=== PATIENT | female | born 2000 | race Caucasian/White ===

== ENCOUNTER 2024-03-18 16:23 | Outpatient (OUT) | payer OTHER, SELFPAY ==
[2024-03-18 17:38] LABS: BOX Test Reference Lab UNITY; BOX Test Sent Out UNITY
[2024-03-18 17:44] LABS: Basophils Percent Auto 0.6 % (0.2-2.0); Eosinophils Absolute Auto 0.1 10^3/uL (0.0-0.7); Eosinophils Percent Auto 1.3 % (0.9-7.0); Hematocrit 36.7 % (36.0-48.0); Hemoglobin 12.6 g/dL (12.0-16.0); Immature Granulocytes Abs Auto 0.01 10^3/uL (0.00-0.03); Immature Granulocytes Pct Auto 0.1 % (0.0-0.5); Lymphocytes Percent Auto 30.4 % (20.5-60.0); Mean Corpuscular HGB Conc 34.3 g/dL (29.9-35.2); Mean Corpuscular Hemoglobin 29.4 pg (26.7-34.0); Mean Corpuscular Volume 85.5 fL (81.0-99.0); Mean Platelet Volume 10.5 fL (9.5-13.5); Monocytes Absolute Auto 0.5 10^3/uL (0.3-0.8); Monocytes Percent Auto 7.6 % (1.7-12.0); Platelet Count 280 10^3/uL (150-450); Red Blood Count 4.29 10^6/uL (4.20-5.40); Red Cell Distribution Width 12.5 % (11.0-15.0); White Blood Count 6.7 10^3/uL (4.0-11.0)
[2024-03-18 17:58] LABS: Estimated Average Glucose 97 mg/dL
[2024-03-18 18:08] LABS: Amphetamine Screen Urine NEGATIVE (NEGATIVE); Barbiturates Screen Urine NEGATIVE (NEGATIVE); Benzodiazepines Screen Urine NEGATIVE (NEGATIVE); Buprenorphine Screen Urine NEGATIVE (NEGATIVE); Cannabinoid Screen Urine NEGATIVE (NEGATIVE); Cocaine Screen Urine NEGATIVE (NEGATIVE); Methadone Screen Urine NEGATIVE (NEGATIVE); Methamphetamines Screen Urine NEGATIVE (NEGATIVE); Opiate Screen Urine NEGATIVE (NEGATIVE); Oxycodone Screen Urine NEGATIVE (NEGATIVE); Phencyclidine Screen Urine NEGATIVE (NEGATIVE); Tricyclic Antidepressant Urine NEGATIVE (NEGATIVE)
[2024-03-20 06:12] LABS: HBsAg Screen Negative (Negative); HCV Ab Non Reactive (Non Reactive); HIV Ab/p24 Ag Screen Non Reactive (Non Reactive); Rubella Antibodies, IgG 2.36 index (Immune >0.99)
[2024-03-20 08:10] LABS: Progesterone 18.7 ng/mL (.)
[2024-03-20 13:07] LABS: Rapid Plasma Reagin, Quant Non Reactive titer (NonRea<1:1)
== END 2024-03-18 16:24 | disposition home or self-care (01) ==
LOC: LAB 16:30
PROVIDERS: PCP Obstetrics & Gynecology; Visit Provider Obstetrics & Gynecology
DX: Z34.01 Encounter for supervision of normal first pregnancy, first trimester (principal); Z36.0 Encounter for antenatal screening for chromosomal anomalies; N92.6 Irregular menstruation, unspecified; R11.2 Nausea with vomiting, unspecified; Z3A.08 8 weeks gestation of pregnancy
CPT/HCPCS: 36415; 80307; 83036; 84144; 85025; 86592; 86762; 86803; 86850; 86900; 86901; 87086; 87340; 87389

== ENCOUNTER 2024-05-06 20:35 | Outpatient (REF) | payer OTHER, SELFPAY ==
--- OUTSIDE RECORDS SUMMARY | 2024-05-06 20:39 | XMS_ITS | CCD ---
Author Organization [facility] Inform ion Partnership MEDICATION AID [facility] Care Team Providers Care Art Editor Name Role Phone Unavailable Primary Care Provider Unavailabl e Medications Current Medications Medication Drug Class(es) Dates Sig (Normalized) Sig (Original) ferrous gluconate (5 sources) Ferrous Gluconat e (IRON 27 PO) Take by mouth Active magnesium oxide 400 mg oral tablet (2 sources) Start: 03-07-2024 End: 04-06-2024 take 1 tablet by mouth once daily magnesium oxide (Mag-Ox) 400 MG tablet Indications: headache in first trimester Take 1 tablet (400 mg) by mouth Daily 30 tablet 6 03/07/2024 04/06/2024 Active ondansetron 4 mg disintegrating oral tablet (2 sources) Serotonin-3 Receptor Antagonist Start: 03-07-2024 End: 04-06-2024 take 1 tablet by mouth every six hours for nausea ondansetron ODT (Zofran-ODT) 4 MG disintegrating tablet Indications: Nausea and vomiting in Take 1 tablet (4 mg) by mouth every 6 (six) hours if needed for nausea or vomiting 30 tablet 2 03/07/2024 04/06/2024 Active MV-Min-Fe Fum-FA-DHA ( 1 PO) (5 sources) MV-Min- Fe Fum-FA-DHA ( 1 PO) Take by mouth Active promethazine hydrochloride 25 mg oral tablet (2 sources) Phenothiazine Start: 04-08-2024 End: 07-07-2024 take 1 tablet by mouth every six hours for nausea promethazine (Phenergan) 25 MG tablet Indications: Nausea and vomiting, unspecified vomiting type Take 1 tablet (25 mg) by mouth every 6 (six) hours if needed for nausea or vomiting 180 tablet 1 04/08/2024 07/07/2024 Active Problems Problem Classification Problem Date Documented Da te Episodic/Chronic Menstrual disorders (1 source) Missed period; Translations: [Irregular menstruation, unspecified] 03-07-2024 Chronic Nausea and vomiting (2 sources) Nausea and vomiting; Translations: [Nausea with vomiting, unspecified] 04-08-2024 Episodic Other complications of (1 source) Vomiting of , unspecified; Translations: [Unspecified vomiting of , unspecified as to episode of care or not applicable] 03-07-2024 Episodic Other complications of (1 source) Headache; Translations: [Other specified related conditions, first trimester] 03-07-2024 Episodic Other and delivery including normal (2 sources) ; Translations: [Encounter for supervision of normal , unspecified, unspecified trimester] 03-07-2024 Episodic Residual codes; unclassified (2 sources) Gestation period, 13 weeks; Translations: [13 weeks gestation of ] 04-08-2024 Episodic Results Test Name Value Interpretation Reference Range Facil ity ALL CBC WITH AUTO DIFFon BASOPHILS ABSOLUTE AUTO 0 N [facility] Basophils/100 WBC (Bld) 0.6 % 0.2 - 2.0 % [facility] Eosinophils/100 WBC (Bld) 1.3 % 0.9 - 7.0 % [facility] Erythrocyte distribution width (RBC) [Ratio] 12.5 % 11.0 - 15.0 % [facility] Hematocrit (Bld) [Volume fraction] 36.7 % 36.0 - 48.0 % [facility] Hemoglobin (Bld) [Mass/Vol] 12.6 g/dL 12.0 - 16.0 g/dL [facility] IMMATURE GRANULOCYTES ABS AUTO 0.01 [facility] Immature granulocytes/100 WBC (Bld) 0.1 % 0.0 - 0.5 % [facility] LYMPHOCYTES ABSOLUTE AUTO 2 [facility] Lymphocytes/100 WBC (Bld) 30.4 % 20.5 - 60.0 % [facility] MCH (RBC) [Entitic mass] 29.4 pg 26.7 - 34.0 pg [facility] MCHC (RBC) [Mass/Vol] 34.3 g/dL 29.9 - 35.2 g/ dL [facility] MCV (RBC) [Entitic vol] 85.5 fL 81.0 - 99.0 fL [facility]OCYTES [facility]OL[facility] Monocytes/100 WBC (Bld) 7.6 % 1.7 - 12.0 % [facility] NEUTROPHILS ABSOLUTE AUTO 4 [facility] Neutrophils/100 WBC (Bld) 60 % 43.0 - 75.0 % [facility] Platelet mean volume (Bld) [Entitic vol] 10.5 fL 9.5 - 13.5 fL [facility] EO # 0.1 [facility] PLT 280 [facility] TB RBC 4.29 [facility] WBC 6.7 [facility] BOX TESTon 03-18-2024 BOX TEST SENT OUT [facility] BOX1 [facility] BOX2 03/18/2023 [facility] B[facility] HCG ( test) Ql (U)o n 03-07-2024 Interpretation and review of laboratory results Abnormal [facility] Preg Test, Ur Positive Negative [facility] Urinalysis macro (dipstick) panel (U)on 03-07-2024 Bilirubin, UA Negative Negative - 4(7 0) +++ mg/dL [facility] Blood, UA Negative Negative - 50 Adams/mcL [facility] Clarity, UA Clear [facility] re Color, UA Yellow [facility] Glucose, UA Negative Negative - 1999(110) ++++ mg/dL [facility] Interpretation and review of laboratory results Normal [facility] Ketones, UA Negative Negative - 160( 16) ++++ mg/dL [facility] Leukocytes, UA Negative Negative - 50 0+++ Pranav/mcL [facility] Nitrite, UA Negative Negative - Positive [facility] pH, UA 5.5 5 - 9 [facility] Protein, UA Negative Negative - 1999 (20) ++++ mg/dL [facility] Spec Grav, UA 1.025 1 - 1.03 [facility] Urobilinogen, UA 1.0 0.2 - 12 mg/dL [facility] Vital Signs Date Time Vital Sign Value Performing Clinician Maria De Jesus elizabeth 04-08-2024 16:04-0500 Body weight 82.92 kg Curt Fede DO Work Phone: [facility] 04-08-2024 16:04-0500 Diastolic blood pressure 74 mm[Hg] Curt Fede DO Work Phone: [facility] 04-08-2024 16:04-0500 Systolic blood pressure 116 mm[Hg] Curt Fede DO Work Phone: [facility] 03-07-2024 15:24-0500 Body weight 85.64 kg Noms Nurse [facility] Encounters Encounter Date Encounter Type Care Provider Facility Start: 04-08-2024 End: 04-08-2024 flow sheet Curt Fede DO Work Phone: [facility] Comment on above: 13 weeks gestation o f ; Nausea and vomiting, unspecified vomiting type Start: 04-08-2024 End: 04-08-2024 Bamboo flowsheet Curt Fede DO Work Phone: [facility] Start: 04-08-2024 End: 04-08-2024 Bamboo flowsheet Curt Fede DO Work Phone: [facility] Start: 03-18-2024 End: 03-19-2024 [facility] Result Encounter Curt Fede DO Work Phone: [facility] Unsolicited Start: 03-18-2024 End: 03-19-2024 [facility] Result Encounter Curt Fede DO Work Phone: [facility] Unsolicited Start: 03-07-2024 End: 03-07-2024 Office outpatient visit 5 minutes [facility] Fede Nurse [facility] Comment on above: GA: 8w3d Procedures Date Procedure Procedure Detail Performing Clinician Start: 03-18-2024 ALL CBC WITH AUTO DIFF Curt Fede DO Work Phone: Start: 03-18-2024 BOX TEST Curt Fazi o DO Work Phone: Start: 03-07-2024 End: 03-07-2024 Urnls dip stick/tablet rgnt non-auto w/o micrscp Curt Fede DO Work Phone: Plan of Treatment Date Care Activity Detail Author Start: 05-06-2024 End: 05-06-2024 Patient encounter procedure 05/06/2024 3:30 PM EST Routine [facility] [address] [place] [id number] Hedy Ortega PA [address] [place] [address] [facility] Start: 04-08-2024 End: 04-08-2024 Patient encounter procedure [facility] Comment on above: Arrived Start: 03-07-2024 End: 03-07-2025 ABO/Rh ABO/Rh Lab Routine Missed menses , unspecified gestational age Expected: 03/07/2024 (Approximate), Expires: 03/07/2025 [facility] Comment on above: Expected: 03/07/2024 (Approximate), Expires: 03/07/2025 Start: 03-07-2024 End: 03-07-2025 Blood type and Indirect antibody screen panel - Blood Type and screen Lab Routine Missed menses , unspecified gestational age Expected: 03/07/2024 (Approximate), Expires: 03/07/2025 [facility] Comment on above: Expected: 03/07/2024 (Approximate), Expires: 03/07/2025 Start: 03-07-2024 End: 03-07-2025 Drugs of abuse panel - Urine by Screen method Rapid drug screen, urine Lab Routine , unspecified gestational age Encounter for supervision of normal first in first trimester Expected: 03/07/2024 (Approximate), Expires: 03/07/2025 [facility] Comment on above: Expected: 03/07/2024 (Approximate), Expires: 03/07/2025 Start: 03-07-2024 End: 03-07-2025 US Pelvis transvaginal [facility] Work Phone: Comment on above: Expected: 03/07/2024 , Expires: 03/07/2025 Bacteria identified in Urine by Culture Urine culture Microbiology Routine Missed menses Ordered: 03/07/2024 [facility] Comment on above: Ordered: 03/07/2024 CBC W Auto Different ial panel - Blood CBC and differential Lab Routine Missed menses , unspecified gestational age Ordered: 03/07/2024 [facility] Comment on above: Ordered: 03/07/2024 Hemoglobin A1c/Hemoglobin.total in Blood Hemoglobin A1c Lab Routine Missed menses , unspecified gestational age Ordered: 03/07/2024 [facility] Comment on above: Ordered: 03/07/2024 Hepatitis B virus surface Ag [Presence] in Serum or Plasma by Immunoassay Hepatitis B surface antigen Lab Routine Missed menses , unspecified gestational age Ordered: 03/07/2024 [facility] Comment on above: Ordered: 03/07/2024 Hepatitis C virus Ab [Presence] in Serum or Plasma by Immunoassay Hepatitis C antibody Lab Routine Missed menses , unspecified gestational age Ordered: 03/07/2024 [facility] Comment on above: Ordered: 03/07/2024 HIV-1/HIV-2 antigen/antibody combination immunoassay HIV-1 and HIV-2 antibodies Lab Routine Missed menses , unspecified gestational age Ordered: 03/07/2024 [facility] Comment on above: Ordered: 03/07/2024 Progesterone Progesterone Lab Routine Missed menses , unspecified gestational age Ordered: 03/07/2024 [facility] Comment on above: Ordered: 03/07/2024 Reagin Ab [Presence] in Serum by RPR RPR Lab Routine Missed menses , unspecified gestational age Ordered: 03/07/2024 [facility] Comment on above: Ordered: 03/07/2024 Rubella antibody, IgG Rubella an tibody, IgG Lab Routine Missed menses , unspecified gestational age Ordered: 03/07/2024 [facility] Comment on above: Ordered: 03/07/2024 Payers Date Payer Category Payer Private Health Insurance [facility] [employer] [id number] Social History Date Type Detail Facility Tobacco smoking stat [facility] Tobacco smoking consumption unknown [facility] Start: 01-22-2024 [facility] Start: 2000 Sex assigned at Female [facility] Start: 02-13-2024 Gender identity Identifies as female gender (finding) [facility] Start: 02-13-2024 Sexual orientation Heterosexual (fin ding) [facility] History of Present illness Narrative 04-08-2024 Curt Mistry DO - 04/08/2024 3:50 PM EST Note Date & Type Note Facility 04-08-2024 History of Presen t illness Narrative Reason for Appointment: Patient ID: Surendra Quigley is a 23 y.o. female who presents for Routine Visit Patient presents today for Return OB appointment. Current Medications: has a current medication list which includes the following prescription(s): ferrous gluconate, mv-min-fe fum-fa-dha, and promethazine. Medical History: Active Ambulatory Problems Diagnosis Date Noted No Active Ambulatory Problems Resolved Ambulatory Problems Diagnosis Date Noted No Resolved Ambulatory Problems No Additional Past Medical History No family history on file. Social History Tobacco Use Smoking status: Not on file Smokeless tobacco: Not on file Substance Use Topics Alcohol use: Not on file Drug use: Not on file History reviewed. No pertinent surgical history. No Known Allergies Review of Systems: Review of Systems All other systems reviewed and are negative. Objective Physical Exam Constitutional: Appearance: Normal appearance. She is well-developed. Cardiovascular: Rate and Rhythm: Normal rate and regular rhythm. Pulmonary: Effort: Pulmonary effort is normal. Breath sounds: Normal breath sounds. Abdominal: General: Bowel sounds are normal. There is no distension. Palpations: Abdomen is soft. Tenderness: There is no abdominal tenderness. There is no guarding or rebound. Musculoskeletal: General: No swelling. Normal range of motion. Right lower leg: No edema. Left lower leg: No edema. Neurological: Mental Status: She is alert and oriented to person, place, and time. Skin: General: Skin is warm and dry. Psychiatric: Mood and Affect: Mood normal. Behavior: Behavior normal. Vitals and nursing note reviewed. Exam conducted with a dope house operator helper present. Vitals: There is no height or weight on file to calculate BMI. BP: 116/74 Patient's last menstrual period was 01/08/2024. Assessment/Plan Encounter Diagnosis: ICD-10-CM 1. 13 weeks gestation of Z3A.13 2. Nausea and vomiting, unspecified vomiting type R11.2 promethazine (Phenergan) 25 MG tablet Return OB: Patient presents today for a routine obstetrics appointment. Patient is currently 14w1d . Patient states she is doing well but has complaints of being tired due to current . Patient has verbalizes frequent movement. labor precautions was discussed/given and patient was instructed to perform kick counts three times a day. No orders of the defined types were placed in this encounter. Follow Up: Patient is to return to office in4 week for routine OB appointment. Documented by Curt Mistry DO on behalf of: Curt Mistry DO documented in this encounter [facility] History of Present illness Narrative 03-07-2024 Fina Sarmiento LPN - 03/07/2024 2:30 PM EST Note Date & Type Note Facility 03-07-2024 History of Presen t illness Narrative Reason for Appointment: Patient ID: Surendra Quilgey is a 23 y.o. female who presents for Amenorrhea Patient presents today for a Nurse OB Intake appointment. Patient is 8w3d with a Estimated Date of Delivery: 10/14/24 OB History Para Term AB Living 1 SAB IAB Ectopic Multiple Live Births # Outcome Date GA Lbr Sourav/2nd Weight Sex Type Anes PTL Lv 1 Current Current Medications: has a current medication list which includes the following prescription(s): ferrous gluconate, magnesium oxide, ondansetron odt, and mv-min-fe fum-fa-dha. Medical History: Active Ambulatory Problems Diagnosis Date Noted No Active Ambulatory Problems Resolved Ambulatory Problems Diagnosis Date Noted No Resolved Ambulatory Problems No Additional Past Medical History No family history on file. Social History Tobacco Use Smoking status: Not on file Smokeless tobacco: Not on file Substance Use Topics Alcohol use: Not on file Drug use: Not on file No past surgical history on file. No Known Allergies Vitals: There is no height or weight on file to calculate BMI. BP: Patient's last menstrual period was 01/08/2024. Assessment/Plan Diagnoses and all orders for this visit: Missed menses - US OB transvaginal; Future - Type and screen; Future - ABO/Rh; Future - CBC and differential - Hemoglobin A1c - RPR - Rubella antibody, IgG - Hepatitis B surface antigen - Hepatitis C antibody - HIV-1 and HIV-2 antibodies - Urine culture - POCT , urine manually resulted - POCT urinalysis dipstick manually resulted - Progesterone , unspecified gestational age - Type and screen; Future - ABO/Rh; Future - CBC and differential - Hemoglobin A1c - RPR - Rubella antibody, IgG - Hepatitis B surface antigen - Hepatitis C antibody - HIV-1 and HIV-2 antibodies - Rapid drug screen, urine; Future - Progesterone Encounter for supervision of normal first in first trimester - Rapid drug screen, urine; Future Nausea and vomiting in - ondansetron ODT (Zofran-ODT) 4 MG disintegrating tablet; Take 1 tablet (4 mg) by mouth every 6 (six) hours if needed for nausea or vomiting headache in first trimester - magnesium oxide (Mag-Ox) 400 MG tablet; Take 1 tablet (400 mg) by mouth Daily Nurse Note: OB Intake: Patient presents today for first OB visit. Patients history has been reviewed in great detail including any potential risks. Patient signed consent forms and patient desires testing in both trimesters. Patient currently has no complaints and has been advised to drink 6-8 glasses of water a day, eat no raw or undercooked meat, and stay away from [facility]. Patient has also been advised to not change litter boxes and eat 6 small meals a day. Patient has been consulted regarding the do's and don'ts of . Patient was given labs and all questions and concerns were answered. Follow Up: Patient is to return in 4 weeks for routine OB appointment. Follow Up: Patient is to have labs drawn at directed and return to office for initial OB appointment with provider. Patient may call office as needed with any concerns or questions. Nurse Visit Completed by: iFna Sarmiento LPN documented in this encounter [facility] Evaluation note Note Date & Type Note Facility Evaluation note Diagnosis Missed menses , unspecified gestational age Encounter for supervision of normal first in first trimester Nausea and vomiting in Unspecified vomiting of , unspecified as to episode of care headache in first trimester documented in this encounter [facility] Evaluation note Note Date & Type Note Facility Evaluation note Diagnosis 13 weeks gestation of Nausea and vomiting, unspecified vomiting type documented in this encounter [facility] Additional Source Comments Reason for Visit (unrecogniz ed section and content) Reason Comments Amenorrhea Reason Comments Routine Visit FOR RECORDS PERTAINING TO PATIENTS WHO ARE OR HAVE BEEN ENROLLED IN A CHEMICAL DEPENDENCY/SUBSTANCEABUSE PROGRAM, SOME INFORMATION MAY BE OMITTED. This clinical summary was aggregated from multiple sources. Caution should be exercised in using it in the provision of clinical care. This summary normalizes information from multiple sources, and as a consequence, information in this document may materially change the coding, format and clinical context of patient data. In addition, data may be omitted in some cases. CLINICAL DECISIONS SHOULD BE BASED ON THE PRIMARY CLINICAL RECORDS. [facility]. provides no warranty or guarantee of the accuracy or completeness of information in this document.
[2024-05-10 06:11] LABS: Age Gdln ACOG Testing Note (.); IGP, rfx Aptima HPV ASCU Note (.)
== END 2024-05-06 20:36 | disposition home or self-care (01) ==
LOC: LAB 20:35
PROVIDERS: PCP Obstetrics & Gynecology; Visit Provider Physician Assistant
DX: Z01.419 Encounter for gynecological examination (general) (routine) without abnormal findings (principal)
CPT/HCPCS: 88175

== ENCOUNTER 2024-06-05 14:55 | Outpatient (OUT) | payer OTHER, SELFPAY ==
--- NOTE | 2024-06-05 14:57 | US_ITS ---
The [address] [address] Patient Name: FRANCISCA CÁRDENAS MRN: [id number] date: 2000 Sex: F Assigned Patient Location: US Current Patient Location: US Accession/Order Number: [id number] Exam Date: 06/05/2024 19:29 Report Date: 06/05/2024 19:36 At the request of: TONY PINTO Procedure: US OB anatomy Ultrasound assessment of cervical length The cervical length 4.5 cm. US/US OB anatomy IMPRESSION: Cervical length 4.5 cm. Obstetrical ultrasound for anatomy assessment HISTORY: anatomy assessment Fetus in cephalic presentation. Longitudinal lie. Amniotic fluid subjectively normal. Anterior position of the placenta. The distance from the placental edge 7.6 cm. The length of the cervix 4.5 cm. The cervical os is closed. The heart rate is 163 bpm. Following anatomy visualized: Lateral ventricles, cerebellum, posterior fossa, nose and lips, orbits, 4 chambered heart, left ventricular outflow tract and right ventricular outflow tracts, diaphragm, stomach, kidneys, cord insertion, urinary bladder, umbilical arteries, three-vessel cord, spine and extremities. The biparietal diameter of 5.4 cm consistent with 22 weeks 3 days. History conference and 19.8 cm consistent with 22 weeks 0 days. Abdominal circumference 15.6 cm consistent with 20 weeks 6 days. Femur length 3.7 cm consistent with 21 weeks 6 days. Lateral ventricle measures 5.3 mm. Cisterna magna measures 4.4 mm. Estimated weight 422 g. Estimated weight percentile 51.4%. Estimated gestational age by ultrasound is 21 weeks 6 days. IMPRESSION: Single live intrauterine gestation 21 weeks 6 days. Visualized anatomy as above. Impression dictated by: Willam Fernández M.D.06/05/2024 7:36 PM Dictation Location: [employer] Electronically authenticated by: [id number] Y Date: 06/05/2024 19:36
--- NOTE | 2024-06-05 14:57 | US_ITS ---
The [address] [address] Patient Name: FRANCISCA CÁRDENAS MRN: [id number] date: 2000 Sex: F Assigned Patient Location: Current Patient Location: US Accession/Order Number: [id number] Exam Date: 06/05/2024 19:29 Report Date: 06/05/2024 19:36 At the request of: TONY PINTO Procedure: US OB anatomy Ultrasound assessment of cervical length The cervical length 4.5 cm. US/US OB cervical length IMPRESSION: Cervical length 4.5 cm. Obstetrical ultrasound for anatomy assessment HISTORY: anatomy assessment Fetus in cephalic presentation. Longitudinal lie. Amniotic fluid subjectively normal. Anterior position of the placenta. The distance from the placental edge 7.6 cm. The length of the cervix 4.5 cm. The cervical os is closed. The heart rate is 163 bpm. Following anatomy visualized: Lateral ventricles, cerebellum, posterior fossa, nose and lips, orbits, 4 chambered heart, left ventricular outflow tract and right ventricular outflow tracts, diaphragm, stomach, kidneys, cord insertion, urinary bladder, umbilical arteries, three-vessel cord, spine and extremities. The biparietal diameter of 5.4 cm consistent with 22 weeks 3 days. History conference and 19.8 cm consistent with 22 weeks 0 days. Abdominal circumference 15.6 cm consistent with 20 weeks 6 days. Femur length 3.7 cm consistent with 21 weeks 6 days. Lateral ventricle measures 5.3 mm. Cisterna magna measures 4.4 mm. Estimated weight 422 g. Estimated weight percentile 51.4%. Estimated gestational age by ultrasound is 21 weeks 6 days. IMPRESSION: Single live intrauterine gestation 21 weeks 6 days. Visualized anatomy as above. Impression dictated by: Willam Fernández M.D.06/05/2024 7:36 PM Dictation Location[facility] Electron[facility] authenticated by: [id number] Y Date: 06/05/2024 19:36
== END 2024-06-05 14:56 | disposition home or self-care (01) ==
LOC: US 14:55
PROVIDERS: PCP Obstetrics & Gynecology; Visit Provider Physician Assistant
DX: Z36.89 Encounter for other specified antenatal screening (principal); Z3A.21 21 weeks gestation of pregnancy
CPT/HCPCS: 76805; 76817

== ENCOUNTER 2024-07-04 10:19 | Outpatient (OUT) | payer OTHER, SELFPAY ==
[2024-07-04 12:12] LABS: Basophils Percent Auto 0.3 % (0.2-2.0); Eosinophils Absolute Auto 0.1 10^3/uL (0.0-0.7); Eosinophils Percent Auto 0.5 % (0.9-7.0); Hematocrit 32.9 % (36.0-48.0); Immature Granulocytes Abs Auto 0.17 10^3/uL (0.00-0.03); Immature Granulocytes Pct Auto 1.6 % (0.0-0.5); Lymphocytes Percent Auto 18.7 % (20.5-60.0); Mean Corpuscular HGB Conc 33.4 g/dL (29.9-35.2); Mean Corpuscular Hemoglobin 29.9 pg (26.7-34.0); Mean Corpuscular Volume 89.4 fL (81.0-99.0); Mean Platelet Volume 10.7 fL (9.5-13.5); Monocytes Absolute Auto 0.6 10^3/uL (0.3-0.8); Monocytes Percent Auto 5.7 % (1.7-12.0); Neutrophils Absolute Auto 7.7 10^3/uL (1.4-6.5); Neutrophils Percent Auto 73.2 % (43.0-75.0); Platelet Count 237 10^3/uL (150-450); Red Blood Count 3.68 10^6/uL (4.20-5.40); Red Cell Distribution Width 13.2 % (11.0-15.0); White Blood Count 10.5 10^3/uL (4.0-11.0)
[2024-07-04 12:14] LABS: Partial Thromboplastin Time 26.8 sec (22.3-36.2); Prothrombin Time 10.6 sec (9.0-11.6)
[2024-07-04 12:21] LABS: Aspartate Amino Transferase 8 U/L (15-37); Estimated GFR (African America >60 (>=60 mL/min/1.73m^2); Estimated GFR (Non-African Ame >60 (>=60 mL/min/1.73m^2); Glucose 1 Hour 110 mg/dL (<130); Lactate Dehydrogenase 97 U/L (81-234); Uric Acid 3.4 mg/dL (2.6-6.0)
== END 2024-07-04 10:20 | disposition home or self-care (01) ==
LOC: LAB 10:29
PROVIDERS: Visit Provider Nurse Practitioner Family
DX: O13.3 Gestational [pregnancy-induced] hypertension without significant proteinuria, third trimester (principal); Z3A.25 25 weeks gestation of pregnancy
CPT/HCPCS: 36415; 82565; 82950; 83615; 84450; 84520; 84550; 85025; 85610; 85730

== ENCOUNTER 2024-07-06 11:22 | Outpatient (REF) | payer OTHER, SELFPAY ==
[2024-07-06 11:42] LABS: Total Protein Urine Random 14.2 mg/dL (<=11.9)
[2024-07-06 11:59] LABS: Total Protein 24 Hour Urine 184.6 mg/24hr (<=149.1); Total Volume 24 Hour Urine 1300 mL/24hr
== END 2024-07-06 11:23 | disposition home or self-care (01) ==
LOC: LAB 11:22
PROVIDERS: Visit Provider Nurse Practitioner Family
DX: O13.9 Gestational [pregnancy-induced] hypertension without significant proteinuria, unspecified trimester (principal)
CPT/HCPCS: 84156

== ENCOUNTER 2024-07-18 18:27 | Observation (INO) | payer OTHER, SELFPAY ==
[2024-07-18 18:41] VITALS: BP 136/85; PULSE 93
[2024-07-18 22:53] VITALS: BP 132/79; PULSE 75
== END 2024-07-18 22:59 | disposition home or self-care (01) ==
PROVIDERS: Admitting Provider Family Medicine Addiction Medicine; Visit Provider Family Medicine Addiction Medicine
DX: O99.891 Other specified diseases and conditions complicating pregnancy (principal); Z3A.21 21 weeks gestation of pregnancy
CPT/HCPCS: 59025; 76815; G0378; G0379

== ENCOUNTER 2024-07-23 18:49 | Outpatient (OUT) | payer OTHER, SELFPAY ==
--- NOTE | 2024-07-23 18:52 | US_ITS ---
[place] [id number] Patient Name: FRANCISCA MÉNDEZ MRN: [id number] date: 2000 Sex: F Assigned Patient Location: [facility] Current Patient Location: Accession/Order Number: [id number] Exam Date: 07/23/2024 21:57 Report Date: 07/23/2024 21:58 At the request of: KEON FONSECA Procedure: US OB BPP w non-stress Ultrasound biophysical profile HISTORY: -induced hypertension There is adequate breathing movement, gross body movement, tone and amniotic fluid volume for total score of 8 out of 8. Amniotic fluid index is 16.5 cm within normal limits. The heart rate is 150 bpm. Concern for nuchal cord. US/US OB BPP w non-stress Impression: Adequate biophysical profile. Concern for possible nuchal cord. Impression dictated by: Willam Fernández M.D. 07/23/2024 9:58 PM Dictation Location[facility] Electronically authenticated by: [id number] Y Date: 07/23/2024 21:58
--- OUTSIDE RECORDS SUMMARY | 2024-07-23 18:54 | XMS_ITS | CCD ---
Author Organization [facility] Care Team Providers Care Airplane Flight Attendant Name Role Phone Unavailable Primary Care Provider ALFREDA Mak Attending Unavailable HEDY PINTO Attending Unavailable ALFREDA MISTRY Attending Unavailable FINA WILSON Attending Unavailable Medications Current Medications Medication Drug Class(es) Dates Sig (Normalized) Sig (Original) ferrous gluconate (19 sources) Ferrous Gluconat e (IRON 27 PO) Take by mouth Active labetalol hydrochloride 100 mg oral tablet (4 sources) beta-Adrenergic Cayla Start: 07-03-2024 End: 08-02-2024 take 1 tablet by mouth in the morning labetalol (Normodyne) 100 MG tablet Indications: induced hypertension, antepartum Take 1 tablet (100 mg) by mouth in the morning and 1 tablet (100 mg) before bedtime. 60 tablet 2 07/03/2024 08/02/2024 Active magnesium oxide 400 mg oral tablet [...] 04/06/2024 Active MV-Min-Fe Fum-FA-DHA ( 1 PO) (19 sources) MV-Min- Fe Fum-FA-DHA ( 1 PO) Take by mouth Active Completed/Discontinued Medications Medication Drug Class(es) Dates Sig (Normalized) Sig (Original) promethazine hydrochloride 25 mg oral tablet (16 sources) Phenothiazine Start: 04-08-2024 End: 07-07-2024 take 1 tablet by mouth every six hours for nausea promethazine (Phenergan) 25 MG tablet Indications: Nausea and vomiting, unspecified vomiting type Take 1 tablet (25 mg) by mouth every 6 (six) hours if needed for nausea or vomiting 180 tablet 1 04/08/2024 07/07/2024 Problems Problem Classification Problem Date Documented Da te Episodic/Chronic Hypertension complicating ; childbirth and the puerperium (2 sources) -induced hypertension; Translations: [Gestational [-induced] hypertension without significant proteinuria, unspecified trimester] 07-03-2024 Episodic Immunizations and screening for infectious disease (2 sources) Exposure to sexually transmissible disorder; Translations: [Contact with and (suspected) exposure to infections with a predominantly sexual mode of transmission] 05-06-2024 Episodic Menstrual disorders (1 source) Missed period; Translations: [...] 03-07-2024 Episodic Other and delivery including normal (8 sources) ; Translations: [Encounter for supervision of normal , unspecified, unspecified trimester] 03-07-2024 Episodic Other screening for suspected conditions (not mental disorders or infectious disease) (6 sources) Alpha-fetoprotein blood test status; Translations: [Encounter for screening for raised alphafetoprotein level] 05-06-2024 Episodic Residual codes; unclassified (2 sources) Gestation period, 13 weeks; Translations: [13 weeks gestation of ] 04-08-2024 Episodic Residual codes; unclassified (2 sources) Gestation period, 17 weeks; Translations: [17 weeks gestation of ] 05-06-2024 Episodic Residual codes; unclassified (2 sources) Gestation period, 21 weeks; Translations: [21 weeks gestation of ] 06-05-2024 Episodic Residual codes; unclassified (2 sources) Gestation period, 25 weeks; Translations: [25 weeks gestation of ] 07-03-2024 Episodic Results Test Name Value Interpretation Reference Range Facility [facility] TOTAL PROTEIN 24 HOUR UR INEon 07-06-2024 Interpretation and review of laboratory results Abnormal [facility] Protein (U) [Mass/Vol] 14.2 mg/dL High NINF - 11.9 mg/dL [facility] TOTAL PROTEIN 24 HOUR URINE 184.6 High [facility] TOTAL VOLUME 24 HOUR URINE 1300 mL/24hr [facility] ALL CBC WITH AUTO DIFFon BASOPHILS ABSOLUTE AUTO 0 N [facility] Basophils/100 WBC (Bld) 0.3 % 0.2 - 2.0 % [facility] Eosinophils/100 WBC (Bld) 0.5 % Low 0.9 - 7.0 % [facility] Erythrocyte distribution width (RBC) [Ratio] 13.2 % 11.0 - 15.0 % [facility] Hematocrit (Bld) [Volume fraction] 32.9 % Low 36.0 - 48.0 % [facility] Hemoglobin (Bld) [Mass/Vol] 11 g/dL Low 12.0 - 16.0 g/dL [facility] IMMATURE GRANULOCYTES ABS AUTO 0.17 High [facility] Immature granulocytes/100 WBC (Bld) 1.6 % High 0.0 - 0.5 % [facility] Interpretation and review of laboratory results Abnormal [facility] LYMPHOCYTES ABSOLUTE AUTO 2 [facility] Lymphocytes/100 WBC (Bld) 18.7 % Low 20.5 - 60.0 % [facility] MCH (RBC) [Entitic mass] 29.9 pg 26.7 - 34.0 pg [facility] MCHC (RBC) [Mass/Vol] 33.4 g/dL 29.9 - 35.2 g/dL [facility] MCV (RBC) [Entitic vol] 89.4 fL 81.0 - 99.0 fL [facility] MONOCYTES ABSOLUTE AUTO 0.6 N [facility] Monocytes/100 WBC (Bld) 5.7 % 1.7 - 12.0 % [facility] NEUTROPHILS ABSOLUTE AUTO 7.7 High [facility] Neutrophils/100 WBC (Bld) 73.2 % 43.0 - 75.0 % [facility] Platelet mean volume (Bld) [Entitic vol] 10.7 fL 9.5 - 13.5 fL [facility] EO # 0.1 [facility] 3[facility]68 [facility] WBC 10.5 [facility] Urinalysis macro (dipstick) panel (U)on 07-03-2024 Bilirubin, UA Negative Negative - 4(70) +++ mg/dL [facility] Blood, UA Positive Negative - 50 Adams/mcL [facility] Clarity, UA Clear [facility] Color, UA Yellow [facility] Glucose, UA Negative Negative - 2000(110) ++++ mg/dL [facility] Interpretation and review of laboratory results Abnormal [facility] Ketones, UA Negative Negative - 160(16) ++++ mg/dL [facility] Leukocytes, UA Trace Negative - 500+++ Pranav/mcL [facility] Nitrite, UA Negative Negative - Positive [facility] pH, UA 6.5 5 - 9 [facility] Protein, UA Negative Negative - 2000(20) ++++ mg/dL [facility] Spec Grav, UA 1.02 1 - 1.03 [facility] Urobilinogen, UA 1.0 0.2 - 12 mg/dL [facility] No Panel InformationOrdered By: Radiologist Radiology on 06-05-2024 [facility] Work Phone: No Panel Informationon 06-05 Radiology Study observation (narrative) [facility] US OB ANATOMYon 06-05-2024 [place] [address] Ultrasound Report Signed Patient: FRANCISCA QUIGLEY MR#: [id number] : 2000 Acct:[id number] Age/Sex: 23 / F ADM Date: 06/05/24 Loc: US Attending Dr: Hedy Pinto Ordering Physician: Hedy Pinto Date of Service: 06/05/24 Procedure(s): US OB anatomy Accession Number(s): [id number] cc: Hedy Pinto; Alfreda Mistry D.O. [address] [address] Patient Name: FRANCISCA QUIGLEY MRN: [facility]:[id number] date: 2000 Sex: F Assigned Patient Location: US Current Patient Location: US Accession/Order Number: [id number] Exam Date: 06/05/2024 19:29 Report Date: 06/05/2024 19:36 At the request of: HEDY PINTO Procedure: US OB anatomy Ultrasound assessment of cervical length The cervical length 4.5 cm. US/US OB anatomy IMPRESSION: Cervical length 4.5 cm. Obstetrical ultrasound for anatomy assessment HISTORY: anatomy assessment Fetus in cephalic presentation. Longitudinal lie. Amniotic fluid subjectively normal. Anterior position of the placenta. The distance from the placental edge 7.6 cm. The length of the cervix 4.5 cm. The cervical os is closed. The heart rate is 163 bpm. Following anatomy visualized: Lateral ventricles, cerebellum, posterior fossa, nose and lips, orbits, 4 chambered heart, left ventricular outflow tract and right ventricular outflow tracts, diaphragm, stomach, kidneys, cord insertion, urinary bladder, umbilical arteries, three-vessel cord, spine and extremities. The biparietal diameter of 5.4 cm consistent with 22 weeks 3 days. History conference and 19.8 cm consistent with 22 weeks 0 days. Abdominal circumference 15.6 cm consistent with 20 weeks 6 days. Femur length 3.7 cm consistent with 21 weeks 6 days. Lateral ventricle measures 5.3 mm. Cisterna magna measures 4.4 mm. Estimated weight 422 g. Estimated weight percentile 51.4%. Estimated gestational age by ultrasound is 21 weeks 6 days. IMPRESSION: Single live intrauterine gestation 21 weeks 6 days. Visualized anatomy as above. Impression dictated by: Willam Fernández M.D.06/05/2024 7:36 PM Dictation Location: [facility] Electronically authenticated by: [id number] Y Date: 06/05/2024 19:36 Dictated By: Willam Fernández D.O. Signed By: 06/05/241938 DD/ 35 TD/TT: Pit Crane Operator: [facility] Radiology, Radiologist, - 06/06/[address] [address] Ultrasound Report Signed Patient: FRANCISCA QUIGLEY MR#: [id number] : 2000 Acct:[id number] Age/Sex: 23 / F ADM Date: 06/05/24 Loc: US Attending Dr: Hedy Pinto Ordering Physician: Hedy Pinto Date of Service: 06/05/24 Procedure(s): US OB anatomy Accession Number(s): [id number] cc: Hedy Pinto; Alfreda Mistry D.O. The [address] [address] Patient Name: FRANCISCA QUIGLEY MRN: [id number] date: 2000 Sex: F Assigned Patient Location: US Current Patient Location: US Accession/Order Number: [id number] Exam Date: 06/05/2024 19:29 Report Date: 06/05/2024 19:36 At the request of: HEDY PINTO Procedure: US OB anatomy Ultrasound assessment of cervical length The cervical length 4.5 cm. US/US OB anatomy IMPRESSION: Cervical length 4.5 cm. Obstetrical ultrasound for anatomy assessment HISTORY: anatomy assessment Fetus in cephalic presentation. Longitudinal lie. Amniotic fluid subjectively normal. Anterior position of the placenta. The distance from the placental edge 7.6 cm. The length of the cervix 4.5 cm. The cervical os is closed. The heart rate is 163 bpm. Following anatomy visualized: Lateral ventricles, cerebellum, posterior fossa, nose and lips, orbits, 4 chambered heart, left ventricular outflow tract and right ventricular outflow tracts, diaphragm, stomach, kidneys, cord insertion, urinary bladder, umbilical arteries, three-vessel cord, spine and extremities. The biparietal diameter of 5.4 cm consistent with 22 weeks 3 days. History conference and 19.8 cm consistent with 22 weeks 0 days. Abdominal circumference 15.6 cm consistent with 20 weeks 6 days. Femur length 3.7 cm consistent with 21 weeks 6 days. Lateral ventricle measures 5.3 mm. Cisterna magna measures 4.4 mm. Estimated weight 422 g. Estimated weight percentile 51.4%. Estimated gestational age by ultrasound is 21 weeks 6 days. IMPRESSION: Single live intrauterine gestation 21 weeks 6 days. Visualized anatomy as above. Impression dictated by: Willam Fernández M.D.06/05/2024 7:36 PM Dictation Location: [facility] [employer] Electronically authenticated by: [id number] Y Date: 06/05/2024 19:36 Dictated By: Willam Fernández D.O. Signed By: 06/05/241938 DD/ 35 TD/TT: Pit Crane Operator: [facility] [place] [address] Ultrasound Report Signed Patient: FRANCISCA QUIGLEY MR#: [id number] : 2000 Acct:[id number] Age/Sex: 23 / F ADM Date: 06/05/24 Loc: US Attending Dr: Hedy Pinto Ordering Physician: Hedy Pinto Date of Service: 06/05/24 Procedure(s): US OB cervical length Accession Number(s): [id number] cc: Hedy Pinto; Alfreda Mistry D.O. [address] [address] Patient Name: FRANCISCA QUIGLEY MRN: [id number] date: 2000 Sex: F Assigned Patient Location: US Current Patient Location: US Accession/Order Number: [id number] Exam Date: 06/05/2024 19:29 Report Date: 06/05/2024 19:36 At the request of: HEDY PINTO Procedure: US OB anatomy Ultrasound assessment of cervical length The cervical length 4.5 cm. US/US OB cervical length IMPRESSION: Cervical length 4.5 cm. Obstetrical ultrasound for anatomy assessment HISTORY: anatomy assessment Fetus in cephalic presentation. Longitudinal lie. Amniotic fluid subjectively normal. Anterior position of the placenta. The distance from the placental edge 7.6 cm. The length of the cervix 4.5 cm. The cervical os is closed. The heart rate is 163 bpm. Following anatomy visualized: Lateral ventricles, cerebellum, posterior fossa, nose and lips, orbits, 4 chambered heart, left ventricular outflow tract and right ventricular outflow tracts, diaphragm, stomach, kidneys, cord insertion, urinary bladder, umbilical arteries, three-vessel cord, spine and extremities. The biparietal diameter of 5.4 cm consistent with 22 weeks 3 days. History conference and 19.8 cm consistent with 22 weeks 0 days. Abdominal circumference 15.6 cm consistent with 20 weeks 6 days. Femur length 3.7 cm consistent with 21 weeks 6 days. Lateral ventricle measures 5.3 mm. Cisterna magna measures 4.4 mm. Estimated weight 422 g. Estimated weight percentile 51.4%. Estimated gestational age by ultrasound is 21 weeks 6 days. IMPRESSION: Single live intrauterine gestation 21 weeks 6 days. Visualized anatomy as above. Impression dictated by: Willam Fernández M.D.06/05/2024 7:36 PM Dictation Location: [facility] Electronically authenticated by: [id number] Y Date: 06/05/2024 19:36 Dictated By: Willam Fernández D.O. Signed By: 06/05/241938 DD/ 35 TD/TT: Pit Crane Operator: [facility] Radiology, Radiologist, - 06/06/[address] [address] Ultrasound Report Signed Patient: FRANCISCA QUIGLEY MR#: [id number] : 2000 Acct:[id number] Age/Sex: 23 / F ADM Date: 06/05/24 Loc: US Attending Dr: Hedy Pinto Ordering Physician: Hedy Pinto Date of Service: 06/05/24 Procedure(s): US OB cervical length Accession Number(s): [id number] cc: Hedy Pinto; Alfreda Mistry D.O. The [address] [address] Patient Name: FRANCISCA QUIGLEY MRN: [facility]:[id number] date: 2000 Sex: F Assigned Patient Location: US Current Patient Location: US Accession/Order Number: [id number] Exam Date: 06/05/2024 19:29 Report Date: 06/05/2024 19:36 At the request of: HEDY PINTO Procedure: US OB anatomy Ultrasound assessment of cervical length The cervical length 4.5 cm. US/US OB cervical length IMPRESSION: Cervical length 4.5 cm. Obstetrical ultrasound for anatomy assessment HISTORY: anatomy assessment Fetus in cephalic presentation. Longitudinal lie. Amniotic fluid subjectively normal. Anterior position of the placenta. The distance from the placental edge 7.6 cm. The length of the cervix 4.5 cm. The cervical os is closed. The heart rate is 163 bpm. Following anatomy visualized: Lateral ventricles, cerebellum, posterior fossa, nose and lips, orbits, 4 chambered heart, left ventricular outflow tract and right ventricular outflow tracts, diaphragm, stomach, kidneys, cord insertion, urinary bladder, umbilical arteries, three-vessel cord, spine and extremities. The biparietal diameter of 5.4 cm consistent with 22 weeks 3 days. History conference and 19.8 cm consistent with 22 weeks 0 days. Abdominal circumference 15.6 cm consistent with 20 weeks 6 days. Femur length 3.7 cm consistent with 21 weeks 6 days. Lateral ventricle measures 5.3 mm. Cisterna magna measures 4.4 mm. Estimated weight 422 g. Estimated weight percentile 51.4%. Estimated gestational age by ultrasound is 21 weeks 6 days. IMPRESSION: Single live intrauterine gestation 21 weeks 6 days. Visualized anatomy as above. Impression dictated by: Willam Fernández M.D.06/05/2024 7:36 PM Dictation Location: [place] [address] Electronically authenticated by: [id number] Y Date: 06/05/2024 19:36 Dictated By: Willam Fernández D.O. Signed By: 06/05/241938 DD/ 35 TD/TT: Pit Crane Operator: [facility] Urinalysis macro (dipstick) panel (U)on 06-05-2024 Bilirubin, UA Negative Negative - 4(70) +++ mg/dL [facility] Blood, UA Negative Negative - 50 Adams/mcL [facility] Clarity, UA Clear [facility] Color, UA Yellow [facility] Glucose, UA Negative Negative - 2000(110) ++++ mg/dL [facility] Interpretation and review of laboratory results Normal [facility] Ketones, UA Negative Negative - 160(16) ++++ mg/dL [facility] Leukocytes, UA Trace Negative - 500+++ Pranav/mcL [facility] Nitrite, UA Negative Negative - Positive [facility] pH, UA 6.5 5 - 9 [facility] Protein, UA Negative Negative - 2000(20) ++++ mg/dL [facility] Spec Grav, UA 1.015 1 - 1.03 [facility] Urobilinogen, UA 0.2 0.2 - 12 mg/dL [facility] RECURRENT VAGINITIS (HTRX)on 05-09-2024 ATOPOBIUM VAGINAE 0 [facility] ATOPOBIUM VAGINAE Not detected [facility] BVAB 2,3 (BACTERIAL VAGINOSIS ASSOCIATED BACTERIA 2, 3); MOBILUNCUS SPP 0 [facility] BVAB 2,3 (BACTERIAL VAGINOSIS ASSOCIATED BACTERIA 2, 3); MOBILUNCUS SPP Not detected [facility] DAMIEN ALBICANS, PARAPSILOSIS, TROPICALIS 0 [facility] DAMIEN ALBICANS, PARAPSILOSIS, TROPICALIS Not detected [facility] DAMIEN GLABRATA 0 [facility] DAMIEN GLABRATA Not detected [facility] DAMIEN KRUSEI 0 [facility] DAMIEN KRUSEI Not detected [facility] CHLAMYDIA TRACHOMATIS 0 [facility] CHLAMYDIA TRACHOMATIS Not detected [facility] ERMB, C; MEFA 18.636 Abnormal [facility] ERMB, C; MEFA Detected Abnormal [facility] GARDNERELLA VAGINALIS 31.766 Abnormal [facility] GARDNERELLA VAGINALIS Detected Abnormal [facility] Interpretation and review of laboratory results Abnormal [facility] MEGASPHAERA (TYPES 1, 2) 0 [facility] MEGASPHAERA (TYPES 1, 2) Not detected [facility] MYCOPLASMA GENITALIUM 0 [facility] MYCOPLASMA GENITALIUM Not detected [facility] NEISSERIA GONORRHOEAE 0 [facility] NEISSERIA GONORRHOEAE Not detected N [facility] TET B, TET M 19.805 Abnormal [facility] TET B, TET M Detected Abnormal [facility] TRICHOMONAS VAGINALIS 0 [facility] TRICHOMONAS VAGINALIS Not detected N [facility] Urinalysis macro (dipstick) panel (U)on 05-06-2024 Bilirubin, UA Negative Negative - 4(70) +++ mg/dL [facility] Blood, UA Negative Negative - 50 Adams/mcL [facility] Clarity, UA Clear [facility] Color, UA Yellow [facility] Glucose, UA Negative Negative - 1999(110) ++++ mg/dL [facility] Interpretation and review of laboratory results Normal [facility] Ketones, UA Negative Negative - 160(16) ++++ mg/dL [facility] Leukocytes, UA Negative Negative - 500+++ Pranav/mcL [facility] Nitrite, UA Negative Negative - Positive [facility] pH, UA 7.5 5 - 9 [facility] Protein, UA Negative Negative - 1999(20) ++++ mg/dL [facility] Spec Grav, UA 1.02 1 - 1.03 [facility] Urobilinogen, UA 1.0 0.2 - 12 mg/dL [facility] ALL CBC WITH AUTO DIFFon BASOPHILS ABSOLUTE AUTO 0 N [facility] Basophils/100 WBC (Bld) 0.6 % 0.2 - 2.0 % [facility] Eosinophils/100 WBC (Bld) 1.3 % 0.9 - 7.0 % [facility] Erythrocyte distribution width (RBC) [Ratio] 12.5 % 11.0 - 15.0 % [facility] Hematocrit (Bld) [Volume fraction] 36.7 % 36.0 - 48.0 % [facility] Hemoglobin (Bld) [Mass/Vol] 12.6 g/dL 12.0 - 16.0 g/dL [facility] IMMATURE GRANULOCYTES ABS AUTO 0.01 [facility] Immature granulocytes/100 WBC (Bld) 0.1 % 0.0 - 0.5 % [facility] LYMPHOCYTES ABSOLUTE AUTO 2 [facility] Lymphocytes/100 WBC (Bld) 30.4 % 20.5 - 60.0 % [facility] MCH (RBC) [Entitic mass] 29.4 pg 26.7 - 34.0 pg [facility] MCHC (RBC) [Mass/Vol] 34.3 g/dL 29.9 - 35.2 g/dL [facility] MCV (RBC) [Entitic vol] 85.5 fL 81.0 - 99.0 fL [facility] MONOCYTES ABSOLUTE AUTO 0.5 N [facility] Monocytes/100 WBC (Bld) 7.6 % 1.7 - 12.0 % [facility] NEUTROPHILS ABSOLUTE AUTO 4 [facility] Neutrophils/100 WBC (Bld) 60 % 43.0 - 75.0 % [facility] Platelet mean volume (Bld) [Entitic vol] 10.5 fL 9.5 - 13.5 fL [facility] EO # 0.1 [facility] PLT 280 [facility] RBC 4.29 [facility] WBC 6.7 [facility] BOX TESTon 03-18-2024 BOX TEST SENT OUT [facility] BOX1 MARY [facility] BOX2 03/18/2023 [facility] HCG ( test) Ql (U)o n 03-07-2024 Interpretation and review of laboratory results Abnormal [facility] Preg Test, Ur Positive Negative [facility] US OB TRANSVAGINALon 025 US OB TRANSVAGINAL TITLE OF EXAM: US OB TRANSVAGINAL REASON FOR EXAM: Dating TECHNIQUE: Grayscale, color, and M-mode Doppler evaluation of the pelvis. COMPARISON: None. PATIENT : 2000 PREGNANCIES: : 1, Para: 0, Aborta: 0 LMP: 01/08/2024 PRESTON by LMP: 10/14/2024 GA by LMP: 8 weeks, 3 days FINDINGS: AUA: 8 weeks, 1 day (+/-5 days) PRESTON by US: 10/16/2024 Uterus: There is a gestational sac and 0.3 cm yolk sac within the uterine body/fundus. Live embryo within the gestational sac without evident abnormality. Gestational sac 3.6 x 1.5 x 2.8 cm (7 weeks, 3 days). Disney rump length is 1.7 cm (8 weeks, 1 day). heart rate is 176 bpm. No appreciable subchorionic hemorrhage or other abnormality. Cervical length 3.5 cm. Right ovary: 3.8 x 2.4 x 3.0 cm (14.5 mL). Present color flow. Thin-walled, anechoic, simple appearing cyst or corpus luteum. Left ovary: 1.5 x 1.9 x 3.1 cm (4.5 mL). Present color flow. IMPRESSION: Single live intrauterine gestation sonographically measuring 8 weeks, 1 day. No appreciable abnormality. DICTATED ON: 03/07/2024 2:47 PM This report has been electronically signed and approved by the interpreting radiologist. Normal Not Available Urinalysis macro (dipstick) panel (U)on 03-07-2024 Bilirubin, UA Negative Negative - 4(70) +++ mg/dL [facility] Blood, UA Negative Negative - 50 Adams/mcL [facility] Clarity, UA Clear [facility] Color, UA Yellow [facility] Glucose, UA Negative Negative - 1999(110) ++++ mg/dL [facility] Interpretation and review of laboratory results Normal [facility] Ketones, UA Negative Negative - 160(16) ++++ mg/dL [facility] Leukocytes, UA Negative Negative - 500+++ Pranav/mcL [facility] Nitrite, UA Negative Negative - Positive [facility] pH, UA 5.5 5 - 9 [facility] Protein, UA Negative Negative - 1999(20) ++++ mg/dL [facility] Spec Grav, UA 1.025 1 - 1.03 [facility] Urobilinogen, UA 1.0 0.2 - 12 mg/dL [facility] Vital Signs Date Time Vital Sign Value Performing Clinician Maria De Jesus elizabeth 07-03-2024 16:03-0400 Body weight 86.64 kg Fina Wilson NP Work Phone: [facility] 07-03-2024 16:03-0400 Diastolic blood pressure 100 mm[Hg] Fina Wilson NP Work Phone: [facility] 07-03-2024 16:03-0400 Systolic blood pressure 142 mm[Hg] Fina Wilson NP Work Phone: [facility] 06-05-2024 14:18-0400 Body weight 84.37 kg Alfreda Fede DO Work Phone: [facility] 06-05-2024 14:18-0400 Diastolic blood pressure 76 mm[Hg] Alfreda Fede DO Work Phone: [facility] 06-05-2024 14:18-0400 Systolic blood pressure 118 mm[Hg] Alfreda Fede DO Work Phone: [facility] 05-06-2024 15:44-0500 Body weight 83.01 kg Hedy WERNER Work Phone: [facility] 05-06-2024 15:44-0500 Diastolic blood pressure 76 mm[Hg] Hedy WERNER Work Phone: [facility] 05-06-2024 15:44-0500 Systolic blood pressure 112 mm[Hg] Hedy Jordan WERNER Work Phone: [facility] 04-08-2024 16:04-0500 Body weight 82.92 kg Alfreda Fede DO Work Phone: [facility] 04-08-2024 16:04-0500 Diastolic blood pressure 74 mm[Hg] Alfreda Fede DO Work Phone: [facility] 04-08-2024 16:04-0500 Systolic blood pressure 116 mm[Hg] Alfreda Fede DO Work Phone: [facility] 03-07-2024 15:24-0500 Body weight 85.64 kg [facility] Encounters Encounter Date Encounter Type Care Provider Facility Start: 07-10-2024 End: 07-10-2024 ambulatory ALFREDA FEDE Not Available Start: 07-06-2024 End: 07-06-2024 Clinisync Result Encounter Fina Katie ADDICTION SPECIALIST Work Phone: [facility] Unsolicited Start: 07-06-2024 End: 07-06-2024 Clinisync Result Encounter Fina Katie ADDICTION SPECIALIST Work Phone: [facility] Unsolicited Start: 07-04-2024 End: 07-04-2024 Clinisync Result Encounter Fina Katie ADDICTION SPECIALIST Work Phone: [facility] Unsolicited Start: 07-04-2024 End: 07-04-2024 Clinisync Result Encounter Fina Katie ADDICTION SPECIALIST Work Phone: [facility] Unsolicited Start: 07-03-2024 End: 07-03-2024 ambulatory FINA KATIE Not Available Start: 07-03-2024 End: 07-03-2024 flow sheet Fina Katie ADDICTION SPECIALIST Work Phone: [facility] Comment on above: Second trimester pre gnancy; 25 weeks gestation of ; Diabetes mellitus screening; induced hypertension, antepartum Start: 07-03-2024 End: 07-03-2024 Bamboo flowsheet Fina Wilson NP Work Phone: [facility] Start: 07-03-2024 End: 07-03-2024 Bamboo flowsheet Fina Wilson NP Work Phone: [facility] Start: 06-05-2024 End: 06-05-2024 ambulatory ALFREDA FEDE Not Available Start: 06-05-2024 End: 06-05-2024 flow sheet Alfreda Fede DO Work Phone: [facility] Comment on above: Second trimester pre gnancy; 21 weeks gestation of Start: 06-05-2024 End: 06-05-2024 Bamboo flowsheet Alfreda Fede DO Work Phone: [facility] Start: 06-05-2024 End: 06-06-2024 Bamboo flowsheet Alfreda Fede DO Work Phone: [facility] Start: 06-05-2024 End: 06-06-2024 Clinisync Result Encounter Hedy WERNER Work Phone: [facility] External Department Unsolicited Start: 05-06-2024 End: 05-06-2024 Patient encounter procedure Hedy WERNER Work Phone: [facility] Healthcare Start: 05-06-2024 End: 05-06-2024 flow sheet Hedy WERNER Work Phone: [facility] Comment on above: Well woman exam with routine gynecological exam; Exposure to STD; Need for maternal serum alpha-protein (MSAFP) screening; Second trimester ; 17 weeks gestation of ; Screening, , for anatomic survey Start: 05-06-2024 End: 05-06-2024 ambulatory HEDY PINTO Not Available Start: 05-06-2024 End: 05-06-2024 Bamboo flowsheet Hedy WERENR Work Phone: [facility] Start: 05-06-2024 End: 05-09-2024 Bamboo flowsheet Hedy WERNER Work Phone: [facility] Start: 05-06-2024 End: 05-09-2024 External Result Encounter Hedy WERNER Work Phone: [facility] Unsolicited Start: 04-08-2024 End: 04-08-2024 flow sheet Alfreda Fede DO Work Phone: [facility] Comment on above: 13 weeks gestation o f ; Nausea and vomiting, unspecified vomiting type Start: 04-08-2024 End: 04-08-2024 ambulatory ALFREDA FEDE Not Available Start: 04-08-2024 End: 04-08-2024 Bamboo flowsheet Alfreda Fede DO Work Phone: [facility] Start: 04-08-2024 End: 04-08-2024 Bamboo flowsheet Alfreda Fede DO Work Phone: [facility] Start: 03-18-2024 End: 03-19-2024 Clinisync Result Encounter Alfreda Fede DO Work Phone: [facility] Unsolicited Start: 03-18-2024 End: 03-19-2024 Clinisync Result Encounter Alfreda Fede DO Work Phone: [facility] Unsolicited Start: 03-07-2024 End: 03-07-2024 Office outpatient visit 5 minutes [facility] Fede Nurse [facility] Comment on above: GA: 8w3d Start: 03-07-2024 End: 03-07-2024 ambulatory ALFREDA FEDE Not Available Procedures Date Procedure Procedure Detail Performing Clinician Start: 07-06-2024 TBH TOTAL PROTEIN 24 HOUR URINE Fina Wilson ADDICTION SPECIALIST Work Phone: Start: 07-04-2024 ALL CBC WITH AUTO DIFF Fina Wilson ADDICTION SPECIALIST Work Phone: Start: 07-03-2024 Urnls dip stick/tabl et rgnt non-auto w/o micrscp Fina Wilson NP Work Phone: Start: 06-05-2024 US OB ANATOMY Hedy WERNER Work Phone: Start: 06-05-2024 US OB CERVICAL LENGTH A long Jordan WERNER Work Phone: Start: 06-05-2024 Urnls dip stick/tabl et rgnt non-auto w/o micrscp Alfreda Fede DO Work Phone: Start: 05-06-2024 RECURRENT VAGINITIS (HTRX) Hedy WERNER Work Phone: Start: 05-06-2024 Urnls dip stick/tabl et rgnt non-auto w/o micrscp Hedy WERNER Work Phone: Start: 03-18-2024 ALL CBC WITH AUTO DIFF Alfreda Fede DO Work Phone: Start: 03-18-2024 BOX TEST Alfreda Fazi o DO Work Phone: Start: 03-07-2024 End: 03-07-2024 Urnls dip stick/tablet rgnt non-auto w/o micrscp Alfreda Fede DO Work Phone: Plan of Treatment Date Care Activity Detail Author Start: 07-24-2024 End: 07-24-2024 Patient encounter procedure 07/24/2024 3:30 PM EDT Routine [facility] [address] [place] [address] Alfreda Mistry, DO [address] [place] [address] [facility] Start: 07-24-2024 End: 07-24-2024 Professional / ancillary services management 07/24/2024 3:00 PM EDT Ancillary Procedure [facility] [address] [place] [address] [facility] Start: 07-10-2024 End: 07-10-2024 Clinical Support 07/10/2024 11:30 AM EDT Clinical Support [facility] [address] [place] [id number] [facility] Start: 07-03-2024 End: 07-03-2024 Patient encounter procedure 07/03/2024 3:30 PM EDT Routine [facility] [address] [place] [phone] Hedy Pinto PA [address] [place] [address] [facility] Start: 07-03-2024 End: 07-03-2025 Alanine aminotransferase [Enzymatic activity/volume] in Serum or Plasma ALT Lab Routine induced hypertension, antepartum Expected: 07/03/2024 (Approximate), Expires: 07/03/2025 [facility] Comment on above: Expected: 07/03/2024 (Approximate), Expires: 07/03/2025 Start: 07-03-2024 End: 07-03-2025 Aspartate aminotransferase [Enzymatic activity/volume] in Serum or Plasma AST Lab Routine induced hypertension, antepartum Expected: 07/03/2024 (Approximate), Expires: 07/03/2025 [facility] Comment on above: Expected: 07/03/2024 (Approximate), Expires: 07/03/2025 Start: 07-03-2024 End: 07-03-2025 CBC panel - Blood by Automated count CBC Lab Routine Diabetes mellitus screening Expected: 07/03/2024 (Approximate), Expires: 07/03/2025 [facility] Work Phone: Comment on above: Expected: 07/03/2024 (Approximate), Expires: 07/03/2025 Start: 07-03-2024 End: 07-03-2025 CBC W Auto Differential panel - Blood CBC and differential Lab Routine induced hypertension, antepartum Expected: 07/03/2024 (Approximate), Expires: 07/03/2025 [facility] Comment on above: Expected: 07/03/2024 (Approximate), Expires: 07/03/2025 Start: 07-03-2024 End: 07-03-2025 Creatinine [Mass/volume] in Serum or Plasma Creatinine Lab Routine induced hypertension, antepartum Expected: 07/03/2024 (Approximate), Expires: 07/03/2025 [facility] Comment on above: Expected: 07/03/2024 (Approximate), Expires: 07/03/2025 Start: 07-03-2024 End: 07-03-2025 Lactate dehydrogenase [Enzymatic activity/volume] in Serum or Plasma by Lactate to pyruvate reaction Lactate dehydrogenase Lab Routine induced hypertension, antepartum Expected: 07/03/2024, Expires: 07/03/2025 [facility] Comment on above: Expected: 07/03/2024 , Expires: 07/03/2025 Start: 07-03-2024 End: 07-03-2025 Measurement of glucose 1 hour after glucose challenge for glucose tolerance test Glucose tolerance, 1 hour Lab Routine Diabetes mellitus screening Expected: 07/03/2024 (Approximate), Expires: 07/03/2025 [facility] Comment on above: Expected: 07/03/2024 (Approximate), Expires: 07/03/2025 Start: 07-03-2024 End: 07-03-2025 Protein, urine, 24 hour Protein, urine, 24 hour Lab Routine induced hypertension, antepartum Expected: 07/03/2024 (Approximate), Expires: 07/03/2025 [facility] Comment on above: Expected: 07/03/2024 (Approximate), Expires: 07/03/2025 Start: 07-03-2024 End: 07-03-2025 Pt and ptt Pt and ptt Lab Routine induced hypertension, antepartum Expected: 07/03/2024, Expires: 07/03/2025 [facility] Comment on above: Expected: 07/03/2024 , Expires: 07/03/2025 Start: 07-03-2024 End: 07-03-2025 Urate [Mass/volume] in Serum or Plasma Uric acid Lab Routine induced hypertension, antepartum Expected: 07/03/2024 (Approximate), Expires: 07/03/2025 [facility] Comment on above: Expected: 07/03/2024 (Approximate), Expires: 07/03/2025 Start: 07-03-2024 End: 07-03-2025 Urea nitrogen [Mass/volume] in Serum or Plasma BUN Lab Routine induced hypertension, antepartum Expected: 07/03/2024, Expires: 07/03/2025 [facility] Comment on above: Expected: 07/03/2024 , Expires: 07/03/2025 Start: 07-03-2024 End: 01-02-2025 US biophysical profile w non stress test US biophysical profile w non stress test Imaging Routine induced hypertension, antepartum Expected: 07/03/2024 (Approximate), Expires: 01/02/2025 [facility] Comment on above: Expected: 07/03/2024 (Approximate), Expires: 01/02/2025 Start: 07-03-2024 End: 11-02-2024 US for US OB follow up transabdominal approach Imaging Routine induced hypertension, antepartum Expected: 07/03/2024, Expires: 11/02/2024 [facility] Comment on above: Expected: 07/03/2024 , Expires: 11/02/2024 Start: 06-05-2024 End: 06-05-2024 Patient encounter procedure 06/05/2024 3:30 PM EDT Routine [facility] [address] [place] [id number] Alfreda Mistry DO [address] [place] [address] [facility] Start: 06-05-2024 End: 06-05-2024 Professional / ancillary services management 06/05/2024 2:30 PM EDT Ancillary Procedure [facility] [address] [facility] [place] [address] [facility] Start: 05-06-2024 End: 05-06-2024 Patient encounter procedure 05/06/2024 3:30 PM EST Routine [facility] [address] [place] [phone] Hedy Pinto, DEBBI [address] [place], [place] [id number] [facility] Start: 05-06-2024 End: 06-06-2024 Alpha fetoprotein, maternal Alpha fetoprotein, maternal Lab Routine Need for maternal serum alpha-protein (MSAFP) screening Expected: 05/06/2024 (Approximate), Expires: 06/06/2024 [facility] Comment on above: Expected: 05/06/2024 (Approximate), Expires: 06/06/2024 Start: 05-06-2024 End: 05-06-2025 US for US OB 14+ weeks anatomy scan Imaging Routine Screening, , for anatomic survey Expected: 05/06/2024, Expires: 05/06/2025 [facility] Comment on above: Expected: 05/06/2024 , Expires: 05/06/2025 Start: 04-08-2024 End: 04-08-2024 Patient encounter procedure [facility] Comment on above: Arrived Start: 03-07-2024 End: 03-07-2025 ABO/Rh ABO/Rh Lab Routine Missed menses , unspecified gestational age Expected: 03/07/2024 (Approximate), Expires: 03/07/2025 [facility] Comment on above: Expected: 03/07/2024 (Approximate), Expires: 03/07/2025 Start: 03-07-2024 End: 03-07-2025 Blood type and Indirect antibody screen panel - Blood Type and screen Lab Routine Missed menses , unspecified gestational age Expected: 03/07/2024 (Approximate), Expires: 03/07/2025 [facility] Comment on above: Expected: 03/07/2024 (Approximate), Expires: 03/07/2025 Start: 03-07-2024 End: 03-07-2025 Drugs of abuse panel - Urine by Screen method Rapid drug screen, urine Lab Routine , unspecified gestational age Encounter for supervision of normal first in first trimester Expected: 03/07/2024 (Approximate), Expires: 03/07/2025 [facility] Comment on above: Expected: 03/07/2024 (Approximate), Expires: 03/07/2025 Start: 03-07-2024 End: 01-02-2026 US Pelvis transvaginal [facility] Work Phone: Comment on above: Expected: 03/07/2024 , Expires: 03/07/2025 Bacteria identified in Urine by Culture Urine culture Microbiology Routine Missed menses Ordered: 03/07/2024 [facility] Comment on above: Ordered: 03/07/2024 CBC W Auto Different ial panel - Blood CBC and differential Lab Routine Missed menses , unspecified gestational age Ordered: 03/07/2024 [facility] Comment on above: Ordered: 03/07/2024 CHLAMYDIA TRACHOMATI S (GENITO/STI) CHLAMYDIA TRACHOMATIS (GENITO/STI) Lab Routine Exposure to STD Ordered: 05/06/2024 [facility] Comment on above: Ordered: 05/06/2024 Cytology Cervical or vaginal smear or scraping study Pap Smear Pathology and Cytology Routine Well woman exam with routine gynecological exam Ordered: 05/06/2024 [facility] Comment on above: Ordered: 05/06/2024 Hemoglobin A1c/Hemoglobin.total in Blood Hemoglobin A1c Lab Routine Missed menses , unspecified gestational age Ordered: 03/07/2024 [facility] Comment on above: Ordered: 03/07/2024 Hepatitis B virus thurman rface Ag [Presence] in Serum or Plasma by Immunoassay Hepatitis B surface antigen Lab Routine Missed menses , unspecified gestational age Ordered: 03/07/2024 [facility] Comment on above: Ordered: 03/07/2024 Hepatitis C virus Ab [Presence] in Serum or Plasma by Immunoassay Hepatitis C antibody Lab Routine Missed menses , unspecified gestational age Ordered: 03/07/2024 [facility] Comment on above: Ordered: 03/07/2024 HIV-1/HIV-2 antigen/antibody combination immunoassay HIV-1 and HIV-2 antibodies Lab Routine Missed menses , unspecified gestational age Ordered: 03/07/2024 [facility] Comment on above: Ordered: 03/07/2024 Neisseria gonorrhoea e DNA [Presence] in Unspecified specimen by ROXY with probe detection Neisseria gonorrhea DNA probe, direct Lab Routine Exposure to STD Ordered: 05/06/2024 [facility] Comment on above: Ordered: 05/06/2024 Progesterone Progesterone Lab Routine Missed menses , unspecified gestational age Ordered: 03/07/2024 [facility] Comment on above: Ordered: 03/07/2024 Reagin Ab [Presence] in Serum by RPR RPR Lab Routine Missed menses , unspecified gestational age Ordered: 03/07/2024 [facility] Comment on above: Ordered: 03/07/2024 Rubella antibody, IgG Rubella an tibody, IgG Lab Routine Missed menses , unspecified gestational age Ordered: 03/07/2024 [facility] Comment on above: Ordered: 03/07/2024 SURESWAB(R) ADVANCED VAGINITIS PLUS, TMA SURESWAB(R) ADVANCED VAGINITIS PLUS, TMA Pathology and Cytology Routine Exposure to STD Ordered: 05/06/2024 [facility] Work Phone: Comment on above: Ordered: 05/06/2024 Payers Date Payer Category Payer ([employer]NOR) [id number] 2024 Department [facility] (KAYLEE and others) [id number] 2023 Private Health Insurance [facility] [id number] 2023 Private Health Insurance [id number] 2000 Unknown [id number] [id number] 2000 Unknown [id number] [id number] 2000 Unknown [id number] [id number] 2000 Unknown [id number] [id number] 2000 Unknown [id number] [id number] 2000 Unknown [id number] [id number] 2000 Unknown [id number] Social History Date Type Detail Facility Tobacco smoking stat [facility] Tobacco smoking consumption unknown [facility] Start: 01-22-2024 [facility] Start: 2000 Sex assigned at Female [facility] Start: 02-13-2024 Gender identity Identifies as female gender (finding) [facility] Start: 02-13-2024 Sexual orientation Heterosexual (fin ding) [facility] History of Present illness Narrative 07-03-2024 Fina Wilson NP - 07/03/2024 3:30 PM EDT Note Date & Type Note Facility 07-03-2024 History of Presen t illness Narrative Reason for Appointment: Patient ID: Francisca Butler is a 23 y.o. female who presents for Routine Visit Patient presents today for Return OB appointment. MEDICATIONS Current Outpatient Medications Medication Instructions Ferrous Gluconate (IRON 27 PO) Oral labetalol (NORMODYNE) 100 mg, Oral, 2 times daily MV-Min-Fe Fum-FA-DHA ( 1 PO) Oral promethazine [...] Drug use: Not on file FAMILY HISTORY Family History Problem Relation Name Age of Onset Eclampsia Mother Other (Preeclampsia) Mother's Sister SURGICAL HISTORY No past surgical history on file. REVIEW OF SYSTEMS Review of Systems: Review of Systems Constitutional: Negative. HENT: Negative. Eyes: Negative. Respiratory: Negative. Cardiovascular: Negative. Gastrointestinal: Negative. Genitourinary: Negative. Musculoskeletal: Negative. Skin: Negative. Neurological: Negative. All other systems reviewed and are negative. Hematological: Negative. Endocrine: Negative. Allergic/Immunologic: Negative. OBJECTIVE Objective: Physical Exam Constitutional: Appearance: Normal appearance. She [...] nursing note reviewed. Exam conducted with a lamination machine operator present. Vitals: There is no height or weight on file to calculate BMI. BP: (!) 142/100 Patient's last menstrual period was 01/08/2024. ASSESSMENT & PLAN ICD-10-CM 1. Second trimester Z34.92 POCT urinalysis dipstick manually resulted 2. 25 weeks gestation of Z3A.25 3. Diabetes mellitus screening Z13.1 CBC Glucose tolerance, 1 hour CBC Glucose tolerance, 1 hour 4. induced hypertension, antepartum O13.9 Creatinine Protein, urine, 24 hour Pt and ptt CBC and differential Uric acid Lactate dehydrogenase ALT AST BUN labetalol (Normodyne) 100 MG tablet US OB follow up transabdominal approach US biophysical profile w non stress test Creatinine Protein, urine, 24 hour Pt and ptt CBC and differential Uric acid Lactate dehydrogenase ALT AST BUN Patient presents today for a routine obstetrics appointment. Patient is currently 25w2d with a Estimated Date of Delivery: 10/14/24. Patients blood pressure was elevated in office today and manual recheck was also still elevated. Discussed plan of care with Dr. Mistry and patient will be placed on Labetalol 100mg BID, start NST/BPP once weekly until 32 weeks gestation and then NST Bi-Weekly and BPP weekly. Patient give Growth scan to have obtained every 4 weeks until delivery (last scan was done on 06/05/24). Patient give PIH workup labs to have drawn, which included a 24 hour urine protein. Patient will return to clinic more frequently to monitor Blood Pressure and monitor medication. Documented by Tiffanie Loza LPN on behalf of: Fina Wilson NP documented in this encounter [facility] History of Present illness Narrative 06-05-2024 Marielos Rapp LPN - 06/05/2024 2:10 PM EDT Note Date & Type Note Facility 06-05-2024 History of Presen t illness Narrative Reason for Appointment: Patient ID: Francisca Quigley is a 23 y.o. female who presents for Routine Visit Patient presents today for Return OB appointment. MEDICATIONS Current Outpatient Medications [...] No family history on file. SURGICAL HISTORY History reviewed. No pertinent surgical history. REVIEW OF SYSTEMS Review of Systems: Review of Systems Constitutional: Negative. HENT: Negative. Eyes: Negative. Respiratory: Negative. Cardiovascular: Negative. Gastrointestinal: Negative. Genitourinary: Negative. Musculoskeletal: Negative. Skin: Negative. Neurological: Negative. All other systems reviewed and are negative. Hematological: Negative. Endocrine: Negative. Allergic/Immunologic: Negative. OBJECTIVE Objective: Physical Exam Constitutional: Appearance: Normal appearance. She [...] nursing note reviewed. Exam conducted with a lamination machine operator present. Vitals: There is no height or weight on file to calculate BMI. BP: 118/76 Patient's last menstrual period was 01/08/2024. ASSESSMENT & PLAN ICD-10-CM 1. Second trimester Z34.92 POCT urinalysis dipstick manually resulted 2. 21 weeks gestation of Z3A.21 Patient presents today for a routine obstetrics appointment. Patient is currently 21w2d with a Estimated Date of Delivery: 10/14/24. Pt has anatomy scan after appt. Pt feeling better with the nausea. Pt to return in 4 weeks for scheduled OB appt. Documented by Marielos Rapp LPN on behalf of: Alfreda Mistry DO documented in this encounter [facility] History of Present illness Narrative 05-06-2024 DEBBI Tolbert - 05/06/2024 3:30 PM EST Note Date & Type Note Facility 05-06-2024 History of Presen t illness Narrative Reason for Appointment: Patient ID: Francisca Quigley is a 23 y.o. female who [...] nursing note reviewed. Exam conducted with a lamination machine operator present. Vitals: There is no height or [...] obtained without difficulty and patient was given [facility] order to have obtained. Patient currently taking keflex for uti, started yesterday Orders Placed This Encounter Procedures US OB 14+ weeks anatomy scan CHLAMYDIA TRACHOMATIS (GENITO/STI) Neisseria gonorrhea DNA probe, direct Alpha fetoprotein, maternal POCT urinalysis dipstick manually resulted Follow Up: Patient is to return to our office in 4 weeks for routine OB appointment Documented by Tiffanie Loza LPN on behalf of: DEBBI Tolbert documented in this encounter [facility] History of Present illness Narrative 04-08-2024 Alfreda Mistry, - 04/08/2024 3:50 PM EST Note Date & Type Note Facility 04-08-2024 History of Presen t illness Narrative Reason for Appointment: Patient ID: Francisca Quigley is a 23 y.o. female who [...] nursing note reviewed. Exam conducted with a lamination machine operator present. Vitals: There is no height or [...] week for routine OB appointment. Documented by Alfreda Mistry DO on behalf of: Alfreda Mistry DO documented in this encounter [facility] History of Present illness Narrative 03-07-2024 Fina GuillerminaSMITA - 03/07/2024 2:30 PM EST Note Date & Type Note Facility 03-07-2024 History of Presen t illness Narrative Reason for Appointment: Patient ID: Francisca Quigley is a 23 y.o. female who [...] or undercooked meat, and stay away from [facility]. Patient has also been advised to [...] concerns or questions. Nurse Visit Completed by: Fina Sarmiento LPN documented in this encounter [facility] Evaluation note Note Date & Type Note Facility Evaluation note Diagnosis Missed menses , unspecified gestational age Encounter for supervision of normal first in first trimester Nausea and vomiting in Unspecified vomiting of , unspecified as to episode of care headache in first trimester documented in this encounter [facility] Evaluation note Note Date & Type Note Facility Evaluation note Diagnosis 13 weeks gestation of Nausea and vomiting, unspecified vomiting type documented in this encounter [facility] Evaluation note Note Date & Type Note Facility Evaluation note Diagnosis Well woman exam with routine gynecological exam Routine gynecological examination Exposure to STD Need for maternal serum alpha-protein (MSAFP) screening Second trimester state, incidental 17 weeks gestation of Screening, , for anatomic survey Encounter for anatomic survey documented in this encounter [facility] Evaluation note Note Date & Type Note Facility Evaluation note Diagnosis Second trimester state, incidental 21 weeks gestation of documented in this encounter [facility] Evaluation note Note Date & Type Note Facility Evaluation note Diagnosis Second trimester state, incidental 25 weeks gestation of Diabetes mellitus screening Screening for diabetes mellitus induced hypertension, antepartum Transient hypertension of , antepartum documented in this encounter [facility] Summary Purpose Family History No Family History Records Found Advance Directives No Advanced Directives Records Found Additional Source Comments Reason for Visit (unrecogniz ed section and content) Reason Comments Amenorrhea Reason Comments Routine Visit INFORMATION SOURCE (unrecogn ized section and content) DATE CREATED AUTHOR 07/13/2024 [facility] FOR RECORDS PERTAINING TO PATIENTS WHO ARE [...] BE BASED ON THE PRIMARY CLINICAL RECORDS. [facility] [employer] [facility]. provides no warranty or guarantee of the accuracy or completeness of information in this document.
[2024-07-23 19:28] VITALS: BP 135/79; PULSE 82
[2024-07-23 19:59] VITALS: BP 129/75; PULSE 82
== END 2024-07-23 20:00 | disposition home or self-care (01) ==
LOC: US 18:50 → FBC 18:52
PROVIDERS: Visit Provider Nurse Practitioner Family
DX: O13.3 Gestational [pregnancy-induced] hypertension without significant proteinuria, third trimester (principal)
CPT/HCPCS: 76818

== ENCOUNTER 2024-07-30 18:57 | Outpatient (OUT) | payer OTHER, SELFPAY ==
--- NOTE | 2024-07-30 19:00 | US_ITS ---
[facility] [place] [id number] Patient Name: FRANCISCA MÉNDEZ MRN: [id number] date: 2000 Sex: F Assigned Patient Location: [facility] Current Patient Location: Accession/Order Number: [id number] Exam Date: 07/31/2024 09:06 Report Date: 07/31/2024 09:08 At the request of: KEON FONSECA Procedure: US OB BPP w non-stress BIOPHYSICAL PROFILE: CLINICAL INFORMATION: INDUCED HYPERTENSION O13.9 COMPARISON: 07/23/2024 There is a single live intrauterine gestation in cephalic presentation. The reported gestational age is 29 weeks 1 day The heart rate [id number] beats per minute. FINDINGS: TONE: 1 or more episodes of activity extension and flexion of extremity or opening and closing of the hand [Y] 2/2 GROSS BODY MOVEMENTS: 3 or more discrete body or limb movements [Y] 2/2 BREATHING MOVEMENTS: 1 or more episodes of breathing lasting at least 30 seconds [Y] 2/2 ROSE: A single deepest vertical pocket of amniotic fluid greater than 2 cm [Y] 2/2 ROSE: 16.2 cm . This is in upper normal range. Total score: 8/8 US/US OB BPP w non-stress IMPRESSION: NORMAL BIOPHYSICAL PROFILE. Impression dictated by: Marielos Rubio M.D. 07/31/2024 9:08 AM Dictation Location: [place] [address] Electronically authenticated by: [id number] Y Date: 07/31/2024 09:08
[2024-07-30 19:32] VITALS: BP 137/62; PULSE 86
== END 2024-07-30 20:00 | disposition home or self-care (01) ==
LOC: US 18:57 → FBC 18:59
PROVIDERS: Visit Provider Nurse Practitioner Family
DX: O13.3 Gestational [pregnancy-induced] hypertension without significant proteinuria, third trimester (principal); Z3A.29 29 weeks gestation of pregnancy
CPT/HCPCS: 76818

== ENCOUNTER 2024-08-06 18:57 | Outpatient (OUT) | payer OTHER, SELFPAY ==
--- OUTSIDE RECORDS SUMMARY | 2024-05-06 16:30 | XMS_ITS | Encounter Summary ---
Author Organization [facility] Address [address] [place] [address] Care Team Providers Care Dispatch Officer Name Role Phone Unavailable Primary Care Provider Unavailabl e Reason for Visit * Reason Comments Routine Visit Encounter Details Date Type Department Care Team (Latest Contact Info) Description 05/06/2024 3:30 PM EST Routine [facility] [address] [place] [id number] Hedy Ortega PA [address] [place] [address] Well woman exam with routine gynecological exam; Exposure to STD; Need for maternal serum alpha-protein (MSAFP) screening; Second trimester ; 17 weeks gestation of ; Screening, , for anatomic survey Social History Tobacco Use Types Packs/Day Years Used Date Smoking Tobacco: Never Assessed Estimated Date of Delivery Comme nts Yes 10/14/2024 Based on last me nstrual period of 01/08/2024 Sex and Gender Information Value Date Recorded Sex Assigned at Female 02/13/2024 11:26 AM EST Legal Sex Female 10:16 AM EST Gender Identity Female 02/13/2024 11:26 AM EST Sexual Orientation Straight 02/13/2024 11 :26 AM EST documented as of this encounter Last Filed Vital Signs Vital Sign Reading Time Taken Comments Blood Pressure 112/76 05/06/2024 3:44 PM EST Pulse - - Temperature - - Respiratory Rate - - Oxygen Saturation - - Inhaled Oxygen Concentration - - Weight 83 kg (183 lb) 05/06/2024 3:44 PM EST Height - - Body Mass Index - - documented in this encounter Progress Notes * DEBBI Tolbert - 05/06/2024 3:30 PM EST Reason for Appointment: Patient ID: Surendra Quigley is a 23 y.o. female who presents for Routine Visit Patient presents today for Annual Exam., STD Check., and Return OB appointment. MEDICATIONS Current Outpatient Medications Medication Instructions Ferrous Gluconate (IRON 27 PO) Oral MV-Min-Fe Fum-FA-DHA ( 1 PO) Oral promethazine (PHENERGAN) 25 mg, Oral, Every 6 hours PRN ALLERGIES No Known Allergies PROBLEMS Active Ambulatory Problems Diagnosis Date Noted No Active Ambulatory Problems Resolved Ambulatory Problems Diagnosis Date Noted No Resolved Ambulatory Problems No Additional Past Medical History HISTORY PAST MEDICAL HISTORY SOCIAL HISTORY No past medical history on file. Social History Tobacco Use Smoking status: Not on file Smokeless tobacco: Not on file Substance Use Topics Alcohol use: Not on file Drug use: Not on file FAMILY HISTORY No family history on file. SURGICAL HISTORY No past surgical history on file. REVIEW OF SYSTEMS Review of Systems: Review of Systems All other systems reviewed and are negative. OBJECTIVE Objective: Physical Exam Constitutional: Appearance: Normal appearance. Genitourinary: Right Adnexa: not tender and no mass present. Left Adnexa: not tender and no mass present. No cervical discharge. Breasts: Breasts are soft. Right: Normal. Left: Normal. HENT: Head: Normocephalic. Nose: Nose normal. Mouth/Throat: Mouth: Mucous membranes are moist. Cardiovascular: Rate and Rhythm: Normal rate. Pulmonary: Effort: Pulmonary effort is normal. Abdominal: General: Bowel sounds are normal. Palpations: Abdomen is soft. Musculoskeletal: General: Normal range of motion. Cervical back: Normal range of motion. Neurological: General: No focal deficit present. Mental Status: She is alert. Skin: General: Skin is warm and dry. Psychiatric: Mood and Affect: Mood normal. Vitals and nursing note reviewed. Exam conducted with a iap displays analyst present. Vitals: There is no height or weight on file to calculate BMI. BP: 112/76 Patient's last menstrual period was 01/08/2024. ASSESSMENT & PLAN ICD-10-CM 1. Well woman exam with routine gynecological exam Z01.419 Pap Smear 2. Exposure to STD Z20.2 SURESWAB(R) ADVANCED VAGINITIS PLUS, TMA CHLAMYDIA TRACHOMATIS (GENITO/STI) Neisseria gonorrhea DNA probe, direct 3. Need for maternal serum alpha-protein (MSAFP) screening Z36.1 Alpha fetoprotein, maternal Alpha fetoprotein, maternal 4. Second trimester Z34.92 5. 17 weeks gestation of Z3A.17 POCT urinalysis dipstick manually resulted 6. Screening, , for anatomic survey Z36.89 US OB 14+ weeks anatomy scan Return OB/Annual Exam: Patient presents today for an annual exam/routine obstetrics appointment. Patient is currently 17w0d . Patient is doing well and states she has no complaints. Pap/cultures was obtained without difficulty and patient was given msAFP order to have obtained. Patient currently taking keflex for uti, started yesterday Orders Placed This Encounter Procedures US OB 14+ weeks anatomy scan CHLAMYDIA TRACHOMATIS (GENITO/STI) Neisseria gonorrhea DNA probe, direct Alpha fetoprotein, maternal POCT urinalysis dipstick manually resulted Follow Up: Patient is to return to our office in 4 weeks for routine OB appointment Documented by Tiffanie Barakat LPN on behalf of: DEBBI Tolbert documented in this encounter Miscellaneous Notes * Addendum Note - Tiffanie Barakat LPN - 05/06/2024 3:30 PM ESTAddended by: TIFFANIE BARAKAT on: 07/24/2024 08:02 AM Modules accepted: Orders documented in this encounter Plan of Treatment Upcoming Encounters Date Type Department Care Team (Late st Contact Info) Description 08/07/2024 3:50 PM EDT Routine [facility] [address] [place] [id number] Hedy Ortega PA [address] [place] [address] Scheduled Orders Name Type Priority Associated Diagnoses Orde r Schedule SURESWAB(R) ADVANCED VAGINITIS PLUS, TMA Pathology and Cytology Routine Exposure to STD Ordered: 05/06/2024 CHLAMYDIA TRACHOMATIS (GENITO/STI) Lab Routine Exposure to STD Ordered: 05/06/2024 Neisseria gonorrhea DNA probe, direct Lab Routine Exposure to STD Ordered: 05/06/2024 Alpha fetoprotein, maternal Lab Routine Need for maternal serum alpha-protein (MSAFP) screening Expected: 05/06/2024 (Approximate), Expires: 06/06/2024 Pap Smear Pathology and Cytology Routine Well woman exam with routine gynecological exam Ordered: 05/06/2024 documented as of this encounter Procedures Procedure Name Priority Date/Time Associated Diagnosis Comments POCT URINALYSIS DIPSTICK Routine 05/06/2024 3:56 PM EST 17 weeks gestation of documented in this encounter Results * POCT urinalysis dipstick manually resulted (05/06/2024 3:56 PM EST) Color, UA Yellow Clarity, UA Clear Glucose, UA Negative Negative - 2000(110) ++++ mg/dL Bilirubin, UA Negative Negative - 4(70) +++ mg/dL Ketones, UA Negative Negative - 160(16) ++++ mg/dL Spec Grav, UA 1.020 1 - 1.03 Blood, UA Negative Negative - 50 Adams/mcL pH, UA 7.5 5 - 9 Protein, UA Negative Negative - 2000(20) ++++ mg/dL Urobilinogen, UA 1.0 0.2 - 12 mg/dL Leukocytes, UA Negative Negative - 500+++ Pranav/mcL Nitrite, UA Negative Negative - Positive Urine 05/06/2024 3:56 PM EST Hedy WERNER POINT OF CARE TEST ENTER/EDIT OR DERABLES Final Result documented in this encounter Visit Diagnoses Diagnosis Well woman exam with routine gynecological exam Routine gynecological examination Exposure to STD Need for maternal serum alpha-protein (MSAFP) screening Second trimester state, incidental 17 weeks gestation of Screening, , for anatomic survey Encounter for anatomic survey documented in this encounter
--- OUTSIDE RECORDS SUMMARY | 2024-07-24 15:00 | XMS_ITS | Encounter Summary ---
Author Organization [facility] Address [address] [place] [address] Care Team Providers Care Fish Dressing Machine Feeder Name Role Phone Unavailable Primary Care Provider Unavailabl e Encounter Details Date Type Department Care Team (Latest Contact Info) Description 07/24/2024 3:00 PM EDT Ancillary Procedure [facility] [address] [place] [address] induced hypertension, antepartum Social History Tobacco Use Types Packs/Day Years [...] AM EST documented as of this encounter Plan of Treatment Upcoming Encounters Date Type Department Care Team (Late st Contact Info) Description 08/07/2024 3:50 PM EDT Routine [facility] [address] [place] [address] Hedy Ortega PA [address] [place], [place] [id number] documented as of this encounter Procedures Procedure Name Priority Date/Time Associated Diagnosis Comments US OB FOLLOW UP TRANSABDOMINAL APPROACH Routine 07/24/2024 3:21 PM EDT induced hypertension, antepartum documented in this encounter Results * US OB follow up transabdominal approach (07/24/2024 3:21 PM EDT) Anatomical Region Laterality Modality Body Ultrasound 07/26/2024 12:1 8 PM EDT Narrative 07/26/2024 12:28 PM EDT EXAM: US OB FOLLOW UP TRANSABDOMINAL APPROACH HISTORY: PIH. COMPARISON: Ob ultrasound 06/05/2024. TECHNIQUE: Two-dimensional transabdominal grayscale ultrasound imaging of the pelvis was performed. FINDINGS: Gestation: Single Presentation: Breech Cardiac Activity: 156 beats per minute Placental Location: Anterior with no sonographic abnormalities identified. Amniotic Fluid Index: 14.1 cm MEASUREMENTS: BPD: 7.4 cm EGA: 29 weeks 3 days HC: 27.4 cm EGA: 30 weeks 0 days AC: 23.9 cm EGA: 28 weeks 1 days FL: 5.2 cm EGA: 27 weeks 5 days HC/AC Ratio: 1.15 The gestational age by today's ultrasound is 28 weeks 6 days (+/- 14 days gestation). Estimated Weight: 1204 grams, +/- 181 grams ( 2 lb 10 oz). Weight Percentile for gestational age: 37 % IMPRESSION: 1. Single, live intrauterine gestation 28 weeks, 2 days by LMP. Today's ultrasound measurements correlate with a gestational age of 28 weeks 6 days. Estimated weight is 1204 grams, +/- 181 grams ( 2 lb 10 oz) which correlates to 37 %. PRESTON is 10/10/2024. Interpreted by: Electronically signed by FRITZ TEMPLETON II, MD, PHD at 26-Jul-2024 12:17:20 PM [facility] Procedure Note Fritz Templeton MD - 07/26/2024 EXAM: US OB FOLLOW UP TRANSABDOMINAL APPROACH HISTORY: PIH. COMPARISON: Ob ultrasound 06/05/2024. TECHNIQUE: Two-dimensional transabdominal grayscale ultrasound imaging ofthe pelvis was performed. FINDINGS: Gestation: Single Presentation: Breech Cardiac Activity: 156 beats per minute Placental Location: Anterior with no sonographic abnormalitiesidentified. Amniotic Fluid Index: 14.1 cm MEASUREMENTS: BPD: 7.4 cm EGA: 29 weeks 3 days HC: 27.4 cm EGA: 30 weeks 0 days AC: 23.9 cm EGA: 28 weeks 1 days FL: 5.2 cm EGA: 27 weeks 5 days HC/AC Ratio: 1.15 The gestational age by today's ultrasound is 28 weeks 6 days (+/- 14 daysgestation). Estimated Weight: 1204 grams, +/- 181 grams ( 2 lb 10 oz). Weight Percentile for gestational age: 37 % IMPRESSION: 1. Single, live intrauterine gestation 28 weeks, 2 days by LMP. Today'sultrasound measurements correlate with a gestational age of 28 weeks 6days. Estimated weight is 1204 grams, +/- 181 grams ( 2 lb 10 oz)which correlates to 37 %. PRESTON is 10/10/2024. Interpreted by: Electronically signed by FRITZ TEMPLETON II, MD, PHD [id number] 12:17:20 PM [facility] us Fina Wilson FIELD EVIDENCE TECHNICIAN IMG OB US PROCEDURES Final Re sult documented in this encounter Visit Diagnoses Diagnosis induced hypertension, antepartum Transient hypertension of , antepartum documented in this encounter
--- OUTSIDE RECORDS SUMMARY | 2024-07-24 15:30 | XMS_ITS | Encounter Summary ---
Author Organization [facility] Address [address] [place] [address] Care Team Providers Care Concrete Pipe Maker Name Role Phone Unavailable Primary Care Provider Unavailabl e Reason for Visit * Reason Comments Routine Visit Encounter Details Date Type Department Care Team (Late st Contact Info) Description 07/24/2024 3:30 PM EDT Routine [facility] [address] [place] [phone] Curt Mistry, DO [address] [facility] [place] [address] 28 weeks gestation of ; Third trimester Social History Tobacco Use Types Packs/Day Years [...] Sign Reading Time Taken Comments Blood Pressure 130/86 07/24/2024 3:57 PM EDT Pulse - - Temperature - - Respiratory Rate - - Oxygen Saturation - - Inhaled Oxygen Concentration - - Weight 87.9 kg (193 lb 12.8 oz) 07/24/2024 3:57 PM EDT Height - - Body Mass Index - - documented in this encounter Progress Notes * Marielos Rapp, MECHANICAL MAINTENANCE - 07/24/2024 3:30 PM EDT Reason for Appointment: Patient ID: Surendra Butler is a 23 y.o. female who presents for Routine Visit Patient presents today for Return OB appointment. MEDICATIONS Current Outpatient Medications Medication Instructions Ferrous Gluconate (IRON 27 PO) Take by mouth labetalol (NORMODYNE) 100 mg, Oral, 2 times daily MV-Min-Fe Fum-FA-DHA ( 1 PO) Take by mouth ALLERGIES No Known Allergies PROBLEMS Active Ambulatory Problems Diagnosis Date Noted No Active Ambulatory Problems Resolved Ambulatory Problems Diagnosis Date Noted No Resolved Ambulatory Problems No Additional Past Medical History HISTORY PAST MEDICAL HISTORY SOCIAL HISTORY History reviewed. No pertinent past medical history. Social History Tobacco Use Smoking status: Not on file Smokeless tobacco: Not on file Substance Use Topics Alcohol use: Not on file Drug use: Not on file FAMILY HISTORY Family History Problem Relation Name Age of Onset Eclampsia Mother Other (Preeclampsia) Mother's Sister SURGICAL HISTORY History reviewed. No pertinent surgical [...] nursing note reviewed. Exam conducted with a clinical laboratory technologist present. Vitals: There is no height or weight on file to calculate BMI. BP: 130/86 Patient's last menstrual period was 01/08/2024. ASSESSMENT & PLAN ICD-10-CM 1. 28 weeks gestation of Z3A.28 POCT urinalysis dipstick manually resulted 2. Third trimester Z34.93 POCT urinalysis dipstick manually resulted Return OB: Patient presents today for a routine obstetrics appointment. Patient is currently 28w2d . Patient states she is doing well but has complaints of being tired due to current . Patient has verbalizes frequent movement. labor precautions was discussed/given and patient was instructed to perform kick counts three times a day. Pt to be delivered early d/t chronic hypertension. 09/27/24 Orders Placed This Encounter Procedures POCT urinalysis dipstick manually resulted Follow Up: Patient is to return to office in 2 week for routine OB appointment. Documented by Marielos Rapp LPN on behalf of: Curt Mistry DO documented in this encounter Plan of Treatment Upcoming Encounters Date Type Department Care Team (Late st Contact Info) Description 08/07/2024 3:50 PM EDT Routine [facility] [address] [facility] [place] [phone] Hedy Ortega PA [address] [facility] [address] [place], [place] [id number] documented as of this encounter Procedures Procedure Name Priority Date/Time Associated Diagnosis Comments POCT URINALYSIS DIPSTICK Routine 07/24/2024 4:03 PM EDT 28 weeks gestation of Third trimester documented in this encounter Results * (ABNORMAL) POCT urinalysis dipstick manually resulted (07/24/2024 4:03 PM EDT) Color, UA Yellow Clarity, UA Clear Glucose, UA Negative Negative - 2000(110) ++++ mg/dL Bilirubin, UA Negative Negative - 4(70) +++ mg/dL Ketones, UA Negative Negative - 160(16) ++++ mg/dL Spec Grav, UA 1.025 1 - 1.03 Blood, UA Negative Negative - 50 Adams/mcL pH, UA 6.5 5 - 9 Protein, UA Negative Negative - 1999(20) ++++ mg/dL Urobilinogen, UA 0.2 0.2 - 12 mg/dL Leukocytes, UA Trace Negative - 500+++ Pranav/mcL Nitrite, UA Negative Negative - Positive Urine 07/24/2024 4:03 PM EDT Curt Mistry DO POINT OF CARE TEST ENTER/EDIT OR DERABLES Final Result documented in this encounter Visit Diagnoses Diagnosis 28 weeks gestation of Third trimester state, incidental documented in this encounter
--- OUTSIDE RECORDS SUMMARY | 2024-08-06 18:59 | XMS_ITS | Encounter Summary ---
Author Organization [facility] Address [address] [place] [address] Care Team Providers Care Ocean Lifeguard Name Role Phone Unavailable Primary Care Provider Unavailabl e Encounter Details Date Type Department Care Team (Late st Contact Info) Description 05/20/2024 Orders Only [facility] [address] [place] [address] [place] [phone] Rosa Cueva MA [address] [place] [address] Social History Tobacco Use Types Packs/Day Years [...] 3:50 PM EDT Routine [facility] [address] [place] [address] [place] [phone] Hedy Ortega PA [address] [facility] [address] [place], [place] [phone] documented as of this encounter Procedures Procedure Name Priority Date/Time Associated Diagnosis Comments PAP SMEAR Routine 05/06/2024 12:00 AM EST documented in this encounter Results * Pap Smear (05/06/2024 12:00 AM EST) Swab Cervical swab / Unknown us [facility] ORDERABLES Final Re sult EXTERNAL LAB documented in this encounter Visit Diagnoses Not on filedocumented in this encounter
--- OUTSIDE RECORDS SUMMARY | 2024-08-06 18:59 | XMS_ITS | Encounter Summary ---
Author Organization [facility] Address [address] [place] [address] Care Team Providers Care Professor Of Early Childhood Education Name Role Phone Unavailable Primary Care Provider Unavailabl e Encounter Details Date Type Department Care Team (Late st Contact Info) Description 03/26/2024 Abstract [facility] [address] [place] [address] Curt Mistry, DO [address] [facility] [address] [place], [facility] Social History Tobacco Use Types Packs/Day Years [...] PM EDT Routine [facility] [address] [facility] [place] [address] Hedy Ortega PA [address] [facility] [address] [place], [place] [id number] documented as of this encounter Visit Diagnoses Not on filedocumented in this encounter
--- OUTSIDE RECORDS SUMMARY | 2024-08-06 18:59 | XMS_ITS | Clinical Summary ---
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 60 tablet 2 5 Active promethazine (Phenergan) 25 MG tabletIndication s:Nausea and vomiting, unspecified vomiting type Take 1 tablet (25 mg) by mouth every 6 (six) hours if needed for nausea or vomiting 180 tablet 1 5 07/08/19 25 cephalexin (Keflex) 500 MG capsuleIndicatio ns:Urinary tract infection without hematuria, site unspecified Take 1 capsule (500 mg) by mouth in the morning and 1 capsule (500 mg) in the evening and 1 capsule (500 mg) before bedtime. Do all this for 7 days. 21 capsule 5 07/18/19 25 Encounters Date Type Department Care Team Description 07/31/2024 Clinisync Result Encounter [facility] External Department Unsolicited Fina Wilson NP 07/24/2024 3:30 PM EDT Routine [facility] OB [address] [place] [address] [place] [address] Curt Mistry DO 28 weeks gestation of ; Third trimester 07/24/2024 3:00 PM EDT Ancillary Procedure [facility] [address] [place] [address] induced hypertension, antepartum 07/24/2024 Travel 07/23/2024 Clinisync Result Encounter [facility]OMS External Department Unsolicited Fina Wilson NP 07/10/2024 11:30 AM EDT Clinical Support [facility] [address] [place] [address] Blood pressure check; Second trimester ; 26 weeks gestation of ; Urinary tract infection without hematuria, site unspecified 07/06/2024 Clinisync Result Encounter [facility]S External Department Unsolicited Fina Wilson, YADY 07/04/2024 Clinisync Result Encounter [facility]OMS External Department Unsolicited Fina Wilson NP 07/03/2024 3:30 PM EDT Routine [facility] [address] [place] [address] Fina Wilson, YADY Second trimester ; 25 weeks gestation of ; Diabetes mellitus screening; induced hypertension, antepartum 07/03/2024 Bamboo flowsheet [facility] [address] [place] [address] Fina Wilson NP 06/05/2024 2:10 PM EDT Routine [facility] [address] [place] [address] Curt Mistry, Second trimester ; 21 weeks gestation of 06/05/2024 Clinisync Result Encounter [facility]OMS External Department Unsolicited Hedy Pinto PA 06/05/2024 Clinisync Result Encounter [facility]OMS External Department Unsolicited Hedy Pinto PA 06/05/2024 Bamboo flowsheet [facility] [address] [place] [address] Curt Mistry DO 05/20/2024 Orders Only [facility] [address] [place] [address] Rosa Cueva MA 05/09/20[address] [facility] [address] [place] [address] Hedy Pinto PA 05/06/2024 3:30 PM EST Routine [facility] [address] [place] [address] Hedy Pinto PA Well woman exam with routine gynecological exam; Exposure to STD; Need for maternal serum alpha-protein (MSAFP) screening; Second trimester ; 17 weeks gestation of ; Screening, , for anatomic survey 05/06/2024 Clinisync Result Encounter [facility]OMS External Department Unsolicited Hedy Pinto PA 05/06/2024 External Result Encounter [facility]OMS External Department Unsolicited Hedy Pinto PA 05/06/2024 Bamboo flowsheet [facility] [address] [place] [address] Hedy Pinto PA from Last 3 Months Family History Medical History Relation Name Comments Eclampsia Mother Preeclampsia Mother's Sister Relation Name Status Comments Mother Mother's Sister Social History Tobacco Use Types Packs/Day Years [...] Orientation Straight 02/13/2024 11 :26 AM EST Last Filed Vital Signs Vital Sign Reading Time Taken Comments Blood Pressure 130/86 07/24/2024 3:57 PM EDT Pulse - - Temperature - - Respiratory Rate - - Oxygen Saturation - - Inhaled Oxygen Concentration - - Weight 87.9 kg (193 lb 12.8 oz) 07/24/2024 3:57 PM EDT Height - - Body Mass Index - - Plan of Treatment Upcoming Encounters Date Type Department Care Team (Late st Contact Info) Description 08/07/2024 3:50 PM EDT Routine [facility] B[facility] OB [address] [facility] [place] [phone] Hedy Pinto PA [address] [facility] [place] [address] Procedures Procedure Name Priority Date/Time Associated Diagnosis Comments US OB BPP W NON-STRESS 07/31/2024 9:08 AM EDT POCT URINALYSIS DIPSTICK Routine 07/24/2024 4:03 PM EDT 28 weeks gestation of Third trimester US OB FOLLOW UP TRANSABDOMINAL APPROACH Routine 07/24/2024 3:21 PM EDT induced hypertension, antepartum US OB BPP W NON-STRESS 07/23/2024 9:58 PM EDT POCT URINALYSIS DIPSTICK Routine 07/10/2024 12:06 PM EDT Second trimester TBH TOTAL PROTEIN 24 HOUR URINE Routine 07/06/2024 8:42 AM EDT [facility] APTT Routine 07/04/2024 11:37 AM EDT [facility] PROTHROMBIN TIME INR W/O COUM Routine 07/04/2024 11:37 AM EDT ALL LDH Routine 07/04/2024 11:37 AM EDT [facility] AST Routine 07/04/2024 11:37 AM EDT ALL URIC ACID Routine 07/04/2024 11:37 AM EDT GLUCOSE 1 HOUR Routine 07/04/2024 11:37 AM EDT TBH CREATININE Routine 07/04/2024 11:37 AM EDT ALL BUN Routine 07/04/2024 11:37 AM EDT ALL CBC WITH AUTO DIFF Routine 11:37 AM EDT POCT URINALYSIS DIPSTICK Routine 07/03/2024 4:38 PM EDT Second trimester US OB CERVICAL LENGTH 06/05/2024 7:36 PM EDT US OB ANATOMY 06/05/2024 7:36 PM EDT POCT URINALYSIS DIPSTICK Routine 06/05/2024 3:26 PM EDT Second trimester RECURRENT VAGINITIS (HTRX) Routine 05/06/2024 4:34 PM EST POCT URINALYSIS DIPSTICK Routine 05/06/2024 3:56 PM EST 17 weeks gestation of IGP,APTIMA HPV,AGE GDLN Routine 05/07/19 3:43 PM EST PAP SMEAR Routine 05/06/2024 12:00 AM EST from Last 3 Months Results * US OB BPP W NON-STRESS (07/31/2024 9:08 AM EDT) Only the most recent of2 resultswithin the time period is included. Anatomical Region Laterality Modality Other 07/31/2024 9:08 AM EDT Narrative 07/31/2024 9:10 [place] [address] Ultrasound Report Signed Patient: FRANCISCA BUTLER MR#: [id number] : 2000 Acct:[id number] Age/Sex: 23 / F ADM Date: 07/30/24 Loc: US Attending Dr: Fina Wilson Ordering Physician: Fina Wilson Date of Service: 07/30/24 Procedure(s): US OB BPP w non-stress Accession Number(s): [id number] cc: Fina Wilson; Physician,Non-Staff [place]ond[place] [address] Patient Name: FRANCISCA BUTLER MRN: [facility]:[id number] date: 2000 Sex: F Assigned Patient Location: [facility] Current Patient Location: Accession/Order Number: [id number] Exam Date: 07/31/2024 09:06 Report Date: 07/31/2024 09:08 At the request of: FINA WILSON Procedure: US OB BPP w non-stress BIOPHYSICAL PROFILE: CLINICAL INFORMATION: INDUCED HYPERTENSION O13.9 COMPARISON: 07/23/2024 There is a single live intrauterine gestation in cephalic presentation. The reported gestational age is 29 weeks 1 day The heart rate [id number] beats per minute. FINDINGS: TONE: 1 or more episodes of activity extension and flexion of extremity or opening and closing of the hand [Y] 2/2 GROSS BODY MOVEMENTS: 3 or more discrete body or limb movements [Y] 2/2 BREATHING MOVEMENTS: 1 or more episodes of breathing lasting at least 30 seconds [Y] 2/2 ROSE: A single deepest vertical pocket of amniotic fluid greater than 2 cm [Y] 2/2 ROSE: 16.2 cm . This is in upper normal range. Total score: 8/8 US/US OB BPP w non-stress IMPRESSION: NORMAL BIOPHYSICAL PROFILE. Impression dictated by: Marielos Rubio M.D. 07/31/2024 9:08 AM Dictation Location: [place] [address] Electronically authenticated by: [id number] Y Date: 07/31/2024 09:08 Dictated By: Marielos Rubio M.D. Signed By: 07/31/24909 DD/ 7 TD/TT: Barber Shop Operator: Procedure Note Radiology, Radiologist, - 07/31/2024 [place] [address] Ultrasound Report Signed Patient: FRANCISCA UBTLER CMR#: [id number] : 2000Acct:[id number] Age/Sex: 23 / FADM Date: 07/30/24 Loc: US Attending Dr: Fina Wilson Ordering Physician: Fina Wilson Date of Service: 07/30/24 Procedure(s): US OB BPP w non-stress Accession Number(s): [id number] cc: Fina Wilson; Physician,Non-Staff M.DOwen [place] [id number] Patient Name: FRANCISCA BUTLER MRN: [facility]:[id number] date: 2000 Sex: F Assigned Patient Location: [facility] Current Patient Location: Accession/Order Number: [id number] Exam Date: 07/31/2024 09:06 Report Date: 07/31/2024 09:08 At the request of: FINA WILSON Procedure: US OB BPP w non-stress BIOPHYSICAL PROFILE: CLINICAL INFORMATION: INDUCED HYPERTENSION O13.9 COMPARISON: 07/23/2024 There is a single live intrauterine gestation in cephalic presentation.The reported gestational age is 29 weeks 1 day The heart [id number] beats per minute. FINDINGS: TONE: 1 or more episodes of activity extension and flexion of extremity or opening and closing of the hand [Y] 2/2 GROSS BODY MOVEMENTS: 3 or more discrete body or limb movements [Y] 2/2 BREATHING MOVEMENTS: 1 or more episodes of breathing lastingat least 30 seconds [Y] 2/2 ROSE: A single deepest vertical pocket of amniotic fluid greater than 2 cm [Y] 2/2 ROSE: 16.2 cm . This is in upper normal range. Total score: 8/8 US/US OB BPP w non-stress IMPRESSION: NORMAL BIOPHYSICAL PROFILE. Impression dictated by: Marielos Rubio M.D. 07/31/2024 9:08 AM Dictation Location: [place] [address] Electronically authenticated by: [id number] Y Date: 509:08 Dictated By: Marielos Rubio M.D. Signed By:07/31/24 0910 DD/ 0908 TD/TT: Barber Shop Operator: us Fina Wilson NP [facility] Final Resul t * (ABNORMAL) POCT urinalysis dipstick manually resulted (07/24/2024 4:03 PM EDT) Only the most recent of5 resultswithin the time period is included. Color, UA Yellow Clarity, UA Clear Glucose, UA Negative Negative - 2000(110) ++++ mg/dL Bilirubin, UA Negative Negative - 4(70) +++ mg/dL Ketones, UA Negative Negative - 160(16) ++++ mg/dL Spec Grav, UA 1.025 1 - 1.03 Blood, UA Negative Negative - 50 Adams/mcL pH, UA 6.5 5 - 9 Protein, UA Negative Negative - 2000(20) ++++ mg/dL Urobilinogen, UA 0.2 0.2 - 12 mg/dL Leukocytes, UA Trace Negative - 500+++ Pranav/mcL Nitrite, UA Negative Negative - Positive Urine 07/24/2024 4:03 PM EDT us Curt Mistry DO POINT OF CARE TEST ENTER/EDIT OR DERABLES Final Result * US OB follow up transabdominal approach [...] 10/10/2024. Interpreted by: Electronically signed by FRITZ MAXWELL II, MD, PHD at 26-Jul-2024 12:17:20 PM [facility] Procedure Note Fritz Maxwell MD - 07/26/2024 EXAM: US OB FOLLOW [...] 10/10/2024. Interpreted by: Electronically signed by FRITZ MAXWELL II, MD, PHD [id number] 12:17:20 PM [facility] us Fina Wilson NP IMG OB US PROCEDURES Final Re sult * (ABNORMAL) TBH TOTAL PROTEIN 24 HOUR URINE (07/06/2024 8:42 AM EDT) TOTAL PROTEIN URINE RANDOM 14.2(H) <=11.9 mg/dL TBH TOTAL VOLUME 24 HOUR URINE 1,300 mL/24hr TBH TBH TOTAL PROTEIN 24 HOUR URINE 184.6(H) <=149.1 mg/24hr TBH 07/06/2024 8:42 AM EDT 07/06/2024 11:24 AM EDT Narrative [facility] - 07/06/2024 11:59 AM EDT us Fina Wilson NP [facility] Final Result [facility] TB * GLUCOSE 1 HOUR (07/04/2024 11:37 AM EDT) GLUCOSE 1 HOUR 110 <130 mg/dL TBH 07/04/2024 11:3 7 AM EDT 07/04/2024 11:39 AM EDT Narrative [facility] - 07/04/2024 12:21 PM EDT us Fina Wilson NP LAB BLOOD ORDERABLES Final Re sult [facility] TB * TBH CREATININE (07/04/2024 11:37 AM EDT) CREATININE 0.59 0.55 - 1.02 mg/dL TBH TBH EGFR-AF SENEGALESE >60 >=60 mL/min/1.7 3m 2 TBH TBH EGFR-NON AF SENEGALESE >60 >=60 mL/min/1.7 3m 2 TBH 07/04/2024 11:3 7 AM EDT 07/04/2024 11:39 AM EDT Narrative [facility] - 07/04/2024 12:21 PM EDT us Fina Wilson NP [facility] Final Result Performing Organization Address [facility] de Phone Number [facility] * [facility] PROTHROMBIN TIME INR W/O COUM (07/04/2024 11:37 AM EDT) PROTHROMBIN TIME 10.6 9.0 - 11.6 sec TBH TBH INR 1.00 TBH Comment: DESIRED INR: 2.0-3.0 CONDITIONS NOT LISTED BELOW 2.5-3.5 FOR PROSTHETIC HEART VALVE REPLACEMENT 2.5-3.5 RECURRENT THROMBOSIS 07/04/2024 11:3 7 AM EDT 07/04/2024 11:39 AM EDT Narrative [facility] - 07/04/2024 12:39 PM EDT us Fina Wilson NP [facility] Final Result Performing Organization Address [facility] de Phone Number [facility] * (ABNORMAL) [facility] AST (07/04/2024 11:37 AM EDT) ASPARTATE AMINO TRANSFERASE 8(L) 15 - 37 U/L TB 07/04/2024 11:3 7 AM EDT 07/04/2024 11:39 AM EDT Narrative [facility] - 07/04/2024 12:21 PM EDT us Fina Wilson NP [facility] Final Result Performing Organization Address [facility] de Phone Number [facility] * [facility] APTT (07/04/2024 11:37 AM EDT) PARTIAL THROMBOPLASTIN TIME 26.8 22.3 - 36.2 sec TB 07/04/2024 11:3 7 AM EDT 07/04/2024 11:39 AM EDT Narrative [facility] - 07/04/2024 12:39 PM EDT us Fina Wilson NP [facility] Final Result Performing Organization Address [facility] de Phone Number [facility] * ALL URIC ACID (07/04/2024 11:37 AM EDT) Pathologist [facility] URIC ACID 3.4 2.6 - 6.0 mg/dL TB 07/04/2024 11:3 7 AM EDT 07/04/2024 11:39 AM EDT Narrative [facility]IN[facility] - 07/04/2024 12:21 PM EDT Fina Wilson NP [facility] Final Result Performing Organization Address [facility] de Phone Number [facility] * ALL LDH (07/04/2024 11:37 AM EDT) Pathologist [facility] LACTATE DEHYDROGENASE 97 81 - 234 U/L TB 07/04/2024 11:3 7 AM EDT 07/04/2024 11:39 AM EDT Narrative [facility] - 07/04/2024 12:21 PM EDT Fina Wilson CUTTER DOWN [facility] Final Result Performing Organization Address [facility] de Phone Number [facility] * (ABNORMAL) ALL CBC WITH AUTO DIFF (07/04/2024 11:37 AM EDT) Pathologist [facility] TB WBC 10.5 4.0 - 11.0 10 3/uL TBH TB RBC 3.68(L) 4.20 - 5.40 10 6/uL TBH TB HGB 11.0(L) 12.0 - 16.0 g/dL TB TB HCT 32.9(L) 36.0 - 48.0 % TBH TB MCV 89.4 81.0 - 99.0 fL TBH TBH MCH 29.9 26.7 - 34.0 pg TBH TBH MCHC 33.4 29.9 - 35.2 g/dL TB TB RDW 13.2 11.0 - 15.0 % TBH TBH PLT 237 150 - 450 10 3/uL TBH TB MPV 10.7 9.5 - 13.5 fL TBH NEUTROPHILS PERCENT AUTO 73.2 43.0 - 75.0 % TBH LYMPHOCYTES PERCENT AUTO 18.7(L) 20.5 - 60.0 % TBH MONOCYTES PERCENT AUTO 5.7 1.7 - 12.0 % TBH TBH EO % 0.5(L) 0.9 - 7.0 % TBH BASOPHILS PERCENT AUTO 0.3 0.2 - 2.0 % TBH IMMATURE GRANULOCYTES PCT AUTO 1.6(H) 0.0 - 0.5 % TBH NEUTROPHILS ABSOLUTE AUTO 7.7(H) 1.4 - 6.5 10 3/uL TBH LYMPHOCYTES ABSOLUTE AUTO 2.0 1.2 - 3.8 10 3/uL TBH MONOCYTES ABSOLUTE AUTO 0.6 0.3 - 0.8 10 3/uL TBH TBH EO # 0.1 0.0 - 0.7 10 3/uL TBH BASOPHILS ABSOLUTE AUTO 0.0 0.0 - 0.1 10 3/uL TBH IMMATURE GRANULOCYTES ABS AUTO 0.17(H) 0.00 - 0.03 10 3/uL TBH 07/04/2024 11:3 7 AM EDT 07/04/2024 11:39 AM EDT Narrative [facility] - 07/04/2024 12:19 PM EDT Fina Wilson NP [facility] Final Result Performing Organization Address [facility]/ZIP Co de Phone Number [facility] TB * (ABNORMAL) ALL BUN (07/04/2024 11:37 AM EDT) Pathologist [facility] BLOOD UREA NITROGEN 4.0(L) 7.0 - 18.0 mg/dL TBH 07/04/2024 11:3 7 AM EDT 07/04/2024 11:39 AM EDT Narrative [facility] - 07/04/2024 12:21 PM EDT us Fina Wilson NP [facility] Final Result [facility]H * US OB CERVICAL LENGTH (06/05/2024 7:36 PM EDT) Anatomical Region Laterality Modality Other 06/05/2024 7:36 PM EDT Narrative 06/05/2024 7:39 [place] [address] Ultrasound Report Signed Patient: FRANCISCA CÁRDENAS MR#: [id number] : 2000 Acct:[id number] Age/Sex: 23 / F ADM Date: 06/05/24 Loc: US Attending Dr: Hedy Pinto Ordering Physician: Hedy Pinto Date of Service: 06/05/24 Procedure(s): US OB cervical length Accession Number(s): [id number] cc: Hedy Pinto; Curt Mistry D.O. [place] [id number] Patient Name: FRANCISCA CÁRDENAS MRN: [id number] date: 2000 Sex: F Assigned Patient Location: US Current Patient Location: US Accession/Order Number: [id number] Exam Date: 06/05/2024 19:29 Report Date: 06/05/2024 [...] Willam Fernández M.D.06/05/2024 7:36 PM Dictation Location: [place] [address] Electronically authenticated by: [id number] Y Date: 06/05/2024 19:36 Dictated By: Willam Fernández D.O. Signed By: 06/05/241938 DD/ 35 TD/TT: Barber Shop Operator: Procedure Note Radiology, Radiologist, - 06/06/2024 [place] [address] Ultrasound Report Signed Patient: FRANCISCA CÁRDENAS CMR#: [id number] : 2000Acct:[id number] Age/Sex: 23 / FADM Date: 06/05/24 Loc: US Attending Dr: Hedy Pinto Ordering Physician: Hedy Pinto Date of Service: 06/05/24 Procedure(s): US OB cervical length Accession Number(s): [id number] cc: Hedy Pinto; Curt Mistry D.O. [place] [id number] Patient Name: FRANCISCA CÁRDENAS MRN: [id number] date: 2000 Sex: F Assigned Patient Location: US Current Patient Location: US Accession/Order Number: [id number] Exam Date: 06/05/2024 19:29 Report Date: 06/05/2024 19:36 At the request of: HEDY PINTO Procedure: US OB anatomy Ultrasound assessment of cervical length The cervical length 4.5 cm. US/US OB cervical length IMPRESSION: Cervical length 4.5 cm. Obstetrical ultrasound for anatomy assessment HISTORY: anatomy assessment Fetus in cephalic presentation. Longitudinal lie. Amniotic fluid subjectively normal. Anterior position of the placenta. The distancefrom the placental edge 7.6 cm. The length of the cervix 4.5 cm. The cervicalos is closed. The heart rate is 163 bpm. Following anatomy visualized: Lateral ventricles, cerebellum, posterior fossa, nose andlips, orbits, 4 chambered heart, left ventricular outflow tract and right ventricular outflow tracts, diaphragm, stomach, kidneys, cord insertion, urinary bladder, umbilical arteries, three-vessel cord, spine andextremities. The biparietal diameter of 5.4 cm consistent with 22 weeks 3 days. History conference and 19.8 cm consistent with 22 weeks 0 days. Abdominal circumference 15.6 cm consistent with 20 weeks 6 days. Femur length 3.7 cm consistent with 21 weeks 6 days. Lateral ventricle measures 5.3 mm. Cisterna magna measures 4.4 mm. Estimated [id number] g. Estimated weight percentile 51.4%. Estimated gestational age by ultrasound is 21 weeks 6 days. IMPRESSION: Single live intrauterine gestation 21 weeks 6 days.Visualized anatomy as above. Impression dictated by: Willam Fernández M.D.06/05/2024 7:36 PM Dictation Location: [facility] Electronically authenticated by: [id number] Y Date: 9:36 Dictated By: Willam Fernández D.O. Signed By:06/05/241938 DD/ 35 TD/TT: Barber Shop Operator: us Hedy WERNER [facility] Final Result * US OB ANATOMY (06/05/2024 7:36 PM EDT) Anatomical Region Laterality Modality Other 06/05/2024 7:36 PM EDT Narrative 06/05/2024 7:39 [place] [address] Ultrasound Report Signed Patient: FRANCISCA CÁRDENAS MR#: [id number] : 2000 Acct:[id number] Age/Sex: 23 / F ADM Date: 06/05/24 Loc: US Attending Dr: Hedy Pinto Ordering Physician: Hedy Pinto Date of Service: 06/05/24 Procedure(s): US OB anatomy Accession Number(s): [id number] cc: Hedy Pinto; Curt Mistry D.O. [address] [address] Patient Name: FRANCISCA CÁRDENAS MRN: [facility]:[id number] date: 2000 Sex: F Assigned Patient Location: US Current Patient Location: US Accession/Order Number: [id number] Exam Date: 06/05/2024 19:29 Report Date: 06/05/2024 [...] Willam Fernández M.D.06/05/2024 7:36 PM Dictation Location: [facility] Electronically authenticated by: [id number] Y Date: 06/05/2024 19:36 Dictated By: Willam Fernández D.O. Signed By: 06/05/241938 DD/ 35 TD/TT: Barber Shop Operator: Procedure Note Radiology, Radiologist, - 06/06/[address] [address] Ultrasound Report Signed Patient: FRANCISCA CÁRDENAS CMR#: [id number] : 2000Acct:[id number] Age/Sex: 23 / FADM Date: 06/05/24 Loc: US Attending Dr: Hedy Pinto Ordering Physician: Hedy Pinto Date of Service: 06/05/24 Procedure(s): US OB anatomy Accession Number(s): [id number] cc: Hedy Pinto; Curt Mistry D.O. The [address] [address] Patient Name: FRANCISCA CÁRDENAS MRN: [id number] date: 2000 Sex: F Assigned Patient Location: US Current Patient Location: US Accession/Order Number: [id number] Exam Date: 06/05/2024 19:29 Report Date: 06/05/2024 19:36 At the request of: HEDY PINTO Procedure: US OB anatomy Ultrasound assessment of cervical length The cervical length 4.5 cm. US/US OB anatomy IMPRESSION: Cervical length 4.5 cm. Obstetrical ultrasound for anatomy assessment HISTORY: anatomy assessment Fetus in cephalic presentation. Longitudinal lie. Amniotic fluid subjectively normal. Anterior position of the placenta. The distancefrom the placental edge 7.6 cm. The length of the cervix 4.5 cm. The cervicalos is closed. The heart rate is 163 bpm. Following anatomy visualized: Lateral ventricles, cerebellum, posterior fossa, nose andlips, orbits, 4 chambered heart, left ventricular outflow tract and right ventricular outflow tracts, diaphragm, stomach, kidneys, cord insertion, urinary bladder, umbilical arteries, three-vessel cord, spine andextremities. The biparietal diameter of 5.4 cm consistent with 22 weeks 3 days. History conference and 19.8 cm consistent with 22 weeks 0 days. Abdominal circumference 15.6 cm consistent with 20 weeks 6 days. Femur length 3.7 cm consistent with 21 weeks 6 days. Lateral ventricle measures 5.3 mm. Cisterna magna measures 4.4 mm. Estimated [id number] g. Estimated weight percentile 51.4%. Estimated gestational age by ultrasound is 21 weeks 6 days. IMPRESSION: Single live intrauterine gestation 21 weeks 6 days.Visualized anatomy as above. Impression dictated by: Willam Fernández M.D.06/05/2024 7:36 PM Dictation Location: [facility] Electronically authenticated by: [id number] Y Date: 9:36 Dictated By: Willam Fernández D.O. Signed By:06/05/241938 DD/ 35 TD/TT: Barber Shop Operator: Hedy WERNER [facility] Final Result * (ABNORMAL) RECURRENT VAGINITIS (HTRX) (05/06/2024 4:34 PM EST) Pathologist [facility] ATOPOBIUM VAGINAE 0.000 19.961 - 24.689 ppm 05/08/2024 6:51 AM EST [facility] ATOPOBIUM VAGINAE Not Detected 19.961 - 24.689 ppm 05/08/2024 6:51 AM EST [facility] BVAB 2,3 (BACTERIAL VAGINOSIS ASSOCIATED BACTERIA 2, 3); MOBILUNCUS SPP 0.000 19.961 - 24.689 ppm 05/08/2024 6:51 AM EST [facility] BVAB 2,3 (BACTERIAL VAGINOSIS ASSOCIATED BACTERIA 2, 3); MOBILUNCUS SPP Not Detected 19.961 - 24.689 ppm 05/08/2024 6:51 AM EST [facility] DAMIEN ALBICANS, PARAPSILOSIS, TROPICALIS 0.000 19.961 - 30.770 ppm 05/08/2024 6:51 AM EST [facility] DAMIEN ALBICANS, PARAPSILOSIS, TROPICALIS Not Detected 19.961 - 30.770 ppm 05/08/2024 6:51 AM EST [facility] DAMIEN GLABRATA 0.000 23.000 - 32.138 ppm 05/08/2024 6:51 AM EST [facility] DAMIEN GLABRATA Not Detected 23.000 - 32.138 ppm 05/08/2024 6:51 AM EST [facility] DAMIEN KRUSEI 0.000 23.000 - 32.271 ppm 05/08/2024 6:51 AM EST [facility] DAMIEN KRUSEI Not Detected 23.000 - 32.271 ppm 05/08/2024 6:51 AM EST [facility] CHLAMYDIA TRACHOMATIS 0.000 23.000 - 31.467 ppm 05/08/2024 6:51 AM EST [facility] CHLAMYDIA TRACHOMATIS Not Detected 23.000 - 31.467 ppm 05/08/2024 6:51 AM EST [facility] GARDNERELLA VAGINALIS 31.766(A) 19.961 - 24.689 ppm 05/08/2024 6:51 AM EST [facility] GARDNERELLA VAGINALIS Detected(A) 19.961 - 24.689 ppm 05/08/2024 6:51 AM EST [facility] MEGASPHAERA (TYPES 1, 2) 0.000 19.961 - 24.689 ppm 05/08/2024 6:51 AM EST [facility] MEGASPHAERA (TYPES 1, 2) Not Detected 19.961 - 24.689 ppm 05/08/2024 6:51 AM EST [facility] NEISSERIA GONORRHOEAE 0.000 23.000 - 32.117 ppm 05/08/2024 6:51 AM EST [facility] NEISSERIA GONORRHOEAE Not Detected 23.000 - 32.117 ppm 05/08/2024 6:51 AM EST [facility] TRICHOMONAS VAGINALIS 0.000 23.000 - 32.119 ppm 05/08/2024 6:51 AM EST [facility] TRICHOMONAS VAGINALIS Not Detected 23.000 - 32.119 ppm 05/08/2024 6:51 AM EST [facility] MYCOPLASMA GENITALIUM 0.000 19.961 - 24.689 ppm 05/08/2024 6:51 AM EST [facility] MYCOPLASMA GENITALIUM Not Detected 19.961 - 24.689 ppm 05/08/2024 6:51 AM EST [facility] ERMB, C; MEFA 18.636(A) 23.000 - 27.611 ppm 05/08/2024 6:51 AM EST [facility] ERMB, C; MEFA Detected(A) 23.000 - 27.611 ppm 05/08/2024 6:51 AM EST [facility] TET B, TET M 19.805(A) 23.000 - 27.778 ppm 05/08/2024 6:51 AM EST [facility] TET B, TET M Detected(A) 23.000 - 27.778 ppm 05/08/2024 6:51 AM EST [facility] Tissue 05/06/2024 4:34 PM EST 05/08/2024 1:37 AM EST Hedy WERNER LAB BLOOD ORDERABLES Final Resul t [facility] HospitalckR[facility] [address] [place] [address] * IGP,APTIMA HPV,AGE GDLN (05/06/2024 3:43 PM EST) AGE GDLN ACOG TESTING Note . [facility] Comment: TESTS RESULT FLAG UNITS REF RANGE LAB Clinician Provided Cytology Information Source.............Cervix No. of containers..01 ThinPrep Vial Age Algo ACOG Anupama... FLAG LEGEND: L-Low Normal,H-High Normal,LL-Alert Low,HH-Alert High <-Panic Low,>-Panic High,A-Abnormal,AA-Critical Abnormal Performed at: 01 =[facility] [place] [address] Arleen Ruiz MD, IGP, RFX APTIMA HPV ASCU Note . [facility] Comment: TESTS RESULT FLAG UNITS REF RANGE LAB DIAGNOSIS: 02 NEGATIVE FOR INTRAEPITHELIAL LESION OR MALIGNANCY. Specimen adequacy: 02 Satisfactory for evaluation. No endocervical component is identified. Performed by: Aaliyah Schilling, District Sales Manager ([facility]) . 02 Note: Note 03 The Pap smear is a screening test designed to aid in the detection of premalignant and malignant conditions of the uterine cervix. It is not a diagnostic procedure and should not be used as the sole means of detecting cervical cancer. Both false-positive and false-negative reports do occur. Test Methodology: Note 03 This liquid based ThinPrep(R) pap test was screened with the use of an image guided system. . 02 The HPV DNA reflex criteria were not met with this specimen result therefore, no HPV testing was performed. FLAG LEGEND: L-Low Normal,H-High Normal,LL-Alert Low,HH-Alert High <-Panic Low,>-Panic High,A-Abnormal,AA-Critical Abnormal Performed at: 02 [facility] [address] [facility] [address] [place] [address] Dwayne Horowitz MD, [address] [facility] [address] [address] Arleen Ruiz MD, Performed at: =G - [facility] [address] [id number] Lead Producer: Arleen Ruiz MD, Phone: [phone] Performed at: [facility] [address] [id number] Lead Producer: Dwayne Horowitz MD, Phone: [phone] 05/06/2024 3:43 PM EST 05/06/2024 9:04 PM EST Narrative [facility] - 05/10/2024 6:11 AM EST SPATULA-ALONE CERVIX Hedy WERNER LAB BLOOD ORDERABLES Final Resul t Performing Organization Address [facility]/ZIP Co de Phone Number [facility] * Pap Smear (05/06/2024 12:00 AM EST) Swab Cervical swab / Unknown Hedy WERNER [facility] CYTOLOGY ORDERABLES Final Re sult Performing Organization Address [facility]/ZIP Co de Phone Number EXTERNAL LAB from Last 3 Months Insurance
--- OUTSIDE RECORDS SUMMARY | 2024-08-06 18:59 | XMS_ITS | Encounter Summary ---
Author Organization [facility] Address [address] [place] [address] Care Team Providers Care Vehicle Modification Technician Name Role Phone Unavailable Primary Care Provider Unavailabl e Encounter Details Date Type Department Care Team (Late st Contact Info) Description 07/23/2024 Clinisync Result Encounter N[facility]S External Department Unsolicited Keon Wilson, YADY [address] [facility] [place] [address] Social History Tobacco Use Types Packs/Day Years [...] Encounters Date Type Department Care Team (Late Contact Info) Description 08/07/2024 3:50 PM EDT Routine [facility] BCP OB [address] [facility] [place] [address] Hedy Ortega PA [address] [place] [address] [place], [place] [id number] documented as of this encounter Procedures Procedure Name Priority Date/Time Associated Diagnosis Comments US OB BPP W NON-STRESS 07/23/2024 9:58 PM EDT documented in this encounter Results * US OB BPP W NON-STRESS (07/23/2024 9:58 PM EDT) Anatomical Region Laterality Modality Other 07/23/2024 9:58 PM EDT Narrative 07/23/2024 10:01 [place] [address] Ultrasound Report Signed Patient: FRANCISCA BUTLER MR#: [id number] : 2000 Acct:[id number] Age/Sex: 23 / F ADM Date: 07/23/24 Loc: US Attending Dr: Keon Wilson Ordering Physician: Keon Wilson Date of Service: 07/23/24 Procedure(s): US OB BPP w non-stress Accession Number(s): [id number] cc: Keon Wilson; Physician,Non-Staff M.DOwen The [place] [id number] Patient Name: FRANCISCA BUTLER MRN: [id number] date: 2000 Sex: F Assigned Patient Location: [facility] Current Patient Location: Accession/Order Number: [id number] Exam Date: 07/23/2024 21:57 Report Date: 07/23/2024 21:58 At the request of: KEON WILSON Procedure: US OB BPP w non-stress Ultrasound biophysical profile HISTORY: -induced hypertension There is adequate breathing movement, gross body movement, tone and amniotic fluid volume for total score of 8 out of 8. Amniotic fluid index is 16.5 cm within normal limits. The heart rate is 150 bpm. Concern for nuchal cord. US/US OB BPP w non-stress Impression: Adequate biophysical profile. Concern for possible nuchal cord. Impression dictated by: Willam Fernández M.D. 07/23/2024 9:58 PM Dictation Location: [place] [address] Electronically authenticated by: [id number] Y Date: 07/23/2024 21:58 Dictated By: Willam Fernández D.O. Signed By: 07/23/242200 DD/ 57 TD/TT: Punch Machine Operator: Procedure Note Radiology, Radiologist, - 07/23/2024 [place] [address] Ultrasound Report Signed Patient: FRANCISCA BUTLER CMR#: [id number] : 2000Acct:[id number] Age/Sex: 23 / FADM Date: 07/23/24 Loc: US Attending Dr: Keon Wilson Ordering Physician: Keon Wilson Date of Service: 07/23/24 Procedure(s): US OB BPP w non-stress Accession Number(s): [id number] cc: Keon Wilson; Physician,Non-Staff M.Venecia The [place] [id number] Patient Name: FRANCISCA BUTLER MRN: [id number] date: 2000 Sex: F Assigned Patient Location: [facility] Current Patient Location: Accession/Order Number: [id number] Exam Date: 07/23/2024 21:57 Report Date: 07/23/2024 21:58 At the request of: KEON WILSON Procedure: US OB BPP w non-stress Ultrasound biophysical profile HISTORY: -induced hypertension There is adequate breathing movement, gross body movement, fetaltone and amniotic fluid volume for total score of 8 out of 8. Amniotic fluidindex is 16.5 cm within normal limits. The heart rate is 150 bpm.Concern for nuchal cord. US/US OB BPP w non-stress Impression: Adequate biophysical profile. Concern for possible nuchalcord. Impression dictated by: Willam Fernández M.D. 07/23/2024 9:58 PM Dictation Location: [place] [address] Electronically authenticated by: [id number] Y Date: 1:58 Dictated By: Willam Fernández D.O. Signed By:07/23/242200 DD/ 57 TD/TT: Punch Machine Operator: Keon Wilson NP [facility] Final Resul t documented in this encounter Visit Diagnoses Not on filedocumented in this encounter
--- OUTSIDE RECORDS SUMMARY | 2024-08-06 18:59 | XMS_ITS | Encounter Summary ---
Author Organization [facility] Address [address] [place] [address] Care Team Providers Care Perianesthesia Rn Name Role Phone Unavailable Primary Care Provider Unavailabl e Encounter Details Date Type Department Care Team (Late st Contact Info) Description 04/03/2024 Abstract [facility] BCP OB [address] [facility] [address] [place] [address] Curt Mistry, DO [address] [facility] [address] [address] [place], [facility] Social History Tobacco Use Types Packs/Day Years [...] PM EDT Routine [facility] BCP OB [address] [facility] [place] [address] Hedy Ortega PA [address] [facility] [address] [place], [place] [phone] documented as of this encounter Visit Diagnoses Not on filedocumented in this encounter
--- OUTSIDE RECORDS SUMMARY | 2024-08-06 18:59 | XMS_ITS | Encounter Summary ---
Author Organization [facility] Address [address] [place] [address] Care Team Providers Care Associate Entertainment Editor Name Role Phone Unavailable Primary Care Provider Unavailabl e Encounter Details Date Type Department Care Team (Late st Contact Info) Description 07/31/2024 Clinisync Result Encounter NOMS External Department Unsolicited Keon Wilson, YADY [address] [facility] [place] [address] Social History Tobacco Use Types Packs/Day [...] PM EDT Routine [facility] BCP OB [address] [facility] [place] [address] Hedy Ortega PA [address] [place] [address] [place], [place] [phone] documented as of this encounter Procedures Procedure Name Priority Date/Time Associated Diagnosis Comments US OB BPP W NON-STRESS 07/31/2024 9:08 AM EDT documented in this encounter Results * US OB BPP W NON-STRESS (07/31/2024 9:08 AM EDT) Anatomical Region Laterality Modality Other 07/31/2024 9:08 AM EDT Narrative 07/31/2024 9:10 [place] [address] Ultrasound Report Signed Patient: FRANCISCA BUTLER MR#: [id number] : 2000 Acct:[id number] Age/Sex: 23 / F ADM Date: 07/30/24 Loc: US Attending Dr: Keon Wilson Ordering Physician: Keon Wilson Date of Service: 07/30/24 Procedure(s): US OB BPP w non-stress Accession Number(s): [id number] cc: Keon Wilson; Physician,Non-Staff M.D. The [address] [address] Patient Name: FRANCISCA BUTLER MRN: [id number] date: 2000 Sex: F Assigned Patient Location: [facility] Current Patient Location: Accession/Order Number: [id number] Exam Date: 07/31/2024 09:06 Report Date: 07/31/2024 09:08 At the request of: KEON WILSON Procedure: US OB BPP w non-stress BIOPHYSICAL PROFILE: CLINICAL INFORMATION: INDUCED HYPERTENSION O13.9 COMPARISON: 07/23/2024 There is a single live intrauterine gestation in cephalic presentation. The reported gestational age is 29 weeks 1 day The heart rate [id number] beats per minute. FINDINGS: TONE: 1 or [...] Rubio M.D. 07/31/2024 9:08 AM Dictation Location: [place] [address] Electronically authenticated by: [id number] Y Date: 07/31/2024 09:08 Dictated By: Marielos Rubio M.D. Signed By: 07/31/2410 DD/ 7 TD/TT: Mechanic Sound Technician: Procedure Note Radiology, Radiologist, - 07/31/2024 [place] [address] Ultrasound Report Signed Patient: FRANCISCA BUTLER CMR#: [id number] : 2000Acct:[id number] Age/Sex: 23 FADM Date: 07/30/24 Loc: US Attending Dr: Keon Wilson Ordering Physician: Keon Wilson Date of Service: 07/30/24 Procedure(s): US OB BPP w non-stress Accession Number(s): [id number] cc: Keon Wilson; Physician,Non-Staff Alondra The [place] [id number] Patient Name: FRANCISCA BUTLER MRN: [facility]:[id number] date: 2000 Sex: F Assigned Patient Location: [facility] Current Patient Location: Accession/Order Number: [id number] Exam Date: 07/31/2024 09:06 Report Date: 07/31/2024 09:08 At the request of: KEON WILSON Procedure: US OB BPP w non-stress BIOPHYSICAL PROFILE: CLINICAL INFORMATION: INDUCED HYPERTENSION O13.9 COMPARISON: 07/23/2024 There is a single live intrauterine gestation in cephalic presentation.The reported gestational age is 29 weeks 1 day The heart [id number] beats per minute. FINDINGS: TONE: 1 or [...] is in upper normal range. Total score: 8/ US/US OB BPP w non-stress IMPRESSION: NORMAL BIOPHYSICAL PROFILE. Impression dictated by: Marielos Rubio M.D. 07/31/2024 9:08 AM Dictation Location: [place] [address] Electronically authenticated by: [id number] Y Date: 9:08 Dictated By: Marielos Rubio M.D. Signed By:07/31/24 0910 DD/ TD/TT: Mechanic Sound Technician: us Keon Wilson PLASTIC WELDING MACHINE OPERATOR [facility] Final Resul t documented in this encounter Visit Diagnoses Not on filedocumented in this encounter
--- OUTSIDE RECORDS SUMMARY | 2024-08-06 18:59 | XMS_ITS | Encounter Summary ---
Author Organization [facility] Address [address] [place] [address] Care Team Providers Care Bead Trimmer Name Role Phone Unavailable Primary Care Provider Unavailabl e Encounter Details Date Type Department Care Team (Latest Contact Info) Description 07/24/2024 Travel Social History Tobacco Use Types Packs/Day Years [...] OB [address] [facility] [place] [address] Hedy Ortega PA [address] [facility] [place] [address] documented as of this encounter Visit Diagnoses Not on filedocumented in this encounter
--- OUTSIDE RECORDS SUMMARY | 2024-08-06 18:59 | XMS_ITS | Encounter Summary ---
Author Organization [facility] Address [address] [place] [address] Care Team Providers Care Guest Services Ambassador Name Role Phone Unavailable Primary Care Provider Unavailabl e Encounter Details Date Type Department Care Team (Late st Contact Info) Description 04/17/2024 Abstract [facility] BCP OB [address] [facility] [place] [address] Tiffanie Loza LPN Social History Tobacco Use Types Packs/Day Years [...] PM EDT Routine [facility]CP [facility] [address] [facility] [place] [address] Hedy Ortega PA [address] [place], [place] [id number] documented as of this encounter Visit Diagnoses Not on filedocumented in this encounter
--- NOTE | 2024-08-06 19:06 | US_ITS ---
[place] [id number] Patient Name: FRANCISCA MÉNDEZ MRN: [id number] date: 2000 Sex: F Assigned Patient Location: [facility] Current Patient Location: [facility] Accession/Order Number: [id number] Exam Date: 08/06/2024 19:39 Report Date: 08/06/2024 19:39 At the request of: KEON FONSECA Procedure: US OB BPP w non-stress Ultrasound biophysical profile HISTORY: -induced hypertension Adequate breathing movement, gross body movement, tone and amniotic fluid volume for total score of 8 out of 8. The amniotic fluid index is 17.1cm within normal limits. The heart rate 159 bpm. US/US OB BPP w non-stress IMPRESSION: Adequate ultrasound biophysical profile Impression dictated by: Willam Fernández M.D. 08/06/2024 7:39 PM Dictation [facility] Electronically authenticated by: [id number] Y Date: 08/06/2024 19:39
[2024-08-06 19:24] VITALS: BP 128/68; PULSE 98
== END 2024-08-06 19:51 | disposition home or self-care (01) ==
LOC: US 19:03 → FBC 19:03
PROVIDERS: Visit Provider Nurse Practitioner Family
DX: O13.3 Gestational [pregnancy-induced] hypertension without significant proteinuria, third trimester (principal); Z3A.30 30 weeks gestation of pregnancy
CPT/HCPCS: 76818

== ENCOUNTER 2024-08-13 18:55 | Outpatient (OUT) | payer OTHER, SELFPAY ==
--- OUTSIDE RECORDS SUMMARY | 2024-08-07 15:50 | XMS_ITS | Encounter Summary ---
Author Organization [facility] Address [address] [place] [address] Care Team Providers Care Joint Cutter Name Role Phone Unavailable Primary Care Provider Unavailabl e Reason for Visit * Reason Comments Routine Visit Encounter Details Date Type Department Care Team (Latest Contact Info) Description 08/07/2024 3:50 PM EDT Routine [facility] BCP OB [address] [facility] [place] [address] Hedy Ortega PA [address] [facility] [address] [place], [facility] Hypertension during in third trimester, unspecified hypertension in type (Primary Dx); Third trimester ; 30 weeks gestation of Social History Tobacco Use Types Packs/Day Years [...] Sign Reading Time Taken Comments Blood Pressure 122/80 08/07/2024 4:19 PM EDT Pulse - - Temperature - - Respiratory Rate - - Oxygen Saturation - - Inhaled Oxygen Concentration - - Weight 88.5 kg (195 lb 3.2 oz) 08/07/2024 4:19 P M EDT Height - - Body Mass Index - - documented in this encounter Progress Notes * DEBBI Tolbert - 08/07/2024 3:50 PM EDT Reason for Appointment: Patient ID: [...] Exam Constitutional: Appearance: Normal appearance. She is normal weight. HENT: Head: Normocephalic. Cardiovascular: Rate and Rhythm: Normal rate. Pulses: Normal pulses. Pulmonary: Effort: Pulmonary effort is normal. Breath sounds: Normal breath sounds. Abdominal: Palpations: Abdomen is soft. Musculoskeletal: General: Normal range of motion. Neurological: General: No focal deficit present. Mental Status: She is alert and oriented to person, place, and time. Psychiatric: Mood and Affect: Mood normal. Behavior: Behavior normal. Thought Content: Thought content normal. Judgment: Judgment normal. Vitals and nursing note reviewed. Vitals: There is no height or weight on file to calculate BMI. BP: 122/80 Patient's last menstrual period was 01/08/2024. ASSESSMENT & PLAN ICD-10-CM 1. Hypertension during in third trimester, unspecified hypertension in type O16.3 US biophysical profile w non stress test US OB follow up transabdominal approach 2. Third trimester Z34.93 3. 30 weeks gestation of Z3A.30 Return OB: Patient presents today for a routine obstetrics appointment. Patient is currently 30w2d . Patient states she is doing well but has complaints of being tired due to current . Patient has verbalizes frequent movement. labor precautions was discussed/given and patient was instructed to perform kick counts three times a day. Orders Placed This Encounter Procedures US biophysical profile w non stress test US OB follow up transabdominal approach Follow Up: Patient is to return to office in 2 week for routine OB appointment. Documented by DEBBI Tolbert on behalf of: DEBBI Tolbert documented in this encounter Plan of Treatment Upcoming Encounters Date Type Department Care Team (Late st Contact Info) Description 08/21/2024 10:30 AM EDT Ancillary Procedure [facility] BCP OB [address] [facility] [place] [address] 08/21/2024 11:00 AM EDT Routine [facility] BCP OB [address] [facility] [place] [address] Curt Mistry, DO [address] [facility] [place] [address] Scheduled Orders Name Type Priority Associated Diagnoses Orde r Schedule US biophysical profile w non stress test Imaging Routine Hypertension during in third trimester, unspecified hypertension in type Expected: 08/07/2024 (Approximate), Expires: 02/06/2025 US OB follow up transabdominal approach Imaging Routine Hypertension during in third trimester, unspecified hypertension in type Expected: 08/07/2024, Expires: 12/07/2024 documented as of this encounter Visit Diagnoses Diagnosis Hypertension during in third trimester, unspecified hypertension in type- Primary Third trimester state, incidental 30 weeks gestation of documented in this encounter
--- NOTE | 2024-08-13 18:58 | US_ITS ---
[place] [id number] Patient Name: FRANCISCA MÉNDEZ MRN: [id number] date: 2000 Sex: F Assigned Patient Location: [facility] Current Patient Location: Accession/Order Number: [id number] Exam Date: 08/13/2024 21:43 Report Date: 08/13/2024 21:44 At the request of: KEON FONSECA Procedure: US OB BPP w non-stress Ultrasound biophysical profile HISTORY: -induced hypertension Adequate breathing movement, gross body movement, tone and amniotic fluid volume for total score of 8 out of 8. The amniotic fluid index is 20.6cm within normal limits. The heart rate 155 bpm. US/US OB BPP w non-stress IMPRESSION: Adequate ultrasound biophysical profile Impression dictated by: Willam Fernández M.D. 08/13/2024 9:44 PM Dictation Location: [place] [address] Electronically authenticated by: [id number] Y Date: 08/13/2024 21:44
--- OUTSIDE RECORDS SUMMARY | 2024-08-13 18:59 | XMS_ITS | Encounter Summary ---
Author Organization [facility] Address [address] [place] [address] Care Team Providers Care Steel Heater Name Role Phone Unavailable Primary Care Provider Unavailabl e Encounter Details Date Type Department Care Team (Late st Contact Info) Description 08/06/2024 Clinisync Result Encounter NOMS External Department Unsolicited Keon Wilson, BELL HOLE DIGGER [address] [place] [address] Social History Tobacco Use Types Packs/Day [...] AM EDT Ancillary Procedure NOMS BCP OB [facility] [place] [address] 08/21/2024 11:00 AM EDT Routine [facility] BCP OB [address] [place] [address] Curt Mistry, DO [address] [place] [address] [phone] (work) documented as of this encounter Procedures Procedure Name Priority Date/Time Associated Diagnosis Comments US OB BPP W NON-STRESS 08/06/2024 7:39 PM EDT documented in this encounter Results * US OB BPP W NON-STRESS (08/06/2024 7:39 PM EDT) Anatomical Region Laterality Modality Other 08/06/2024 7:39 PM EDT Narrative 08/06/2024 7:42 [place] [address] Ultrasound Report Signed Patient: FRANCISCA BUTLER MR#: [id number] : 2000 Acct:[id number] Age/Sex: 23 / F ADM Date: 08/06/24 Loc: [facility] 250-[address]: Keon Wilson Ordering Physician: Keon Wilson Date of Service: 08/06/24 Procedure(s): US OB BPP w non-stress Accession Number(s): [id number] cc: Keon Wilson; Physician,Non-Staff M.Venecia [address] [address] Patient Name: FRANCISCA BUTLER MRN: [id number] date: 2000 Sex: F Assigned Patient Location: [facility] Current Patient Location: [facility] Accession/Order Number: [id number] Exam Date: 08/06/2024 19:39 Report Date: 08/06/2024 19:39 At the request of: KEON WILSON Procedure: US OB BPP w non-stress Ultrasound biophysical profile HISTORY: -induced hypertension Adequate breathing movement, gross body movement, tone and amniotic fluid volume for total score of 8 out of 8. The amniotic fluid index is 17.1cm within normal limits. The heart rate 159 bpm. US/US OB BPP w non-stress IMPRESSION: Adequate ultrasound biophysical profile Impression dictated by: Willam Fernández M.D. 08/06/2024 7:39 PM Dictation Location: [facility] Electronically authenticated by: [id number] Y Date: 08/06/2024 19:39 Dictated By: Willam Fernández D.O. Signed By: 08/06/241941 DD/ 38 TD/TT: Business Development Coordinator: Procedure Note Radiology, Radiologist, MD - 08/06/2024 [place] [address] Ultrasound Report Signed Patient: FRANCISCA BUTLER CMR#: [id number] : 2000Acct:[id number] Age/Sex: 23 / FADM Date: 08/06/24 Loc: [facility] 250-[address]: Keon Wilson Ordering Physician: Keon Wilson Date of Service: 08/06/24 Procedure(s): US OB BPP w non-stress Accession Number(s): [id number] cc: Keon Wilson; Physician,Non-Staff Alondra The [place] [address] Patient Name: FRANCISCA BUTLER MRN: [id number] date: 2000 Sex: F Assigned Patient Location: [facility] Current Patient Location: [facility] Accession/Order Number: [id number] Exam Date: 08/06/2024 19:39 Report Date: 08/06/2024 19:39 At the request of: KEON WILSON Procedure: US OB BPP w non-stress Ultrasound biophysical profile HISTORY: -induced hypertension Adequate breathing movement, gross body movement, tone and amniotic fluid volume for total score of 8 out of 8. The amniotic fluidindex is 17.1cm within normal limits. The heart rate 159 bpm. US/US OB BPP w non-stress IMPRESSION: Adequate ultrasound biophysical profile Impression dictated by: Willam Fernández M.D. 08/06/2024 7:39 PM Dictation Location: [facility] Electronically authenticated by: [id number] Y Date: 9:39 Dictated By: Willam Fernández D.O. Signed By:08/06/241941 DD/ 38 TD/TT: Business Development Coordinator: Keon Wilson NP [facility] Final Resul t documented in this encounter Visit Diagnoses Not on filedocumented in this encounter
--- OUTSIDE RECORDS SUMMARY | 2024-08-13 18:59 | XMS_ITS | Encounter Summary ---
Author Organization [facility] Address [address] [place] [address] Care Team Providers Care 4Th Grade Teacher Name Role Phone Unavailable Primary Care Provider Unavailabl e Encounter Details Date Type Department Care Team (Late st Contact Info) Description 03/26/2024 Abstract [facility] OB [address] [place] [address] Curt Mistry DO [facility] [place], [place] [id number] Social History Tobacco Use Types Packs/Day Years [...] 08/21/2024 10:30 AM EDT Ancillary Procedure [facility] OB [address] [place] [address] 08/21/2024 11:00 AM EDT Routine [facility] B[facility] OB [address] [place] [address] Fede, Curt, [address] [place] [address] documented as of this encounter Visit Diagnoses Not on filedocumented in this encounter
--- OUTSIDE RECORDS SUMMARY | 2024-08-13 18:59 | XMS_ITS | Encounter Summary ---
Author Organization [facility] Address [address] [place] [address] Care Team Providers Care Treatment Supervisor Name Role Phone Unavailable Primary Care Provider Unavailabl e Encounter Details Date Type Department Care Team (Late st Contact Info) Description 07/31/2024 Clinisync Result Encounter NOMS External Department Unsolicited Keon Wilson, STORE STOCK HELP [address] [place] [address] Social History Tobacco Use Types Packs/Day [...] AM EDT Ancillary Procedure [facility] BCP OB [facility] [place] [address] 08/21/2024 11:00 AM EDT Routine [facility] BCP OB [address] [place] [address] Curt Mistry, DO [address] [place] [address] [phone] (work) documented as of this encounter Procedures Procedure Name Priority Date/Time Associated Diagnosis Comments US OB BPP W NON-STRESS 07/31/2024 9:08 AM EDT documented in this encounter Results * US OB BPP W NON-STRESS (07/31/2024 9:08 AM EDT) Anatomical Region Laterality Modality Other 07/31/2024 9:08 AM EDT Narrative 07/31/2024 9:10 [place] [address] Ultrasound Report Signed Patient: FRANCISCA BUTLER MR#: [id number] : 2000 Acct:[id number] Age/Sex: 23 / F ADM Date: 07/30/24 Loc: US Attending Dr: Keon Wilson Ordering Physician: Keon Wilson Date of Service: 07/30/24 Procedure(s): US OB BPP w non-stress Accession Number(s): [id number] cc: Keon Wilson; Physician,Non-Staff M.DOwen [address] [address] Patient Name: FRANCISCA BUTLER MRN: [id number] date: 2000 Sex: F Assigned Patient Location: [facility] Current Patient Location: Accession/Order Number: [id number] Exam Date: 07/31/2024 09:06 Report Date: 07/31/2024 09:08 At the request of: KEON WILSON Procedure: US OB BPP w non-stress BIOPHYSICAL PROFILE: CLINICAL INFORMATION: INDUCED HYPERTENSION O13.9 COMPARISON: 07/23/2024 There is a single live intrauterine gestation in cephalic presentation. The reported gestational age is 29 weeks 1 day The heart rate pvdjcybz172 beats per minute. FINDINGS: TONE: 1 or [...] Rubio M.D. 07/31/2024 9:08 AM Dictation Location: [place] [address] Electronically authenticated by: [id number] Y Date: 07/31/2024 09:08 Dictated By: Marielos Rubio M.D. Signed By: 07/31/24909 DD/ 7 TD/TT: Metal Sander And Finisher: Procedure Note Radiology, Radiologist, MD - 07/31/2024 [place] [address] Ultrasound Report Signed Patient: FRANCISCA BUTLER CMR#: [id number] : 2000Acct:[id number] Age/Sex: Date: 07/30/24 Loc: US Attending Dr: Keon Wilson Ordering Physician: Keon Wilson Date of Service: 07/30/24 Procedure(s): US OB BPP w non-stress Accession Number(s): [id number] cc: Keon Wilson; Physician,Non-Staff MAnayeli The [place] [address] Patient Name: FRANCISCA BUTLER MRN: [id number] date: 2000 Sex: F Assigned Patient Location: [facility] Current Patient Location: Accession/Order Number: [id number] Exam Date: 07/31/2024 09:06 Report Date: 07/31/2024 09:08 At the request of: KEON WILSON Procedure: US OB BPP w non-stress BIOPHYSICAL PROFILE: CLINICAL INFORMATION: INDUCED HYPERTENSION O13.9 COMPARISON: 07/23/2024 There is a single live intrauterine gestation in cephalic presentation.The reported gestational age is 29 weeks 1 day The heart bfvlogqexwtd393 beats per minute. FINDINGS: TONE: 1 or [...] is in upper normal range. Total score: 10/11 US/US OB BPP w non-stress IMPRESSION: NORMAL BIOPHYSICAL PROFILE. Impression dictated by: Marielos Rubio M.D. 07/31/2024 9:08 AM Dictation Location: [place] [address] Electronically authenticated by: [id number] Y Date: 9:08 Dictated By: Marielos Rubio M.D. Signed By:07/31/24 0910 DD/ 0908 TD/TT: Metal Sander And Finisher: Keon Wilson NP [facility] Final Resul t documented in this encounter Visit Diagnoses Not on filedocumented in this encounter
--- OUTSIDE RECORDS SUMMARY | 2024-08-13 18:59 | XMS_ITS | Encounter Summary ---
Author Organization [facility] Address [address] [place] [address] Care Team Providers Care Manager Student Services Name Role Phone Unavailable Primary Care Provider Unavailabl e Encounter Details Date Type Department Care Team (Late st Contact Info) Description 08/07/2024 Bamboo flowsheet [facility] OB [address] [place] [address] Hedy Ortega PA [address] [place] [address] [place], [place] [id number] Social History Tobacco Use Types Packs/Day Years [...] 08/21/2024 10:30 AM EDT Ancillary Procedure [facility] OB [facility] [place] [address] 08/21/2024 11:00 AM EDT Routine [facility] OB [address] [place], [place] [address] [address] Curt Mistry, [address] [place] [address] documented as of this encounter Visit Diagnoses Not on filedocumented in this encounter
--- OUTSIDE RECORDS SUMMARY | 2024-08-13 18:59 | XMS_ITS | Encounter Summary ---
Author Organization [facility] Address [address] [place] [address] Care Team Providers Care Tester Operator Helper Name Role Phone Unavailable Primary Care Provider Unavailabl e Encounter Details Date Type Department Care Team (Late st Contact Info) Description 08/13/2024 Telephone [facility] OB [address] [place] [address] [place] [phone] Francisca Mcqueen MA Social History Tobacco Use Types Packs/Day Years [...] AM EST documented as of this encounter Miscellaneous Notes * Telephone Encounter - Francisca Mcqueen MA - 08/13/2024 9:25 AM EDT Hi, my name is Surendra Butler, I am the patient of Dr. Nelson. I am sick and I believe I am running fever, sore throat, all the things. I was just wondering if there is anything besides tylenol thatI can do for it or if I needed to come in. So you could just give me a call back my phone numbers [phone]. Thank you. Discussed recommendation. zpak sent to pharmacy if patient wants it documented in this encounter Plan of Treatment Upcoming Encounters Date Type Department Care Team (Late st Contact Info) Description 08/21/2024 10:30 AM EDT Ancillary Procedure [facility] BCP OB [address] [place] [address] 08/21/2024 11:00 AM EDT Routine [facility] BCP OB [address] [place] [address] Curt Mistry, DO [facility] [place] [address] documented as of this encounter Visit Diagnoses Diagnosis Fever in other diseases documented in this encounter
--- OUTSIDE RECORDS SUMMARY | 2024-08-13 18:59 | XMS_ITS | Clinical Summary ---
Author Organization [facility] Address [address] [place] [address] Care Team Providers Care Skiver Uppers Or Linings Name Role Phone Unavailable Primary Care Provider [...] before bedtime. 60 tablet 2 5 Active azithromycin (Zithromax Z-Bk) 250 MG tabletIndication s:Fever in other diseases As directed 6 tablet 5 Active cephalexin (Keflex) 500 MG capsuleIndicatio ns:Urinary tract infection without hematuria, site unspecified Take 1 capsule (500 mg) by mouth in the morning and 1 capsule (500 mg) in the evening and 1 capsule (500 mg) before bedtime. Do all this for 7 days. 21 capsule 5 07/18/19 25 Encounters Date Type Department Care Team Description 08/13/2024 Telephone [facility] OB [address] [place] [address] Francisca Mcqueen MA 08/07/2024 3:50 PM EDT Routine [facility] OB [address] [place] [address] Jordan, Hedy, PA Hypertension during in third trimester, unspecified hypertension in type (Primary Dx); Third trimester ; 30 weeks gestation of 08/07/2024 Bamboo flowsheet [facility] BCP OB [address] [facility] [address] Hedy Pinto PA 08/06/2024 Clinisync Result Encounter NOMS External Department Unsolicited Fina Wilson, BOBTAILER 07/31/2024 Clinisync Result Encounter NOMS External Department Unsolicited KatieAnali castellona, BOBTAILER 07/24/2024 3:30 PM EDT Routine [facility] OB [address] [facility] [place] [address] Curt Mistry DO 28 weeks gestation of ; Third trimester 07/24/2024 3:00 PM EDT Ancillary Procedure [facility] BCP OB [address] [facility] [place] [address] induced hypertension, antepartum 07/24/2024 Travel 07/23/2024 Clinisync Result Encounter NOMS External Department Unsolicited Fina Wilson, BOBTAILER 07/10/2024 11:30 AM EDT Clinical Support [facility] OB [address] [facility] [address] Blood pressure check; Second trimester ; 26 weeks gestation of ; Urinary tract infection without hematuria, site unspecified 07/06/2024 Clinisync Result Encounter NOMS External Department Unsolicited Fina Wilson, BOBTAILER 07/04/2024 Clinisync Result Encounter NOMS External Department Unsolicited Fina Wilson, BOBTAILER 07/03/2024 3:30 PM EDT Routine [facility]CP OB [address] [facility] [place] [address] Fina Wilson, YADY Second trimester ; 25 weeks gestation of ; Diabetes mellitus screening; induced hypertension, antepartum 07/03/2024 Bamboo flowsheet [facility] OB [address] [facility] [place] [address] Fina Wilson, YADY 06/05/2024 2:10 PM EDT Routine NOM[facility] [address] [place] [address] Curt Mistry DO Second trimester ; 21 weeks gestation of 06/05/2024 Clinisync Result Encounter NOMS External Department Unsolicited Hedy Pinto PA 06/05/2024 Clinisync Result Encounter NOMS External Department Unsolicited Hedy Pinto PA 06/05/2024 Bamboo flowsheet NOM[facility] [address] [place] [address] Curt Mistry DO 05/20/2024 Orders Only [facility] [address] [place] [address] Rosa Cueva MA from Last 3 Months Family History Medical [...] 08/21/2024 10:30 AM EDT Ancillary Procedure [facility] [place] [address] [place] [address] 08/21/2024 11:00 AM EDT Routine [facility] [place] [address] [place] [address] Curt Mistry, [address] [place] [address] Procedures Procedure Name Priority Date/Time Associated Diagnosis Comments US OB BPP W NON-STRESS 08/06/2024 7:39 PM EDT US OB BPP W NON-STRESS 07/31/2024 9:08 [...] Routine 06/05/2024 3:26 PM EDT Second trimester from Last 3 Months Results * US OB BPP W NON-STRESS (08/06/2024 7:39 PM EDT) Only the most recent of3 resultswithin the time period is included. Anatomical Region Laterality Modality Other 08/06/2024 7:39 PM EDT Narrative 08/06/2024 7:42 PM EDT [place] [id number] Ultrasound Report Signed Patient: FRANCISCA BUTLER MR#: [id number] : 2000 Acct:[id number] Age/Sex: 23 / F ADM Date: 08/06/24 Loc: [facility] 250-[address]: Fina Wilson Ordering Physician: Fina Wilson Date of Service: 08/06/24 Procedure(s): US OB BPP w non-stress Accession Number(s): [id number] cc: Fina Wilson; Physician,Non-Staff M.D. [address] [address] Patient Name: FRANCISCA BUTLER MRN: [id number] date: 2000 Sex: F Assigned Patient Location: [facility] Current Patient Location: [facility] Accession/Order Number: [id number] Exam Date: 08/06/2024 19:39 Report Date: 08/06/2024 19:39 At the request of: FINA WILSON Procedure: [...] Fernández M.D. 08/06/2024 7:39 PM Dictation Location: [place] [address] Electronically authenticated by: [id number] Y Date: 08/06/2024 19:39 Dictated By: Willam Fernández D.O. Signed By: 08/06/241941 DD/ 38 TD/TT: Dog Handler Or Trainer: Procedure Note Radiology, Radiologist, MD - 08/06/2024 [place] [address] Ultrasound Report Signed Patient: FRANCISCA BUTLER CMR#: [id number] : 2000Acct:[id number] Age/Sex: 23 / FADM Date: 08/06/24 Loc: [facility] 250-[address]: Fina Wilson Ordering Physician: Fina Wilson Date of Service: 08/06/24 Procedure(s): US OB BPP w non-stress Accession Number(s): [id number] cc: Fina Wilson; Physician,Non-Staff M.Venecia The [address] [address] Patient Name: FRANCISCA BUTLER MRN: [id number] date: 2000 Sex: F Assigned Patient Location: [facility] Current Patient Location: [facility] Accession/Order Number: [id number] Exam Date: 08/06/2024 19:39 Report Date: 08/06/2024 19:39 At the request of: FINA WILSON Procedure: [...] Fernández M.D. 08/06/2024 7:39 PM Dictation Location: [employer] Electronically authenticated by: [id number] Y Date: 9:39 Dictated By: Willam Fernández D.O. Signed By:08/06/241941 DD/ 38 TD/TT: Dog Handler Or Trainer: us Fina Wilson BOBTAILER [facility] Final Resul t * (ABNORMAL) POCT urinalysis dipstick manually resulted (07/24/2024 4:03 PM EDT) Only the most recent of4 resultswithin the time period is included. Color, [...] II, MD, PHD at 26-Jul-2024 12:17:20 PM [facility] Procedure Note Fritz Maxwell MD - [...] signed by FRITZ MAXWELL II, MD, PHD 12:17:20 PM [facility] us Fina Wilson NP IMG OB [...] Narrative [facility] - 07/06/2024 11:59 AM EDT Fina Wilson NP [facility] Final Result [facility] * GLUCOSE 1 HOUR (07/04/2024 11:37 AM EDT) GLUCOSE 1 HOUR 110 <130 mg/dL [facility] 07/04/2024 11:3 7 AM EDT 07/04/2024 11:39 AM EDT Narrative [facility] - 07/04/2024 12:21 PM EDT Fina Wilson NP LAB BLOOD ORDERABLES Final Re [facility] * [facility] CREATININE (07/04/2024 11:37 AM EDT) CREATININE 0.59 0.55 - 1.02 mg/dL TBH TBH EGFR-AF J[place]ICAN >60 >=60 mL/min/1.7 3m 2 TBH TBH EGFR-NON AF [place]ICAN >60 >=60 mL/min/1.7 3m 2 [facility] 07/04/2024 11:3 7 AM EDT 07/04/2024 11:39 AM EDT Narrative CLINIS[facility] - 07/04/2024 12:21 PM EDT Fina Wilson NP [facility] Final Result Performing Organization Address [facility] Co de Phone Number [facility] * SRMCOH PROTHROMBIN TIME INR W/O COUM (07/04/2024 11:37 AM EDT) PROTHROMBIN TIME 10.6 9.0 - 11.6 sec TBH TBH INR 1.00 TBH Comment: DESIRED INR: 2.0-3.0 CONDITIONS NOT LISTED BELOW 2.5-3.5 FOR PROSTHETIC HEART VALVE REPLACEMENT 2.5-3.5 RECURRENT THROMBOSIS 07/04/2024 11:3 7 AM EDT 07/04/2024 11:39 AM EDT Narrative CLINIS[facility]NC - 07/04/2024 12:39 PM EDT Fina Wilson NP [facility] Final Result Performing Organization Address City/[facility]/ZIP Co de Phone Number [facility] * (ABNORMAL) CCF AST (07/04/2024 11:37 AM EDT) ASPARTATE AMINO TRANSFERASE 8(L) 15 - 37 U/L [facility] 07/04/2024 11:3 7 AM EDT 07/04/2024 11:39 AM EDT Narrative CLIN[facility] - 07/04/2024 12:21 PM EDT us Fina Wilson NP [facility] Final Result Performing Organization Address [facility]/ZIP Co de Phone Number [facility] * CCF APTT (07/04/2024 11:37 AM EDT) PARTIAL THROMBOPLASTIN TIME 26.8 22.3 - 36.2 sec [facility] 07/04/2024 11:3 7 AM EDT 07/04/2024 11:39 AM EDT Narrative CLINISYNC - 07/04/2024 12:39 PM EDT us Fina Wilson NP [facility] Final Result Performing Organization Address [facility] Phone Number [facility] * ALL URIC ACID (07/04/2024 11:37 AM EDT) Pathologist [facility] URIC ACID 3.4 2.6 - 6.0 mg/dL [facility] 07/04/2024 11:3 7 AM EDT 07/04/2024 11:39 AM EDT Narrative CLINISYNC - 07/04/2024 12:21 PM EDT us Fina Wilson NP [facility] Final Result Performing Organization Address [facility] de Phone Number [facility] * ALL LDH (07/04/2024 11:37 AM EDT) LACTATE DEHYDROGENASE 97 81 - 234 U/L [facility] 07/04/2024 11:3 7 AM EDT 07/04/2024 11:39 AM EDT Narrative CLINISYNC - 07/04/2024 12:21 PM EDT us Fina Wilson NP [facility] Final Result Performing Organization Address [facility] Co de Phone Number [facility] * (ABNORMAL) ALL CBC WITH AUTO DIFF (07/04/2024 11:37 AM EDT) Pathologist [facility] WBC 10.5 4.0 - 11.0 10 3/uL TBH TBH RBC 3.68(L) 4.20 - 5.40 10 6/uL TBH TBH HGB 11.0(L) 12.0 - 16.0 g/dL TBH TBH HCT 32.9(L) 36.0 - 48.0 % TBH TBH MCV 89.4 81.0 - 99.0 fL TBH TBH MCH 29.9 26.7 - 34.0 pg TBH TBH MCHC 33.4 29.9 - 35.2 g/dL TBH TBH RDW 13.2 11.0 - 15.0 % TBH TBH PLT 237 150 - 450 10 3/uL TBH TBH MPV 10.7 9.5 - 13.5 fL TBH [...] Narrative CLIN[facility]NC - 07/04/2024 12:19 PM EDT us Fina Wilson NP [facility] Final Result [facility] * (ABNORMAL) ALL BUN (07/04/2024 11:37 AM EDT) BLOOD UREA NITROGEN 4.0(L) 7.0 - 18.0 mg/dL TB 07/04/2024 11:3 7 AM EDT 07/04/2024 11:39 AM EDT Narrative CLINISYNC - 07/04/2024 12:21 PM EDT us Fina Wilson BOBTAILER [facility] Final Result [facility] * US OB CERVICAL LENGTH (06/05/2024 7:36 PM EDT) Anatomical Region Laterality Modality Other 06/05/2024 7:36 PM EDT Narrative 06/05/2024 7:39 [place] [address] Ultrasound Report Signed Patient: FRANCISCA CÁRDENAS MR#: [id number] : 2000 Acct:[id number] Age/Sex: 23 / F ADM Date: 06/05/24 Loc: US Attending Dr: Hedy Pinto Ordering Physician: Hedy Pinto Date of Service: 06/05/24 Procedure(s): US OB cervical length Accession Number(s): [id number] cc: Hedy Pinto; Curt Mistry D.O. [place] [id number] Patient Name: FRANCISCA CÁRDENAS MRN: [id number] date: 2000 Sex: F Assigned Patient Location: US Current Patient Location: US Accession/Order Number: [id number] Exam Date: 06/05/2024 19:29 Report Date: 06/05/2024 [...] Willam Fernández M.D.06/05/2024 7:36 PM Dictation Location: [employer] [facility] Electronically authenticated by: [id number] Y Date: 06/05/2024 19:36 Dictated By: Willam Fernández D.O. Signed By: 06/05/241938 DD/ 35 TD/TT: Dog Handler Or Trainer: Procedure Note Radiology, Radiologist, - 06/06/2024 [place] [address] Ultrasound Report Signed Patient: FRANCISCA CÁRDENAS CMR#: [id number] : 2000Acct:[id number] Age/Sex: 23 FADM Date: 06/05/24 Loc: US Attending Dr: Hedy Pinto Ordering Physician: Hedy Pinto Date of Service: 06/05/24 Procedure(s): US OB cervical length Accession Number(s): [id number] cc: Hedy Pinto; Curt Mistry D.O. The [place] [address] Patient Name: FRANCISCA CÁRDENAS MRN: [id number] date: 2000 Sex: F Assigned Patient Location: US Current Patient Location: US Accession/Order Number: [id number] Exam Date: 06/05/2024 19:29 Report Date: 06/05/2024 [...] mm. Cisterna magna measures 4.4 mm. Estimated glcsuc934 g. Estimated weight percentile 51.4%. Estimated gestational age by ultrasound is 21 weeks 6 days. IMPRESSION: Single live intrauterine gestation 21 weeks 6 days.Visualized anatomy as above. Impression dictated by: Willam Fernández M.D.06/05/2024 7:36 PM Dictation Location: [place] [address] Electronically authenticated by: [id number] Y Date: 9:36 Dictated By: Willam Fernández D.O. Signed By:06/05/241938 DD/ 35 TD/TT: Dog Handler Or Trainer: us Hedy WERNER [facility] Final Result * US OB ANATOMY (06/05/2024 7:36 PM EDT) Anatomical Region Laterality Modality Other 06/05/2024 7:36 PM EDT Narrative 06/05/2024 7:39 PM EDT [address] [address] Ultrasound Report Signed Patient: FRANCISCA CÁRDENAS MR#: [id number] : 2000 Acct:[id number] Age/Sex: 23 / F ADM Date: 06/05/24 Loc: US Attending Dr: Hedy Pinto Ordering Physician: Hedy Pinto Date of Service: 06/05/24 Procedure(s): US OB anatomy Accession Number(s): [id number] cc: Hedy Pinto; Curt Mistry D.O. [place] [address] Patient Name: FRANCISCA CÁRDENAS MRN: [id number] date: 2000 Sex: F Assigned Patient Location: US Current Patient Location: US Accession/Order Number: [id number] Exam Date: 06/05/2024 19:29 Report Date: 06/05/2024 [...] Willam Fernández M.D.06/05/2024 7:36 PM Dictation Location: [employer] Electronically authenticated by: [id number] Y Date: 06/05/2024 19:36 Dictated By: Willam Fernández D.O. Signed By: 06/05/241938 DD/ 35 TD/TT: Dog Handler Or Trainer: Procedure Note Radiology, Radiologist, MD - 06/06/2024 [place] [address] Ultrasound Report Signed Patient: FRANCISCA CÁRDENAS CMR#: [id number] : 2000Acct:[id number] Age/Sex: 23 FADM Date: 06/05/24 Loc: US Attending Dr: Hedy Pinto Ordering Physician: Hedy Pinto Date of Service: 06/05/24 Procedure(s): US OB anatomy Accession Number(s): [id number] cc: Hedy Pinto; Curt Mistry D.O. The [place] [id number] Patient Name: FRANCISCA CÁRDENAS MRN: [id number] date: 2000 Sex: F Assigned Patient Location: US Current Patient Location: US Accession/Order Number: [id number] Exam Date: 06/05/2024 19:29 Report Date: 06/05/2024 [...] mm. Cisterna magna measures 4.4 mm. Estimated vqtgxu165 g. Estimated weight percentile 51.4%. Estimated gestational age by ultrasound is 21 weeks 6 days. IMPRESSION: Single live intrauterine gestation 21 weeks 6 days.Visualized anatomy as above. Impression dictated by: Willam Fernández M.D.06/05/2024 7:36 PM Dictation Location: [employer] Electronically authenticated by: [id number] Y Date: 9:36 Dictated By: Willam Fernández D.O. Signed By:06/05/241938 DD/ 35 TD/TT: Dog Handler Or Trainer: Hedy WERNER [facility] Final Result from [phone]
--- OUTSIDE RECORDS SUMMARY | 2024-08-13 18:59 | XMS_ITS | Encounter Summary ---
Author Organization [facility] Address [address] [place] [address] Care Team Providers Care Human Performance Consultant Name Role Phone Unavailable Primary Care Provider Unavailabl e Encounter Details Date Type Department Care Team (Late st Contact Info) Description 04/03/2024 Abstract [facility] OB [address] [place] [address] Curt Mistry DO [facility] [place], [place] [id number] Social History Tobacco Use Types Packs/Day Years [...] 08/21/2024 10:30 AM EDT Ancillary Procedure [facility] OB [address] [place] [address] 08/21/2024 11:00 AM EDT Routine [facility] BCP OB [address] [place] [address] Fede, Curt, [address] [place] [address] documented as of this encounter Visit Diagnoses Not on filedocumented in this encounter
--- OUTSIDE RECORDS SUMMARY | 2024-08-13 18:59 | XMS_ITS | Encounter Summary ---
Author Organization [facility] Address [address] [place] [address] Care Team Providers Care Realtime Court Reporter Name Role Phone Unavailable Primary Care Provider Unavailabl e Encounter Details Date Type Department Care Team (Late st Contact Info) Description 04/17/2024 Abstract [facility] [address] [facility] [address] iTffanie Loza LPN Social History Tobacco Use Types [...] 08/21/2024 10:30 AM EDT Ancillary Procedure [facility] OB [facility] [place] [address] 08/21/2024 11:00 AM EDT Routine [facility] OB [facility] [place] [address] Curt Mistry DO [facility] [place], [place] [id number] documented as of this encounter Visit Diagnoses Not on filedocumented in this encounter
[2024-08-13 19:21] VITALS: BP 132/66; PULSE 98
== END 2024-08-13 19:48 | disposition home or self-care (01) ==
LOC: US 18:55 → FBC 18:56
PROVIDERS: Visit Provider Nurse Practitioner Family
DX: O16.3 Unspecified maternal hypertension, third trimester (principal); Z3A.31 31 weeks gestation of pregnancy
CPT/HCPCS: 76818

== ENCOUNTER 2024-08-20 19:01 | Outpatient (OUT) | payer OTHER, SELFPAY ==
--- OUTSIDE RECORDS SUMMARY | 2024-08-20 19:06 | XMS_ITS | CCD ---
Author Organization [facility] Care Team Providers Care Advance Agent Name Role Phone ALFREDA GALEAS Attending Unavailable TONY PINTO Attending Unavailable ALFREDA GALEAS Attending Unavailable KEON FONSECA Attending Unavailable ALFREDA GALEAS Attending Unavailable TONY PINTO Attending Unavailable Results Test Name Value Interpretation Reference Range Facil ity US OB FOLLOW UP TRANSABDOMIN AL APPROACHon 07-24-2024 US OB FOLLOW UP TRANSABDOMINAL APPROACH EXAM: US OB FOLLOW UP TRANSABDOMINAL APPROACH [...] II, MD, PHD at 26-Jul-2024 12:17:20 PM [facility] Normal Not Available Comment on above: Order Comment: US OB SCAN FOR GROWTH Estimated Date of Delivery: 10/14/24 Gestational Age as of 07/03/2024: 28w2d US OB TRANSVAGINALon 025 US OB TRANSVAGINAL [...] x 2.8 cm (7 weeks, 3 days). [place] rump length is 1.7 cm (8 weeks, [...] by the interpreting radiologist. Normal Not Available Encounters Encounter Date Encounter Type Care Provider Facility Start: 08-07-2024 End: 08-07-2024 ambulatory TONY PINTO Not Available Start: 07-24-2024 End: 07-24-2024 ambulatory ALFREDA GALEAS Not Available Start: 07-10-2024 End: 07-10-2024 ambulatory ALFREDA ADAL Not Available Start: 07-03-2024 End: 07-03-2024 ambulatory KEON FONSECA Not Available Start: 06-05-2024 End: 06-05-2024 ambulatory ALFREDA ADAL Not Available Start: 05-06-2024 End: 05-06-2024 ambulatory TONY PINTO Not Available Start: 04-08-2024 End: 04-08-2024 ambulatory ALFREDA GALEAS Not Available Start: 03-07-2024 End: 03-07-2024 ambulatory ALFREDA PIPERO Not Available Payers Date Payer Category Payer Department of [facility] ( and others) [id number] 2023 Private Health Insurance [id number] 2000 Unknown [id number] 2000 Unknown [id number] 2000 Unknown [id number] 2000 Unknown [id number] 2000 Unknown [id number] 2000 Unknown [id number] 2000 Unknown [id number] 2000 Unknown [id number] 2000 Unknown [id number] 2000 Unknown [id number] Summary Purpose Family History No Family History Records Found Advance Directives No Advanced Directives Records Found Additional Source Comments INFORMATION SOURCE (unrecogn ized section and content) DATE CREATED AUTHOR 08/08/2024 [facility] EPIC FOR RECORDS PERTAINING TO PATIENTS WHO ARE [...] BE BASED ON THE PRIMARY CLINICAL RECORDS. [facility]. provides no warranty or guarantee of the accuracy or completeness of information in this document.
--- NOTE | 2024-08-20 19:08 | US_ITS ---
[place] [id number] Patient Name: FRANCISCA MÉNDEZ MRN: [id number] date: 2000 Sex: F Assigned Patient Location: [facility] Current Patient Location: Accession/Order Number: [id number] Exam Date: 08/21/2024 07:58 Report Date: 08/21/2024 07:59 At the request of: KEON FONSECA Procedure: US OB BPP w non-stress Ultrasound biophysical profile HISTORY: -induced hypertension Adequate breathing movement, gross body movement, tone and amniotic fluid volume for total score of 8 out of 8. The amniotic fluid index is 16.4cm within normal limits. The heart rate 145 bpm. US/US OB BPP w non-stress IMPRESSION: Adequate ultrasound biophysical profile Impression dictated by: Willam Fernández M.D. 08/21/2024 7:59 AM Dictation Location: [place] [address] Electronically authenticated by: [id number] Y Date: 08/21/2024 07:59
[2024-08-20 19:36] VITALS: BP 134/76; PULSE 89
== END 2024-08-20 20:14 | disposition home or self-care (01) ==
LOC: US 19:01 → FBC 19:03
PROVIDERS: Visit Provider Nurse Practitioner Family
DX: O13.3 Gestational [pregnancy-induced] hypertension without significant proteinuria, third trimester (principal); O26.893 Other specified pregnancy related conditions, third trimester; Z3A.32 32 weeks gestation of pregnancy
CPT/HCPCS: 76818

== ENCOUNTER 2024-08-23 19:04 | Outpatient (OUT) | payer OTHER, SELFPAY ==
[2024-08-23 19:15] VITALS: BP 128/73; PULSE 83; TEMP 37.3
[2024-08-23 19:16] VITALS: BP 128/73; PULSE 83
== END 2024-08-23 19:43 | disposition home or self-care (01) ==
LOC: FBCO 19:05 → FBC 19:08
PROVIDERS: Visit Provider Obstetrics & Gynecology
DX: O16.3 Unspecified maternal hypertension, third trimester (principal); Z3A.32 32 weeks gestation of pregnancy
CPT/HCPCS: 59025

== ENCOUNTER 2024-08-27 19:01 | Outpatient (OUT) | payer OTHER, SELFPAY ==
--- OUTSIDE RECORDS SUMMARY | 2024-08-20 11:00 | XMS_ITS | Encounter Summary ---
Author Organization [facility] Address [address] [place] [address] Care Team Providers Care Air Carrier Inspector Name Role Phone Unavailable Primary Care Provider Unavailabl e Encounter Details Date Type Department Care Team (Latest Contact Info) Description 08/20/2024 11:00 AM EDT Ancillary Procedure [facility] [address] [facility] [place] [address] Hypertension during in third trimester, unspecified hypertension in type ([facility]) Social History Tobacco Use Types Packs/Day Years [...] Care Team (Late st Contact Info) Description 09/04/2024 2:30 PM EDT Routine [facility] [address] [facility] [place] [address] Hedy Ortega PA [address] [place], [place] [id number] documented as of this encounter Procedures Procedure Name Priority Date/Time Associated Diagnosis Comments US OB FOLLOW UP TRANSABDOMINAL APPROACH Routine 08/20/2024 11:19 AM EDT Hypertension during in third trimester, unspecified hypertension in type ([facility]) documented in this encounter Results * US OB follow up transabdominal approach (08/20/2024 11:19 AM EDT) Anatomical Region Laterality Modality Body Ultrasound 08/21/2024 8:02 AM EDT Narrative 08/21/2024 8:33 AM EDT EXAM: US OB FOLLOW UP TRANSABDOMINAL APPROACH HISTORY: PIH. COMPARISON: Ob ultrasound 07/24/2024. TECHNIQUE: Two-dimensional transabdominal grayscale ultrasound imaging of the pelvis was performed. FINDINGS: Gestation: Single Presentation: Cephalic Cardiac Activity: 153 beats per minute Amniotic Fluid Index: 14.1 cm MEASUREMENTS: BPD: 8.4 cm EGA: 34 weeks 0 days HC: 31.1 cm EGA: 34 weeks 6 days AC: 28.9 cm EGA: 33 weeks 0 days FL: 6.2 cm EGA: 32 weeks 0 days HC/AC Ratio: 1.08 The gestational age by today's ultrasound is 33 weeks 3 days (+/- 16 days gestation). Estimated Weight: 2085 grams, +/- 313 grams ( 4 lb 10 oz). Weight Percentile for gestational age: 66 % IMPRESSION: 1. Single, live intrauterine gestation 32 weeks, 1 days by LMP. Today's ultrasound measurements correlate with a gestational age of 33 weeks 3 days. Estimated weight is 2085 grams, +/- 313 grams ( 4 lb 10 oz) which correlates to 66 %. PRESTON is 10/05/2024. Interpreted by: Electronically signed by FRITZ TEMPLETON II, MD, PHD at 21-Aug-2024 08:00:33 AM [facility] Procedure Note Fritz Templeton MD - 08/21/2024 EXAM: US OB FOLLOW UP TRANSABDOMINAL APPROACH HISTORY: PIH. COMPARISON: Ob ultrasound 07/24/2024. TECHNIQUE: Two-dimensional transabdominal grayscale ultrasound imaging ofthe pelvis was performed. FINDINGS: Gestation: Single Presentation: Cephalic Cardiac Activity: 153 beats per minute Amniotic Fluid Index: 14.1 cm MEASUREMENTS: BPD: 8.4 cm EGA: 34 weeks 0 days HC: 31.1 cm EGA: 34 weeks 6 days AC: 28.9 cm EGA: 33 weeks 0 days FL: 6.2 cm EGA: 32 weeks 0 days HC/AC Ratio: 1.08 The gestational age by today's ultrasound is 33 weeks 3 days (+/- 16 daysgestation). Estimated Weight: 2085 grams, +/- 313 grams ( 4 lb 10 oz). Weight Percentile for gestational age: 66 % IMPRESSION: 1. Single, live intrauterine gestation 32 weeks, 1 days by LMP. Today'sultrasound measurements correlate with a gestational age of 33 weeks 3days. Estimated weight is 2085 grams, +/- 313 grams ( 4 lb 10 oz)which correlates to 66 %. PRESTON is 10/05/2024. Interpreted by: Electronically signed by FRITZ TEMPLETON II, MD, PHD 08:00:33 AM [facility] us Hedy WERNER IMG OB US PROCEDURES Final Resul t documented in this encounter Visit Diagnoses Diagnosis Hypertension during in third trimester, unspecified hypertension in type ([facility]) documented in this encounter
--- OUTSIDE RECORDS SUMMARY | 2024-08-20 11:20 | XMS_ITS | Encounter Summary ---
Author Organization [facility] Address [address] [place] [address] Care Team Providers Care Blocking Machine Tender Name Role Phone Unavailable Primary Care Provider Unavailabl e Reason for Visit * Reason Comments Routine Visit Encounter Details Date Type Department Care Team (Late st Contact Info) Description 08/20/2024 11:20 AM EDT Routine [facility] OB [address] [place] [phone] Curt Mistry, DO [address] [facility] [place] [address] Third trimester ([facility]HS-HCC); 32 weeks gestation of ([facility]HS-HCC); Pre-eclampsia in third trimester ([facility]HS-HCC); induced hypertension, antepartum ([facility]-HCC) Social History Tobacco Use Types Packs/Day Years [...] Sign Reading Time Taken Comments Blood Pressure 126/90 08/20/2024 11:47 AM EDT Pulse - - Temperature - - Respiratory Rate - - Oxygen Saturation - - Inhaled Oxygen Concentration - - Weight 87.7 kg (193 lb 4 oz) 08/20/2024 11:47 AM EDT Height 162.6 cm (5' 4 ) 08/20/2024 11:48 AM EDT Body Mass Index 33.17 08/20/2024 11:47 AM EDT documented in this encounter Progress Notes * Marielos Rapp, BEAR KEEPER - 08/20/2024 11:20 AM EDT Reason for Appointment: Patient ID: Surendra Butler is a 23 y.o. female who presents for Routine Visit Patient presents today for Return OB appointment. MEDICATIONS Current Outpatient Medications Medication Instructions azithromycin (Zithromax Z-Bk) 250 MG tablet As directed Ferrous Gluconate (IRON 27 PO) Take by [...] nursing note reviewed. Exam conducted with a marketing communications leader present. Vitals: Estimated body mass index is 33.17 kg/m?? as calculated from the following: Height as of this encounter: 5' 4 . Weight as of this encounter: 193 lb 4 oz. BP: 126/90 Patient's last menstrual period was 01/08/2024. ASSESSMENT & PLAN ICD-10-CM 1. Third trimester ([facility]) Z34.93 2. 32 weeks gestation of ([facility]) Z3A.32 3. Pre-eclampsia in third trimester ([facility]) O14.93 4. induced hypertension, antepartum ([facility]) O13.9 Return OB: Patient presents today for a routine obstetrics appointment. Patient is currently 32w1d . Patient states she is doing well [...] PM EDT Routine [facility] OB [address] [facility] [place] [phone] Hedy Ortega PA [address] [place] [address] documented as of this encounter Procedures Procedure Name Priority Date/Time Associated Diagnosis Comments POCT URINALYSIS DIPSTICK Routine 08/20/2024 12:08 PM EDT Third trimester ([facility]) documented in this encounter Results * (ABNORMAL) POCT urinalysis dipstick manually resulted (08/20/2024 12:08 PM EDT) Color, UA Yellow Clarity, UA Clear Glucose, UA Negative Negative - 2000(110) ++++ mg/dL Bilirubin, UA Negative Negative - 4(70) +++ mg/dL Ketones, UA Negative Negative - 160(16) ++++ mg/dL Spec Grav, UA 1.015 1 - 1.03 Blood, UA Positive Negative - 50 Adams/mcL Comment:Trace-intact pH, UA 7.0 5 - 9 Protein, UA Positive Negative - 2000(20) ++++ mg/dL Comment:30mg/dL Urobilinogen, UA 1.0 0.2 - 12 mg/dL Leukocytes, UA Positive Negative - 500+++ Pranav/mcL Comment:Large Nitrite, UA Negative Negative - Positive Urine 08/20/2024 12:0 8 PM EDT Result [facility] Curt Mistry DO POINT OF CARE TEST ENTER/EDIT OR DERABLES Final Result documented in this encounter Visit Diagnoses Diagnosis Third trimester ([facility]HS-HCC) state, incidental 32 weeks gestation of ([facility]-HCC) Pre-eclampsia in third trimester ([facility]-HCC) induced hypertension, antepartum ([facility]-HCC) Transient hypertension of , antepartum documented in this encounter
--- OUTSIDE RECORDS SUMMARY | 2024-08-27 19:03 | XMS_ITS | Encounter Summary ---
Author Organization [facility] Address [address] [place] [address] Care Team Providers Care Magnetic Doctor Name Role Phone Unavailable Primary Care Provider Unavailabl e Encounter Details Date Type Department Care Team (Late st Contact Info) Description 05/20/2024 Orders Only [facility] OB [address] [place] [address] [place] [phone] Rosa Cueva MA [address] [place] [address] [place] [address] Social History Tobacco Use Types Packs/Day Years [...] 2:30 PM EDT Routine [facility] OB [address] [place] [address] [place] [phone] Hedy Ortega PA [address] [place], [place] [phone] documented as of this encounter Procedures Procedure [...]
--- OUTSIDE RECORDS SUMMARY | 2024-08-27 19:03 | XMS_ITS | Encounter Summary ---
Author Organization [facility] Address [address] [place] [address] Care Team Providers Care Animal Control Licensing Worker Name Role Phone Unavailable Primary Care Provider Unavailabl e Encounter Details Date Type Department Care Team (Late st Contact Info) Description 08/13/2024 Telephone [facility] OB [address] [place] [address] [place] [phone] Francisca Mcqueen MA Social History Tobacco Use [...] me a call back my phone numbers [phone]. Thank you. Discussed recommendation. zpak sent to pharmacy if patient wants it documented in this encounter Plan of Treatment Upcoming Encounters Date Type Department Care Team (Late st Contact Info) Description 09/04/2024 2:30 PM EDT Routine [facility] OB [address] [facility] [place] [phone] Hedy Ortega PA [address] [facility] [place] [address] documented as of this encounter Visit Diagnoses Diagnosis Fever in other diseases documented in this encounter
--- OUTSIDE RECORDS SUMMARY | 2024-08-27 19:03 | XMS_ITS | Clinical Summary ---
Author Organization [facility] Address [address] [place] [address] Care Team Providers Care Retail Loss Prevention Investigator Name Role Phone Unavailable Primary Care Provider Unavailabl e Allergies No known active allergies Medications MV-Min-Fe Fum-FA-DHA ( 1 PO) Take by mouth Active Ferrous Gluconate (IRON 27 PO) Take by mouth Active labetalol (Normodyne) 100 MG tabletIndicatio ns: induced hypertension, antepartum (HHS-HCC) Take 1 tablet (100 mg) by mouth in the morning and 1 tablet (100 mg) before bedtime. 60 tablet 2 07/03/2024 Active azithromycin (Zithromax Z-Bk) 250 MG tabletIndicatio ns:Fever in other diseases As directed 6 tablet 08/13/2024 Active Encounters Date Type Department Care Team Description 08/21/2024 Clinisync Result Encounter NOMS External Department Unsolicited Fina Wilson NP 08/20/2024 11:20 AM EDT Routine [facility] B[facility] OB [address] [place] [address] Curt Mistry DO Third trimester ([facility]); 32 weeks gestation of ([facility]-H[facility]); Pre-eclampsia in third trimester ([facility]HS-HCC); induced hypertension, antepartum ([facility]HS-HCC) 08/20/2024 11:00 AM EDT Ancillary Procedure [facility] B[facility] OB [address] [place] [address] Hypertension during in third trimester, unspecified hypertension in type ([facility]) 08/13/2024 Clinisync Result Encounter NOMS External Department Unsolicited Fina Wilson NP 08/13/20[address] Tele[address] [facility] [address] [place] [address] Francisca Mcqueen MA 08/07/2024 3:50 PM EDT Routine [facility] [address] [place] [address] Hedy Pinto PA Hypertension during in third trimester, unspecified hypertension in type ([facility]) (Primary Dx); Third trimester ([facility]); 30 weeks gestation of ([facility]) 08/07/2024 Bamboo flowsheet [facility]OM[facility] [address] [place] [address] Hedy Pinto PA 08/06/2024 Clinisync Result Encounter NOMS External Department Unsolicited Fina Wilson, YADY 07/31/2024 Clinisync Result Encounter NOMS External Department Unsolicited Fina Wilson, YADY 07/24/2024 3:30 PM EDT Routine [facility] [address] [place] [address] Curt Mistry DO 28 weeks gestation of ([facility]); Third trimester ([facility]) 07/24/2024 3:00 PM EDT Ancillary Procedure [facility] [address] [place] [id number] induced hypertension, antepartum ([facility]) 07/24/2024 Travel 07/23/2024 Clinisync Result Encounter NOMS External Department Unsolicited Fina Wilson, DISTRIBUTION SYSTEMS SERVICEPERSON 07/10/2024 11:30 AM EDT Clinical Support [facility] [place] [address] [place] [address] Blood pressure check; Second trimester ([facility]); 26 weeks gestation of ([facility]); Urinary tract infection without hematuria, site unspecified 07/06/2024 Clinisync Result Encounter NOMS External Department Unsolicited Fina Wilson NP 07/04/2024 Clinisync Result Encounter NOMS External Department Unsolicited Fina Wilson NP 07/03/2024 3:30 PM EDT Routine [facility] OB [address] [facility] [place] [address] Fina Wilson NP Second trimester ([facility]); 25 weeks gestation of ([facility]); Diabetes mellitus screening; induced hypertension, antepartum ([facility]) 07/03/2024 Bamboo flowsheet [facility] OB [address] [place] [address] [place] [address] Fina Wilson NP 06/05/2024 2:10 PM EDT Routine [facility] [address] [place] [address] Curt Mistry DO Second trimester ([facility]); 21 weeks gestation of ([facility]) 06/05/2024 Clinisync Result Encounter NOMS External Department Unsolicited Hedy Pinto PA 06/05/2024 Clinisync Result Encounter NOMS External Department Unsolicited Hedy Pinto PA 06/05/2024 Bamboo flowsheet [facility] OB [address] [place] [address] [place] [address] Curt Mistry DO from Last 3 Months Family History Medical [...] Mass Index 33.17 08/20/2024 11:47 AM EDT Plan of Treatment Upcoming Encounters Date Type Department Care Team (Late st Contact Info) Description 09/04/2024 2:30 PM EDT Routine [facility] BCP OB [address] [facility] [place] [address] Hedy Pinto PA [address] [facility] [place] [address] Procedures Procedure Name Priority Date/Time Associated Diagnosis Comments US OB BPP W NON-STRESS 08/21/2024 7:59 AM EDT POCT URINALYSIS DIPSTICK Routine 08/20/2024 12:08 PM EDT Third trimester ([facility]) US OB FOLLOW UP TRANSABDOMINAL APPROACH Routine 08/20/2024 11:19 AM EDT Hypertension during in third trimester, unspecified hypertension in type ([facility]) US OB BPP W NON-STRESS 08/13/2024 9:44 PM EDT US OB BPP W NON-STRESS 08/06/2024 7:39 PM EDT US OB BPP W NON-STRESS 07/31/2024 9:08 AM EDT POCT URINALYSIS DIPSTICK Routine 07/24/2024 4:03 PM EDT 28 weeks gestation of ([facility]) Third trimester ([facility]) US OB FOLLOW UP TRANSABDOMINAL APPROACH Routine 07/24/2024 3:21 PM EDT induced hypertension, antepartum ([facility]-H[facility]) US OB BPP W NON-STRESS 07/23/2024 9:58 PM EDT POCT URINALYSIS DIPSTICK Routine 07/10/2024 12:06 PM EDT Second trimester ([facility]) TBH TOTAL PROTEIN 24 HOUR URINE Routine [...] Routine 07/03/2024 4:38 PM EDT Second trimester ([facility]) US OB CERVICAL LENGTH 06/05/2024 7:36 PM EDT US OB ANATOMY 06/05/2024 7:36 PM EDT POCT URINALYSIS DIPSTICK Routine 06/05/2024 3:26 PM EDT Second trimester ([facility]) from Last 3 Months Results * US OB BPP W NON-STRESS (08/21/2024 7:59 AM EDT) Only the most recent of5 resultswithin the time period is included. Anatomical Region Laterality Modality Other 08/21/2024 7:59 AM EDT Narrative 08/21/2024 8:01 [place] [address] Ultrasound Report Signed Patient: FRANCISCA BUTLER MR#: [id number] : 2000 Acct:[id number] Age/Sex: 23 / F ADM Date: 08/20/24 Loc: US Attending Dr: Fina Wilson Ordering Physician: Fina Wilson Date of Service: 08/20/24 Procedure(s): US OB BPP w non-stress Accession Number(s): [id number] cc: Fina Wilson; Physician,Non-Staff M.DOwen [address] [address] Patient Name: FRANCISCA BUTLER MRN: [id number] date: 2000 Sex: F Assigned Patient Location: [facility] Current Patient Location: Accession/Order Number: [id number] Exam Date: 08/21/2024 07:58 Report Date: 08/21/2024 07:59 At the request of: FINA WILSON Procedure: US OB BPP w non-stress Ultrasound biophysical profile HISTORY: -induced hypertension Adequate breathing movement, gross body movement, tone and amniotic fluid volume for total score of 8 out of 8. The amniotic fluid index is 16.4cm within normal limits. The heart rate 145 bpm. US/US OB BPP w non-stress IMPRESSION: Adequate ultrasound biophysical profile Impression dictated by: Willam Fernández M.D. 08/21/2024 7:59 AM Dictation Location[facility] Electronically authenticated by: [id number] Y Date: 08/21/2024 07:59 Dictated By: Willam Fernández D.O. Signed By: 08/21/24800 DD/ 0759 TD/TT: Atomic Physics Professor: Procedure Note Radiology, Radiologist, - 08/21/2024 [place] [address] Ultrasound Report Signed Patient: FRANCISCA BUTLER CMR#: [id number] : 2000Acct:[id number] Age/Sex: 23 / FADM Date: 08/20/24 Loc: US Attending Dr: Fina Wilson Ordering Physician: Fina Wilson Date of Service: 08/20/24 Procedure(s): US OB BPP w non-stress Accession Number(s): [id number] cc: Fina Wilson; Physician,Non-Staff M.Venecia The [place] [id number] Patient Name: FRANCISCA BUTLER MRN: [id number] date: 2000 Sex: F Assigned Patient Location: [facility] Current Patient Location: Accession/Order Number: [id number] Exam Date: 08/21/2024 07:58 Report Date: 08/21/2024 07:59 At the request of: FINA WILSON Procedure: US OB BPP w non-stress Ultrasound biophysical profile HISTORY: -induced hypertension Adequate breathing movement, gross body movement, tone and amniotic fluid volume for total score of 8 out of 8. The amniotic fluidindex is 16.4cm within normal limits. The heart rate 145 bpm. US/US OB BPP w non-stress IMPRESSION: Adequate ultrasound biophysical profile Impression dictated by: Willam Fernández M.D. 08/21/2024 7:59 AM Dictation Location: [place] [address] Electronically authenticated by: [id number] Y Date: 7:59 Dictated By: Willam Fernández D.O. Signed By:08/21/24800 DD/ 0759 TD/TT: Atomic Physics Professor: Fina iWlson NP [facility] Final Resul t * (ABNORMAL) POCT urinalysis dipstick manually resulted (08/20/2024 12:08 PM EDT) Only the most recent of5 [...] Positive Urine 08/20/2024 12:0 8 PM EDT Curt Mistry DO POINT OF CARE TEST ENTER/EDIT OR DERABLES Final Result * US OB follow up transabdominal approach (08/20/2024 11:19 AM EDT) Only the most recent of2 resultswithin the time period is included. Anatomical Region Laterality Modality Body Ultrasound 08/21/2024 [...] II, MD, PHD at 21-Aug-2024 08:00:33 AM [facility] Procedure Note Fritz Templeton MD - [...] signed by FRITZ TEMPLETON II, MD, PHD [id number] 08:00:33 AM [facility] Hedy WERNER IMG OB US PROCEDURES Final Resul t * (ABNORMAL) TBH TOTAL PROTEIN 24 HOUR URINE (07/06/2024 8:42 AM EDT) TOTAL PROTEIN URINE RANDOM 14.2(H) <=11.9 mg/dL TBH TOTAL VOLUME 24 HOUR URINE 1,300 mL/24hr TBH TBH TOTAL PROTEIN 24 HOUR URINE 184.6(H) <=149.1 mg/24hr TBH 07/06/2024 8:42 AM EDT 07/06/2024 11:24 AM EDT Narrative [facility] - 07/06/2024 11:59 AM EDT Fina Wilson NP [facility] Final Result Performing Organization Address City/[facility]/ZIP Co de Phone Number [facility] TB * GLUCOSE 1 HOUR (07/04/2024 11:37 AM EDT) GLUCOSE 1 HOUR 110 <130 mg/dL TBH 07/04/2024 11:3 7 AM EDT 07/04/2024 11:39 AM EDT Narrative [facility] - 07/04/2024 12:21 PM EDT Fina Wilson NP LAB BLOOD ORDERABLES Final Re sult [facility] TB * TBH CREATININE (07/04/2024 11:37 AM EDT) CREATININE 0.59 0.55 - 1.02 mg/dL TBH TBH EGFR-AF SPANISH >60 >=60 mL/min/1.7 3m 2 TBH TBH EGFR-NON AF SPANISH >60 >=60 mL/min/1.7 3m 2 TBH 07/04/2024 11:3 7 AM EDT 07/04/2024 11:39 AM EDT Narrative CLINISYNC - 07/04/2024 12:21 PM EDT us Fina Wilson NP [facility] Final Result Performing Organization Address [facility] Co de Phone Number [facility] * SRMCOH PROTHROMBIN TIME INR W/O COUM [...] NP CLINISYNC Final Result Performing Organization Address [facility] Co de Phone Number [facility] * (ABNORMAL) [facility] AST (07/04/2024 11:37 AM EDT) ASPARTATE AMINO TRANSFERASE 8(L) 15 - 37 U/L TB 07/04/2024 11:3 7 AM EDT 07/04/2024 11:39 AM EDT Narrative CLINISYNC - 07/04/2024 12:21 PM EDT us Fina Wilosn NP CL[facility] Final Result Performing Organization Address [facility] Co de Phone Number [facility] * [facility] APTT (07/04/2024 11:37 AM EDT) PARTIAL THROMBOPLASTIN TIME 26.8 22.3 - 36.2 sec TB 07/04/2024 11:3 7 AM EDT 07/04/2024 11:39 AM EDT Narrative CLINISYNC - 07/04/2024 12:39 PM EDT us Fina Wilson NP [facility] Final Result Performing Organization Address City/[facility] Co de Phone Number [facility] * ALL URIC ACID (07/04/2024 11:37 AM EDT) URIC ACID 3.4 2.6 - 6.0 mg/dL TB 07/04/2024 11:3 7 AM EDT 07/04/2024 11:39 AM EDT Narrative CLINISYNC - 07/04/2024 12:21 PM EDT Fina Wilson NP CLIN[facility] Final Result Performing Organization Address [facility] de Phone Number [facility] * ALL LDH (07/04/2024 11:37 AM EDT) Pathologist [facility] LACTATE DEHYDROGENASE 97 81 - 234 U/L TB 07/04/2024 11:3 7 AM EDT 07/04/2024 11:39 AM EDT Narrative CLINISYNC - 07/04/2024 12:21 PM EDT Fina Wilson DISTRIBUTION SYSTEMS SERVICEPERSON CLIN[facility]NC Final Result Performing Organization Address [facility] de Phone Number [facility] * (ABNORMAL) ALL CBC WITH AUTO DIFF (07/04/2024 11:37 AM EDT) Pathologist [facility] TB WBC 10.5 4.0 - 11.0 10 3/uL TBH TB RBC 3.68(L) 4.20 - 5.40 10 6/uL TBH TBH HGB 11.0(L) 12.0 - 16.0 g/dL TB TB HCT 32.9(L) 36.0 - 48.0 % TBH TBH MCV 89.4 81.0 - 99.0 fL TBH TBH MCH 29.9 26.7 - 34.0 pg TBH TBH MCHC 33.4 29.9 - 35.2 g/dL TBH TB RDW 13.2 11.0 - 15.0 % [...] CLINISYNC Final Result Performing Organization Address City/[facility]/ZIP Co de Phone Number [facility] TB * (ABNORMAL) ALL BUN (07/04/2024 11:37 AM EDT) Pathologist [facility] BLOOD UREA NITROGEN 4.0(L) 7.0 - 18.0 mg/dL TBH 07/04/2024 11:3 7 AM EDT 07/04/2024 11:39 AM EDT Narrative CLINISYNC - 07/04/2024 12:21 PM EDT us Fina Wilson NP CLIN[facility] Final Result [facility] TBH * US OB CERVICAL LENGTH (06/05/2024 7:36 PM EDT) Anatomical Region Laterality Modality Other 06/05/2024 7:36 PM EDT Narrative 06/05/2024 7:39 PM EDT [address] [address] Ultrasound Report Signed Patient: FRANCISCA CÁRDENAS MR#: [id number] : 2000 Acct:[id number] Age/Sex: 23 / F ADM Date: 06/05/24 Loc: US Attending Dr: Hedy Pinto Ordering Physician: Hedy Pinto Date of Service: 06/05/24 Procedure(s): US OB cervical length Accession Number(s): [id number] cc: Hedy Pinto; Curt Mistry D.O. [place] [id number] Patient Name: FRANCISCA CÁRDENAS MRN: [id number] date: 2000 Sex: F Assigned Patient Location: US Current Patient Location: US Accession/Order Number: [id number] Exam Date: 06/05/2024 19:29 Report Date: 06/05/2024 [...] Willam Fernández M.D.06/05/2024 7:36 PM Dictation Location: [facility] Electronically authenticated by: [id number] Y Date: 06/05/2024 19:36 Dictated By: Willam Fernández D.O. Signed By: 06/05/241938 DD/ 35 TD/TT: Atomic Physics Professor: Procedure Note Radiology, Radiologist, - 06/06/2024 [place] [address] Ultrasound Report Signed Patient: FRANCISCA CÁRDENAS CMR#: [id number] : 2000Acct:[id number] Age/Sex: 23 / FADM Date: 06/05/24 Loc: US Attending Dr: Hedy Pinto Ordering Physician: Hedy Pinto Date of Service: 06/05/24 Procedure(s): US OB cervical length Accession Number(s): [id number] cc: Hedy Pinto; Curt Mistry D.O. The [address] [address] Patient Name: FRANCISCA CÁRDENAS MRN: [id number] date: 2000 Sex: F Assigned Patient Location: US Current Patient Location: US Accession/Order Number: [id number] Exam Date: 06/05/2024 19:29 Report Date: 06/05/2024 [...] mm. Cisterna magna measures 4.4 mm. Estimated [id number] g. Estimated weight percentile 51.4%. Estimated gestational age by ultrasound is 21 weeks 6 days. IMPRESSION: Single live intrauterine gestation 21 weeks 6 days.Visualized anatomy as above. Impression dictated by: Willam Fernández M.D.06/05/2024 7:36 PM Dictation Location: [place] [address] Electronically authenticated by: [id number] Y Date: 9:36 Dictated By: Willam Fernández D.O. Signed By:06/05/241938 DD/ 35 TD/TT: Atomic Physics Professor: us Hedy WERNER [facility] Final Result * US OB ANATOMY (06/05/2024 7:36 PM EDT) Anatomical Region Laterality Modality Other 06/05/2024 7:36 PM EDT Narrative 06/05/2024 7:39 [place] [address] Ultrasound Report Signed Patient: FRANCISCA CÁRDENAS MR#: [id number] : 2000 Acct:[id number] Age/Sex: 23 / F ADM Date: 06/05/24 Loc: US Attending Dr: Hedy Pinto Ordering Physician: Hedy Pinto Date of Service: 06/05/24 Procedure(s): US OB anatomy Accession Number(s): [id number] cc: Hedy Pinto; Curt Mistry D.O. The [place] [address] Patient Name: FRANCISCA CÁRDENAS MRN: [id number] date: 2000 Sex: F Assigned Patient Location: US Current Patient Location: US Accession/Order Number: [id number] Exam Date: 06/05/2024 19:29 Report Date: 06/05/2024 [...] Willam Fernández M.D.06/05/2024 7:36 PM Dictation Location: [employer] Electronically authenticated by: [id number] Y Date: 06/05/2024 19:36 Dictated By: Willam Fernández D.O. Signed By: 06/05/241938 DD/ 35 TD/TT: Atomic Physics Professor: Procedure Note Radiology, Radiologist, MD Huerta 06/06/[address] [address] Ultrasound Report Signed Patient: FRANCISCA CÁRDENAS CMR#: [id number] : 2000Acct:[id number] Age/Sex: 23 / FADM Date: 06/05/24 Loc: US Attending Dr: Hedy Pinto Ordering Physician: Hedy Pinto Date of Service: 06/05/24 Procedure(s): US OB anatomy Accession Number(s): [id number] cc: Hedy Pinto; Curt Mistry D.O. The [address] [address] Patient Name: FRANCISCA CÁRDENAS MRN: [id number] date: 2000 Sex: F Assigned Patient Location: US Current Patient Location: US Accession/Order Number: [id number] Exam Date: 06/05/2024 19:29 Report Date: 06/05/2024 [...] mm. Cisterna magna measures 4.4 mm. Estimated [id number] g. Estimated weight percentile 51.4%. Estimated gestational age by ultrasound is 21 weeks 6 days. IMPRESSION: Single live intrauterine gestation 21 weeks 6 days.Visualized anatomy as above. Impression dictated by: Willam Fernández M.D.06/05/2024 7:36 PM Dictation Location: [place] [address] Electronically authenticated by: [id number] Y Date: 9:36 Dictated By: iWllam Fernández D.O. Signed By:06/05/241938 DD/ 35 TD/TT: Atomic Physics Professor: Hedy WERNER [facility] Final Result from Last 3 Months Insurance
--- OUTSIDE RECORDS SUMMARY | 2024-08-27 19:03 | XMS_ITS | Encounter Summary ---
Author Organization [facility] Address [address] [place] [address] Care Team Providers Care Terminal Supervisor Name Role Phone Unavailable Primary Care Provider Unavailabl e Encounter Details Date Type Department Care Team (Late st Contact Info) Description 04/03/2024 Abstract [facility] BCP OB [address] [facility] [place] [address] Curt Mistry, DO [address] [facility] [address] [place], [facility] Social History Tobacco Use Types Packs/Day Years [...] [facility] [address] Hedy Ortega PA [address] [facility] [place], [place] [id number] documented as of this encounter Visit Diagnoses Not on filedocumented in this encounter
--- OUTSIDE RECORDS SUMMARY | 2024-08-27 19:03 | XMS_ITS | Encounter Summary ---
Author Organization [facility] Address [address] [place] [address] Care Team Providers Care Fireboat Operator Name Role Phone Unavailable Primary Care Provider Unavailabl e Encounter Details Date Type Department Care Team (Late st Contact Info) Description 08/13/2024 Clinisync Result Encounter NOMS External Department Unsolicited Keon Wilson, YADY [address] [facility] [place] [address] Social History Tobacco Use Types Packs/Day [...] Department Care Team (Late Contact Info) Description 09/04/2024 2:30 PM EDT Routine [facility] BCP OB [address] [facility] [place] [address] Hedy Ortega PA [address] [place] [address] [place], [place] [id number] documented as of this encounter Procedures Procedure Name Priority Date/Time Associated Diagnosis Comments US OB BPP W NON-STRESS 08/13/2024 9:44 PM EDT documented in this encounter Results * US OB BPP W NON-STRESS (08/13/2024 9:44 PM EDT) Anatomical Region Laterality Modality Other 08/13/2024 9:44 PM EDT Narrative 08/13/2024 9:46 [place] [address] Ultrasound Report Signed Patient: FRANCISCA BUTLER MR#: [id number] : 2000 Acct:[id number] Age/Sex: 23 / F ADM Date: 08/13/24 Loc: US Attending Dr: Keon Wilson Ordering Physician: Keon Wilson Date of Service: 08/13/24 Procedure(s): US OB BPP w non-stress Accession Number(s): [id number] cc: Keon Wilson; Physician,Non-Staff M.DOwen The [place] [id number] Patient Name: FRANCISCA BUTLER MRN: [id number] date: 2000 Sex: F Assigned Patient Location: [facility] Current Patient Location: Accession/Order Number: [id number] Exam Date: 08/13/2024 21:43 Report Date: 08/13/2024 21:44 At the request of: KEON WILSON Procedure: US OB BPP w non-stress Ultrasound biophysical profile HISTORY: -induced hypertension Adequate breathing movement, gross body movement, tone and amniotic fluid volume for total score of 8 out of 8. The amniotic fluid index is 20.6cm within normal limits. The heart rate 155 bpm. US/US OB BPP w non-stress IMPRESSION: Adequate ultrasound biophysical profile Impression dictated by: Willam Fenrández M.D. 08/13/2024 9:44 PM Dictation Location: [employer] Electronically authenticated by: [id number] Y Date: 08/13/2024 21:44 Dictated By: Willam Fernández D.O. Signed By: 08/13/242145 DD/ 43 TD/TT: Pediatric Care Coordinator: Procedure Note Radiology, Radiologist, - 08/13/2024 [place] [address] Ultrasound Report Signed Patient: FRANCISCA BUTLER CMR#: [id number] : 2000Acct:[id number] Age/Sex: 23 / FADM Date: 08/13/24 Loc: US Attending Dr: Keon Wilson Ordering Physician: Keon Wilson Date of Service: 08/13/24 Procedure(s): US OB BPP w non-stress Accession Number(s): [id number] cc: Keon Wilson; Physician,Non-Staff Alondra The [place] [id number] Patient Name: FRANCISCA BUTLER MRN: [id number] date: 2000 Sex: F Assigned Patient Location: [facility] Current Patient Location: Accession/Order Number: [id number] Exam Date: 08/13/2024 21:43 Report Date: 08/13/2024 21:44 At the request of: KEON WILSON Procedure: US OB BPP w non-stress Ultrasound biophysical profile HISTORY: -induced hypertension Adequate breathing movement, gross body movement, tone and amniotic fluid volume for total score of 8 out of 8. The amniotic fluidindex is 20.6cm within normal limits. The heart rate 155 bpm. US/US OB BPP w non-stress IMPRESSION: Adequate ultrasound biophysical profile Impression dictated by: Willam Fernández M.D. 08/13/2024 9:44 PM Dictation Location: [facility] Electronically authenticated by: [id number] Y Date: 1:44 Dictated By: Willam Fernández D.O. Signed By:08/13/242145 DD/ 43 TD/TT: Pediatric Care Coordinator: us Keon Wilson NP [facility] Final Resul t documented in this encounter Visit Diagnoses Not on filedocumented in this encounter
--- OUTSIDE RECORDS SUMMARY | 2024-08-27 19:03 | XMS_ITS | Encounter Summary ---
Author Organization [facility] Address [address] [place] [address] Care Team Providers Care Production Finisher Name Role Phone Unavailable Primary Care Provider Unavailabl e Encounter Details Date Type Department Care Team (Late st Contact Info) Description 04/17/2024 Abstract [facility] BCP OB [address] [facility] [place] [address] Tiffanie Loza LPN Social History Tobacco [...] Routine [facility] BCP OB [address] [facility] [place] [address] Hedy Ortega PA [address] [place], [place] [phone] documented as of this encounter Visit Diagnoses Not on filedocumented in this encounter
--- OUTSIDE RECORDS SUMMARY | 2024-08-27 19:03 | XMS_ITS | Encounter Summary ---
Author Organization [facility] Address [address] [place] [address] Care Team Providers Care Customs Director Name Role Phone Unavailable Primary Care Provider Unavailabl e Encounter Details Date Type Department Care Team (Late st Contact Info) Description 03/26/2024 Abstract [facility] OB [address] [facility] [place] [address] Curt Mistry, DO [address] [place], [facility] Social History Tobacco Use Types Packs/Day Years [...] PM EDT Routine [facility] [address] [place] [address] Hedy Ortega PA [address] [place], [place] [id number] documented as of this encounter Visit Diagnoses Not on filedocumented in this encounter
--- NOTE | 2024-08-27 19:05 | US_ITS ---
[facility] [place] [id number] Patient Name: FRANCISCA MÉNDEZ MRN: [id number] date: 2000 Sex: F Assigned Patient Location: [facility] Current Patient Location: Accession/Order Number: [id number] Exam Date: 08/28/2024 08:07 Report Date: 08/28/2024 08:09 At the request of: KEON FONSECA Procedure: US OB BPP w non-stress BIOPHYSICAL PROFILE: CLINICAL INFORMATION: INDUCED HYPERTENSION O13.9 COMPARISON: 08/20/2024 There is a single live intrauterine gestation in cephalic presentation. The reported gestational age is 33 weeks 1 day. The heart rate measures 157 beats per minute. FINDINGS: TONE: 1 or more episodes of activity extension and flexion of extremity or opening and closing of the hand [Y] 2/2 GROSS BODY MOVEMENTS: 3 or more discrete body or limb movements [Y] 2/2 BREATHING MOVEMENTS: 1 or more episodes of breathing lasting at least 30 seconds [Y] 2/2 ROSE: A single deepest vertical pocket of amniotic fluid greater than 2 cm [Y] 2/2 ROSE: 17.3 cm. This is in upper normal range. Total score: 8/8 US/US OB BPP w non-stress IMPRESSION: NORMAL BIOPHYSICAL PROFILE. Impression dictated by: Marielos Rubio M.D. 08/28/2024 8:09 AM Dictation Location: [place] [address] Electronically authenticated by: [id number] Y Date: 08/28/2024 08:09
[2024-08-27 19:30] VITALS: BP 118/74; PULSE 102
== END 2024-08-27 20:01 | disposition home or self-care (01) ==
LOC: US 19:02 → FBC 19:04
PROVIDERS: Visit Provider Nurse Practitioner Family
DX: O13.3 Gestational [pregnancy-induced] hypertension without significant proteinuria, third trimester (principal); Z3A.33 33 weeks gestation of pregnancy
CPT/HCPCS: 76818

== ENCOUNTER 2024-08-30 18:59 | Outpatient (OUT) | payer OTHER, SELFPAY ==
--- OUTSIDE RECORDS SUMMARY | 2024-08-20 11:00 | XMS_ITS | Encounter Summary ---
Author Organization [facility] Address [address] [place] [address] Care Team Providers Care Entry Level Electrician Name Role Phone Unavailable Primary Care Provider Unavailabl e Encounter Details Date Type Department Care Team (Latest Contact Info) Description 08/20/2024 11:00 AM EDT Ancillary Procedure [facility] [address] [facility] [place] [address] Hypertension during in third trimester, unspecified hypertension in type ([facility]) Social History Tobacco Use Types Packs/Day Years [...] PM EDT Routine [facility] OB [address] [facility] [place] [address] Hedy Ortega PA [address] [place], [place] [phone] documented as of this encounter Procedures Procedure Name Priority Date/Time Associated Diagnosis Comments US OB FOLLOW UP TRANSABDOMINAL APPROACH Routine 08/20/2024 11:19 AM EDT Hypertension during in third trimester, unspecified hypertension in type ([facility]) documented in this encounter Results * [...] II, MD, PHD at 21-Aug-2024 08:00:33 AM [facility] Procedure Note Fritz Templeton MD - [...] FRITZ TEMPLETON II, MD, PHD 08:00:33 AM [facility] us Hedy WERNER IMG OB US PROCEDURES Final Resul t documented in this encounter Visit Diagnoses Diagnosis Hypertension during in third trimester, unspecified hypertension in type ([facility]) documented in this encounter
--- OUTSIDE RECORDS SUMMARY | 2024-08-20 11:20 | XMS_ITS | Encounter Summary ---
Author Organization [facility] Address [address] [place] [address] Care Team Providers Care Corporate Traffic Manager Name Role Phone Unavailable Primary Care Provider Unavailabl e Reason for Visit * Reason Comments Routine Visit Encounter Details Date Type Department Care Team (Late st Contact Info) Description 08/20/2024 11:20 AM EDT Routine [facility] OB [address] [place] [phone] Curt Mistry, DO [address] [facility] [place] [address] Third trimester ([facility]HS-HCC); 32 weeks gestation of [...] this encounter Progress Notes * Marielos Rapp, PROFESSOR OF MARKETING - 08/20/2024 11:20 AM EDT Reason for [...] nursing note reviewed. Exam conducted with a protein chemist present. Vitals: Estimated body mass index is 33.17 kg/m?? as calculated from the following: Height as of this encounter: 5' 4 . Weight as of this encounter: 193 lb 4 oz. BP: 126/90 Patient's last menstrual period was 01/08/2024. ASSESSMENT & PLAN ICD-10-CM 1. Third trimester ([facility]) Z34.93 2. 32 weeks gestation of ([facility]) Z3A.32 3. Pre-eclampsia in third trimester ([facility]) O14.93 4. induced hypertension, antepartum ([facility]) O13.9 Return OB: Patient presents today for [...] PM EDT Routine [facility] OB [address] [facility] [address] Hedy Ortega PA [address] [facility] [place] [address] documented as of this encounter Procedures Procedure Name Priority Date/Time Associated Diagnosis Comments POCT URINALYSIS DIPSTICK Routine 08/20/2024 12:08 PM EDT Third trimester ([facility]) documented in this encounter Results * (ABNORMAL) [...] Urine 08/20/2024 12:0 8 PM EDT Result [facility] Curt Mistry DO POINT OF CARE TEST ENTER/EDIT OR DERABLES Final Result documented in this encounter Visit Diagnoses Diagnosis Third trimester ([facility]-HCC) state, incidental 32 weeks gestation of ([facility]-HCC) Pre-eclampsia in third trimester ([facility]-HCC) induced hypertension, antepartum ([facility]-HCC) Transient hypertension of , antepartum documented in this encounter
--- OUTSIDE RECORDS SUMMARY | 2024-08-30 19:02 | XMS_ITS | Clinical Summary ---
Author Organization [facility] Address [address] [place] [address] Care Team Providers Care Manager Of Quality Name Role Phone Unavailable Primary Care Provider [...] Encounters Date Type Department Care Team Description 08/28/2024 Clinisync Result Encounter NOMS External Department Unsolicited Fina Wilson NP 08/21/2024 Clinisync Result Encounter NOMS External Department Unsolicited Fina Wilson NP 08/20/2024 11:20 AM EDT Routine [facility] BCP OB [address] [place] [address] Curt Mistry DO Third trimester ([facility]-HCC); 32 weeks gestation of (HHS-HCC); Pre-eclampsia in third trimester ([facility]HS-HCC); induced hypertension, antepartum ([facility]HS-HCC) 08/20/2024 11:00 AM EDT Ancillary Procedure [facility] B[facility] OB [address] [facility] [place] [address] Hypertension during in third trimester, unspecified hypertension in type ([facility]) 08/13/2024 Clinisync Result Encounter NOMS External Department Unsolicited Fina Wilson, YADY 08/13/2024 Telephone [facility] OB [address] [place] [address] Francisca Mcqueen MA 08/07/2024 3:50 PM EDT Routine [facility] OB [address] [facility] [place] [address] Hedy Pinto PA Hypertension during in third trimester, unspecified hypertension in type ([facility]) (Primary Dx); Third trimester ([facility]); 30 weeks gestation of ([facility]) 08/07/2024 Bamboo flowsheet [facility] OB [address] [place] [address] [place] [address] Hedy Pinto PA 08/06/2024 Clinisync Result Encounter NOMS External Department Unsolicited Fina Wilson, YADY 07/31/2024 Clinisync Result Encounter NOMS External Department Unsolicited Fina Wilson, YADY 07/24/2024 3:30 PM EDT Routine [facility] OB [address] [place] [address] [place] [address] Curt Mistry DO 28 weeks gestation of ([facility]); Third trimester ([facility]) 07/24/2024 3:00 PM EDT Ancillary Procedure [facility] OB [address] [facility] [place] [address] induced hypertension, antepartum ([facility]) 07/24/2024 Travel 07/23/2024 Clinisync Result Encounter NOMS External Department Unsolicited Fina Wilson, YADY 07/10/2024 11:30 AM EDT Clinical Support [facility] OB [address] [place] [address] [place] [address] Blood pressure check; Second trimester ([facility]); 26 weeks gestation of ([facility]); Urinary tract infection without hematuria, site unspecified 07/06/2024 Clinisync Result Encounter NOMS External Department Unsolicited Fina Wilson NP 07/04/2024 Clinisync Result Encounter NOMS External Department Unsolicited Fina Wilson NP 07/03/2024 3:30 PM EDT Routine NOMS [address] [place] [address] Fina Wilson NP Second trimester ([facility]); 25 weeks gestation of ([facility]); Diabetes mellitus screening; induced hypertension, antepartum ([facility]) 07/03/2024 Bamboo flowsheet NOMS [address] [place] [address] Fina Wilson NP 06/05/2024 2:10 PM EDT Routine NOMS [address] [place] [address] Curt Mistry DO Second trimester ([facility]); 21 weeks gestation of ([facility]) 06/05/2024 Clinisync Result Encounter NOMS External Department Unsolicited Hedy Pinto PA 06/05/2024 Clinisync Result Encounter NOMS External Department Unsolicited Hedy Pinto PA 06/05/2024 Bamboo flowsheet NOM[facility] [address] [place] [address] Curt Mistry DO from Last 3 Months [...] PM EDT Routine [facility] BCP OB [address] [facility] [place] [address] Hedy Pinto PA [address] [facility] [place] [address] Procedures Procedure Name Priority Date/Time Associated Diagnosis Comments US OB BPP W NON-STRESS 08/28/2024 8:09 AM EDT US OB BPP W NON-STRESS 08/21/2024 7:59 AM EDT POCT URINALYSIS DIPSTICK Routine 08/20/2024 12:08 PM EDT Third trimester ([facility]) US OB FOLLOW UP TRANSABDOMINAL APPROACH Routine 08/20/2024 11:19 AM EDT Hypertension during in third trimester, unspecified hypertension in type ([facility]) US OB BPP W NON-STRESS 08/13/2024 9:44 PM EDT US OB BPP W NON-STRESS 08/06/2024 7:39 PM EDT US OB BPP W NON-STRESS 07/31/2024 9:08 AM EDT POCT URINALYSIS DIPSTICK Routine 07/24/2024 4:03 PM EDT 28 weeks gestation of ([facility]-HCC) Third trimester ([facility]-HCC) US OB FOLLOW UP TRANSABDOMINAL APPROACH Routine [...] Routine 06/05/2024 3:26 PM EDT Second trimester ([facility]) from Last 3 Months Results * US OB BPP W NON-STRESS (08/28/2024 8:09 AM EDT) Only the most recent of6 resultswithin the time period is included. Anatomical Region Laterality Modality Other 08/28/2024 8:09 AM EDT Narrative 08/28/2024 8:12 [place] [address] Ultrasound Report Signed Patient: FRANCISCA BUTLER MR#: [id number] : 2000 Acct:[id number] Age/Sex: 23 / F ADM Date: 08/27/24 Loc: US Attending Dr: Fina Wilson Ordering Physician: Fina Wilson Date of Service: 08/27/24 Procedure(s): US OB BPP w non-stress Accession Number(s): [id number] cc: Fina Wilson; Physician,Non-Staff M.D. [facility] [place] [id number] Patient Name: FRANCISCA BUTLER MRN: [facility]:[id number] date: 2000 Sex: F Assigned Patient Location: [facility] Current Patient Location: Accession/Order Number: [id number] Exam Date: 08/28/2024 08:07 Report Date: 08/28/2024 08:09 At the request of: FINA WILSON Procedure: US OB BPP w non-stress BIOPHYSICAL PROFILE: CLINICAL INFORMATION: INDUCED HYPERTENSION O13.9 COMPARISON: 08/20/2024 There is a single live intrauterine gestation in cephalic presentation. The reported gestational age is 33 weeks 1 day. The heart rate measures 157 beats per minute. FINDINGS: TONE: 1 or [...] greater than 2 cm [Y] 2/2 ROSE: 17.3 cm. This is in upper normal range. Total score: 8/ US/US OB BPP w non-stress IMPRESSION: NORMAL BIOPHYSICAL PROFILE. Impression dictated by: Marielos Rubio M.D. 08/28/2024 8:09 AM Dictation Location: [place] [address] Electronically authenticated by: [id number] Y Date: 08/28/2024 08:09 Dictated By: Marielos Rubio M.D. Signed By: 08/28/24811 DD/ 8 TD/TT: Acquisition Professional: Procedure Note Radiology, Radiologist, MD - 08/28/2024 [place] [address] Ultrasound Report Signed Patient: FRANCISCA BUTLER CMR#: [id number] : 2000Acct:[id number] Age/Sex: 23 / FADM Date: 08/27/24 Loc: US Attending Dr: Fina Wilson Ordering Physician: Fina Wilson Date of Service: 08/27/24 Procedure(s): US OB BPP w non-stress Accession Number(s): [id number] cc: Fina Wilson; Physician,Non-Staff MAnayeli [facility] [place] [id number] Patient Name: FRANCISCA BUTLER MRN: [id number] date: 2000 Sex: F Assigned Patient Location: [facility] Current Patient Location: Accession/Order Number: [id number] Exam Date: 08/28/2024 08:07 Report Date: 08/28/2024 08:09 At the request of: FINA WILSON Procedure: US OB BPP w non-stress BIOPHYSICAL PROFILE: CLINICAL INFORMATION: INDUCED HYPERTENSION O13.9 COMPARISON: 08/20/2024 There is a single live intrauterine gestation in cephalic presentation.The reported gestational age is 33 weeks 1 day. The heart rate [id number] beats per minute. FINDINGS: TONE: 1 or [...] greater than 2 cm [Y] 2/2 ROSE: 17.3 cm. This is in upper normal range. Total score: 8/8 US/US OB BPP w non-stress IMPRESSION: NORMAL BIOPHYSICAL PROFILE. Impression dictated by: Marielos Rubio M.D. 08/28/2024 8:09 AM Dictation Location: [place] [address] Electronically authenticated by: [id number] Y Date: 508:09 Dictated By: Marielos Rubio M.D. Signed By:08/28/24811 DD/ 8 TD/TT: Acquisition Professional: Fina Wilson PRODUCT ADVISOR [facility] Final Resul t * (ABNORMAL) [...] - 9 Protein, UA Positive Negative - 1999(20) ++++ mg/dL Comment:30mg/dL Urobilinogen, UA 1.0 0.2 - 12 mg/dL Leukocytes, UA Positive Negative - 500+++ Pranav/mcL Comment:Large Nitrite, UA Negative Negative - Positive Urine 08/20/2024 12:0 8 PM EDT us Curt Fede DO POINT OF CARE TEST ENTER/EDIT OR [...] 10/05/2024. Interpreted by: Electronically signed by FRITZ MAXWELL II, MD, PHD at 21-Aug-2024 08:00:33 AM [facility] Procedure Note Fritz Maxwell MD - 08/21/2024 EXAM: US OB FOLLOW [...] 10/05/2024. Interpreted by: Electronically signed by FRITZ MAXWELL II, MD, PHD 08:00:33 AM [facility] us Hedy WERNER IMG OB US [...] - 07/06/2024 11:59 AM EDT us Fina DALY Final Result CLINISYTORSTEN [facility] * GLUCOSE 1 HOUR (07/04/2024 11:37 AM EDT) GLUCOSE 1 HOUR 110 <130 mg/dL TBH 07/04/2024 11:3 7 AM EDT 07/04/2024 11:39 AM EDT Narrative CLINISYNC - 07/04/2024 12:21 PM EDT us Fina Wilson NP LAB BLOOD ORDERABLES Final Re sult Performing Organization Address [facility] Co de Phone Number [facility] * [facility]H CREATININE (07/04/2024 11:37 AM EDT) CREATININE 0.59 0.55 - 1.02 mg/dL TBH TBH EGFR-AF ALGERIAN >60 >=60 mL/min/1.7 3m 2 TBH TBH EGFR-NON AF ALGERIAN >60 >=60 mL/min/1.7 3m 2 TBH 07/04/2024 11:3 7 AM EDT 07/04/2024 11:39 AM EDT Narrative CLINISYNC - 07/04/2024 12:21 PM EDT us Fina Wilson NP CLINISYNC Final Result Performing Organization Address [facility] de Phone Number JACKIN TB * SRMCOH PROTHROMBIN TIME INR W/O COUM (07/04/2024 11:37 AM EDT) PROTHROMBIN TIME 10.6 9.0 - 11.6 sec TBH TBH INR 1.00 TBH Comment: DESIRED INR: 2.0-3.0 CONDITIONS NOT LISTED BELOW 2.5-3.5 FOR PROSTHETIC HEART VALVE REPLACEMENT 2.5-3.5 RECURRENT THROMBOSIS 07/04/2024 11:3 7 AM EDT 07/04/2024 11:39 AM EDT Narrative CLINISYNC - 07/04/2024 12:39 PM EDT us Fina Katie PRODUCT ADVISOR [facility]IN[facility] Final Result Performing Organization Address [facility] Co de Phone Number [facility] * (ABNORMAL) [facility] AST (07/04/2024 11:37 AM EDT) ASPARTATE AMINO TRANSFERASE 8(L) 15 - 37 U/L TB 07/04/2024 11:3 7 AM EDT 07/04/2024 11:39 AM EDT Narrative CLINISYNC - 07/04/2024 12:21 PM EDT us Fina Wilson NP CLINISYNC Final Result Performing Organization Address [facility] de Phone Number [facility] * [facility] APTT (07/04/2024 11:37 AM EDT) PARTIAL THROMBOPLASTIN TIME 26.8 22.3 - 36.2 sec TB 07/04/2024 11:3 7 AM EDT 07/04/2024 11:39 AM EDT Narrative CLINISYNC - 07/04/2024 12:39 PM EDT us Fina Wilson NP CLINISYNC Final Result Performing Organization Address [facility] de Phone Number CL[facility]NC [facility] * ALL URIC ACID (07/04/2024 11:37 AM EDT) URIC ACID 3.4 2.6 - 6.0 mg/dL TB 07/04/2024 11:3 7 AM EDT 07/04/2024 11:39 AM EDT Narrative CLINISYNC - 07/04/2024 12:21 PM EDT us Fina Wilson NP CLINISYNC Final Result Performing Organization Address [facility] de Phone Number [facility] * ALL LDH (07/04/2024 11:37 AM EDT) LACTATE DEHYDROGENASE 97 81 - 234 U/L TB 07/04/2024 11:3 7 AM EDT 07/04/2024 11:39 AM EDT Narrative CLINISYNC - 07/04/2024 12:21 PM EDT Fina Wilson NP CLINISYNC Final Result [facility] * (ABNORMAL) ALL CBC WITH AUTO DIFF (07/04/2024 11:37 AM EDT) Pathologist [facility] TB WBC 10.5 4.0 - 11.0 10 [...] 07/04/2024 12:19 PM EDT us Fina Wilson PRODUCT ADVISOR CLINISYNC Final Result CLINISYIN TB * (ABNORMAL) ALL BUN (07/04/2024 11:37 AM EDT) BLOOD UREA NITROGEN 4.0(L) 7.0 - 18.0 mg/dL TBH 07/04/2024 11:3 7 AM EDT 07/04/2024 11:39 AM EDT Narrative CLINISYNC - 07/04/2024 12:21 PM EDT Fina Wilson PRODUCT ADVISOR CLINISYNC Final Result Performing Organization Address [facility] de Phone Number [facility] * US OB CERVICAL LENGTH (06/05/2024 7:36 PM EDT) Anatomical Region Laterality Modality Other 06/05/2024 7:36 PM EDT Narrative 06/05/2024 7:39 [place] [address] Ultrasound Report Signed Patient: FRANCISCA CÁRDENAS MR#: [id number] : 2000 Acct:[id number] Age/Sex: 23 / F ADM Date: 06/05/24 Loc: US Attending Dr: Hedy Pinto Ordering Physician: Hedy Pinto Date of Service: 06/05/24 Procedure(s): US OB cervical length Accession Number(s): [id number] cc: Hedy Pinto; Curt Mistry D.O. [address] [address] Patient Name: FRANCISCA CÁRDENAS MRN: [facility]:[id number] date: 2000 Sex: F Assigned Patient Location: US Current Patient Location: US Accession/Order Number: [id number] Exam Date: 06/05/2024 19:29 Report Date: 06/05/2024 [...] Willam Fernández M.D.06/05/2024 7:36 PM Dictation Location: [employer] Electronically authenticated by: [id number] Y Date: 06/05/2024 19:36 Dictated By: Willam Fernández D.O. Signed By: 06/05/241938 DD/ 35 TD/TT: Acquisition Professional: Procedure Note Radiology, Radiologist, - 06/06/2024 [place] [address] Ultrasound Report Signed Patient: FRANCISCA CÁRDENAS CMR#: [id number] : 2000Acct:[id number] Age/Sex: 23 / FADM Date: 06/05/24 Loc: US Attending Dr: Hedy Pinto Ordering Physician: Hedy Pinto Date of Service: 06/05/24 Procedure(s): US OB cervical length Accession Number(s): [id number] cc: Hedy Pinto; Curt Mistry D.O. [address] [address] Patient Name: FRANCISCA CÁRDENAS MRN: [id number] date: 2000 Sex: F Assigned Patient Location: US Current Patient Location: US Accession/Order Number: [id number] Exam Date: 06/05/2024 19:29 Report Date: 06/05/2024 [...] mm. Cisterna magna measures 4.4 mm. Estimated [id number] g. Estimated weight percentile 51.4%. Estimated gestational age by ultrasound is 21 weeks 6 days. IMPRESSION: Single live intrauterine gestation 21 weeks 6 days.Visualized anatomy as above. Impression dictated by: Willam Fernández M.D.06/05/2024 7:36 PM Dictation Location: [place] [address] Electronically authenticated by: [id number] Y Date: 9:36 Dictated By: Willam Fernández D.O. Signed By:06/05/241938 DD/ 35 TD/TT: Acquisition Professional: us Hedy WERNER [facility] Final Result * US OB ANATOMY (06/05/2024 7:36 PM EDT) Anatomical Region Laterality Modality Other 06/05/2024 7:36 PM EDT Narrative 06/05/2024 7:39 [place] [address] Ultrasound Report Signed Patient: FRANCISCA CÁRDENAS MR#: [id number] : 2000 Acct:[id number] Age/Sex: 23 / F ADM Date: 06/05/24 Loc: US Attending Dr: Hedy Pinto Ordering Physician: Hedy Pinto Date of Service: 06/05/24 Procedure(s): US OB anatomy Accession Number(s): [id number] cc: Hedy Pinto; Curt Mistry D.O. [place] [id number] Patient Name: FRANCISCA CÁRDENAS MRN: [id number] date: 2000 Sex: F Assigned Patient Location: US Current Patient Location: US Accession/Order Number: [id number] Exam Date: 06/05/2024 19:29 Report Date: 06/05/2024 [...] Willam Fernández M.D.06/05/2024 7:36 PM Dictation Location: [place] [address] Electronically authenticated by: [id number] Y Date: 06/05/2024 19:36 Dictated By: Willam Fernández D.O. Signed By: 06/05/241938 DD/ 35 TD/TT: Acquisition Professional: Procedure Note Radiology, Radiologist, - 06/06/2024 [place] [address] Ultrasound Report Signed Patient: FRANCISCA CÁRDENAS [facility]#: [id number] : 2000Acct:[id number] Age/Sex: 23 / FADM Date: 06/05/24 Loc: US Attending Dr: Hedy Pinto Ordering Physician: Hedy Pinto Date of Service: 06/05/24 Procedure(s): US OB anatomy Accession Number(s): [id number] cc: Hedy Pinto; Curt Mistry D.O. The [address] [address] Patient Name: FRANCISCA CÁRDENAS MRN: [facility]:[id number] date: 2000 Sex: F Assigned Patient Location: US Current Patient Location: US Accession/Order Number: [id number] Exam Date: 06/05/2024 19:29 Report Date: 06/05/2024 [...] mm. Cisterna magna measures 4.4 mm. Estimated g. Estimated weight percentile 51.4%. Estimated gestational age by ultrasound is 21 weeks 6 days. IMPRESSION: Single live intrauterine gestation 21 weeks 6 days.Visualized anatomy as above. Impression dictated by: Willam Fernández M.D.06/05/2024 7:36 PM Dictation Location: [place] [address] Electronically authenticated by: [id number] Y Date: 9:36 Dictated By: Willam Fernández D.O. Signed By:06/05/241938 DD/ 35 TD/TT: Acquisition Professional: Hedy WERNER [facility] Final Result from Last 3 Months Insurance
--- OUTSIDE RECORDS SUMMARY | 2024-08-30 19:02 | XMS_ITS | Encounter Summary ---
Author Organization [facility] Address [address] [place] [address] Care Team Providers Care Integrated Circuit Layout Designer Name Role Phone Unavailable Primary Care Provider Unavailabl e Encounter Details Date Type Department Care Team (Late st Contact Info) Description 05/20/2024 Orders Only [facility] B[facility] OB [address] [place] [address] [place] [phone] Rosa Cueva MA [address] [place] [address] [place] [address] Social History Tobacco Use Types Packs/Day Years [...] 2:30 PM EDT Routine [facility] BCP OB [address] [place] [address] [place] [phone] Hdey Ortega PA [address] [facility] [address] [place], [place] [phone] documented as of this encounter Procedures Procedure [...]
--- OUTSIDE RECORDS SUMMARY | 2024-08-30 19:02 | XMS_ITS | Encounter Summary ---
Author Organization [facility] Address [address] [place] [address] Care Team Providers Care Medical Laboratory Manager Name Role Phone Unavailable Primary Care Provider Unavailabl e Encounter Details Date Type Department Care Team (Late st Contact Info) Description 08/28/2024 Clinisync Result Encounter NOMS External Department Unsolicited Keon Wilson, YADY [address] [facility] [place] [address] Social History Tobacco Use Types Packs/Day [...] PM EDT Routine [facility] BCP OB [address] [facility] [place] [address] Hedy Ortega PA [address] [place] [address] [place], [place] [id number] documented as of this encounter Procedures Procedure Name Priority Date/Time Associated Diagnosis Comments US OB BPP W NON-STRESS 08/28/2024 8:09 AM EDT documented in this encounter Results * US OB BPP W NON-STRESS (08/28/2024 8:09 AM EDT) Anatomical Region Laterality Modality Other 08/28/2024 8:09 AM EDT Narrative 08/28/2024 8:12 [place] [address] Ultrasound Report Signed Patient: FRANCISCA BUTLER MR#: [id number] : 2000 Acct:[id number] Age/Sex: 23 / F ADM Date: 08/27/24 Loc: US Attending Dr: Keon Wilson Ordering Physician: Keon Wilson Date of Service: 08/27/24 Procedure(s): US OB BPP w non-stress Accession Number(s): [id number] cc: Keon Wilson; Physician,Non-Staff M.D. The [place] [id number] Patient Name: FRANCISCA BUTLER MRN: [id number] date: 2000 Sex: F Assigned Patient Location: [facility] Current Patient Location: Accession/Order Number: [id number] Exam Date: 08/28/2024 08:07 Report Date: 08/28/2024 08:09 At the request of: KEON WILSON Procedure: [...] Rubio M.D. 08/28/2024 8:09 AM Dictation Location: [place] [address] Electronically authenticated by: [id number] Y Date: 08/28/2024 08:09 Dictated By: Marielos Rubio M.D. Signed By: 08/28/2412 DD/ 8 TD/TT: [employer] Strip Gauger: Procedure Note Radiology, Radiologist, MD - 08/28/2024 [place] [address] Ultrasound Report Signed Patient: FRANCISCA BUTLER CMR#: [id number] : 2000Acct:[id number] Age/Sex: 23 / FADM Date: 08/27/24 Loc: US Attending Dr: Keon Wilson Ordering Physician: Keon Wilson Date of Service: 08/27/24 Procedure(s): US OB BPP w non-stress Accession Number(s): [id number] cc: Keon Wilson; Physician,Non-Staff [place]ondra The [place] [address] Patient Name: FRANCISCA BUTLER MRN: [id number] date: 2000 Sex: F Assigned Patient Location: [facility] Current Patient Location: Accession/Order Number: [id number] Exam Date: 08/28/2024 08:07 Report Date: 08/28/2024 08:09 At the request of: KEON WILSON Procedure: US OB BPP w non-stress BIOPHYSICAL PROFILE: CLINICAL INFORMATION: INDUCED HYPERTENSION O13.9 COMPARISON: 08/20/2024 There is a single live intrauterine gestation in cephalic presentation.The reported gestational age is 33 weeks 1 day. The heart rate [id number] beats per minute. FINDINGS: TONE: 1 or [...] Rubio M.D. 08/28/2024 8:09 AM Dictation Location: [place] [address] Electronically authenticated by: [id number] Y Date: 508:09 Dictated By: Marielos Rubio M.D. Signed By:08/28/24 0812 DD/ 8 TD/TT: [employer] Strip Gauger: Keon Wilson NP [facility] Final Resul t documented in this encounter Visit Diagnoses Not on filedocumented in this encounter
--- OUTSIDE RECORDS SUMMARY | 2024-08-30 19:02 | XMS_ITS | Encounter Summary ---
Author Organization [facility] Address [address] [place] [address] Care Team Providers Care Block Mechanic Name Role Phone Unavailable Primary Care Provider Unavailabl e Encounter Details Date Type Department Care Team (Late st Contact Info) Description 04/03/2024 Abstract [facility] [address] [facility] [place] [address] Curt Mistry, DO [address] [facility] [address] [place], [facility]11 Social History Tobacco Use Types Packs/Day [...] PM EDT Routine [facility] [address] [facility] [place] [address] Hedy Ortega PA [address] [facility] [address] [place], [place] [id number] documented as of this encounter Visit Diagnoses Not on filedocumented in this encounter
--- OUTSIDE RECORDS SUMMARY | 2024-08-30 19:02 | XMS_ITS | Encounter Summary ---
Author Organization [facility] Address [address] [place] [address] Care Team Providers Care Rock Crusher Name Role Phone Unavailable Primary Care Provider Unavailabl e Encounter Details Date Type Department Care Team (Late st Contact Info) Description 03/26/2024 Abstract [facility] [address] [facility] [place] [address] Curt Mistry, DO [address] [facility] [address] [place], [facility]11 Social History Tobacco Use Types Packs/Day [...] PM EDT Routine [facility] [address] [facility] [place] [address] Hedy Ortega PA [address] [facility] [address] [place], [place] [id number] documented as of this encounter Visit Diagnoses Not on filedocumented in this encounter
--- OUTSIDE RECORDS SUMMARY | 2024-08-30 19:02 | XMS_ITS | Encounter Summary ---
Author Organization [facility] Address [address] [place] [address] Care Team Providers Care Workday Director Name Role Phone Unavailable Primary Care Provider Unavailabl e Encounter Details Date Type Department Care Team (Late st Contact Info) Description 04/17/2024 Abstract [facility] OB [address] [facility] [place] [address] Tiffanie Loza LPN Social History Tobacco [...] PM EDT Routine [facility] [address] [facility] [place] [address] Hedy Ortega PA [address] [place], [place] [id number] documented as of this encounter Visit Diagnoses Not on filedocumented in this encounter
[2024-08-30 19:06] VITALS: BP 131/61; PULSE 102
== END 2024-08-30 19:30 | disposition home or self-care (01) ==
LOC: FBCO 18:59 → FBC 19:02
PROVIDERS: Visit Provider Obstetrics & Gynecology
DX: O26.893 Other specified pregnancy related conditions, third trimester (principal); Z3A.33 33 weeks gestation of pregnancy
CPT/HCPCS: 59025

== ENCOUNTER 2024-09-03 18:51 | Outpatient (OUT) | payer OTHER, SELFPAY ==
[2024-09-03 18:57] VITALS: BP 152/70; PULSE 103
[2024-09-03 19:24] VITALS: BP 128/69; PULSE 100
--- NOTE | 2024-09-03 19:32 | US_ITS ---
The [address] [address] Patient Name: FRANCISCA MÉNDEZ MRN: [id number] date: 2000 Sex: F Assigned Patient Location: [facility] Current Patient Location[place] [facility] [place] Accession/Order Number: [id number] Exam Date: 09/04/2024 07:59 Report Date: 09/04/2024 08:01 At the request of: KEON FONSECA Procedure: US OB BPP w non-stress BIOPHYSICAL PROFILE: CLINICAL INFORMATION: INDUCED HYPERTENSION O13.9 COMPARISON: 08/27/2024 There is a single live intrauterine gestation in cephalic presentation. The reported gestational age is 34 weeks 1 day. The heart rate measures 148 beats per minute. FINDINGS: TONE: 1 or more episodes of activity extension and flexion of extremity or opening and closing of the hand [Y] 2/2 GROSS BODY MOVEMENTS: 3 or more discrete body or limb movements [Y] 2/2 BREATHING MOVEMENTS: 1 or more episodes of breathing lasting at least 30 seconds [Y] 2/2 ROSE: A single deepest vertical pocket of amniotic fluid greater than 2 cm [Y] 2/2 ROSE: 14.0 cm. This is normal. Total score: 8/8 US/US OB BPP w non-stress IMPRESSION: NORMAL BIOPHYSICAL PROFILE Impression dictated by: Marielos Rubio M.D. 09/04/2024 8:01 AM Dictation Location: [place] [address] Electronically authenticated by: [id number] Y Date: 09/04/2024 08:01
== END 2024-09-03 19:45 | disposition home or self-care (01) ==
LOC: US 18:51 → FBC 18:52
PROVIDERS: Visit Provider Nurse Practitioner Family
DX: O16.3 Unspecified maternal hypertension, third trimester (principal); O13.9 Gestational [pregnancy-induced] hypertension without significant proteinuria, unspecified trimester; Z3A.34 34 weeks gestation of pregnancy
CPT/HCPCS: 76818

== ENCOUNTER 2024-09-06 15:03 | Outpatient (OUT) | payer OTHER, SELFPAY ==
[2024-09-06 15:30] VITALS: BP 119/62; PULSE 93
== END 2024-09-06 15:33 | disposition home or self-care (01) ==
LOC: FBCO 15:03 → FBC 15:06
PROVIDERS: Visit Provider Obstetrics & Gynecology
DX: O16.3 Unspecified maternal hypertension, third trimester (principal); Z3A.34 34 weeks gestation of pregnancy
CPT/HCPCS: 59025

== ENCOUNTER 2024-09-10 18:50 | Outpatient (OUT) | payer OTHER, SELFPAY ==
--- NOTE | 2024-09-10 19:03 | US_ITS ---
The [address] [address] Patient Name: FRANCISCA MÉNDEZ MRN: [id number] date: 2000 Sex: F Assigned Patient Location: Current Patient Location: Accession/Order Number: [id number] Exam Date: 09/11/2024 07:15 Report Date: 09/11/2024 07:16 At the request of: KEON FONSECA Procedure: US OB BPP w non-stress BIOPHYSICAL PROFILE: CLINICAL INFORMATION: INDUCED HYPERTENSION O13.9 COMPARISON: 09/03/2024 There is a single live intrauterine gestation in cephalic presentation. The reported gestational age is 35 weeks 1 day. The heart rate [id number] beats per minute. FINDINGS: TONE: 1 or more episodes of activity extension and flexion of extremity or opening and closing of the hand [Y] 2/2 GROSS BODY MOVEMENTS: 3 or more discrete body or limb movements [Y] 2/2 BREATHING MOVEMENTS: 1 or more episodes of breathing lasting at least 30 seconds [Y] 2/2 ROSE: A single deepest vertical pocket of amniotic fluid greater than 2 cm [Y] 2/2 ROSE: 11.1 cm. This is in low-normal range. Total score: 8/8 US/ OB BPP w non-stress IMPRESSION: NORMAL BIOPHYSICAL PROFILE . Impression dictated by: Marielos Rubio M.D. 09/11/2024 7:16 AM Dictation Location: [place] [address] Electronically authenticated by: [id number] Y Date: 09/11/2024 07:16
[2024-09-10 19:06] VITALS: BP 127/74; PULSE 86
== END 2024-09-10 19:54 | disposition home or self-care (01) ==
LOC: US 18:50 → FBC 19:01
PROVIDERS: Visit Provider Nurse Practitioner Family
DX: O16.3 Unspecified maternal hypertension, third trimester (principal); Z3A.35 35 weeks gestation of pregnancy
CPT/HCPCS: 76818

== ENCOUNTER 2024-09-11 20:16 | Outpatient (REF) | payer OTHER, SELFPAY ==
--- OUTSIDE RECORDS SUMMARY | 2024-09-04 14:30 | XMS_ITS | Encounter Summary ---
Author Organization [facility] Address [address] [place] [address] Care Team Providers Care Delivery Professional Name Role Phone Unavailable Primary Care Provider Unavailabl e Reason for Visit * Reason Comments Routine Visit Encounter Details Date Type Department Care Team (Latest Contact Info) Description 09/04/2024 2:30 PM EDT Routine [facility] OB [address] [place] [phone] Hedy Ortega PA [address] [facility] [address] [place], [id number] Pharyngitis, unspecified etiology (Primary Dx); Third trimester [...] ASSESSMENT & PLAN ICD-10-CM 1. Third trimester ([facility]) Z34.93 POCT urinalysis dipstick manually resulted 2. 34 weeks gestation of ([facility]) Z3A.34 3. Hypertension during in third trimester, unspecified hypertension in type ([facility]) O16.3 4. induced hypertension, antepartum ([facility]) O13.9 5. Pre-eclampsia in third trimester ([facility]) O14.93 Return OB: Patient presents today [...] 09/17/2024 1:30 PM EDT Ancillary Procedure [facility] [place] [address] [place] [address] [place] [address] 09/18/2024 2:00 PM EDT Routine [facility] OB [address] [place] [address] Curt Mistry, DO [address] [facility] [place] [address] documented as of this encounter Procedures Procedure [...]
--- OUTSIDE RECORDS SUMMARY | 2024-09-11 15:20 | XMS_ITS | Encounter Summary ---
Author Organization [facility] Address [address] [place] [address] Care Team Providers Care Moss Gatherer Name Role Phone Unavailable Primary Care Provider Unavailabl e Reason for Visit * Reason Comments Routine Visit Encounter Details Date Type Department Care Team (Latest Contact Info) Description 09/11/2024 3:20 PM EDT Routine [facility] OB [address] [facility] [place] [address] Hedy Ortega PA [address] [facility] [address] [place], [facility]11 35 weeks gestation of (HHS-HCC); Third trimester ([facility]-HCC); Hypertension during in third trimester, unspecified [...] Sign Reading Time Taken Comments Blood Pressure 120/80 09/11/2024 3:49 PM EDT Pulse - - Temperature - - Respiratory Rate - - Oxygen Saturation - - Inhaled Oxygen Concentration - - Weight 92.1 kg (203 lb) 09/11/2024 3:49 PM EDT Height - - Body Mass Index 34.84 08/20/2024 11:48 AM EDT documented in this encounter Plan of Treatment Upcoming Encounters Date Type Department Care Team (Late st Contact Info) Description 09/17/2024 1:30 PM EDT Ancillary Procedure [facility] OB [address] [facility] [place] [address] 09/18/2024 2:00 PM EDT Routine [facility] OB [address] [facility] [place] [address] Curt Mistry, DO [address] [facility] [address] [place], [place] [id number] Scheduled Orders Name Type Priority Associated Diagnoses Orde r Schedule CULTURE, GROUP B STREP WITH SUSCEPTIBLITY Lab Routine Third trimester ([facility]) Expected: 09/11/2024, Expires: 09/11/2025 documented as of this encounter Procedures Procedure Name Priority Date/Time Associated Diagnosis Comments POCT URINALYSIS DIPSTICK Routine 09/11/2024 4:04 PM EDT 35 weeks gestation of ([facility]) Third trimester ([facility]) Hypertension during in third trimester, unspecified hypertension in type ([facility]) induced hypertension, antepartum ([facility]) Pre-eclampsia in third trimester ([facility]) documented in this encounter Results * (ABNORMAL) POCT urinalysis dipstick manually resulted (09/11/2024 4:04 PM EDT) Color, UA Yellow Clarity, UA [...] 0.2 0.2 - 12 mg/dL Leukocytes, UA Moderate Negative - 500+++ Pranav/mcL Nitrite, UA Negative Negative - Positive Urine 09/11/2024 4:04 PM EDT Hedy WERNER POINT OF CARE TEST ENTER/EDIT OR DERABLES Final Result documented in this encounter Visit Diagnoses Diagnosis 35 weeks gestation of ([facility]) Third trimester ([facility]) state, incidental Hypertension during in third trimester, unspecified hypertension in type ([facility]HS-HCC) induced hypertension, antepartum ([facility]HS-HCC) Transient hypertension of , antepartum Pre-eclampsia in third trimester ([facility]-HCC) documented in this encounter
--- OUTSIDE RECORDS SUMMARY | 2024-09-11 20:21 | XMS_ITS | Encounter Summary ---
Author Organization [facility] Address [address] [place] [address] Care Team Providers Care Cell Assembly Pinner Name Role Phone Unavailable Primary Care Provider Unavailabl e Encounter Details Date Type Department Care Team (Late st Contact Info) Description 09/11/2024 Clinisync Result Encounter [facility] External Department Unsolicited Keon Wilson, PLAN EXAMINER [address] [place] [address] Social History Tobacco Use Types Packs/Day [...] PM EDT Ancillary Procedure [facility] B[facility] OB [facility] [place] [address] 09/18/2024 2:00 PM EDT Routine [facility] B[facility] OB [address] [place] [address] Curt Mistry, [address] [place] [address] [phone] (work) documented as of this encounter Procedures Procedure Name Priority Date/Time Associated Diagnosis Comments US OB BPP W NON-STRESS 09/11/2024 7:16 AM EDT documented in this encounter Results * US OB BPP W NON-STRESS (09/11/2024 7:16 AM EDT) Anatomical Region Laterality Modality Other 09/11/2024 7:16 AM EDT Narrative 09/11/2024 7:19 [place] [address] Ultrasound Report Signed Patient: FRANCISCA BUTLER MR#: [id number] : 2000 Acct:[id number] Age/Sex: 24 / F ADM Date: 09/10/24 Loc: US Attending Dr: Keon Wilson Ordering Physician: Keon Wilson Date of Service: 09/10/24 Procedure(s): US OB BPP w non-stress Accession Number(s): [id number] cc: Keon Wilson; Physician,Non-Staff M.DOwen [address] [address] Patient Name: FRANCISCA BUTLER MRN: [id number] date: 2000 Sex: F Assigned Patient Location: US Current Patient Location: Accession/Order Number: [id number] Exam Date: 09/11/2024 07:15 Report Date: 09/11/2024 07:16 At the request of: KEON WILSON Procedure: US OB BPP w non-stress BIOPHYSICAL PROFILE: CLINICAL INFORMATION: INDUCED HYPERTENSION O13.9 COMPARISON: 09/03/2024 There is a single live intrauterine gestation in cephalic presentation. The reported gestational age is 35 weeks 1 day. The heart rate [id number] beats per minute. FINDINGS: TONE: 1 or [...] greater than 2 cm [Y] 2/2 ROSE: 11.1 cm. This is in low-normal range. Total score: 8/8 US/US OB BPP w non-stress IMPRESSION: NORMAL BIOPHYSICAL PROFILE . Impression dictated by: Marielos Rubio M.D. 09/11/2024 7:16 AM Dictation Location: [place] [address] Electronically authenticated by: [id number] Y Date: 09/11/2024 07:16 Dictated By: Marielos Rubio M.D. Signed By: 09/11/24718 DD/ 5 TD/TT: Sterile Products Processor: Procedure Note Radiology, Radiologist, MD - 09/11/2024 [place] [address] Ultrasound Report Signed Patient: FRANCISCA BUTLER CMR#: [id number] : 2000Acct:[id number] Age/Sex: Date: 09/10/24 Loc: US Attending Dr: Keon Wilson Ordering Physician: Keon Wilson Date of Service: 09/10/24 Procedure(s): US OB BPP w non-stress Accession Number(s): [id number] cc: Keon Wilson; Physician,Non-Staff MAnayeli [address] [place] [address] Patient Name: FRANCISCA BUTLER MRN: [id number] date: 2000 Sex: F Assigned Patient Location: US Current Patient Location: Accession/Order Number: [id number] Exam Date: 09/11/2024 07:15 Report Date: 09/11/2024 07:16 At the request of: KEON WILSON Procedure: US OB BPP w non-stress BIOPHYSICAL PROFILE: CLINICAL INFORMATION: INDUCED HYPERTENSION O13.9 COMPARISON: 09/03/2024 There is a single live intrauterine gestation in cephalic presentation.The reported gestational age is 35 weeks 1 day. The heart [id number] beats per minute. FINDINGS: TONE: 1 or [...] greater than 2 cm [Y] 2/2 ROSE: 11.1 cm. This is in low-normal range. Total score: 8/8 US/US OB BPP w non-stress IMPRESSION: NORMAL BIOPHYSICAL PROFILE . Impression dictated by: Marielos Rubio M.D. 09/11/2024 7:16 AM Dictation Location: [place] [address] Electronically authenticated by: [id number] Y Date: 7:16 Dictated By: Marielos Rubio M.D. Signed By:09/11/24 0719 DD/ 0716 TD/TT: [employer] Processor: Keon Wilson NP [facility] Final Resul t documented in this encounter Visit Diagnoses Not on filedocumented in this encounter
--- OUTSIDE RECORDS SUMMARY | 2024-09-11 20:21 | XMS_ITS | Encounter Summary ---
Author Organization [facility] Address [address] [place] [address] Care Team Providers Care Microbiology Manager Name Role Phone Unavailable Primary Care Provider Unavailabl e Encounter Details Date Type Department Care Team (Late st Contact Info) Description 04/17/2024 Abstract [facility] OB [address] [place] [address] Tiffanie Loza LPN Social History Tobacco [...] 09/17/2024 1:30 PM EDT Ancillary Procedure [facility] OB [facility] [place] [address] 09/18/2024 2:00 PM EDT Routine [facility] OB [facility] [place] [address] Curt Mistry DO [facility] [address] [place], [place] [id number] documented as of this encounter Visit Diagnoses Not on filedocumented in this encounter
--- OUTSIDE RECORDS SUMMARY | 2024-09-11 20:21 | XMS_ITS | Encounter Summary ---
Author Organization [facility] Address [address] [place] [address] Care Team Providers Care Greens Laborer Name Role Phone Unavailable Primary Care Provider Unavailabl e Encounter Details Date Type Department Care Team (Late st Contact Info) Description 09/04/2024 Clinisync Result Encounter [facility] External Department Unsolicited Keon Wilson, POSTAL SORTING OFFICER [address] [place] [address] Social History Tobacco Use Types Packs/Day [...] PM EDT Ancillary Procedure [facility] BCP OB [facility] [address] 09/18/2024 2:00 PM EDT Routine [facility] B[facility] OB [address] [place] [address] Curt Mistry, [address] [place] [address] [phone] (work) documented as of this encounter Procedures Procedure Name Priority Date/Time Associated Diagnosis Comments US OB BPP W NON-STRESS 09/04/2024 8:01 AM EDT documented in this encounter Results * US OB BPP W NON-STRESS (09/04/2024 8:01 AM EDT) Anatomical Region Laterality Modality Other 09/04/2024 8:01 AM EDT Narrative 09/04/2024 9:46 [place] [address] Ultrasound Report Signed Patient: FRANCISCA BUTLER MR#: [id number] : 2000 Acct:[id number] Age/Sex: 23 / F ADM Date: 09/03/24 Loc: US Attending Dr: Keon Wilson Ordering Physician: Keon Wilson Date of Service: 09/03/24 Procedure(s): US OB BPP w non-stress Accession Number(s): [id number] cc: Keon Wilson; Physician,Non-Staff M.DOwen [address] [address] Patient Name: FRANCISCA BUTLER MRN: [id number] date: 2000 Sex: F Assigned Patient Location: [facility] [place] [facility] [place]/Order Number: [id number] Exam Date: 09/04/2024 07:59 Report Date: 09/04/2024 08:01 At the request of: KEON WILSON Procedure: US OB BPP w non-stress BIOPHYSICAL PROFILE: CLINICAL INFORMATION: INDUCED HYPERTENSION O13.9 COMPARISON: 08/27/2024 There is a single live intrauterine gestation in cephalic presentation. The reported gestational age is 34 weeks 1 day. The heart rate measures 148 beats per minute. FINDINGS: TONE: 1 or [...] greater than 2 cm [Y] 2/2 ROSE: 14.0 cm. This is normal. Total score: 8/ US/US OB BPP w non-stress IMPRESSION: NORMAL BIOPHYSICAL PROFILE Impression dictated by: Marielos Rubio M.D. 09/04/2024 8:01 AM Dictation Location: [place] [address] Electronically authenticated by: [id number] Y Date: 09/04/2024 08:01 Dictated By: Marielos Rubio M.D. Signed By: 09/04/24 0946 DD/ 0 TD/TT: Linoleum Layer: Procedure Note Radiology, Radiologist, MD - 09/04/2024 [place] [address] Ultrasound Report Signed Patient: FRANCISCA BUTLER CMR#: [id number] : 2000Acct:[id number] Age/Sex: Date: [birth year] Loc: US Attending Dr: Keon Wilson Ordering Physician: Keon Wilson Date of Service: 09/03/24 Procedure(s): US OB BPP w non-stress Accession Number(s): [id number] cc: Keon Wilson; Physician,Non-Staff MAnayeli [address] [place] [address] Patient Name: FRANCISCA BUTLER MRN: [id number] date: 2000 Sex: F Assigned Patient Location: [facility] [place] [facility] [place]ion/Order Number: [id number] Exam Date: 09/04/2024 07:59 Report Date: 09/04/2024 08:01 At the request of: KEON WILSON Procedure: US OB BPP w non-stress BIOPHYSICAL PROFILE: CLINICAL INFORMATION: INDUCED HYPERTENSION O13.9 COMPARISON: 08/27/2024 There is a single live intrauterine gestation in cephalic presentation.The reported gestational age is 34 weeks 1 day. The heart rate [id number] beats per minute. FINDINGS: TONE: 1 or [...] greater than 2 cm [Y] 2/2 ROSE: 14.0 cm. This is normal. Total score: 10/11 US/US OB BPP w non-stress IMPRESSION: NORMAL BIOPHYSICAL PROFILE Impression dictated by: Marielos Rubio M.D. 09/04/2024 8:01 AM Dictation Location: [place] [address] Electronically authenticated by: [id number] Y Date: 508:01 Dictated By: Marielos Rubio M.D. Signed By:09/04/24 0946 DD/ 0801 TD/TT: Linoleum Layer: us Keon Wilson NP [facility] Final Resul t documented in this encounter Visit Diagnoses Not on filedocumented in this encounter
--- OUTSIDE RECORDS SUMMARY | 2024-09-11 20:21 | XMS_ITS | Encounter Summary ---
Author Organization [facility] Address [address] [place] [address] Care Team Providers Care Solar Applications Development Engineer Name Role Phone Unavailable Primary Care Provider Unavailabl e Encounter Details Date Type Department Care Team (Late st Contact Info) Description 04/03/2024 Abstract [facility] OB [address] [place] [address] Curt Mistry DO [facility] [address] [place], [place] [address] Social History Tobacco Use Types Packs/Day Years [...] 09/17/2024 1:30 PM EDT Ancillary Procedure [facility] OB [address] [place] [address] 09/18/2024 2:00 PM EDT Routine [facility] B[facility] OB [address] [place] [address] Fede, Curt, [address] [place] [address] documented as of this encounter Visit Diagnoses Not on filedocumented in this encounter
--- OUTSIDE RECORDS SUMMARY | 2024-09-11 20:21 | XMS_ITS | Encounter Summary ---
Author Organization [facility] Address [address] [place] [address] Care Team Providers Care Central Office Equipment Engineer Name Role Phone Unavailable Primary Care Provider Unavailabl e Encounter Details Date Type Department Care Team (Late st Contact Info) Description 08/28/2024 Clinisync Result Encounter [facility] External Department Unsolicited Keon Wilson, PHOTOENGRAVING SKETCH MAKER [address] [place] [address] Social History Tobacco Use Types Packs/Day [...] PM EDT Ancillary Procedure [facility] BCP OB [facility] [place] [address] 09/18/2024 2:00 PM EDT Routine [facility] B[facility] OB [address] [place] [address] Curt Mistry, [address] [place] [address] [phone] (work) documented as of this encounter Procedures Procedure Name Priority Date/Time Associated Diagnosis Comments US OB BPP W NON-STRESS 08/28/2024 8:09 AM EDT documented in this encounter Results * US OB BPP W NON-STRESS (08/28/2024 8:09 AM EDT) Anatomical Region Laterality Modality Other 08/28/2024 8:09 AM EDT Narrative 08/28/2024 8:12 [place] [address] Ultrasound Report Signed Patient: FRANCISCA BUTLER MR#: [id number] : 2000 Acct:[id number] Age/Sex: 23 / F ADM Date: 08/27/24 Loc: US Attending Dr: Keon Wilson Ordering Physician: Keon Wilson Date of Service: 08/27/24 Procedure(s): US OB BPP w non-stress Accession Number(s): [id number] cc: Keon Wilson; Physician,Non-Staff M.DOwen [address] [address] Patient Name: FRANCISCA BUTLER MRN: [id number] date: 2000 Sex: F Assigned Patient Location: [facility] Current Patient Location: Accession/Order Number: [id number] Exam Date: 08/28/2024 08:07 Report Date: 08/28/2024 [...] Rubio M.D. 08/28/2024 8:09 AM Dictation Location: [place] [address] Electronically authenticated by: [id number] Y Date: 08/28/2024 08:09 Dictated By: Marielos Rubio M.D. Signed By: 08/28/248[address] DD/ 8 TD/TT: Forensic Document Examiner: Procedure Note Radiology, Radiologist, MD - 08/28/2024 [place] [address] Ultrasound Report Signed Patient: FRANCISCA BUTLER CMR#: [id number] : 2000Acct:[id number] Age/Sex: Date: [birth year]27[birth year]24 Loc: US Attending Dr: Keon Wilson Ordering Physician: Keon Wilson Date of Service: 08/27/24 Procedure(s): US OB BPP w non-stress Accession Number(s): [id number] cc: Keon Wilson; Physician,Non-Staff MAnayeli [address] [place] [address] Patient Name: FRANCISCA BUTLER MRN: [id number] date: 2000 Sex: F Assigned Patient Location: [facility] Current Patient Location: Accession/Order Number: [id number] Exam Date: 08/28/2024 08:07 Report Date: 08/28/2024 08:09 At the request of: KEON WILSON Procedure: US OB BPP w non-stress BIOPHYSICAL PROFILE: CLINICAL INFORMATION: INDUCED HYPERTENSION O13.9 COMPARISON: 08/20/2024 There is a single live intrauterine gestation in cephalic presentation.The reported gestational age is 33 weeks 1 day. The heart rate [id number] beats per minute. FINDINGS: TONE: 1 or [...] Rubio M.D. 08/28/2024 8:09 AM Dictation Location: [place] [address] Electronically authenticated by: [id number] Y Date: 508:09 Dictated By: Marielos Rubio M.D. Signed By:08/28/24 0812 DD/ 0809 TD/TT: Forensic Document Examiner: Keon Wilson NP [facility] Final Resul t documented in this encounter Visit Diagnoses Not on filedocumented in this encounter
--- OUTSIDE RECORDS SUMMARY | 2024-09-11 20:21 | XMS_ITS | Clinical Summary ---
Author Organization [facility] Address [address] [place] [address] Care Team Providers Care Welder/Fabricator Name Role Phone Unavailable Primary Care Provider Unavailabl e Allergies No known active allergies Medications MV-Min-Fe Fum-FA-DHA ( 1 PO) Take by mouth Active Ferrous Gluconate (IRON 27 PO) Take by mouth Active labetalol (Normodyne) 200 MG tabletIndication s:Third trimester (HHS-HCC),Hypert ension during in third trimester, unspecified hypertension in type (HHS-HCC),Pregna ncy induced hypertension, antepartum (HHS-HCC),Pre-ec lampsia in third trimester (HHS-HCC) Take 1 tablet (200 mg) by mouth in the morning and 1 tablet (200 mg) before bedtime. 180 tablet 09/05/19 25 025 Active labetalol (Normodyne) 100 MG tabletIndication s: induced hypertension, antepartum (HHS-HCC) Take 1 tablet (100 mg) by mouth in the morning and 1 tablet (100 mg) before bedtime. 60 tablet 2 07/04/19 25 025 Discontinued(In effective) azithromycin (Zithromax Z-Bk) 250 MG tabletIndication s:Fever in other diseases As directed 6 tablet 08/14/19 25 025 Discontinued cephalexin (Keflex) 500 MG capsuleIndicatio ns:Pharyngitis, unspecified etiology Take 1 capsule (500 mg) by mouth in the morning and 1 capsule (500 mg) before bedtime. Do all this for 7 days. 14 capsule 09/05/19 025 Discontinued Encounters Date Type Department Care Team Description 09/11/2024 3:20 PM EDT Routine [facility] [address] [facility] [place] [address] Hedy Ortega PA 35 weeks gestation of (HHS-HCC); Third trimester (HHS-HCC); Hypertension during in third trimester, unspecified hypertension in type (HHS-HCC); induced hypertension, antepartum (HHS-HCC); Pre-eclampsia in third trimester (HHS-HCC) 09/11/2024 Clinisync Result Encounter NOMS External Department Unsolicited Fina Wilson, YADY 09/04/2024 2:30 PM EDT Routine [facility] OB [address] [facility] [place] [address] Hedy Ortega PA Pharyngitis, unspecified etiology (Primary Dx); Third trimester (HHS-HCC); 34 weeks gestation of (HHS-HCC); Hypertension during in third trimester, unspecified hypertension in type (HHS-HCC); induced hypertension, antepartum (HHS-HCC); Pre-eclampsia in third trimester (HHS-HCC) 09/04/2024 Clinisync Result Encounter NOMS External Department Unsolicited Fina Wilson NP 08/28/2024 Clinisync Result Encounter NOMS External Department Unsolicited Fina Wilson, INSURANCE COUNSELOR 08/21/2024 Clinisync Result Encounter NOMS External Department Unsolicited Fina Wilson, INSURANCE COUNSELOR 08/20/2024 11:20 AM EDT Routine [facility] [address] [facility] [place] [address] Curt Mistry, Third trimester (HHS-HCC); 32 weeks gestation of (HHS-HCC); Pre-eclampsia in third trimester (HHS-HCC); induced hypertension, antepartum (HHS-HCC) 08/20/2024 11:00 AM EDT Ancillary Procedure [facility] BCP OB [address] [place] [address] Hypertension during in third trimester, unspecified hypertension in type ([facility]) 08/13/2024 Clinisync Result Encounter NOMS External Department Unsolicited Fina Wilson NP 08/13/20[address] Tele[address] [address] [place] [phone] Francisca Mcqueen MA 08/07/2024 3:50 PM EDT Routine NOM[facility] [address] [place] [address] Hedy Ortega PA Hypertension during in third trimester, unspecified hypertension in type ([facility]) (Primary Dx); Third trimester ([facility]); 30 weeks gestation of ([facility]) 08/07/2024 Bamboo flowsheet NOM[facility] [address] [place] [address] Hedy Ortega PA 08/06/2024 Clinisync Result Encounter NOMS External Department Unsolicited Fina Wilson, YADY 07/31/2024 Clinisync Result Encounter NOMS External Department Unsolicited Fina Wilson, YADY 07/24/2024 3:30 PM EDT Routine [facility] [address] [place] [phone] Curt Mistry DO 28 weeks gestation of ([facility]); Third trimester ([facility]) 07/24/2024 3:00 PM EDT Ancillary Procedure [facility]OM[facility] [address] [place] [address] induced hypertension, antepartum ([facility]) 07/24/2024 Travel 07/23/2024 Clinisync Result Encounter NOMS External Department Unsolicited Fina Wilson, YADY 07/10/2024 11:30 AM EDT Clinical Support [facility] [place] [address] [place] [address] Blood pressure check; Second trimester ([facility]); 26 weeks gestation of ([facility]); Urinary tract infection without hematuria, site unspecified 07/06/2024 Clinisync Result Encounter NOMS External Department Unsolicited Fina Wilson NP 07/04/2024 Clinisync Result Encounter NOMS External Department Unsolicited Fina Wilson NP 07/03/2024 3:30 PM EDT Routine [facility]OM[facility] [address] [place] [phone] Fina Wilson NP Second trimester ([facility]); 25 weeks gestation of ([facility]); Diabetes mellitus screening; induced hypertension, antepartum ([facility]) 07/03/2024 Bamboo flowsheet [facility]OM[facility] [address] [place] [address] Fina Wilson NP from Last 3 Months Family History Medical [...] (203 lb) 09/11/2024 3:49 PM EDT Height 162.6 cm (5' 4 ) 08/20/2024 11:48 AM EDT Body Mass Index 34.84 08/20/2024 11:48 AM EDT Plan of Treatment Upcoming Encounters Date Type Department Care Team (Late st Contact Info) Description 09/17/2024 1:30 PM EDT Ancillary Procedure [facility] [address] [place] [phone] 09/18/2024 2:00 PM EDT Routine [facility] BCP OB [address] [facility] [place] [address] Curt Mistry, DO [address] [facility] [place] [address] Procedures Procedure Name Priority Date/Time Associated Diagnosis Comments POCT URINALYSIS DIPSTICK Routine 09/11/2024 4:04 PM EDT 35 weeks gestation of (HHS-HCC) Third trimester (HHS-HCC) Hypertension during in third trimester, unspecified hypertension in type (HHS-HCC) induced hypertension, antepartum (HHS-HCC) Pre-eclampsia in third trimester (HHS-HCC) US OB BPP W NON-STRESS 09/11/2024 7:16 AM EDT POCT URINALYSIS DIPSTICK Routine 09/04/2024 3:02 PM EDT Third trimester (HHS-HCC) US OB BPP W NON-STRESS 09/04/2024 8:01 AM EDT US OB BPP W NON-STRESS 08/28/2024 8:09 AM EDT US OB BPP W NON-STRESS 08/21/2024 7:59 AM EDT POCT URINALYSIS DIPSTICK Routine 08/20/2024 12:08 PM EDT Third trimester (HHS-HCC) US OB FOLLOW UP TRANSABDOMINAL APPROACH Routine 08/20/2024 11:19 AM EDT Hypertension during in third trimester, unspecified hypertension in type (HHS-HCC) US OB BPP W NON-STRESS 08/13/2024 9:44 [...] Routine 07/03/2024 4:38 PM EDT Second trimester ([facility]) from Last 3 Months Results * (ABNORMAL) POCT urinalysis dipstick manually resulted (09/11/2024 4:04 PM EDT) Only the most recent of6 resultswithin the time period is included. Color, [...] OR DERABLES Final Result * US OB BPP W NON-STRESS (09/11/2024 7:16 AM EDT) Only the most recent of8 resultswithin the time period is included. Anatomical Region Laterality Modality Other 09/11/2024 7:16 AM EDT Narrative 09/11/2024 7:19 AM EDT [address] [address] Ultrasound Report Signed Patient: FRANCISCA MÉNDEZ MR#: [id number] : 2000 Acct:[id number] Age/Sex: 24 / F ADM Date: 09/10/24 Loc: US Attending Dr: Fina Wilson Ordering Physician: Fina Wilson Date of Service: 09/10/24 Procedure(s): US OB BPP w non-stress Accession Number(s): [id number] cc: Fina Wilson; Physician,Non-Staff MAnayeli [facility] [place] [id number] Patient Name: FRANCISCA MÉNDEZ MRN: [id number] date: 2000 Sex: F Assigned Patient Location: US Current Patient Location: Accession/Order Number: [id number] Exam Date: 09/11/2024 07:15 Report Date: 09/11/2024 07:16 At the request of: FINA WILSON Procedure: US OB BPP w non-stress BIOPHYSICAL PROFILE: CLINICAL INFORMATION: INDUCED HYPERTENSION O13.9 COMPARISON: 09/03/2024 There is a single live intrauterine gestation in cephalic presentation. The reported gestational age is 35 weeks 1 day. The heart rate [id number] beats per minute. FINDINGS: TONE: 1 or [...] Rubio M.D. 09/11/2024 7:16 AM Dictation Location: [place] [address] Electronically authenticated by: [id number] Y Date: 09/11/2024 07:16 Dictated By: Marielos Rubio M.D. Signed By: 09/11/2419 DD/ 5 TD/TT: Supervisor Bakery Sanitation: Procedure Note Radiology, Radiologist, - 09/11/2024 [place] [address] Ultrasound Report Signed Patient: FRANCISCA MÉNDEZ CMR#: [id number] : 2000Acct:[id number] Age/Sex: 24 / FADM Date: 09/10/24 Loc: US Attending Dr: Fina Wilson Ordering Physician: Fina Wilson Date of Service: 09/10/24 Procedure(s): US OB BPP w non-stress Accession Number(s): [id number] cc: Fina Wilson; Physician,Non-Staff M.DOwen [place] [address] Patient Name: FRANCISCA MÉNDEZ MRN: [id number] date: 2000 Sex: F Assigned Patient Location: US Current Patient Location: Accession/Order Number: [id number] Exam Date: 09/11/2024 07:15 Report Date: 09/11/2024 07:16 At the request of: FINA WILSON Procedure: US OB BPP w non-stress BIOPHYSICAL PROFILE: CLINICAL INFORMATION: INDUCED HYPERTENSION O13.9 COMPARISON: 09/03/2024 There is a single live intrauterine gestation in cephalic presentation.The reported gestational age is 35 weeks 1 day. The heart ekirbpykbing395 beats per minute. FINDINGS: TONE: 1 or [...] Rubio M.D. 09/11/2024 7:16 AM Dictation Location: [place] [address] Electronically authenticated by: [id number] Y Date: 507:16 Dictated By: Marielos Rubio M.D. Signed By:09/11/24 0719 DD/ 0716 TD/TT: Supervisor Bakery Sanitation: us Fina Wilson YADY [facility] Final Resul t * US OB follow up transabdominal approach [...] II, MD, PHD at 21-Aug-2024 08:00:33 AM [facility] Procedure Note Fritz Templeton MD - [...] FRITZ TEMPLETON II, MD, PHD 08:00:33 AM [facility] us Hedy WERNER IMG OB US [...] us Fina Wilson NP CLINISYNC Final Result CLINISYTORSTEN [facility] * GLUCOSE 1 HOUR (07/04/2024 11:37 AM EDT) GLUCOSE 1 HOUR 110 <130 mg/dL TBH 07/04/2024 11:3 7 AM EDT 07/04/2024 11:39 AM EDT Narrative CLINISYNC - 07/04/2024 12:21 PM EDT us Fina Wilson NP LAB BLOOD ORDERABLES Final Re sult Performing Organization Address [facility]/ZIP Co de Phone Number [facility] * TBH CREATININE (07/04/2024 11:37 AM EDT) CREATININE 0.59 0.55 - 1.02 mg/dL TBH TBH EGFR-AF BULGARIAN >60 >=60 mL/min/1.7 3m 2 TBH TBH EGFR-NON AF BULGARIAN >60 >=60 mL/min/1.7 3m 2 [facility] 07/04/2024 11:3 7 AM EDT 07/04/2024 11:39 AM EDT Narrative CLINISYNC - 07/04/2024 12:21 PM EDT Fina Wilson NP CLINISYNC Final Result Performing Organization Address [facility] [[email or web address]] de Phone Number [facility] * SRMCOH PROTHROMBIN TIME INR W/O COUM [...] NP CLINISYNC Final Result Performing Organization Address [facility] Co de Phone Number [facility] * (ABNORMAL) [facility] AST (07/04/2024 11:37 AM EDT) ASPARTATE AMINO TRANSFERASE 8(L) 15 - 37 U/L TB 07/04/2024 11:3 7 AM EDT 07/04/2024 11:39 AM EDT Narrative CLINISYNC - 07/04/2024 12:21 PM EDT us Fina Wilson NP CLINISYNC Final Result Performing Organization Address [facility] Phone Number [facility] * [facility] APTT (07/04/2024 11:37 AM EDT) PARTIAL THROMBOPLASTIN TIME 26.8 22.3 - 36.2 sec TB 07/04/2024 11:3 7 AM EDT 07/04/2024 11:39 AM EDT Narrative CLINISYNC - 07/04/2024 12:39 PM EDT us Fina Wilson NP CLINISYNC Final Result Performing Organization Address [facility] Phone Number [facility] * ALL URIC ACID (07/04/2024 11:37 AM EDT) URIC ACID 3.4 2.6 - 6.0 mg/dL TB 07/04/2024 11:3 7 AM EDT 07/04/2024 11:39 AM EDT Narrative CLINISYNC - 07/04/2024 12:21 PM EDT us Fina Wilson NP CLINISYNC Final Result Performing Organization Address [facility] [[email or web address]] de Phone Number [facility] * ALL LDH (07/04/2024 11:37 AM EDT) LACTATE DEHYDROGENASE 97 81 - 234 U/L TB 07/04/2024 11:3 7 AM EDT 07/04/2024 11:39 AM EDT Narrative CLINISYNC - 07/04/2024 12:21 PM EDT us Fina Wilson NP CLINISYNC Final Result CLINISYNC TB * (ABNORMAL) ALL CBC WITH AUTO DIFF (07/04/2024 11:37 AM EDT) [facility] TB WBC 10.5 4.0 - 11.0 10 [...] - 07/04/2024 12:19 PM EDT Fina Wilson INSURANCE COUNSELOR CLINISYNC Final Result CLINISYNC [facility] * (ABNORMAL) ALL BUN (07/04/2024 11:37 AM EDT) BLOOD UREA NITROGEN 4.0(L) 7.0 - 18.0 mg/dL TBH 07/04/2024 11:3 7 AM EDT 07/04/2024 11:39 AM EDT Narrative CLINISYNC - 07/04/2024 12:21 PM EDT Fina Wilson NP CLINISYNC Final Result Performing Organization Address City/[facility]/ZIP Co de Phone Number CLINISYNC [facility] from Last 3 Months Insurance
--- OUTSIDE RECORDS SUMMARY | 2024-09-11 20:21 | XMS_ITS | Encounter Summary ---
Author Organization [facility] Address [address] [place] [address] Care Team Providers Care Brand Specialist Name Role Phone Unavailable Primary Care Provider Unavailabl e Encounter Details Date Type Department Care Team (Late st Contact Info) Description 05/20/2024 Orders Only [facility] OB [facility] [place] [address] Rosa Cueva [address] [place] [address] Social History Tobacco Use Types Packs/Day Years [...] PM EDT Ancillary Procedure [facility] BCP OB [facility] [place] [address] 09/18/2024 2:00 PM EDT Routine [facility] BCP OB [facility] [place] [address] Curt Mistry, [facility] [place], [place] [address] documented as of this encounter Procedures Procedure [...]
--- OUTSIDE RECORDS SUMMARY | 2024-09-11 20:21 | XMS_ITS | Encounter Summary ---
Author Organization [facility] Address [address] [place] [address] Care Team Providers Care Plastic Molding Operator Name Role Phone Unavailable Primary Care Provider Unavailabl e Encounter Details Date Type Department Care Team (Late st Contact Info) Description 03/26/2024 Abstract [facility] OB [address] [place] [address] Curt Mistry DO [facility] [place], [place] [phone] Social History Tobacco Use Types Packs/Day Years [...] 09/17/2024 1:30 PM EDT Ancillary Procedure [facility] OB [address] [place] [address] 09/18/2024 2:00 PM EDT Routine [facility] BCP OB [address] [place] [address] Fede, Curt, [address] [place] [address] documented as of this encounter Visit Diagnoses Not on filedocumented in this encounter
== END 2024-09-11 20:17 | disposition home or self-care (01) ==
LOC: LAB 20:16
PROVIDERS: Visit Provider Physician Assistant
DX: Z34.93 Encounter for supervision of normal pregnancy, unspecified, third trimester (principal); Z3A.35 35 weeks gestation of pregnancy
CPT/HCPCS: 87081

== ENCOUNTER 2024-09-13 09:21 | Outpatient (OUT) | payer OTHER, SELFPAY ==
--- OUTSIDE RECORDS SUMMARY | 2024-09-04 14:30 | XMS_ITS | Encounter Summary ---
Author Organization [facility] Address [address] [place] [address] Care Team Providers Care Sharepoint Designer Developer Name Role Phone Unavailable Primary Care Provider Unavailabl e Reason for Visit * Reason Comments Routine Visit Encounter Details Date Type Department Care Team (Latest Contact Info) Description 09/04/2024 2:30 PM EDT Routine [facility] [address] [facility] [place] [phone] Hedy Ortega PA [address] [facility] [address] [place], [facility]11 Pharyngitis, unspecified etiology (Primary Dx); Third trimester ([facility]HS-HCC); 34 weeks gestation of (HHS-HCC); Hypertension during in third trimester, unspecified hypertension in type (HHS-HCC); induced hypertension, antepartum (HHS-HCC); Pre-eclampsia in third trimester (HHS-HCC) Social History Tobacco Use Types Packs/Day [...] Sign Reading Time Taken Comments Blood Pressure 132/82 09/04/2024 2:58 PM EDT Pulse - - Temperature - - Respiratory Rate - - Oxygen Saturation - - Inhaled Oxygen Concentration - - Weight 91.2 kg (201 lb) 09/04/2024 2:58 PM EDT Height - - Body Mass Index 34.5 08/20/2024 11:48 AM EDT documented in this encounter Progress Notes * DEBBI Tolbert - 09/04/2024 2:30 PM EDT Reason for Appointment: Patient ID: [...] Systems: Review of Systems Constitutional: Negative. HENT: Positive for sore throat. Eyes: Negative. Respiratory: Negative. Cardiovascular: Negative. Gastrointestinal: Negative. Genitourinary: Negative. Musculoskeletal: Negative. Skin: Negative. Neurological: Negative. All other systems reviewed and are negative. Hematological: Negative. Endocrine: Negative. Allergic/Immunologic: Negative. OBJECTIVE Objective: Physical Exam Constitutional: Appearance: Normal appearance. She is normal weight. HENT: Head: Normocephalic. Mouth/Throat: Pharynx: Posterior oropharyngeal erythema present. No oropharyngeal exudate. Cardiovascular: Rate and Rhythm: Normal rate. Pulses: [...] normal. Vitals and nursing note reviewed. Vitals: Estimated body mass index is 34.5 kg/m?? as calculated from the following: Height as of 08/20/24: 5' 4 . Weight as of this encounter: 201 lb. BP: 132/82 Patient's last menstrual period was 01/08/2024. ASSESSMENT & PLAN ICD-10-CM 1. Third trimester ([facility]) Z34.93 POCT urinalysis dipstick manually resulted 2. 34 weeks gestation of ([facility]) Z3A.34 3. Hypertension during in third trimester, unspecified hypertension in type ([facility]) O16.3 4. induced hypertension, antepartum ([facility]) O13.9 5. Pre-eclampsia in third trimester ([facility]) O14.93 Return OB: Patient presents today for a routine obstetrics appointment. Patient is currently 34w2d . Patient states she is doing well but has complaints of being tired due to current , swellingof both feet and continued high blood pressure. Patient will begin taking Labetalol 200 mg BID starting today. Patient has verbalizes frequent movement. labor precautions was discussed/given and patient was instructed to perform kick counts three times a day. Patient having episodes of increased Bps. We will increase labetolol to 200mg bid. Pt also states she's is having sore throat and congestion, oral pharynx is red with drainage no abscess appreciated.We will treat with keflex Orders Placed This Encounter Procedures POCT urinalysis dipstick manually resulted Follow Up: Patient is to return to office in 2 week for routine OB appointment. Documented by Rosa Cueva MA on behalf of: DEBBI Tolbert documented in this encounter Plan of Treatment Upcoming Encounters Date Type Department Care Team (Late st Contact Info) Description 09/17/2024 1:30 PM EDT Ancillary Procedure [facility] OB [address] [place] [address] [place] [address] 09/18/2024 2:00 PM EDT Routine [facility] OB [address] [facility] [place] [address] Curt Mistry, DO [address] [facility] [place] [address] documented as of this encounter Procedures Procedure Name Priority Date/Time Associated Diagnosis Comments POCT URINALYSIS DIPSTICK Routine 09/04/2024 3:02 PM EDT Third trimester ([facility]HS-HCC) documented in this encounter Results * (ABNORMAL) POCT urinalysis dipstick manually resulted (09/04/2024 3:02 PM EDT) Color, UA Magdalene Clarity, UA Clear Glucose, UA Negative Negative - 2000(110) ++++ mg/dL Bilirubin, UA Negative Negative - 4(70) +++ mg/dL Ketones, UA Positive Negative - 160(16) ++++ mg/dL Comment:trace Spec Grav, UA 1.015 1 - 1.03 Blood, UA Negative Negative - 50 Adams/mcL pH, UA 8.5 5 - 9 Protein, UA Positive Negative - 2000(20) ++++ mg/dL Comment:30 Urobilinogen, UA 1.0 0.2 - 12 mg/dL Leukocytes, UA Moderate Negative - 500+++ Pranav/mcL Nitrite, UA Negative Negative - Positive Urine 09/04/2024 3:02 PM EDT Hedy WERNER POINT OF CARE TEST ENTER/EDIT OR DERABLES Final Result documented in this encounter Visit Diagnoses Diagnosis Pharyngitis, unspecified etiology- Primary Third trimester (HHS-HCC) state, incidental 34 weeks gestation of ([facility]HS-HCC) Hypertension during in third trimester, unspecified hypertension in type (HHS-HCC) induced hypertension, antepartum (HHS-HCC) Transient hypertension of , antepartum Pre-eclampsia in third trimester (HHS-HCC) documented in this encounter
--- OUTSIDE RECORDS SUMMARY | 2024-09-11 15:20 | XMS_ITS | Encounter Summary ---
Author Organization [facility] Address [address] [place] [address] Care Team Providers Care Web Graphic Designer Name Role Phone Unavailable Primary Care Provider Unavailabl e Reason for Visit * Reason Comments Routine Visit Encounter Details Date Type Department Care Team (Latest Contact Info) Description 09/11/2024 3:20 PM EDT Routine [facility] OB [address] [facility] [place] [address] Hedy Ortega PA [address] [facility] [address] [place], [facility]11 35 weeks gestation of ([facility]-HCC); Third trimester [...] nursing note reviewed. Exam conducted with a oakes machine operator present. Vitals: Estimated body mass index is 34.84 kg/m?? as calculated from the following: Height as of 08/20/24: 5' 4 . Weight as of this encounter: 203 lb. BP: 120/80 Patient's last menstrual period was 01/08/2024. ASSESSMENT & PLAN ICD-10-CM 1. 35 weeks gestation of ([facility]) Z3A.35 POCT urinalysis dipstick manually resulted 2. Third trimester ([facility]) Z34.93 POCT urinalysis dipstick manually resulted CULTURE, GROUP B STREP WITH SUSCEPTIBLITY CULTURE, GROUP B STREP WITH SUSCEPTIBLITY 3. Hypertension during in third trimester, unspecified hypertension in type ([facility]) O16.3 POCT urinalysis dipstick manually resulted 4. induced hypertension, antepartum ([facility]) O13.9 POCT urinalysis dipstick manually resulted 5. Pre-eclampsia in third trimester ([facility]) O14.93 POCT urinalysis dipstick manually resulted [...] 09/17/2024 1:30 PM EDT Ancillary Procedure [facility] OB [address] [place] [address] 09/18/2024 2:00 PM EDT Routine [facility] OB [address] [place] [address] Curt Mistry, DO [address] [facility] [place] [address] Scheduled Orders Name Type Priority Associated Diagnoses Orde r Schedule CULTURE, GROUP B STREP WITH SUSCEPTIBLITY Lab Routine Third trimester ([facility]) Expected: 09/11/2024, Expires: 09/11/2025 documented as of this encounter Procedures Procedure Name Priority Date/Time Associated Diagnosis Comments POCT URINALYSIS DIPSTICK Routine 09/11/2024 4:04 PM EDT 35 weeks gestation of ([facility]) Third trimester ([facility]) Hypertension during in third trimester, unspecified hypertension in type ([facility]) induced hypertension, antepartum ([facility]) Pre-eclampsia in third trimester ([facility]) documented in this encounter Results [...] Visit Diagnoses Diagnosis 35 weeks gestation of ([facility]) Third trimester ([facility]) state, incidental Hypertension during in third trimester, unspecified hypertension in type ([facility]) induced hypertension, antepartum ([facility]) Transient hypertension of , antepartum Pre-eclampsia in third trimester ([facility]) documented in this encounter
--- OUTSIDE RECORDS SUMMARY | 2024-09-13 09:22 | XMS_ITS | Encounter Summary ---
Author Organization [facility] Address [address] [place] [address] Care Team Providers Care Evaluation Assistant Name Role Phone Unavailable Primary Care Provider Unavailabl e Encounter Details Date Type Department Care Team (Late st Contact Info) Description 03/26/2024 Abstract [facility] OB [address] [place] [address] Curt Mistry DO [facility] [place], [place] [phone] Social History Tobacco Use Types Packs/Day Years [...] 09/17/2024 1:30 PM EDT Ancillary Procedure [facility] OB [address] [place] [address] 09/18/2024 2:00 PM EDT Routine [facility] BCP OB [address] [place] [address] Fede, Curt, [address] [place] [address] documented as of this encounter Visit Diagnoses Not on filedocumented in this encounter
--- OUTSIDE RECORDS SUMMARY | 2024-09-13 09:22 | XMS_ITS | Encounter Summary ---
Author Organization [facility] Address [address] [place] [address] Care Team Providers Care Supervisor Weaving Name Role Phone Unavailable Primary Care Provider Unavailabl e Encounter Details Date Type Department Care Team (Late st Contact Info) Description 05/20/2024 Orders Only [facility] OB [facility] [place] [address] Rosa Cueva [address] [place] [address] Social History Tobacco Use Types Packs/Day Years [...] PM EDT Ancillary Procedure [facility] BCP OB [facility] [place] [address] 09/18/2024 2:00 PM EDT Routine [facility] BCP OB [facility] [place] [address] Curt Mistry, [facility] [place], [place] [phone] documented as of this encounter Procedures Procedure [...]
--- OUTSIDE RECORDS SUMMARY | 2024-09-13 09:22 | XMS_ITS | Encounter Summary ---
Author Organization [facility] Address [address] [place] [address] Care Team Providers Care Product Technology Scientist Name Role Phone Unavailable Primary Care Provider Unavailabl e Encounter Details Date Type Department Care Team (Late st Contact Info) Description 04/17/2024 Abstract [facility] OB [address] [facility] [address] Tiffanie Loza LPN Social History Tobacco [...] PM EDT Ancillary Procedure [facility] OB [facility] [place] [address] 09/18/2024 2:00 PM EDT Routine [facility] OB [facility] [place] [address] Curt Mistry DO [facility] [place], [place] [address] documented as of this encounter Visit Diagnoses Not on filedocumented in this encounter
--- OUTSIDE RECORDS SUMMARY | 2024-09-13 09:22 | XMS_ITS | Encounter Summary ---
Author Organization [facility] Address [address] [place] [address] Care Team Providers Care Ruby On Rails Web Developer Name Role Phone Unavailable Primary Care Provider Unavailabl e Encounter Details Date Type Department Care Team (Late st Contact Info) Description 04/03/2024 Abstract [facility] OB [address] [place] [address] Curt Mistry DO [facility], [place] [address] Social History Tobacco Use Types Packs/Day Years [...] 09/17/2024 1:30 PM EDT Ancillary Procedure [facility] OB [address] [place] [address] 09/18/2024 2:00 PM EDT Routine [facility] BCP OB [address] [place] [address] Fede, Curt, [address] [place] [address] documented as of this encounter Visit Diagnoses Not on filedocumented in this encounter
--- OUTSIDE RECORDS SUMMARY | 2024-09-13 09:23 | XMS_ITS | Encounter Summary ---
Author Organization [facility] Address [address] [place] [address] Care Team Providers Care Electronics Recycler Name Role Phone Unavailable Primary Care Provider Unavailabl e Encounter Details Date Type Department Care Team (Late st Contact Info) Description 09/11/2024 Clinisync Result Encounter NOMS External Department Unsolicited Keon Wilson, DELIVERER OUTSIDE [address] [place] [address] Social History Tobacco Use Types Packs/Day [...] PM EDT Ancillary Procedure [facility] BCP OB [facility] [place] [address] 09/18/2024 2:00 PM EDT Routine [facility] BCP OB [address] [place] [address] Curt Mistry, [address] [place] [address] [phone] (work) documented as of this encounter Procedures Procedure Name Priority Date/Time Associated Diagnosis Comments US OB BPP W NON-STRESS 09/11/2024 7:16 AM EDT documented in this encounter Results * US OB BPP W NON-STRESS (09/11/2024 7:16 AM EDT) Anatomical Region Laterality Modality Other 09/11/2024 7:16 AM EDT Narrative 09/11/2024 7:19 [place] [address] Ultrasound Report Signed Patient: FRANCISCA BUTLER MR#: [id number] : 2000 Acct:[id number] Age/Sex: 24 / F ADM Date: 09/10/24 Loc: US Attending Dr: Keon Wilson Ordering Physician: Keon Wilson Date of Service: 09/10/24 Procedure(s): US OB BPP w non-stress Accession Number(s): [id number] cc: Keon Wilson; Physician,Non-Staff M.DOwen [address] [address] Patient Name: FRANCISCA BUTLER MRN: [id number] date: 2000 Sex: F Assigned Patient Location: US Current Patient Location: Accession/Order Number: [id number] Exam Date: 09/11/2024 07:15 Report Date: 09/11/2024 07:16 At the request of: KEON WILSON Procedure: US OB BPP w non-stress BIOPHYSICAL PROFILE: CLINICAL INFORMATION: INDUCED HYPERTENSION O13.9 COMPARISON: 09/03/2024 There is a single live intrauterine gestation in cephalic presentation. The reported gestational age is 35 weeks 1 day. The heart rate vxdzlsny994 beats per minute. FINDINGS: TONE: 1 or [...] Rubio M.D. 09/11/2024 7:16 AM Dictation Location: [place] [address] Electronically authenticated by: [id number] Y Date: 09/11/2024 07:16 Dictated By: Marielos Rubio M.D. Signed By: 09/11/24718 DD/ 5 TD/TT: Second Cook And Baker: Procedure Note Radiology, Radiologist, MD - 09/11/2024 [place] [address] Ultrasound Report Signed Patient: FRANCISCA BUTLER CMR#: [id number] : 2000Acct:[id number] Age/Sex: Date: 09/10/24 Loc: US Attending Dr: Keon Wilson Ordering Physician: Keon Wilson Date of Service: 09/10/24 Procedure(s): US OB BPP w non-stress Accession Number(s): [id number] cc: Keon Wilson; Physician,Non-Staff MAnayeli The [place] [address] Patient Name: FRANCISCA BUTLER MRN: [id number] date: 2000 Sex: F Assigned Patient Location: US Current Patient Location: Accession/Order Number: [id number] Exam Date: 09/11/2024 07:15 Report Date: 09/11/2024 07:16 At the request of: KEON WILSON Procedure: US OB BPP w non-stress BIOPHYSICAL PROFILE: CLINICAL INFORMATION: INDUCED HYPERTENSION O13.9 COMPARISON: 09/03/2024 There is a single live intrauterine gestation in cephalic presentation.The reported gestational age is 35 weeks 1 day. The heart ezerfnlsxqqh358 beats per minute. FINDINGS: TONE: 1 or [...] Rubio M.D. 09/11/2024 7:16 AM Dictation Location: [place] [address] Electronically authenticated by: [id number] Y Date: 7:16 Dictated By: Marielos Rubio M.D. Signed By:09/11/24 0719 DD/ 0716 TD/TT: Second Cook And Baker: Keon Wilson NP CLIN[facility] IMAGING Final Resul t documented in this encounter Visit Diagnoses Not on filedocumented in this encounter
--- OUTSIDE RECORDS SUMMARY | 2024-09-13 09:23 | XMS_ITS | Clinical Summary ---
Author Organization [facility] Address [address] [place] [address] Care Team Providers Care Go Cart Mechanic Name Role Phone Unavailable Primary Care [...] PM EDT Routine [facility] BCP OB [address] [place] [address] Hedy Ortega PA 35 weeks gestation of (HHS-HCC); Third trimester (HHS-HCC); Hypertension during in third trimester, unspecified hypertension in type (HHS-HCC); induced hypertension, antepartum (HHS-HCC); Pre-eclampsia in third trimester (HHS-HCC) 09/11/2024 Clinisync Result Encounter NOMS External Department Unsolicited Fina Wilson, YADY 09/04/2024 2:30 PM EDT Routine [facility] BCP OB [address] [place] [address] Hedy Ortega PA Pharyngitis, unspecified etiology (Primary Dx); Third trimester (HHS-HCC); 34 weeks gestation of (HHS-HCC); Hypertension during in third trimester, unspecified hypertension in type (HHS-HCC); induced hypertension, antepartum (HHS-HCC); Pre-eclampsia in third trimester (HHS-HCC) 09/04/2024 Clinisync Result Encounter NOMS External Department Unsolicited Fina Wilson NP 08/28/2024 Clinisync Result Encounter NOMS External Department Unsolicited Fina Wilson, HOME HEALTH CARE PROVIDER 08/21/2024 Clinisync Result Encounter NOMS External Department Unsolicited Fina Wilson, HOME HEALTH CARE PROVIDER 08/20/2024 11:20 AM EDT Routine [facility] [address] [facility] [place] [address] Curt Mistry, Third trimester (HHS-HCC); 32 weeks gestation of (HHS-HCC); Pre-eclampsia in third trimester (HHS-HCC); induced hypertension, antepartum (HHS-HCC) 08/20/2024 11:00 AM EDT Ancillary Procedure [facility] BCP OB [address] [place] [address] Hypertension during in third trimester, unspecified hypertension in type ([facility]) 08/13/2024 Clinisync Result Encounter NOMS External Department Unsolicited Fina Wilson NP 08/13/2024 Telephone [facility] [address] [place] [phone] Francisca Mcqueen MA 08/07/2024 3:50 PM EDT Routine NOM[facility] [address] [place] [address] Hedy Ortega PA Hypertension during in third trimester, unspecified hypertension in type ([facility]) (Primary Dx); Third trimester ([facility]); 30 weeks gestation of ([facility]) 08/07/2024 Bamboo flowsheet NOM[facility] [address] [place] [address] Hedy Ortega PA 08/06/2024 Clinisync Result Encounter NOMS External Department Unsolicited Fina Wilson, YADY 07/31/2024 Clinisync Result Encounter NOMS External Department Unsolicited Fina Wilson, YADY 07/24/2024 3:30 PM EDT Routine N[facility] [address] [place] [phone] Curt Mistry DO 28 weeks gestation of ([facility]); Third trimester ([facility]) 07/24/2024 3:00 PM EDT Ancillary Procedure [facility]OM[facility] [address] [place] [address] induced hypertension, antepartum ([facility]) 07/24/2024 Travel 07/23/2024 Clinisync Result Encounter NOMS External Department Unsolicited Fina Wilson, YADY 07/10/2024 11:30 AM EDT Clinical Support [facility] [place] [address] [place] [address] Blood pressure check; Second trimester ([facility]); 26 weeks gestation of ([facility]); Urinary tract infection without hematuria, site unspecified 07/06/2024 Clinisync Result Encounter NOMS External Department Unsolicited Fina Wilson NP 07/04/2024 Clinisync Result Encounter NOMS External Department Unsolicited Fina Wilson NP 07/03/2024 3:30 PM EDT Routine NOM[facility] [address] [place] [phone] Fina Wilson NP Second trimester ([facility]); 25 weeks gestation of ([facility]); Diabetes mellitus screening; induced hypertension, antepartum ([facility]) 07/03/2024 Bamboo flowsheet [facility]OM[facility] [address] [place] [phone] Fina Wilson NP from Last 3 Months [...] 09/17/2024 1:30 PM EDT Ancillary Procedure [facility] [address] [place] [phone] 09/18/2024 2:00 PM EDT Routine [facility] BCP OB [address] [place] [phone] Curt Mistry, DO [address] [place] [address] Procedures Procedure Name Priority Date/Time Associated Diagnosis [...] Routine 07/03/2024 4:38 PM EDT Second trimester ([facility]) from Last 3 Months Results * (ABNORMAL) [...] AM EDT Narrative 09/11/2024 7:19 AM EDT [address] [address] Ultrasound Report Signed Patient: FRANCISCA MÉNDEZ MR#: [id number] : 2000 Acct:[id number] Age/Sex: 24 / F ADM Date: 09/10/24 Loc: US Attending Dr: Fina Wilson Ordering Physician: Fina Wilson Date of Service: 09/10/24 Procedure(s): US OB BPP w non-stress Accession Number(s): [id number] cc: Fina Wilson; Physician,Non-Staff MAnayeli [facility] [place] [id number] Patient Name: FRANCISCA MÉNDEZ MRN: [id number] date: 2000 Sex: F Assigned Patient Location: US Current Patient Location: Accession/Order Number: [id number] Exam Date: 09/11/2024 07:15 Report Date: 09/11/2024 07:16 At the request of: FINA WILSON Procedure: US OB BPP w non-stress BIOPHYSICAL PROFILE: CLINICAL INFORMATION: INDUCED HYPERTENSION O13.9 COMPARISON: 09/03/2024 There is a single live intrauterine gestation in cephalic presentation. The reported gestational age is 35 weeks 1 day. The heart rate [id number] beats per minute. FINDINGS: TONE: 1 or [...] Rubio M.D. 09/11/2024 7:16 AM Dictation Location: [place] [address] Electronically authenticated by: [id number] Y Date: 09/11/2024 07:16 Dictated By: Marielos Rubio M.D. Signed By: 09/11/2419 DD/ 5 TD/TT: Application Packaging Specialist: Procedure Note Radiology, Radiologist, - 09/11/2024 [place] [address] Ultrasound Report Signed Patient: FRANCISCA MÉNDEZ CMR#: [id number] : 2000Acct:[id number] Age/Sex: 24 / FADM Date: 09/10/24 Loc: US Attending Dr: Fina Wilson Ordering Physician: Fina Wilson Date of Service: 09/10/24 Procedure(s): US OB BPP w non-stress Accession Number(s): [id number] cc: Fina Wilson; Physician,Non-Staff M.DOwen [place] [address] Patient Name: FRANCISCA MÉNDEZ MRN: [id number] date: 2000 Sex: F Assigned Patient Location: US Current Patient Location: Accession/Order Number: [id number] Exam Date: 09/11/2024 07:15 Report Date: 09/11/2024 07:16 At the request of: FINA WILSON Procedure: US OB BPP w non-stress BIOPHYSICAL PROFILE: CLINICAL INFORMATION: INDUCED HYPERTENSION O13.9 COMPARISON: 09/03/2024 There is a single live intrauterine gestation in cephalic presentation.The reported gestational age is 35 weeks 1 day. The heart tovaqmricmpx906 beats per minute. FINDINGS: TONE: 1 or [...] Rubio M.D. 09/11/2024 7:16 AM Dictation Location: [place] [address] Electronically authenticated by: [id number] Y Date: 507:16 Dictated By: Marielos Rubio M.D. Signed By:09/11/24 0719 DD/ 0716 TD/TT: Application Packaging Specialist: us Fina Wilson YADY [facility] IMAGING Final [...] II, MD, PHD at 21-Aug-2024 08:00:33 AM [facility] Procedure Note Fritz Templeton MD - [...] FRITZ TEMPLETON II, MD, PHD 08:00:33 AM [facility] us Hedy WERNER IMG OB US [...] ORDERABLES Final Re sult Performing Organization Address [facility]/ZIP Co de Phone Number [facility] * TBH CREATININE (07/04/2024 11:37 AM EDT) CREATININE 0.59 0.55 - 1.02 mg/dL TBH TBH EGFR-AF SAMOAN >60 >=60 mL/min/1.7 3m 2 TBH TBH EGFR-NON AF SAMOAN >60 >=60 mL/min/1.7 3m 2 TBH 07/04/2024 11:3 7 AM EDT 07/04/2024 11:39 AM EDT Narrative CLINISYNC - 07/04/2024 12:21 PM EDT Fina Wilson NP CLINISYNC Final Result Performing Organization Address [facility] de Phone Number [facility] * SRMCOH PROTHROMBIN TIME INR W/O COUM [...] NP CLINISYNC Final Result Performing Organization Address [facility] Co de Phone Number [facility] * (ABNORMAL) [facility] AST (07/04/2024 11:37 AM EDT) ASPARTATE AMINO TRANSFERASE 8(L) 15 - 37 U/L TB 07/04/2024 11:3 7 AM EDT 07/04/2024 11:39 AM EDT Narrative CLINISYNC - 07/04/2024 12:21 PM EDT us Fina Wilson NP CLINISYNC Final Result Performing Organization Address [facility] Phone Number [facility] * [facility] APTT (07/04/2024 11:37 AM EDT) PARTIAL THROMBOPLASTIN TIME 26.8 22.3 - 36.2 sec TB 07/04/2024 11:3 7 AM EDT 07/04/2024 11:39 AM EDT Narrative CLINISYNC - 07/04/2024 12:39 PM EDT us Fina Wilson NP CLINISYNC Final Result Performing Organization Address [facility] Phone Number [facility] * ALL URIC ACID (07/04/2024 11:37 AM EDT) URIC ACID 3.4 2.6 - 6.0 mg/dL TB 07/04/2024 11:3 7 AM EDT 07/04/2024 11:39 AM EDT Narrative CLINISYNC - 07/04/2024 12:21 PM EDT us Fina Wilson NP CLINISYNC Final Result Performing Organization Address [facility] de Phone Number [facility] * ALL LDH (07/04/2024 11:37 AM EDT) LACTATE DEHYDROGENASE 97 81 - 234 U/L TB 07/04/2024 11:3 7 AM EDT 07/04/2024 11:39 AM EDT Narrative CLINISYNC - 07/04/2024 12:21 PM EDT us Fina Wilson NP CLINISYNC Final Result CLINISYNC TB * (ABNORMAL) ALL CBC WITH AUTO DIFF (07/04/2024 11:37 AM EDT) [facility] TB WBC 10.5 4.0 - 11.0 10 [...] - 07/04/2024 12:19 PM EDT Fina Wilson HOME HEALTH CARE PROVIDER CLINISYNC Final Result [facility]NC TBH * (ABNORMAL) ALL BUN (07/04/2024 11:37 AM EDT) BLOOD UREA NITROGEN 4.0(L) 7.0 - 18.0 mg/dL TBH 07/04/2024 11:3 7 AM EDT 07/04/2024 11:39 AM EDT Narrative CLINISYNC - 07/04/2024 12:21 PM EDT Fina Wilson NP CLINISYNC Final Result Performing Organization Address City/[facility]/ZIP Co de Phone Number CLINISYNC [facility]H from Last 3 Months Insurance
--- OUTSIDE RECORDS SUMMARY | 2024-09-13 09:23 | XMS_ITS | Encounter Summary ---
Author Organization [facility] Address [address] [place] [address] Care Team Providers Care Loader Engineer Name Role Phone Unavailable Primary Care Provider Unavailabl e Encounter Details Date Type Department Care Team (Late st Contact Info) Description 09/04/2024 Clinisync Result Encounter NOMS External Department Unsolicited Keon Wilson, ASSISTANT ANALYST [address] [place] [address] Social History Tobacco Use Types Packs/Day [...] PM EDT Ancillary Procedure [facility] BCP OB [facility] [place] [address] 09/18/2024 2:00 PM EDT Routine [facility] BCP OB [address] [place] [address] Curt Mistry, [address] [place] [address] [phone] (work) documented as of this encounter Procedures Procedure Name Priority Date/Time Associated Diagnosis Comments US OB BPP W NON-STRESS 09/04/2024 8:01 AM EDT documented in this encounter Results * US OB BPP W NON-STRESS (09/04/2024 8:01 AM EDT) Anatomical Region Laterality Modality Other 09/04/2024 8:01 AM EDT Narrative 09/04/2024 9:[place] [address] Ultrasound Report Signed Patient: FRANCISCA BUTLER MR#: [id number] : 2000 Acct:[id number] Age/Sex: 23 / F ADM Date: 09/03/24 Loc: US Attending Dr: Keon Wilson Ordering Physician: Keon Wilson Date of Service: 09/03/24 Procedure(s): US OB BPP w non-stress Accession Number(s): [id number] cc: Keon Wilson; Physician,Non-Staff M.DOwen [address] [address] Patient Name: FRANCISCA BUTLER MRN: [id number] date: 2000 Sex: F Assigned Patient Location: [facility] Current Patient Location: [facility] Accession/Order Number: [id number] Exam Date: 09/04/2024 07:59 Report Date: 09/04/2024 [...] Rubio M.D. 09/04/2024 8:01 AM Dictation Location: [place] [address] Electronically authenticated by: [id number] Y Date: 09/04/2024 08:01 Dictated By: Marielos Rubio M.D. Signed By: 09/04/24 0946 DD/ 0 TD/TT: Outside Plant Cable Engineer: Procedure Note Radiology, Radiologist, MD - 09/04/2024 [place] [address] Ultrasound Report Signed Patient: FRANCISCA BUTLER CMR#: [id number] : 2000Acct:[id number] Age/Sex: Date: 09/03/24 Loc: US Attending Dr: Keon Wilson Ordering Physician: Keon Wilson Date of Service: 09/03/24 Procedure(s): US OB BPP w non-stress Accession Number(s): [id number] cc: Keon Wilson; Physician,Non-Staff MAnayeli [facility] [place] [address] Patient Name: FRANCISCA BUTLER MRN: [id number] date: 2000 Sex: F Assigned Patient Location: [facility] Current Patient Location: [facility] Accession/Order Number: [id number] Exam Date: 09/04/2024 07:59 Report Date: 09/04/2024 08:01 At the request of: KEON WILSON Procedure: US OB BPP w non-stress BIOPHYSICAL PROFILE: CLINICAL INFORMATION: INDUCED HYPERTENSION O13.9 COMPARISON: 08/27/2024 There is a single live intrauterine gestation in cephalic presentation.The reported gestational age is 34 weeks 1 day. The heart rate beats per minute. FINDINGS: TONE: 1 or [...] Rubio M.D. 09/04/2024 8:01 AM Dictation Location: [place] [address] Electronically authenticated by: [id number] Y Date: 508:01 Dictated By: Marielos Rubio M.D. Signed By:09/04/24 0946 DD/ 0801 TD/TT: Outside Plant Cable Engineer: us Keon Wilson NP [facility] IMAGING Final Resul t documented in this encounter Visit Diagnoses Not on filedocumented in this encounter
[2024-09-13 09:28] VITALS: BP 145/70; PULSE 102
[2024-09-13 09:45] VITALS: BP 131/74; PULSE 95
== END 2024-09-13 10:11 | disposition home or self-care (01) ==
LOC: FBCO 09:21 → FBC 09:22
PROVIDERS: Visit Provider Obstetrics & Gynecology
DX: O16.3 Unspecified maternal hypertension, third trimester (principal)
CPT/HCPCS: 59025

== ENCOUNTER 2024-09-17 18:57 | Outpatient (OUT) | payer OTHER, SELFPAY ==
--- NOTE | 2024-09-17 19:03 | US_ITS ---
The [place] [id number] Patient Name: FRANCISCA MÉNDEZ MRN: [id number] date: 2000 Sex: F Assigned Patient Location: [facility] Current Patient Location: Accession/Order Number: [id number] Exam Date: 09/18/2024 08:46 Report Date: 09/18/2024 08:47 At the request of: KEON FONSECA Procedure: US OB BPP w non-stress BIOPHYSICAL PROFILE: CLINICAL INFORMATION: induced HTN COMPARISON: 09/10/2024 There is a single live intrauterine gestation in cephalic presentation. The reported gestational age is 36 weeks 1 day. The heart rate measures 154 beats per minute. FINDINGS: TONE: 1 or more episodes of activity extension and flexion of extremity or opening and closing of the hand [Y] 2/2 GROSS BODY MOVEMENTS: 3 or more discrete body or limb movements [Y] 2/2 BREATHING MOVEMENTS: 1 or more episodes of breathing lasting at least 30 seconds [Y] 2/2 ROSE: A single deepest vertical pocket of amniotic fluid greater than 2 cm [Y] 2/2 ROSE: 13.3 cm . This is in normal range. Total score: 10/11 US/US OB BPP w non-stress IMPRESSION: NORMAL BIOPHYSICAL PROFILE Impression dictated by: Marielos Rubio M.D. 09/18/2024 8:47 AM Dictation Location: [place] [address] Electronically authenticated by: [id number] Y Date: 09/18/2024 08:47
[2024-09-17 19:12] VITALS: BP 140/89; PULSE 88
[2024-09-17 19:22] VITALS: BP 143/78; PULSE 93
== END 2024-09-17 20:25 | disposition home or self-care (01) ==
LOC: US 18:58 → FBC 19:00
PROVIDERS: Visit Provider Nurse Practitioner Family
DX: O13.3 Gestational [pregnancy-induced] hypertension without significant proteinuria, third trimester (principal); Z3A.36 36 weeks gestation of pregnancy
CPT/HCPCS: 76818

== ENCOUNTER 2024-09-20 08:18 | Outpatient (OUT) | payer OTHER, SELFPAY ==
--- OUTSIDE RECORDS SUMMARY | 2024-09-11 15:20 | XMS_ITS | Encounter Summary ---
Author Organization [facility] Address [address] [place] [address] Care Team Providers Care No Bake Molder Name Role Phone Unavailable Primary Care Provider Unavailabl e Reason for Visit * Reason Comments Routine Visit Encounter Details Date Type Department Care Team (Latest Contact Info) Description 09/11/2024 3:20 PM EDT Routine [facility] OB [address] [place] [address] Hedy Ortega PA [address] [place], [id number] 35 weeks gestation of ([facility]); Third trimester [...] PM EDT Reason for Appointment: Patient ID: Surnedra Butler is a 24 y.o. female who [...] nursing note reviewed. Exam conducted with a shredder operator present. Vitals: Estimated body mass index is 34.84 kg/m² as calculated from the following: Height as of 08/20/24: 5' 4 . Weight as of this encounter: 203 lb. BP: 120/80 Patient's last menstrual period was 01/08/2024. ASSESSMENT & PLAN ICD-10-CM 1. 35 weeks gestation of ([facility]) Z3A.35 POCT urinalysis dipstick manually resulted 2. Third trimester ([facility]) Z34.93 POCT urinalysis dipstick manually resulted CULTURE, GROUP B STREP WITH SUSCEPTIBLITY CULTURE, GROUP B STREP WITH SUSCEPTIBLITY 3. Hypertension during in third trimester, unspecified hypertension in type ([facility]) O16.3 POCT urinalysis dipstick manually resulted 4. induced hypertension, antepartum ([facility]) O13.9 POCT urinalysis dipstick manually resulted 5. Pre-eclampsia in third trimester ([facility]) O14.93 POCT urinalysis dipstick manually resulted [...] week for routine OB appointment Documented by Marileos Rapp LPN on behalf of: DEBBI Tolbert documented in this encounter Plan of Treatment Upcoming Encounters Date Type Department Care Team (Late st Contact Info) Description 09/25/2024 2:00 PM EDT Routine [facility] OB [address] [place] [address] Curt Mistry, [address] [place], [place] [id number] documented as of this encounter Procedures Procedure Name Priority Date/Time Associated Diagnosis Comments CULTURE, GROUP B STREP WITH SUSCEPTIBLITY Routine 09/11/2024 4:09 PM EDT Third trimester ([facility]) POCT URINALYSIS DIPSTICK Routine 09/11/2024 4:04 PM EDT 35 weeks gestation of ([facility]) Third trimester ([facility]) Hypertension during in third trimester, unspecified hypertension in type ([facility]) induced hypertension, antepartum ([facility]) Pre-eclampsia in third trimester ([facility]) documented in this encounter Results * CULTURE, [...] Visit Diagnoses Diagnosis 35 weeks gestation of ([facility]) Third trimester ([facility]) state, incidental Hypertension during in third trimester, unspecified hypertension in type ([facility]) induced hypertension, antepartum ([facility]) Transient hypertension of , antepartum Pre-eclampsia in third trimester ([facility]) documented in this encounter
--- OUTSIDE RECORDS SUMMARY | 2024-09-17 13:30 | XMS_ITS | Encounter Summary ---
Author Organization [facility] Address [address] [place] [address] Care Team Providers Care Machinery Erector Name Role Phone Unavailable Primary Care Provider Unavailabl e Encounter Details Date Type Department Care Team (Latest Contact Info) Description 09/17/2024 1:30 PM EDT Ancillary Procedure [facility] [address] [facility] [place] [address] induced hypertension, antepartum ([facility]) Social History Tobacco Use Types Packs/Day Years [...] Routine [facility] BCP OB [address] [place] [address] Curt Mistry DO [address] [place], [place] [id number] documented as of this encounter Procedures Procedure Name Priority Date/Time Associated Diagnosis Comments US OB FOLLOW UP TRANSABDOMINAL APPROACH Routine 09/17/2024 1:53 PM EDT induced hypertension, antepartum ([facility]) documented in this encounter Results * US [...]
--- OUTSIDE RECORDS SUMMARY | 2024-09-18 14:00 | XMS_ITS | Encounter Summary ---
Author Organization [facility] Address [address] [place] [address] Care Team Providers Care Tanker Truck Driver Name Role Phone Unavailable Primary Care Provider Unavailabl e Encounter Details Date Type Department Care Team (Latest Contact Info) Description 09/18/2024 2:00 PM EDT Routine [facility] OB [address] [place] [phone] Curt Mistry, DO [address] [facility] [place] [address] 36 weeks gestation of (HHS-HCC); Third trimester ([facility]HS-HCC); Hypertension during in third trimester, unspecified hypertension in type ([facility]HS-HCC); Pre-eclampsia in third trimester ([facility]) Social History Tobacco Use Types Packs/Day Years [...] nursing note reviewed. Exam conducted with a vp foundation present. Vitals: Estimated body mass index is 35.19 kg/m² as calculated from the following: Height as of 08/20/24: 5' 4 . Weight as of this encounter: 205 lb. BP: 126/84 Patient's last menstrual period was 01/08/2024. ASSESSMENT & PLAN ICD-10-CM 1. 36 weeks gestation of ([facility]) Z3A.36 POCT urinalysis dipstick manually resulted 2. Third trimester ([facility]) Z34.93 POCT urinalysis dipstick manually resulted 3. Hypertension during in third trimester, unspecified hypertension in type ([facility]) O16.3 4. Pre-eclampsia in third trimester ([facility]) O14.93 Return OB: Patient presents today for [...] PM EDT Routine [facility] [address] [facility] [place] [address] Curt Mistry DO [address] [place] [address] documented as of this encounter Procedures Procedure Name Priority Date/Time Associated Diagnosis Comments POCT URINALYSIS DIPSTICK Routine 09/18/2024 2:26 PM EDT 36 weeks gestation of ([facility]) Third trimester ([facility]) documented in this encounter Results [...] Positive Urine 09/18/2024 2:26 PM EDT Result [facility] Curt Mistry DO POINT OF CARE TEST ENTER/EDIT OR DERABLES Final Result documented in this encounter Visit Diagnoses Diagnosis 36 weeks gestation of ([facility]) Third trimester ([facility]) state, incidental Hypertension during in third trimester, unspecified hypertension in type (HHS-HCC) Pre-eclampsia in third trimester ([facility]HS-HCC) documented in this encounter
--- OUTSIDE RECORDS SUMMARY | 2024-09-20 08:21 | XMS_ITS | Encounter Summary ---
Author Organization [facility] Address [address] [place] [address] Care Team Providers Care Beater Room Supervisor Name Role Phone Unavailable Primary Care Provider Unavailabl e Encounter Details Date Type Department Care Team (Late st Contact Info) Description 09/18/2024 Clinisync Result Encounter [facility] External Department Unsolicited Keon Wilson, BULK STATION OPERATOR [address] [facility] [place] [phone] Social History Tobacco Use Types Packs/Day Years [...] PM EDT Routine [facility] [address] [facility] [place] [phone] Curt Mistry DO [address] [place], [place] [phone] documented as of this encounter Procedures Procedure Name Priority Date/Time Associated Diagnosis Comments US OB BPP W NON-STRESS 09/18/2024 8:47 AM EDT documented in this encounter Results * US OB BPP W NON-STRESS (09/18/2024 8:47 AM EDT) Anatomical Region Laterality Modality Other 09/18/2024 8:47 AM EDT Narrative 09/18/2024 8:49 [place] [address] Ultrasound Report Signed Patient: FRANCISCA BUTLER MR#: [id number] : 2000 Acct:[id number] Age/Sex: 24 / F ADM Date: 09/17/24 Loc: US Attending Dr: Keon Wilson Ordering Physician: Keon Wilson Date of Service: 09/17/24 Procedure(s): US OB BPP w non-stress Accession Number(s): [id number] cc: Keon Wilson; Physician,Non-Staff M.D. [facility] [place] [id number] Patient Name: FRANCISCA BUTLER MRN: [id number] date: 2000 Sex: F Assigned Patient Location: [facility] Current Patient Location: Accession/Order Number: [id number] Exam Date: 09/18/2024 08:46 Report Date: 09/18/2024 08:47 At the request of: KEON WILSON Procedure: US OB BPP w non-stress BIOPHYSICAL PROFILE: CLINICAL INFORMATION: induced HTN COMPARISON: 09/10/2024 There is a single live intrauterine gestation in cephalic presentation. The reported gestational age is 36 weeks 1 day. The heart rate measures 154 beats per minute. FINDINGS: TONE: 1 or [...] amniotic fluid greater than 2 cm [Y] 2/ ROSE: 13.3 cm . This is in normal range. Total score: 10/11 US/US OB BPP w non-stress IMPRESSION: NORMAL BIOPHYSICAL PROFILE Impression dictated by: Marielos Rubio M.D. 09/18/2024 8:47 AM Dictation Location: [place] [address] Electronically authenticated by: [id number] Y Date: 09/18/2024 08:47 Dictated By: Marielos Rubio M.D. Signed By: 09/18/24 0849 DD/ 0847 TD/TT: Greens Picker: Procedure Note Radiology, Radiologist, MD - 09/18/2024 [place] [address] Ultrasound Report Signed Patient: FRANCISCA BUTLER CMR#: [id number] : 2000Acct:[id number] Age/Sex: 24 / FADM Date: 09/17/24 Loc: US Attending Dr: Keon Wilson Ordering Physician: Keon Wilson Date of Service: 09/17/24 Procedure(s): US OB BPP w non-stress Accession Number(s): [id number] cc: Keon Wilson; Physician,Non-Staff Alondra [facility] [place] [id number] Patient Name: FRANCISCA BUTLER MRN: [facility]:[id number] date: 2000 Sex: F Assigned Patient Location: [facility] Current Patient Location: Accession/Order Number: [id number] Exam Date: 09/18/2024 08:46 Report Date: 09/18/2024 08:47 At the request of: KEON WILSON Procedure: US OB BPP w non-stress BIOPHYSICAL PROFILE: CLINICAL INFORMATION: induced HTN COMPARISON: 09/10/2024 There is a single live intrauterine gestation in cephalic presentation.The reported gestational age is 36 weeks 1 day. The heart rate [id number] beats per minute. FINDINGS: TONE: 1 or [...] greater than 2 cm [Y] 2/2 ROSE: 13.3 cm . This is in normal range. Total score: 10/11 US/US OB BPP w non-stress IMPRESSION: NORMAL BIOPHYSICAL PROFILE Impression dictated by: Marielos Rubio M.D. 09/18/2024 8:47 AM Dictation Location: [place] [address] Electronically authenticated by: [id number] Y Date: 508:47 Dictated By: Marielos Rubio M.D. Signed By:09/18/24 0849 DD/ 0847 TD/TT: Greens Picker: Keon Wilson NP [facility] Final Resul t documented in this encounter Visit Diagnoses Not on filedocumented in this encounter
--- OUTSIDE RECORDS SUMMARY | 2024-09-20 08:21 | XMS_ITS | Encounter Summary ---
Author Organization [facility] Address [address] [place] [address] Care Team Providers Care Field Auditor Name Role Phone Unavailable Primary Care Provider Unavailabl e Encounter Details Date Type Department Care Team (Late st Contact Info) Description 04/17/2024 Abstract [facility] [address] [facility] [address] Tiffanie Loza LPN Social History Tobacco [...] Description 09/25/2024 2:00 PM EDT Routine [facility] [address] [facility] [address] [address] Curt Mistry DO [address] [place], [place] [phone] documented as of this encounter Visit Diagnoses Not on filedocumented in this encounter
--- OUTSIDE RECORDS SUMMARY | 2024-09-20 08:21 | XMS_ITS | Encounter Summary ---
Author Organization [facility] Address [address] [place] [address] Care Team Providers Care Flaking Roll Operator Name Role Phone Unavailable Primary Care Provider Unavailabl e Encounter Details Date Type Department Care Team (Late st Contact Info) Description 03/26/2024 Abstract [facility] OB [address] [place] [address] Curt Mistry DO [address] [place], [place] [phone] Social History Tobacco Use Types Packs/Day Years [...] Routine [facility] OB [address] [place] [address] Curt Mistry, DO [address] [place], [place] [phone] documented as of this encounter Visit Diagnoses Not on filedocumented in this encounter
--- OUTSIDE RECORDS SUMMARY | 2024-09-20 08:21 | XMS_ITS | Encounter Summary ---
Author Organization [facility] Address [address] [place] [address] Care Team Providers Care Histology Technician Name Role Phone Unavailable Primary Care Provider Unavailabl e Encounter Details Date Type Department Care Team (Late st Contact Info) Description 09/11/2024 Clinisync Result Encounter [facility] External Department Unsolicited Keon Wilson, FOOD SERVICE MANAGER [address] [facility] [place] [address] Social History Tobacco Use Types Packs/Day Years [...] PM EDT Routine [facility] [address] [facility] [place] [phone] Curt Mistry DO [address] [place] [address] documented as of this encounter Procedures Procedure Name Priority Date/Time Associated Diagnosis Comments US OB BPP W NON-STRESS 09/11/2024 7:16 AM EDT documented in this encounter Results * US OB BPP W NON-STRESS (09/11/2024 7:16 AM EDT) Anatomical Region Laterality Modality Other 09/11/2024 7:16 AM EDT Narrative 09/11/2024 7:19 [place] [address] Ultrasound Report Signed Patient: FRANCISCA BUTLER MR#: [id number] : 2000 Acct:[id number] Age/Sex: 24 / F ADM Date: 09/10/24 Loc: US Attending Dr: Keon Wilson Ordering Physician: Keon Wilson Date of Service: 09/10/24 Procedure(s): US OB BPP w non-stress Accession Number(s): [id number] cc: Keon Wilson; Physician,Non-Staff M.D. [facility] [place] [id number] Patient Name: FRANCISCA BUTLER MRN: [id number] date: 2000 Sex: F Assigned Patient Location: Current Patient Location: Accession/Order Number: [id number] Exam Date: 09/11/2024 07:15 Report Date: 09/11/2024 07:16 At the request of: KEON WILSON Procedure: US OB BPP w non-stress BIOPHYSICAL PROFILE: CLINICAL INFORMATION: INDUCED HYPERTENSION O13.9 COMPARISON: 09/03/2024 There is a single live intrauterine gestation in cephalic presentation. The reported gestational age is 35 weeks 1 day. The heart rate beats [...] Rubio M.D. 09/11/2024 7:16 AM Dictation Location: [place] [address] Electronically authenticated by: [id number] Y Date: 09/11/2024 07:16 Dictated By: Marielos Rubio M.D. Signed By: 09/11/2419 DD/ 5 TD/TT: Cigar Head Piercer: Procedure Note Radiology, Radiologist, MD - 09/11/2024 [place] [address] Ultrasound Report Signed Patient: FRANCISCA BUTLER CMR#: [id number] : 2000Acct:[id number] Age/Sex: 24 / FADM Date: 09/10/24 Loc: US Attending Dr: Keon Wilson Ordering Physician: Keon Wilson Date of Service: 09/10/24 Procedure(s): US OB BPP w non-stress Accession Number(s): [id number] cc: Keon Wilson; Physician,Non-Staff Alondra [facility] [place] [id number] Patient Name: FRANCISCA BUTLER MRN: [id number] date: 2000 Sex: F Assigned Patient Location: US Current Patient Location: Accession/Order Number: [id number] Exam Date: 09/11/2024 07:15 Report Date: 09/11/2024 07:16 At the request of: KEON WILSON Procedure: US OB BPP w non-stress BIOPHYSICAL PROFILE: CLINICAL INFORMATION: INDUCED HYPERTENSION O13.9 COMPARISON: 09/03/2024 There is a single live intrauterine gestation in cephalic presentation.The reported gestational age is 35 weeks 1 day. The heart beats per minute. FINDINGS: TONE: 1 or [...] Rubio M.D. 09/11/2024 7:16 AM Dictation Location: [place] [address] Electronically authenticated by: [id number] Y Date: 7:16 Dictated By: Marielos Rubio M.D. Signed By:09/11/24 0719 DD/ 0716 TD/TT: Cigar Head Piercer: us Keon Wilson NP [facility] Final Resul t documented in this encounter Visit Diagnoses Not on filedocumented in this encounter
--- OUTSIDE RECORDS SUMMARY | 2024-09-20 08:21 | XMS_ITS | Clinical Summary ---
Author Organization [facility] Address [address] [place] [address] Care Team Providers Care Utility Mechanic Name Role Phone Unavailable Primary Care [...] Encounters Date Type Department Care Team Description 09/18/2024 2:00 PM EDT Routine [facility] [address] [place] [address] [place] [address] Curt Mistry DO 36 weeks gestation of (HHS-HCC); Third trimester (HHS-HCC); Hypertension during in third trimester, unspecified hypertension in type (HHS-HCC); Pre-eclampsia in third trimester (HHS-HCC) 09/18/2024 Clinisync Result Encounter [facility] External Department Unsolicited Fina Wilson NP 09/17/2024 1:30 PM EDT Ancillary Procedure [facility] OB [address] [place] [address] [place] [address] induced hypertension, antepartum (HHS-HCC) 09/11/2024 3:20 PM EDT Routine [facility] [address] [place] [address] Hedy Ortega PA 35 weeks gestation of (HHS-HCC); Third trimester (HHS-HCC); Hypertension during in third trimester, unspecified hypertension in type (HHS-HCC); induced hypertension, antepartum (HHS-HCC); Pre-eclampsia in third trimester (HHS-HCC) 09/11/2024 Clinisync Result Encounter [facility]OMS External Department Unsolicited Fina Wilson NP 09/04/2024 2:30 PM EDT Routine [facility] OB [address] [place] [address] [place] [address] Hedy Ortega PA Pharyngitis, unspecified etiology (Primary [...] NP 08/20/2024 11:20 AM EDT Routine [facility] [address] [place] [address] Curt Mistry DO Third trimester ([facility]); 32 weeks gestation of ([facility]); Pre-eclampsia in third trimester ([facility]); induced hypertension, antepartum ([facility]) 08/20/2024 11:00 AM EDT Ancillary Procedure [facility] [address] [place] [address] Hypertension during in third trimester, unspecified hypertension in type ([facility]-HCC) 08/13/2024 Clinisync Result Encounter [facility]S External Department Unsolicited Fina Wilson NP 08/13/[address] [facility] [address] [place] [address] Francisca Mcqueen MA 08/07/2024 3:50 PM EDT Routine [facility] [address] [place] [address] Hedy Ortega PA Hypertension during in third trimester, unspecified hypertension in type ([facility]) (Primary Dx); Third trimester ([facility]); 30 weeks gestation of ([facility]-HCC) 08/07/2024 Bamboo flowsheet [facility] [address] [place] [address] Hedy Ortega PA 08/06/2024 Clinisync Result Encounter [facility]S External Department Unsolicited Fina Wilson NP 07/31/2024 Clinisync Result Encounter [facility]S External Department Unsolicited Fina Wilson NP 07/24/2024 3:30 PM EDT Routine [facility] [address] [place] [address] Curt Mistry DO 28 weeks gestation of ([facility]); Third trimester ([facility]) 07/24/2024 3:00 PM EDT Ancillary Procedure [facility] [address] [place] [address] induced hypertension, antepartum ([facility]) 07/24/2024 Travel 07/23/2024 Clinisync Result Encounter [facility]S External Department Unsolicited Fina Wilson NP 07/10/2024 11:30 AM EDT Clinical Support [facility] [address] [place] [address] Blood pressure check; Second trimester ([facility]); 26 weeks gestation of ([facility]); Urinary tract infection without hematuria, site unspecified 07/06/2024 Clinisync Result Encounter [facility] External Department Unsolicited Fina Wilson NP 07/04/2024 Clinisync Result Encounter [facility]S External Department Unsolicited Fina Wilson NP 07/03/2024 3:30 PM EDT Routine [facility] [address] [place] [address] Fina Wilson NP Second trimester ([facility]); 25 weeks gestation of ([facility]); Diabetes mellitus screening; induced hypertension, antepartum ([facility]) 07/03/2024 Bamboo flowsheet [facility] [address] [place] [address] Fina Wilson NP from Last 3 Months [...] (205 lb) 09/18/2024 2:23 PM EDT Height 162.6 cm (5' 4 ) 08/20/2024 11:48 AM EDT Body Mass Index 35.19 08/20/2024 11:48 AM EDT Plan of Treatment Upcoming Encounters Date Type Department Care Team (Late st Contact Info) Description 09/25/2024 2:00 PM EDT Routine [facility] [address] [facility] [place] [phone] Curt Mistry, DO [address] [facility] [place] [address] Procedures Procedure Name Priority Date/Time Associated Diagnosis Comments POCT URINALYSIS DIPSTICK Routine 09/18/2024 2:26 PM EDT 36 weeks gestation of (HHS-HCC) Third trimester ([facility]) US OB BPP W NON-STRESS 09/18/2024 8:47 AM EDT US OB FOLLOW UP TRANSABDOMINAL APPROACH Routine 09/17/2024 1:53 PM EDT induced hypertension, antepartum ([facility]) CULTURE, GROUP B STREP WITH SUSCEPTIBLITY Routine 09/11/2024 4:09 PM EDT Third trimester (HHS-HCC) POCT URINALYSIS DIPSTICK Routine 09/11/2024 4:04 PM EDT 35 weeks gestation of (HHS-HCC) Third trimester (HHS-HCC) Hypertension during in third trimester, unspecified hypertension in type (HHS-HCC) induced hypertension, antepartum (HHS-HCC) Pre-eclampsia in third trimester (HHS-HCC) US OB BPP W NON-STRESS 09/11/2024 7:16 AM EDT POCT URINALYSIS DIPSTICK Routine 09/04/2024 3:02 PM EDT Third trimester ([facility]HCC) US OB BPP W NON-STRESS 09/04/2024 8:01 AM EDT US OB BPP W NON-STRESS 08/28/2024 8:09 AM EDT US OB BPP W NON-STRESS 08/21/2024 7:59 AM EDT POCT URINALYSIS DIPSTICK Routine 08/20/2024 12:08 PM EDT Third trimester ([facility]-HCC) US OB FOLLOW UP TRANSABDOMINAL APPROACH Routine 08/20/2024 11:19 AM EDT Hypertension during in third trimester, unspecified hypertension in type ([facility]) US OB BPP W NON-STRESS 08/13/2024 9:44 PM EDT US OB BPP W NON-STRESS 08/06/2024 7:39 PM EDT US OB BPP W NON-STRESS 07/31/2024 9:08 AM EDT POCT URINALYSIS DIPSTICK Routine 07/24/2024 4:03 PM EDT 28 weeks gestation of ([facility]) Third trimester ([facility]) US OB FOLLOW UP TRANSABDOMINAL APPROACH Routine 07/24/2024 3:21 PM EDT induced hypertension, antepartum ([facility]) US OB BPP W NON-STRESS 07/23/2024 9:58 PM EDT POCT URINALYSIS DIPSTICK Routine 07/10/2024 12:06 PM EDT Second trimester ([facility]) TBH TOTAL PROTEIN 24 HOUR URINE Routine [...] Routine 07/03/2024 4:38 PM EDT Second trimester ([facility]) from Last 3 Months Results * POCT urinalysis dipstick manually resulted (09/18/2024 2:26 PM EDT) Only the most recent of7 resultswithin the time period is included. Color, UA Yellow Clarity, UA Clear Glucose, UA Negative Negative - 1999(110) ++++ mg/dL Bilirubin, UA Negative Negative - 4(70) +++ mg/dL Ketones, UA Negative Negative - 160(16) ++++ mg/dL Spec Grav, UA 1.005 1 - 1.03 Blood, UA Negative Negative - 50 Adams/mcL pH, UA 6.5 5 - 9 Protein, UA Negative Negative - 1999(20) ++++ mg/dL Urobilinogen, UA 1.0 0.2 - 12 mg/dL Leukocytes, UA Negative Negative - 500+++ Pranav/mcL Nitrite, UA Negative Negative - Positive Urine 09/18/2024 2:26 PM EDT [facility] POINT OF CARE TEST ENTER/EDIT OR DERABLES Final Result * US OB BPP W NON-STRESS (09/18/2024 8:47 AM EDT) Only the most recent of9 resultswithin the time period is included. Anatomical Region Laterality Modality Other 09/18/2024 8:47 AM EDT Narrative 09/18/2024 8:49 [place] [address] Ultrasound Report Signed Patient: FRANCISCA MÉNDEZ MR#: [id number] : 2000 Acct:[id number] Age/Sex: 24 / F ADM Date: 09/17/24 Loc: US Attending Dr: Fina Wilson Ordering Physician: Fina Wilson Date of Service: 09/17/24 Procedure(s): US OB BPP w non-stress Accession Number(s): [id number] cc: Fina Wilson; Physician,Non-Staff M.DOwen The [address] [address] Patient Name: FRANCISCA MÉNDEZ MRN: [id number] date: 2000 Sex: F Assigned Patient Location: [facility] Current Patient Location: Accession/Order Number: [id number] Exam Date: 09/18/2024 08:46 Report Date: 09/18/2024 08:47 At the request of: FINA WILSON Procedure: [...] Rubio M.D. 09/18/2024 8:47 AM Dictation Location: [place] [address] Electronically authenticated by: [id number] Y Date: 09/18/2024 08:47 Dictated By: Marielos Rubio M.D. Signed By: 09/18/24 0849 DD/ 0847 TD/TT: Magneto Specialist: Procedure Note Radiology, Radiologist, MD - 09/18/2024 [place] [address] Ultrasound Report Signed Patient: FRANCISCA MÉNDEZ CMR#: [id number] : 2000Acct:[id number] Age/Sex: 24 / FADM Date: 09/17/24 Loc: US Attending Dr: Fina Wilson Ordering Physician: Fina Wilson Date of Service: 09/17/24 Procedure(s): US OB BPP w non-stress Accession Number(s): [id number] cc: Fina Wilson; Physician,Non-Staff MAnayeli The [address] [address] Patient Name: FRANCISCA MÉNDEZ MRN: [id number] date: 2000 Sex: F Assigned Patient Location: [facility] Current Patient Location: Accession/Order Number: [id number] Exam Date: 09/18/2024 08:46 Report Date: 09/18/2024 08:47 At the request of: FINA WILSON Procedure: US OB BPP w non-stress BIOPHYSICAL PROFILE: CLINICAL INFORMATION: induced HTN COMPARISON: 09/10/2024 There is a single live intrauterine gestation in cephalic presentation.The reported gestational age is 36 weeks 1 day. The heart rate [id number] beats per minute. FINDINGS: TONE: 1 or [...] Rubio M.D. 09/18/2024 8:47 AM Dictation Location: [place] [address] Electronically authenticated by: [id number] Y Date: 508:47 Dictated By: Marielos Rubio M.D. Signed By:09/18/24 0849 DD/ 0847 TD/TT: Magneto Specialist: us Fina Wilson [facility] Final Resul t * US OB follow up transabdominal approach (09/17/2024 1:53 PM EDT) Only the most recent of3 resultswithin the time period is included. Anatomical Region Laterality Modality Body Ultrasound 09/18/2024 [...] OB US PROCEDURES Final Re sult * CULTURE, GROUP B STREP WITH SUSCEPTIBLITY (09/11/2024 4:09 PM EDT) Swab 09/11/2024 4:09 PM EDT Hedy WERNER LAB BLOOD ORDERABLES Final Resul t Performing Organization Address [facility] de Phone Number EXTERNAL LAB * (ABNORMAL) TBH TOTAL PROTEIN 24 HOUR URINE (07/06/2024 8:42 AM EDT) TOTAL PROTEIN URINE RANDOM 14.2(H) <=11.9 mg/dL TBH TOTAL VOLUME 24 HOUR URINE 1,300 mL/24hr TBH TBH TOTAL PROTEIN 24 HOUR URINE 184.6(H) <=149.1 mg/24hr TBH 07/06/2024 8:42 AM EDT 07/06/2024 11:24 AM EDT Narrative CLINISYNC - 07/06/2024 11:59 AM EDT Fina Wilson NP CLINISYNC Final Result Performing Organization Address [facility] de Phone Number CLINISYNC TB * GLUCOSE 1 HOUR (07/04/2024 11:37 AM EDT) GLUCOSE 1 HOUR 110 <130 mg/dL TBH 07/04/2024 11:3 7 AM EDT 07/04/2024 11:39 AM EDT Narrative CLINISYNC - 07/04/2024 12:21 PM EDT Fina Wilson NP LAB BLOOD ORDERABLES Final Re sult Performing Organization Address [facility] de Phone Number CLINISYNC TBH * TBH CREATININE (07/04/2024 11:37 AM EDT) CREATININE 0.59 0.55 - 1.02 mg/dL TBH TBH EGFR-AF BARBADIAN >60 >=60 mL/min/1.7 3m 2 TBH TBH EGFR-NON AF BARBADIAN >60 >=60 mL/min/1.7 3m 2 TBH 07/04/2024 11:3 7 AM EDT 07/04/2024 11:39 AM EDT Narrative CLINISYNC - 07/04/2024 12:21 PM EDT us Fina Wilson NP CLINISYNC Final Result Performing Organization Address [facility] de Phone Number [facility] * SRMCOH PROTHROMBIN TIME INR W/O COUM (07/04/2024 11:37 AM EDT) PROTHROMBIN TIME 10.6 9.0 - 11.6 sec TB TB INR 1.00 TB Comment: DESIRED INR: 2.0-3.0 CONDITIONS NOT LISTED BELOW 2.5-3.5 FOR PROSTHETIC HEART VALVE REPLACEMENT 2.5-3.5 RECURRENT THROMBOSIS 07/04/2024 11:3 7 AM EDT 07/04/2024 11:39 AM EDT Narrative CLINISYNC - 07/04/2024 12:39 PM EDT us Fina Wilson NP CLINISYTORSTEN Final Result Performing Organization Address [facility] de Phone Number [facility] * (ABNORMAL) [facility] AST (07/04/2024 11:37 AM EDT) ASPARTATE AMINO TRANSFERASE 8(L) 15 - 37 U/L TB 07/04/2024 11:3 7 AM EDT 07/04/2024 11:39 AM EDT Narrative CLINISYNC - 07/04/2024 12:21 PM EDT Fina Wilson NP CLINISYNC Final Result Performing Organization Address [facility] de Phone Number [facility] * [facility] APTT (07/04/2024 11:37 AM EDT) PARTIAL THROMBOPLASTIN TIME 26.8 22.3 - 36.2 sec TB 07/04/2024 11:3 7 AM EDT 07/04/2024 11:39 AM EDT Narrative CLINISYNC - 07/04/2024 12:39 PM EDT us Fina Wilson [facility] Final Result CLINISYNC TB * ALL URIC ACID (07/04/2024 11:37 AM EDT) URIC ACID 3.4 2.6 - 6.0 mg/dL TB 07/04/2024 11:3 7 AM EDT 07/04/2024 11:39 AM EDT Narrative CLINISYNC - 07/04/2024 12:21 PM EDT us Fina Wilson NP CLINISYNC Final Result Performing Organization Address [facility] Co de Phone Number [facility] * ALL LDH (07/04/2024 11:37 AM EDT) LACTATE DEHYDROGENASE 97 81 - 234 U/L TB 07/04/2024 11:3 7 AM EDT 07/04/2024 11:39 AM EDT Narrative CLINISYNC - 07/04/2024 12:21 PM EDT Fina Wilson [facility] Final Result Performing Organization Address [facility] de Phone Number [facility] * (ABNORMAL) ALL CBC WITH AUTO DIFF (07/04/2024 11:37 AM EDT) TBH WBC 10.5 4.0 - 11.0 10 3/uL [...] NP CLINISYNC Final Result Performing Organization Address City/[facility] Co de Phone [facility] * (ABNORMAL) ALL BUN (07/04/2024 11:37 AM EDT) [facility] BLOOD UREA NITROGEN 4.0(L) 7.0 - 18.0 mg/dL TBH 07/04/2024 11:3 7 AM EDT 07/04/2024 11:39 AM EDT Narrative CLINISYNC - 07/04/2024 12:21 PM EDT Fina Wilson NP CLINISYNC Final Result CLINISYNC TB from Last 3 Months Insurance
--- OUTSIDE RECORDS SUMMARY | 2024-09-20 08:21 | XMS_ITS | Encounter Summary ---
Author Organization [facility] Address [address] [place] [address] Care Team Providers Care Group Rooms Coordinator Name Role Phone Unavailable Primary Care Provider Unavailabl e Encounter Details Date Type Department Care Team (Late st Contact Info) Description 04/03/2024 Abstract [facility] OB [address] [place] [address] Curt Mistry DO [address] [place], [place] [id number] Social History Tobacco Use Types Packs/Day Years [...] Routine [facility] OB [address] [place] [address] Curt Mistry, DO [address] [place], [place] [id number] documented as of this encounter Visit Diagnoses Not on filedocumented in this encounter
--- OUTSIDE RECORDS SUMMARY | 2024-09-20 08:40 | XMS_ITS | CCD ---
Author Organization [facility] Care Team Providers Care Maint Mechanic Name Role Phone Unavailable Primary Care Provider UnavailALFREDA Franks Attending Unavailable HEDY PINTO Attending Unavailable FEDE, ALFREDA Attending Unavailable FINA WILSON Attending Unavailable FEDE, ALFREDA Attending Unavailable BLAIR, HEDY Attending Unavailable HEDY PINTO Referring Unavailable ALFREDA MISTRY Attending Unavailable BLAIR, HEDY Attending Unavailable BLAIR, HEDY Attending Unavailable Medications Current Medications Medication Drug Class(es) Dates Sig (Normalized) Sig (Original) ferrous gluconate (20 sources) Ferrous Gluconat e (IRON 27 PO) Take by mouth Active labetalol hydrochloride 200 mg oral tablet (20 sources) beta-Adrenergic Cayla Start: 09-04-2024 End: 12-03-2024 take 1 tablet by mouth in the morning labetalol (Normodyne) 200 MG tablet Indications: Third trimester (HHS-HCC) , Hypertension during in third trimester, unspecified hypertension in type (HHS-HCC) , induced hypertension, antepartum (HHS-HCC) , Pre-eclampsia in third trimester (HHS-HCC) Take 1 tablet (200 mg) by mouth in the morning and 1 tablet (200 mg) before bedtime. 180 tablet 09/04/2024 12/03/2024 Active Start: 07-03-2024 End: 09-04-2024 take 1 tablet by mouth in the morning labetalol (Normodyne) 100 MG tablet Indications: induced hypertension, antepartum (HHS-HCC) Take 1 tablet (100 mg) by mouth in the morning and 1 tablet (100 mg) before bedtime. 60 tablet 2 07/03/2024 09/04/2024 Discontinued (Ineffective) magnesium oxide 400 mg oral tablet (2 [...] 04/06/2024 Active MV-Min-Fe Fum-FA-DHA ( 1 PO) (20 sources) MV-Min- Fe Fum-FA-DHA ( 1 PO) Take by mouth Active Completed/Discontinued Medications Medication Drug Class(es) Dates Sig (Normalized) Sig (Original) azithromycin 250 mg oral tablet (11 sources) Macrolide Antimicrobial Start: 08-13-2024 End: 09-11-2024 azithromycin (Zithromax Z-Bk) 250 MG tablet Indications: Fever in other diseases As directed 6 tablet 08/13/2024 09/11/2024 Discontinued cephalexin 500 mg oral capsule (5 sources) Cephalosporin Antibacterial Start: 09-04-2024 End: 09-11-2024 take 1 capsule by mouth in the morning cephalexin (Keflex) 500 MG capsule Indications: Pharyngitis, unspecified etiology Take 1 capsule (500 mg) by mouth in the morning and 1 capsule (500 mg) before bedtime. Do all this for 7 days. 14 capsule 09/04/2024 09/11/2024 Discontinued promethazine hydrochloride 25 mg oral tablet (16 sources) Phenothiazine Start: 04-08-2024 End: 07-07-2024 take 1 tablet by mouth every six hours for nausea promethazine (Phenergan) 25 MG tablet Indications: Nausea and vomiting, unspecified vomiting type Take 1 tablet (25 mg) by mouth every 6 (six) hours if needed for nausea or vomiting 180 tablet 1 04/08/2024 07/07/2024 Problems Active Problems Problem Classification Problem Date Documented Da te Episodic/Chronic Hypertension complicating ; childbirth and the puerperium (8 sources) Hypertension in the obstetric context; Translations: [Unspecified maternal hypertension, third trimester] 08-07-2024 Chronic Hypertension complicating ; childbirth and the puerperium (16 sources) -induced hypertension; Translations: [Gestational [-induced] hypertension [...] [Nausea with vomiting, unspecified] 04-08-2024 Episodic Other and delivery including normal (20 sources) Second trimester ; Translations: [Encounter for supervision of normal , unspecified, second trimester] 05-06-2024 Episodic Other screening for suspected conditions (not mental disorders or infectious disease) (6 sources) Alpha-fetoprotein blood test status; Translations: [Encounter for screening for raised alphafetoprotein level] 05-06-2024 Episodic Other upper respiratory infections (2 sources) Pharyngitis; Translations: [Acute pharyngitis, unspecified] 09-04-2024 Episodic Residual codes; unclassified (2 sources) Gestation [...] [25 weeks gestation of ] 07-03-2024 Episodic Residual codes; unclassified (2 sources) Gestation period, 28 weeks; Translations: [28 weeks gestation of ] 07-24-2024 Episodic Residual codes; unclassified (2 sources) Gestation period, 30 weeks; Translations: [30 weeks gestation of ] 08-07-2024 Episodic Residual codes; unclassified (2 sources) Gestation period, 32 weeks; Translations: [32 weeks gestation of ] 08-20-2024 Episodic Residual codes; unclassified (2 sources) Gestation period, 34 weeks; Translations: [34 weeks gestation of ] 09-04-2024 Episodic Residual codes; unclassified (2 sources) Gestation period, 35 weeks; Translations: [35 weeks gestation of ] 09-11-2024 Episodic Residual codes; unclassified (2 sources) Gestation period, 36 weeks; Translations: [36 weeks gestation of ] 09-18-2024 Episodic Past or Other Problems Problem Classification Problem Date Documented Da te Episodic/Chronic Other complications of (1 source) Vomiting of , unspecified; Translations: [Unspecified vomiting of , unspecified as to episode of care or not applicable] 03-07-2024 Episodic Other complications of (1 source) Headache; Translations: [Other specified related conditions, first trimester] 03-07-2024 Episodic Results Test Name Value Interpretation Reference Range Facility US OB BPP W NON-STRESS on 09-18-2024 [place] [address] Ultrasound Report Signed Patient: FRANCISCA BUTLER MR#: [id number] : 2000 Acct:[id number] Age/Sex: 24 / F ADM Date: 09/17/24 Loc: US Attending Dr: Fina Wilson Ordering Physician: Fina Wilson Date of Service: 09/17/24 Procedure(s): US OB BPP w non-stress Accession Number(s): [id number] cc: Fina Wilson; Physician,Non-Staff M.D. [place] [id number] Patient Name: FRANCISCA BUTLER MRN: [facility]:[id number] date: 2000 Sex: F Assigned Patient Location: [facility] Current Patient Location: Accession/Order Number: [id number] Exam Date: 09/18/2024 08:46 Report Date: 09/18/2024 [...] Rubio M.D. 09/18/2024 8:47 AM Dictation Location: [place] [address] Electronically authenticated by: [id number] Y Date: 09/18/2024 08:47 Dictated By: Marielos Rubio M.D. Signed By: 09/18/24 0849 DD/ 0847 TD/TT: Barrel Bung Remover And Dumper: [facility] Radiology, Radiologist, - 09/18/2024 [place] [address] Ultrasound Report Signed Patient: FRANCISCA BUTLER MR#: [id number] : 2000 Acct:[id number] Age/Sex: 24 / F ADM Date: 09/17/24 Loc: US Attending Dr: Fina Wilson Ordering Physician: Fina Wilson Date of Service: 09/17/24 Procedure(s): US OB BPP w non-stress Accession Number(s): [id number] cc: Fina Wilson; Physician,Non-Staff Alondra The [address] [address] Patient Name: FRANCISCA BTULER MRN: [facility]:[id number] date: 2000 Sex: F Assigned Patient Location: [facility] Current Patient Location: Accession/Order Number: [id number] Exam Date: 09/18/2024 08:46 Report Date: 09/18/2024 [...] Rubio M.D. 09/18/2024 8:47 AM Dictation Location: [place] [address] Electronically authenticated by: [id number] Y Date: 09/18/2024 08:47 Dictated By: Marielos Rubio M.D. Signed By: 09/18/24 0849 DD/ 0847 TD/TT: Barrel Bung Remover And Dumper: [facility] Radiology Study observation (narrative) [facility] OB BPP W NON-STRESS Ordered By: Radiologist Radiology on 09-18-2024 [facility] Work Phone: Urinalysis macro (dipstick) panel (U)on 09-18-2024 Bilirubin, UA Negative Negative - 4(70) +++ mg/dL [facility] Blood, UA Negative Negative - 50 Adams/mcL [facility] Clarity, UA Clear [facility] Color, UA Yellow [facility] Glucose, UA Negative Negative - 2000(110) ++++ mg/dL [facility] Interpretation and review of laboratory results Normal [facility] Ketones, UA Negative Negative - 160(16) ++++ mg/dL [facility] Leukocytes, UA Negative Negative - 500+++ Pranav/mcL [facility] Nitrite, UA Negative Negative - Positive [facility] pH, UA 6.5 5 - 9 [facility] Protein, UA Negative Negative - 2000(20) ++++ mg/dL [facility] Spec Grav, UA 1.005 1 - 1.03 [facility] Urobilinogen, UA 1.0 0.2 - 12 mg/dL [facility] US OB BPP W NON-STRESS on 09-11-2024 [place] [address] Ultrasound Report Signed Patient: FRANCISCA BUTLER MR#: [id number] : 2000 Acct:[id number] Age/Sex: 24 / F ADM Date: 09/10/24 Loc: US Attending Dr: Fina Wilson Ordering Physician: Fina Wilson Date of Service: 09/10/24 Procedure(s): US OB BPP w non-stress Accession Number(s): [id number] cc: Fina Wilson; Physician,Non-Staff M.Venecia [address] [address] Patient Name: FRANCISCA BUTLER MRN: [id number]:[id number] date: 2000 Sex: F Assigned Patient Location: Current Patient Location: Accession/Order Number: [id number] Exam Date: 09/11/2024 07:15 Report Date: 09/11/2024 07:16 At the request of: FINA WILSON Procedure: US OB BPP w non-stress BIOPHYSICAL PROFILE: CLINICAL INFORMATION: INDUCED HYPERTENSION O13.9 COMPARISON: 09/03/2024 There is a single live intrauterine gestation in cephalic presentation. The reported gestational age is 35 weeks 1 day. The heart rate [id number] beats per minute. FINDINGS: TONE: 1 or [...] Rubio M.D. 09/11/2024 7:16 AM Dictation Location: [place] [address] Electronically authenticated by: [id number] Y Date: 09/11/2024 07:16 Dictated By: Marielos Rubio M.D. Signed By: 09/11/24718 DD/ 5 TD/TT: Barrel Bung Remover And Dumper: [facility] Radiology, Radiologist, MD - 09/11/2024 [place] [address] Ultrasound Report Signed Patient: FRANCISCA BUTLER MR#: [id number] : 2000 Acct:[id number] Age/Sex: 24 / F ADM Date: 09/10/24 Loc: US Attending Dr: Fina Wilson Ordering Physician: Fina Wilson Date of Service: 09/10/24 Procedure(s): US OB BPP w non-stress Accession Number(s): [id number] cc: Fina Wilson; Physician,Non-Staff MAnayeli The [place] [id number] Patient Name: FRANCISCA BUTLER MRN: [facility]:[id number] date: 2000 Sex: F Assigned Patient Location: US Current Patient Location: Accession/Order Number: [id number] Exam Date: 09/11/2024 07:15 Report Date: 09/11/2024 07:16 At the request of: FINA WILSON Procedure: US OB BPP w non-stress BIOPHYSICAL PROFILE: CLINICAL INFORMATION: INDUCED HYPERTENSION O13.9 COMPARISON: 09/03/2024 There is a single live intrauterine gestation in cephalic presentation. The reported gestational age is 35 weeks 1 day. The heart rate [id number] beats per minute. FINDINGS: TONE: 1 or [...] This is in low-normal range. Total score: 10/11 US/US OB BPP w non-stress IMPRESSION: NORMAL BIOPHYSICAL PROFILE . Impression dictated by: Marielos Rubio M.D. 09/11/2024 7:16 AM Dictation Location: [place] [address] Electronically authenticated by: [id number] Y Date: 09/11/2024 07:16 Dictated By: Marielos Rubio M.D. Signed By: 09/11/24718 DD/ 5 TD/TT: Barrel Bung Remover And Dumper: [facility] Radiology Study observation (narrative) [facility] US OB BPP W NON-STRESS Ordered By: Radiologist Radiology on 09-11-2024 [facility] Work Phone: Urinalysis macro (dipstick) panel (U)Ordered By: Rosa Cueva on 09-11-2024 Bilirubin, UA Negative Negative - 4(70) +++ mg/dL [facility] Blood, UA Negative Negative - 50 Adams/mcL [facility] Clarity, UA Clear [facility] Color, UA Yellow [facility] Glucose, UA Negative Negative - 1999(110) ++++ mg/dL [facility] Interpretation and review of laboratory results Abnormal [facility] Ketones, UA Negative Negative - 160(16) ++++ mg/dL [facility] Leukocytes, UA Moderate Negative - 500+++ Pranav/mcL [facility] Nitrite, UA Negative Negative - Positive [facility] pH, UA 6.5 5 - 9 [facility] Protein, UA Negative Negative - 2000(20) ++++ mg/dL [facility] Spec Grav, UA 1.02 1 - 1.03 [facility] Urobilinogen, UA 0.2 0.2 - 12 mg/dL [facility] US OB BPP W NON-STRESS on 09-04-[address] [address] Ultrasound Report Signed Patient: FRANCISCA BUTLER MR#: [id number] : 2000 Acct:[id number] Age/Sex: 23 / F ADM Date: 09/03/24 Loc: US Attending Dr: Fina Wilson Ordering Physician: Fina Wilson Date of Service: 09/03/24 Procedure(s): US OB BPP w non-stress Accession Number(s): [id number] cc: Fina Wilson; Physician,Non-Staff M.Venecia [address] [address] Patient Name: FRANCISCA BUTLER MRN: [id number] date: 2000 Sex: F Assigned Patient Location: [facility] Current Patient Location: [facility] Accession/Order Number: [id number] Exam Date: 09/04/2024 07:59 Report Date: 09/04/2024 08:01 At the request of: FINA WILSON Procedure: [...] 14.0 cm. This is normal. Total score: 8/8 US/US OB BPP w non-stress IMPRESSION: NORMAL BIOPHYSICAL PROFILE Impression dictated by: Marielos Rubio M.D. 09/04/2024 8:01 AM Dictation Location: [place] [address] Electronically authenticated by: [id number] Y Date: 09/04/2024 08:01 Dictated By: Marielos Rubio M.D. Signed By: 09/04/24 0946 DD/ 0 TD/TT: Barrel Bung Remover And Dumper: [facility] Radiology, Radiologist, MD - 09/04/2024 [place] [address] Ultrasound Report Signed Patient: FRANCISCA BUTLER MR#: [id number] : 2000 Acct:[id number] Age/Sex: 23 / F ADM Date: 09/03/24 Loc: US Attending Dr: Fina Wilson Ordering Physician: Fina Wilson Date of Service: 09/03/24 Procedure(s): US OB BPP w non-stress Accession Number(s): [id number] cc: Fina Wilson; Physician,Non-Staff Alondra The [place] [address] Patient Name: FRANCISCA BUTLER MRN: [facility]:[id number] date: 2000 Sex: F Assigned Patient Location: [facility] Current Patient Location: [facility] Accession/Order Number: [id number] Exam Date: 09/04/2024 07:59 Report Date: 09/04/2024 08:01 At the request of: FINA WILSON Procedure: [...] Rubio M.D. 09/04/2024 8:01 AM Dictation Location: [place] [address] Electronically authenticated by: [id number] Y Date: 09/04/2024 08:01 Dictated By: Marielos Rubio M.D. Signed By: 09/04/2446 DD/ 0 TD/TT: Barrel Bung Remover And Dumper: [facility] Radiology Study observation (narrative) [facility] US OB BPP W NON-STRESS Ordered By: Radiologist Radiology on 09-04-2024 [facility] Work Phone: Urinalysis macro (dipstick) panel (U)on 09-04-2024 Bilirubin, UA Negative Negative - 4(70) +++ mg/dL [facility] Blood, UA Negative Negative - 50 Adams/mcL [facility] Clarity, UA Clear [facility] Color, UA Magdalene [facility] Glucose, UA Negative Negative - 2000(110) ++++ mg/dL [facility] Interpretation and review of laboratory results Abnormal [facility] Ketones, UA Positive Negative - 160(16) ++++ mg/dL [facility] Comment on above: trace Leukocytes, UA Moderate Negative - 500+++ Pranav/mcL [facility] Nitrite, UA Negative Negative - Positive [facility] pH, UA 8.5 5 - 9 [facility] Protein, UA Positive Negative - 2000(20) ++++ mg/dL [facility] Comment on above: 30 Spec Grav, UA 1.015 1 - 1.03 [facility] Urobilinogen, UA 1.0 0.2 - 12 mg/dL [facility] US OB BPP W NON-STRESS on 08-28-[address] [address] Ultrasound Report Signed Patient: FRANCISCA BUTLER MR#: [id number] : 2000 Acct:[id number] Age/Sex: 23 / F ADM Date: 08/27/24 Loc: US Attending Dr: Fina Wilson Ordering Physician: Fina Wilson Date of Service: 08/27/24 Procedure(s): US OB BPP w non-stress Accession Number(s): [id number] cc: Fina Wilson; Physician,Non-Staff M.Venecia [place] [address] Patient Name: FRANCISCA BUTLER MRN: [id number] date: 2000 Sex: F Assigned Patient Location: [facility] Current Patient Location: Accession/Order Number: [id number] Exam Date: 08/28/2024 08:07 Report Date: 08/28/2024 [...] Rubio M.D. 08/28/2024 8:09 AM Dictation Location: [place] [address] Electronically authenticated by: [id number] Y Date: 08/28/2024 08:09 Dictated By: Marielos Rubio M.D. Signed By: 08/28/2412 DD/ 8 TD/TT: Barrel Bung Remover And Dumper: [facility] Radiology, Radiologist, MD - 08/28/2024 [place] [address] Ultrasound Report Signed Patient: FRANCISCA BUTLER MR#: [id number] : 2000 Acct:[id number] Age/Sex: 23 / F ADM Date: 08/27/24 Loc: US Attending Dr: Fina Wilson Ordering Physician: Fina Wilson Date of Service: 08/27/24 Procedure(s): US OB BPP w non-stress Accession Number(s): [id number] cc: Fina Wilson; Physician,Non-Staff M.DOwen The [place] [address] Patient Name: FRANCISCA BUTLER MRN: [facility]:[id number] date: 2000 Sex: F Assigned Patient Location: [facility] Current Patient Location: Accession/Order Number: [id number] Exam Date: 08/28/2024 08:07 Report Date: 08/28/2024 [...] Rubio M.D. 08/28/2024 8:09 AM Dictation Location: [place] [address] Electronically authenticated by: [id number] Y Date: 08/28/2024 08:09 Dictated By: Marielos Rubio M.D. Signed By: 08/28/24811 DD/ 8 TD/TT: Barrel Bung Remover And Dumper: [facility] Radiology Study observation (narrative) [facility] US OB BPP W NON-STRESS Ordered By: Radiologist Radiology on 08-28-2024 [facility] Work Phone: US OB BPP W NON-STRESS on 08-21-2024 [place] [address] Ultrasound Report Signed Patient: FRANCISCA BUTLER MR#: [id number] : 2000 Acct:[id number] Age/Sex: 23 / F ADM Date: 08/20/24 Loc: US Attending Dr: Fina Wilson Ordering Physician: Fina Wilson Date of Service: 08/20/24 Procedure(s): US OB BPP w non-stress Accession Number(s): [id number] cc: Fina Wilson; Physician,Non-Staff MAnayeli [address] [address] Patient Name: FRANCISCA BUTLER MRN: [id number] date: 2000 Sex: F Assigned Patient Location: [facility] Current Patient Location: Accession/Order Number: [id number] Exam Date: 08/21/2024 07:58 Report Date: 08/21/2024 [...] Fernández M.D. 08/21/2024 7:59 AM Dictation Location: [id number] Electronically authenticated by: [id number] Y Date: 08/21/2024 07:59 Dictated By: Willam Fernández D.O. Signed By: 08/21/24 0801 DD/ 0759 TD/TT: Barrel Bung Remover And Dumper: [facility] Radiology, Radiologist, - 08/21/2024 [place] [address] Ultrasound Report Signed Patient: FRANCISCA BUTLER MR#: [id number] : 2000 Acct:[id number] Age/Sex: 23 / F ADM Date: 08/20/24 Loc: US Attending Dr: Fina Wilson Ordering Physician: Fina Wilsno Date of Service: 08/20/24 Procedure(s): US OB BPP w non-stress Accession Number(s): [id number] cc: Fina Wilson; Physician,Non-Staff M.Venecia The [place] [id number] Patient Name: FRANCISCA BUTLER MRN: [facility]:[id number] date: 2000 Sex: F Assigned Patient Location: [facility] Current Patient Location: Accession/Order Number: [id number] Exam Date: 08/21/2024 07:58 Report Date: 08/21/2024 [...] Fernández M.D. 08/21/2024 7:59 AM Dictation Location: [employer] Electronically authenticated by: [id number] Y Date: 08/21/2024 07:59 Dictated By: Willam Fernández D.O. Signed By: 08/21/24 0801 DD/ 0759 TD/TT: Barrel Bung Remover And Dumper: [facility] Radiology Study observation (narrative) [facility] US OB BPP W NON-STRESS Ordered By: Radiologist Radiology on 08-21-2024 [facility] Work Phone: US OB FOLLOW UP TRANSABDOMIN AL APPROACHon 08-20-2024 US OB FOLLOW UP TRANSABDOMINAL APPROACH EXAM: [...] II, MD, PHD at 21-Aug-2024 08:00:[address] [facility] Normal Not Available Comment on above: Order Comment: US OB SCAN FOR GROWTH Estimated Date of Delivery: 10/14/24 Gestational Age as of 08/07/2024: 30w2d Urinalysis macro (dipstick) panel (U)on 08-20-2024 Bilirubin, UA Negative Negative - 4(70) +++ mg/dL [facility] Blood, UA Positive Negative - 50 Adams/mcL [facility] Comment on above: Trace-intact Clarity, UA Clear [facility] Color, UA Yellow [facility] Glucose, UA Negative Negative - 1999(110) ++++ mg/dL [facility] Interpretation and review of laboratory results Abnormal [facility] Ketones, UA Negative Negative - 160(16) ++++ mg/dL [facility] Leukocytes, UA Positive Negative - 500+++ Pranav/mcL [facility] Comment on above: Large Nitrite, UA Negative Negative - Positive [facility] pH, UA 7 5 - 9 [facility] Protein, UA Positive Negative - 1999(20) ++++ mg/dL [facility] Comment on above: 30mg/dL Spec Grav, UA 1.015 1 - 1.03 [facility] Urobilinogen, UA 1.0 0.2 - 12 mg/dL [facility] US OB BPP W NON-STRESS on 08-13-2024 [place] [address] Ultrasound Report Signed Patient: FRANCISCA BUTLER MR#: [id number] : 2000 Acct:[id number] Age/Sex: 23 / F ADM Date: 08/13/24 Loc: US Attending Dr: Fina Wilson Ordering Physician: Fina Wilson Date of Service: 08/13/24 Procedure(s): US OB BPP w non-stress Accession Number(s): [id number] cc: Fina Wilson; Physician,Non-Staff M.DOwen The [place] [id number] Patient Name: FRANCISCA BUTLER MRN: [id number] date: 2000 Sex: F Assigned Patient Location: [facility] Current Patient Location: Accession/Order Number: [id number] Exam Date: 08/13/2024 21:43 Report Date: 08/13/2024 21:44 At the request of: FINA WILSON Procedure: [...] Fernández M.D. 08/13/2024 9:44 PM Dictation Location: [place] [address] Electronically authenticated by: [id number] Y Date: 08/13/2024 21:44 Dictated By: Willam Fernández D.O. Signed By: 08/13/242145 DD/ 43 TD/TT: Barrel Bung Remover And Dumper: [facility] Radiology, Radiologist, MD - 08/13/2024 [place] [address] Ultrasound Report Signed Patient: FRANCISCA BUTLER MR#: [id number] : 2000 Acct:[id number] Age/Sex: 23 / F ADM Date: 08/13/24 Loc: US Attending Dr: Fina Wilson Ordering Physician: Fina Wilson Date of Service: 08/13/24 Procedure(s): US OB BPP w non-stress Accession Number(s): [id number] cc: Fina Wilson; Physician,Non-Staff MAnayeli The [address] [address] Patient Name: FRANCISCA BUTLER MRN: [facility]:[id number] date: 2000 Sex: F Assigned Patient Location: [facility] Current Patient Location: Accession/Order Number: [id number] Exam Date: 08/13/2024 21:43 Report Date: 08/13/2024 21:44 At the request of: FINA WILSON Procedure: [...] Fernández M.D. 08/13/2024 9:44 PM Dictation Location: [place] [address] Electronically authenticated by: [id number] Y Date: 08/13/2024 21:44 Dictated By: Willam Fernández D.O. Signed By: 08/13/242145 DD/ 43 TD/TT: Barrel Bung Remover And Dumper: [facility] Radiology Study observation (narrative) [facility] US OB BPP W NON-STRESS Ordered By: Radiologist Radiology on 08-13-2024 [facility] Work Phone: US OB BPP W NON-STRESS on 08-06-2024 [place] [address] Ultrasound Report Signed Patient: FRANCISCA BUTLER MR#: [id number] : 2000 Acct:[id number] Age/Sex: 23 / F ADM Date: 08/06/24 Loc: [facility] 250-[address]: Fina Wilson Ordering Physician: Fina Wilson Date of Service: 08/06/24 Procedure(s): US OB BPP w non-stress Accession Number(s): [id number] cc: Fina Wilson; Physician,Non-Staff Alondra [address] [address] Patient Name: FRANCISCA BUTLER MRN: [facility]:[id number] date: 2000 Sex: F Assigned Patient Location: [facility] Current Patient Location: [facility] Accession/Order Number: [id number] Exam Date: 08/06/2024 19:39 Report Date: 08/06/2024 [...] Fernández M.D. 08/06/2024 7:39 PM Dictation Location: [place] Electronically authenticated by: [id number] Y Date: 08/06/2024 19:39 Dictated By: Willam Fernández D.O. Signed By: 08/06/241941 DD/ 38 TD/TT: Barrel Bung Remover And Dumper: [facility] Radiology, Radiologist, MD - 08/06/2024 [place] [address] Ultrasound Report Signed Patient: FRANCISCA BUTLER MR#: [id number] : 2000 Acct:[id number] Age/Sex: 23 / F ADM Date: 08/06/24 Loc: [facility] 250-[address]: Fina Wilson Ordering Physician: Fina Wilson Date of Service: 08/06/24 Procedure(s): US OB BPP w non-stress Accession Number(s): [id number] cc: Fina Wilson; Physician,Non-Staff Alondra The [place] [address] Patient Name: FRANCISCA BUTLER MRN: [facility]:[id number] date: 2000 Sex: F Assigned Patient Location: [facility] Current Patient Location: [facility] Accession/Order Number: [id number] Exam Date: 08/06/2024 19:39 Report Date: 08/06/2024 [...] Fernández M.D. 08/06/2024 7:39 PM Dictation Location: [place] Electronically authenticated by: [id number] Y Date: 08/06/2024 19:39 Dictated By: Willam Fernández D.O. Signed By: 08/06/241941 DD/ 38 TD/TT: Barrel Bung Remover And Dumper: [facility] Radiology Study observation (narrative) [facility] US OB BPP W NON-STRESS Ordered By: Radiologist Radiology on 08-06-2024 [facility] Work Phone: US OB BPP W NON-STRESS on 07-31-2024 [place] [address] Ultrasound Report Signed Patient: FRANCISCA BUTLER MR#: [id number] : 2000 Acct:[id number] Age/Sex: 23 / F ADM Date: 07/30/24 Loc: US Attending Dr: Fina Wilson Ordering Physician: Fina Wilson Date of Service: 07/30/24 Procedure(s): US OB BPP w non-stress Accession Number(s): [id number] cc: Fina Wilson; Physician,Non-Staff M.DOwen [place] [id number] Patient Name: FRANCISCA BUTLER MRN: [facility]:[id number] date: 2000 Sex: F Assigned Patient Location: [facility] Current Patient Location: Accession/Order Number: [id number] Exam Date: 07/31/2024 09:06 Report Date: 07/31/2024 09:08 At the request of: FINA WILSON Procedure: US OB BPP w non-stress BIOPHYSICAL PROFILE: CLINICAL INFORMATION: INDUCED HYPERTENSION O13.9 COMPARISON: 07/23/2024 There is a single live intrauterine gestation in cephalic presentation. The reported gestational age is 29 weeks 1 day The heart rate [id number] beats per minute. FINDINGS: TONE: 1 or [...] Rubio M.D. 07/31/2024 9:08 AM Dictation Location: [place] [address] Electronically authenticated by: [id number] Y Date: 07/31/2024 09:08 Dictated By: Marielos Rubio M.D. Signed By: 07/31/2410 DD/ 7 TD/TT: Barrel Bung Remover And Dumper: [facility] Radiology, Radiologist, - 07/31/2024 [place] [address] Ultrasound Report Signed Patient: FRANCISCA BUTLER MR#: [id number] : 2000 Acct:[id number] Age/Sex: 23 / F ADM Date: 07/30/24 Loc: US Attending Dr: Fina Wilson Ordering Physician: Fina Wilson Date of Service: 07/30/24 Procedure(s): US OB BPP w non-stress Accession Number(s): [id number] cc: Fina Wilson; Physician,Non-Staff Alondra The [address] [address] Patient Name: FRANCISCA BUTLER MRN: [facility]:[id number] date: 2000 Sex: F Assigned Patient Location: [facility] Current Patient Location: Accession/Order Number: [id number] Exam Date: 07/31/2024 09:06 Report Date: 07/31/2024 09:08 At the request of: FINA WILSON Procedure: US OB BPP w non-stress BIOPHYSICAL PROFILE: CLINICAL INFORMATION: INDUCED HYPERTENSION O13.9 COMPARISON: 07/23/2024 There is a single live intrauterine gestation in cephalic presentation. The reported gestational age is 29 weeks 1 day The heart rate [id number] beats per minute. FINDINGS: TONE: 1 or [...] Rubio M.D. 07/31/2024 9:08 AM Dictation Location: [place] [address] Electronically authenticated by: [id number] Y Date: 07/31/2024 09:08 Dictated By: Marielos Rubio M.D. Signed By: 07/31/2410 DD/ 7 TD/TT: Barrel Bung Remover And Dumper: [facility] [place] Radiology Study observation (narrative) [facility] OB BPP W NON-STRESS Ordered By: Radiologist Radiology on 07-31-2024 [facility] [place] Work Phone: OB FOLLOW UP TRANSABDOMIN AL APPROACHon 07-24-2024 [...] II, MD, PHD at 26-Jul-2024 12:17:[address] [facility] Normal Not Available Comment on above: Order Comment: US OB SCAN FOR GROWTH Estimated Date of Delivery: 10/14/24 Gestational Age as of 07/03/2024: 28w2d Urinalysis macro (dipstick) panel (U)on 07-24-2024 Bilirubin, UA Negative Negative - 4(70) +++ mg/dL [facility] Blood, UA Negative Negative - 50 Adams/mcL [facility] Clarity, UA Clear [facility] Color, UA Yellow [facility] Glucose, UA Negative Negative - 2000(110) ++++ mg/dL [facility] Interpretation and review of laboratory results Abnormal [facility] Ketones, UA Negative Negative - 160(16) ++++ mg/dL [facility] Leukocytes, UA Trace Negative - 500+++ Pranav/mcL [facility] Nitrite, UA Negative Negative - Positive [facility] pH, UA 6.5 5 - 9 [facility] Protein, UA Negative Negative - 2000(20) ++++ mg/dL [facility] Spec Grav, UA 1.025 1 - 1.03 [facility] Urobilinogen, UA 0.2 0.2 - 12 mg/dL [facility] US OB BPP W NON-STRESS on 07-23-[address] [address] Ultrasound Report Signed Patient: FRANCISCA BUTLER MR#: [id number] : 2000 Acct:[id number] Age/Sex: 23 / F ADM Date: 07/23/24 Loc: US Attending Dr: Fina Wilson Ordering Physician: Fina Wilson Date of Service: 07/23/24 Procedure(s): US OB BPP w non-stress Accession Number(s): [id number] cc: Fina Wilson; Physician,Non-Staff MAnayeli The [place] [id number] Patient Name: FRANCISCA BUTLER MRN: [facility]:[id number] date: 2000 Sex: F Assigned Patient Location: [facility] Current Patient Location: Accession/Order Number: [id number] Exam Date: 07/23/2024 21:57 Report Date: 07/23/2024 21:58 At the request of: FINA WILSON Procedure: [...] Fernández M.D. 07/23/2024 9:58 PM Dictation Location: [place] [address] Electronically authenticated by: [id number] Y Date: 07/23/2024 21:58 Dictated By: Willam Fernández D.O. Signed By: 07/23/242200 DD/ 57 TD/TT: Barrel Bung Remover And Dumper: [facility] Radiology, Radiologist, - 07/23/2024 [place] [address] Ultrasound Report Signed Patient: FRANCISCA BUTLER MR#: [id number] : 2000 Acct:[id number] Age/Sex: 23 / F ADM Date: 07/23/24 Loc: US Attending Dr: Fina Wilson Ordering Physician: Fina Wilson Date of Service: 07/23/24 Procedure(s): US OB BPP w non-stress Accession Number(s): [id number] cc: Fina Wilson; Physician,Non-Staff MAnayeli The [place] [address] Patient Name: FRANCISCA BUTLER MRN: [facility]:[id number] date: 2000 Sex: F Assigned Patient Location: [facility] Current Patient Location: Accession/Order Number: [id number] Exam Date: 07/23/2024 21:57 Report Date: 07/23/2024 21:58 At the request of: FINA WILSON Procedure: [...] Fernández M.D. 07/23/2024 9:58 PM Dictation Location: [employer] [place] Electronically authenticated by: [id number] Y Date: 07/23/2024 21:58 Dictated By: Willam Fernández D.O. Signed By: 07/23/242200 DD/ 57 TD/TT: Barrel Bung Remover And Dumper: [facility] Radiology Study observation (narrative) [facility] US OB BPP W NON-STRESS Ordered By: Radiologist Radiology on 07-23-2024 [facility] Work Phone: TB TOTAL PROTEIN 24 HOUR UR INEon 07-06-2024 Interpretation and review of laboratory results Abnormal [facility] Protein (U) [Mass/Vol] 14.2 mg/dL [facility] - 11.9 mg/dL [facility] TBH TOTAL PROTEIN 24 HOUR URINE 184.6 High [facility] TOTAL VOLUME 24 HOUR URINE 1300 mL/24hr [facility] CLINISYNC [facility] ALL CBC WITH AUTO DIFFon BASOPHILS ABSOLUTE AUTO 0 N [facility] Basophils/100 WBC (Bld) 0.3 % 0.2 - 2.0 % [facility] Eosinophils/100 WBC (Bld) 0.5 % Low 0.9 - 7.0 % [facility] Erythrocyte distribution width (RBC) [Ratio] 13.2 % 11.0 - 15.0 % [facility] Hematocrit (Bld) [Volume fraction] 32.9 % Low 36.0 - 48.0 % [facility] Hemoglobin (Bld) [Mass/Vol] 11 g/dL Low 12.0 - 16.0 g/dL [facility] IMMATURE GRANULOCYTES ABS AUTO 0.17 High [facility] Immature granulocytes/100 WBC (Bld) 1.6 % High 0.0 - 0.5 % [facility] Interpretation and review of laboratory results Abnormal [facility] LYMPHOCYTES ABSOLUTE AUTO 2 [facility] Lymphocytes/100 WBC (Bld) 18.7 % Low 20.5 - 60.0 % [facility] MCH (RBC) [Entitic mass] 29.9 pg 26.7 - 34.0 pg [facility] MCHC (RBC) [Mass/Vol] 33.4 g/dL 29.9 - 35.2 g/dL [facility] MCV (RBC) [Entitic vol] 89.4 fL 81.0 - 99.0 fL [facility] MONOCYTES ABSOLUTE AUTO 0.6 N [facility] Monocytes/100 WBC (Bld) 5.7 % 1.7 - 12.0 % [facility] NEUTROPHILS ABSOLUTE AUTO 7.7 High [facility] Neutrophils/100 WBC (Bld) 73.2 % 43.0 - 75.0 % [facility] Platelet mean volume (Bld) [Entitic vol] 10.7 fL 9.5 - 13.5 fL [facility] TBH EO # 0.1 [facility] TB PLT 237 [facility] RBC 3.68 Low [facility] WBC 10.5 [facility] Urinalysis macro (dipstick) panel (U)on 07-03-2024 Bilirubin, UA Negative Negative - 4(70) +++ mg/dL [facility] Blood, UA Positive Negative - 50 Adams/mcL [facility] Clarity, UA Clear [facility] Color, UA Yellow [facility] Glucose, UA Negative Negative - 2000(110) ++++ mg/dL [facility] Interpretation and review of laboratory results Abnormal [facility] Ketones, UA Negative Negative - 160(16) ++++ mg/dL [facility] Leukocytes, UA Trace Negative - 500+++ Pranav/mcL [facility] Nitrite, UA Negative Negative - Positive [facility] pH, UA 6.5 5 - 9 [facility] Protein, UA Negative Negative - 2000(20) ++++ mg/dL [facility] Spec Grav, UA 1.02 1 - 1.03 [facility] Urobilinogen, UA 1.0 0.2 - 12 mg/dL [facility] No Panel InformationOrdered By: Radiologist Radiology on 06-05-2024 [facility] Work Phone: No Panel Informationon 06-05 Radiology Study observation (narrative) [facility] US OB ANATOMYon 06-05-2024 [place] [address] Ultrasound Report Signed Patient: FRANCISCA QUIGLEY MR#: [id number] : 2000 Acct:[id number] Age/Sex: 23 / F ADM Date: 06/05/24 Loc: US Attending Dr: Hedy Pinto Ordering Physician: Hedy Pinto Date of Service: 06/05/24 Procedure(s): US OB anatomy Accession Number(s): [id number] cc: Hedy Pinto; Alfreda Mistry D.O. [address] [address] Patient Name: FRANCISCA QUIGLEY [facility]N: [facility]:[id number] date: 2000 Sex: F Assigned Patient Location: US Current Patient Location: US Accession/Order Number: [id number] Exam Date: 06/05/2024 19:29 Report Date: 06/05/2024 [...] Willam Fernández M.D.06/05/2024 7:36 PM Dictation Location: [place] [address] Electronically authenticated by: [id number] Y Date: 06/05/2024 19:36 Dictated By: Willam Fernández D.O. Signed By: 06/05/241938 DD/ 35 TD/TT: Barrel Bung Remover And Dumper: [facility] Radiology, Radiologist, MD - 06/06/[address] [address] Ultrasound Report Signed Patient: FRANCISCA QUIGLEY MR#: [id number] : 2000 Acct:[id number] Age/Sex: 23 / F ADM Date: 06/05/24 Loc: US Attending Dr: Hedy Pinto Ordering Physician: Hedy Pinto Date of Service: 06/05/24 Procedure(s): US OB anatomy Accession Number(s): [id number] cc: Hedy Pinto; Alfreda Mistry D.O. The [address] [address] Patient Name: FRANCISCA QUIGLEY MRN: [facility]:[id number] date: 2000 Sex: F Assigned Patient Location: US Current Patient Location: US Accession/Order Number: [id number] Exam Date: 06/05/2024 19:29 Report Date: 06/05/2024 [...] Willam Fernández M.D.06/05/2024 7:36 PM Dictation Location: [place] [address] Electronically authenticated by: [id number] Y Date: 06/05/2024 19:36 Dictated By: Willam Fernández D.O. Signed By: 06/05/241938 DD/ 35 TD/TT: Barrel Bung Remover And Dumper: [facility] [place] [address] Ultrasound Report Signed Patient: FRANCISCA QUIGLEY MR#: [id number] : 2000 Acct:[id number] Age/Sex: 23 / F ADM Date: 06/05/24 Loc: US Attending Dr: Hedy Pinto Ordering Physician: Hedy Pinto Date of Service: 06/05/24 Procedure(s): US OB cervical length Accession Number(s): [id number] cc: Hedy Pinto; Alfreda Mistry D.O. The [place] [address] Patient Name: FRANCISCA QUIGLEY MRN: [facility]:[id number] date: 2000 Sex: F Assigned Patient Location: US Current Patient Location: US Accession/Order Number: [id number] Exam Date: 06/05/2024 19:29 Report Date: 06/05/2024 [...] Willam Fernández M.D.06/05/2024 7:36 PM Dictation Location: [place] Electronically authenticated by: [id number] Y Date: 06/05/2024 19:36 Dictated By: Willam Fernández D.O. Signed By: 06/05/241938 DD/ 35 TD/TT: Barrel Bung Remover And Dumper: [facility] Radiology, Radiologist, - 06/06/2024 The [place] [id number] Ultrasound Report Signed Patient: FRANCISCA QUIGLEY MR#: [id number] : 2000 Acct:[id number] Age/Sex: 23 / F ADM Date: 06/05/24 Loc: US Attending Dr: Hedy Pinto Ordering Physician: Hedy Pinto Date of Service: 06/05/24 Procedure(s): US OB cervical length Accession Number(s): [id number] cc: Hedy Pinto; Alfreda Mistry D.O. The [place] [id number] Patient Name: FRANCISCA QUIGLEY MRN: [facility]:[id number] date: 2000 Sex: F Assigned Patient Location: US Current Patient Location: US Accession/Order Number: [id number] Exam Date: 06/05/2024 19:29 Report Date: 06/05/2024 [...] Willam Fernández M.D.06/05/2024 7:36 PM Dictation Location: [facility] Electronically authenticated by: [id number] Y Date: 06/05/2024 19:36 Dictated By: Willam Fernández D.O. Signed By: 06/05/241938 DD/ 35 TD/TT: Barrel Bung Remover And Dumper: [facility] Urinalysis macro (dipstick) panel (U)on 06-05-2024 Bilirubin, UA Negative Negative - 4(70) +++ mg/dL [facility] Blood, UA Negative Negative - 50 Adams/mcL [facility] Clarity, UA Clear [facility] Color, UA Yellow [facility] Glucose, UA Negative Negative - 2000(110) ++++ mg/dL [facility] Interpretation and review of laboratory results Normal [facility] Ketones, UA Negative Negative - 160(16) ++++ mg/dL [facility] Leukocytes, UA Trace Negative - 500+++ Pranav/mcL [facility] Nitrite, UA Negative Negative - Positive [facility] pH, UA 6.5 5 - 9 [facility] Protein, UA Negative Negative - 2000(20) ++++ mg/dL [facility] Spec Grav, UA 1.015 1 - 1.03 [facility] Urobilinogen, UA 0.2 0.2 - 12 mg/dL [facility] RECURRENT VAGINITIS (HTRX)on 05-09-2024 ATOPOBIUM VAGINAE 0 [facility] ATOPOBIUM VAGINAE Not detected [facility] BVAB 2,3 (BACTERIAL VAGINOSIS ASSOCIATED BACTERIA 2, 3); MOBILUNCUS SPP 0 [facility] BVAB 2,3 (BACTERIAL VAGINOSIS ASSOCIATED BACTERIA 2, 3); MOBILUNCUS SPP Not detected [facility] DAMIEN ALBICANS, PARAPSILOSIS, TROPICALIS 0 [facility] DAMIEN ALBICANS, PARAPSILOSIS, TROPICALIS Not detected [facility] DAMIEN GLABRATA 0 [facility] DAMIEN GLABRATA Not detected [facility] DAMIEN KRUSEI 0 [facility] DAMIEN KRUSEI Not detected [facility] CHLAMYDIA TRACHOMATIS 0 [facility] CHLAMYDIA TRACHOMATIS Not detected N [facility] ERMB, C; MEFA 18.636 Abnormal [facility] ERMB, C; MEFA Detected Abnormal [facility] GARDNERELLA VAGINALIS 31.766 Abnormal [facility] GARDNERELLA VAGINALIS Detected Abnormal [facility] Interpretation and review of laboratory results Abnormal [facility] MEGASPHAERA (TYPES 1, 2) 0 [facility] MEGASPHAERA (TYPES 1, 2) Not detected [facility] MYCOPLASMA GENITALIUM 0 [facility] MYCOPLASMA GENITALIUM Not detected N [facility] NEISSERIA GONORRHOEAE 0 [facility] NEISSERIA GONORRHOEAE Not detected N [facility] TET B, TET M 19.805 Abnormal [facility] TET B, TET M Detected Abnormal [facility] TRICHOMONAS VAGINALIS 0 [facility] TRICHOMONAS VAGINALIS Not detected N [facility] Urinalysis macro (dipstick) panel (U)on 05-06-2024 Bilirubin, UA Negative Negative - 4(70) +++ mg/dL [facility] Blood, UA Negative Negative - 50 Adams/mcL [facility] Clarity, UA Clear [facility] Color, UA Yellow [facility] Glucose, UA Negative Negative - 1999(110) ++++ mg/dL [facility] Interpretation and review of laboratory results Normal [facility] Ketones, UA Negative Negative - 160(16) ++++ mg/dL [facility] Leukocytes, UA Negative Negative - 500+++ Pranav/mcL [facility] Nitrite, UA Negative Negative - Positive [facility] pH, UA 7.5 5 - 9 [facility] Protein, UA Negative Negative - 1999(20) ++++ mg/dL [facility] Spec Grav, UA 1.02 1 - 1.03 [facility] Urobilinogen, UA 1.0 0.2 - 12 mg/dL [facility] ALL CBC WITH AUTO DIFFon BASOPHILS ABSOLUTE AUTO 0 [facility] Basophils/100 WBC (Bld) 0.6 % 0.2 - 2.0 % [facility] Eosinophils/100 WBC (Bld) 1.3 % 0.9 - 7.0 % [facility] Erythrocyte distribution width (RBC) [Ratio] 12.5 % 11.0 - 15.0 % [facility] Hematocrit (Bld) [Volume fraction] 36.7 % 36.0 - 48.0 % [facility] Hemoglobin (Bld) [Mass/Vol] 12.6 g/dL 12.0 - 16.0 g/dL [facility] IMMATURE GRANULOCYTES ABS AUTO 0.01 [facility] Immature granulocytes/100 WBC (Bld) 0.1 % 0.0 - 0.5 % [facility] LYMPHOCYTES ABSOLUTE AUTO 2 [facility] [facility] Lymphocytes/100 WBC (Bld) 30.4 % 20.5 - 60.0 % [facility] MCH (RBC) [Entitic mass] 29.4 pg 26.7 - 34.0 pg [facility] MCHC (RBC) [Mass/Vol] 34.3 g/dL 29.9 - 35.2 g/dL [facility] MCV (RBC) [Entitic vol] 85.5 fL 81.0 - 99.0 fL [facility] MONOCYTES ABSOLUTE AUTO 0.5 N [facility] Monocytes/100 WBC (Bld) 7.6 % 1.7 - 12.0 % [facility] NEUTROPHILS ABSOLUTE AUTO 4 [facility] Neutrophils/100 WBC (Bld) 60 % 43.0 - 75.0 % [facility] Platelet mean volume (Bld) [Entitic vol] 10.5 fL 9.5 - 13.5 fL [facility] TBH EO # 0.1 [facility] TBH PLT 280 [facility] RBC 4.29 [facility] WBC 6.7 [facility] BOX TESTon 03-18-2024 BOX TEST SENT OUT [facility] BOX1 [facility] BOX2 03/18/2023 [facility] HCG ( test) Ql (U)o n 03-07-2024 Interpretation and review of laboratory results Abnormal [facility] Preg Test, Ur Positive Negative [facility] US OB TRANSVAGINALon 025 US OB [...] x 2.8 cm (7 weeks, 3 days). [place] rump length is 1.7 cm (8 weeks, [...] UA Negative Negative - 4(70) +++ mg/dL [facility] Blood, UA Negative Negative - 50 Adams/mcL [facility] Clarity, UA Clear [facility] Color, UA Yellow [facility] Glucose, UA Negative Negative - 2000(110) ++++ mg/dL [facility] Interpretation and review of laboratory results Normal [facility] Ketones, UA Negative Negative - 160(16) ++++ mg/dL [facility] Leukocytes, UA Negative Negative - 500+++ Pranav/mcL [facility] Nitrite, UA Negative Negative - Positive [facility] pH, UA 5.5 5 - 9 [facility] Protein, UA Negative Negative - 2000(20) ++++ mg/dL [facility] Spec Grav, UA 1.025 1 - 1.03 [facility] Urobilinogen, UA 1.0 0.2 - 12 mg/dL [facility] Vital Signs Date Time Vital Sign Value Performing Clinician Faci lity 09-18-2024 14:23-0400 Body mass index (BMI) [Ratio] 35.19 kg/m2 Alfreda Fede DO Work Phone: [facility] 09-18-2024 14:23-0400 Body weight 92.99 kg Alfreda Fede DO Work Phone: [facility] 09-18-2024 14:23-0400 Diastolic blood pressure 84 mm[Hg] Alfreda Fede DO Work Phone: [facility] 09-18-2024 14:23-0400 Systolic blood pressure 126 mm[Hg] Alfreda Fede DO Work Phone: [facility] 09-11-2024 15:49-0400 Body mass index (BMI) [Ratio] 34.84 kg/m2 Hedy Nineveh PA Work Phone: [facility] 09-11-2024 15:49-0400 Body weight 92.08 kg Hedy Blair PA Work Phone: [facility] 09-11-2024 15:49-0400 Diastolic blood pressure 80 mm[Hg] Hedy Nineveh PA Work Phone: [facility] 09-11-2024 15:49-0400 Systolic blood pressure 120 mm[Hg] Hedy Blair PA Work Phone: [facility] 09-04-2024 14:58-0400 Body mass index (BMI) [Ratio] 34.5 kg/m2 Hedy Nineveh PA Work Phone: [facility] 09-04-2024 14:58-0400 Body weight 91.17 kg Hedy Blair PA Work Phone: [facility] 09-04-2024 14:58-0400 Diastolic blood pressure 82 mm[Hg] Hedy Nineveh PA Work Phone: [facility] 09-04-2024 14:58-0400 Systolic blood pressure 132 mm[Hg] Hedy Nineveh PA Work Phone: [facility] 08-20-2024 11:48-0400 Body height 162.6 cm Alfreda Fede DO Work Phone: [facility] 08-20-2024 11:47-0400 Body mass index (BMI) [Ratio] 33.17 kg/m2 Alfreda Fede DO Work Phone: [facility] 08-20-2024 11:47-0400 Body weight 87.66 kg Alfreda Fede DO Work Phone: [facility] 08-20-2024 11:47-0400 Diastolic blood pressure 90 mm[Hg] Alfreda Fede DO Work Phone: [facility] 08-20-2024 11:47-0400 Systolic blood pressure 126 mm[Hg] Alfreda Fede DO Work Phone: [facility] 08-07-2024 16:19-0400 Body weight 88.54 kg Hedy WERNER Work Phone: [facility] 08-07-2024 16:19-0400 Diastolic blood pressure 80 mm[Hg] Hedy WERNER Work Phone: [facility] 08-07-2024 16:19-0400 Systolic blood pressure 122 mm[Hg] Hedy WERNER Work Phone: [facility] 07-24-2024 15:57-0400 Body weight 87.91 kg Alfreda Fede DO Work Phone: [facility] 07-24-2024 15:57-0400 Diastolic blood pressure 86 mm[Hg] Alfreda Fede DO Work Phone: [facility] 07-24-2024 15:57-0400 Systolic blood pressure 130 mm[Hg] Alfreda Fede DO Work Phone: [facility] 07-03-2024 16:03-0400 Body weight 86.64 kg Fina Wilson INTERNAL MEDICINE NURSE PRACTITIONER Work Phone: [facility] 07-03-2024 16:03-0400 Diastolic blood pressure 100 mm[Hg] Fina Katie INTERNAL MEDICINE NURSE PRACTITIONER Work Phone: [facility] 07-03-2024 16:03-0400 Systolic blood pressure 142 mm[Hg] Fina Katie INTERNAL MEDICINE NURSE PRACTITIONER Work Phone: [facility] 06-05-2024 14:18-0400 Body weight 84.37 kg Alfreda Fede DO Work Phone: [facility] 06-05-2024 14:18-0400 Diastolic blood pressure 76 mm[Hg] Alfreda Fede DO Work Phone: [facility] 06-05-2024 14:18-0400 Systolic blood pressure 118 mm[Hg] Alfreda Fede DO Work Phone: [facility] 05-06-2024 15:44-0500 Body weight 83.01 kg Hedy WERNER Work Phone: [facility] 05-06-2024 15:44-0500 Diastolic blood pressure 76 mm[Hg] Hedy WERNER Work Phone: [facility] 05-06-2024 15:44-0500 Systolic blood pressure 112 mm[Hg] Hedy WERNER Work Phone: [facility] 04-08-2024 16:04-0500 Body weight 82.92 kg Alfreda Fede DO Work Phone: [facility] 04-08-2024 16:04-0500 Diastolic blood pressure 74 mm[Hg] Alfreda Fede DO Work Phone: [facility] 04-08-2024 16:04-0500 Systolic blood pressure 116 mm[Hg] Alfreda Fede DO Work Phone: [facility] 03-07-2024 15:24-0500 Body weight 85.64 kg [facility] Encounters Encounter Date Encounter Type Care Provider Facility Start: 09-18-2024 End: 09-18-2024 Clinisync Result Encounter Fina Wilson NP Work Phone: [facility] External Department Unsolicited Start: 09-18-2024 End: 09-18-2024 Clinisync Result Encounter Fina Wilson NP Work Phone: [facility] External Department Unsolicited Start: 09-18-2024 End: 09-18-2024 flow sheet Alfreda Mistry DO Work Phone: [facility] Comment on above: 36 weeks gestation o f (HHS-HCC); Third trimester (HHS-HCC); Hypertension during in third trimester, unspecified hypertension in type (HHS-HCC); Pre-eclampsia in third trimester (HHS-HCC) Start: 09-11-2024 End: 09-11-2024 ambulatory HEDY BLAIR Not Available Start: 09-11-2024 End: 09-11-2024 flow sheet Hedy WERNER Work Phone: [facility] Comment on above: 35 weeks gestation o f (HHS-HCC); Third trimester (HHS-HCC); Hypertension during in third trimester, unspecified hypertension in type (HHS-HCC); induced hypertension, antepartum (HHS-HCC); Pre-eclampsia in third trimester (HHS-HCC) Start: 09-11-2024 End: 09-11-2024 Clinisync Result Encounter Fina Wilson NP Work Phone: [facility] External Department Unsolicited Start: 09-11-2024 End: 09-11-2024 Clinisync Result Encounter Fina Wilson NP Work Phone: [facility] Department Unsolicited Start: 09-04-2024 End: 09-04-2024 ambulatory HEDY BLAIR Not Available Start: 09-04-2024 End: 09-04-2024 flow sheet Heyd WERNER Work Phone: [facility] Comment on above: Pharyngitis, unspeci fied etiology (Primary Dx); Third trimester (HHS-HCC); 34 weeks gestation of (HHS-HCC); Hypertension during in third trimester, unspecified hypertension in type (HHS-HCC); induced hypertension, antepartum (HHS-HCC); Pre-eclampsia in third trimester (HHS-HCC) Start: 09-04-2024 End: 09-04-2024 Clinisync Result Encounter Fina Wilson NP Work Phone: [facility] Department Unsolicited Start: 09-04-2024 End: 09-04-2024 Clinisync Result Encounter Fina Katie INTERNAL MEDICINE NURSE PRACTITIONER Work Phone: [facility] External Department Unsolicited Start: 08-28-2024 End: 08-28-2024 Clinisync Result Encounter Fina Katie INTERNAL MEDICINE NURSE PRACTITIONER Work Phone: [facility] External Department Unsolicited Start: 08-28-2024 End: 08-28-2024 Clinisync Result Encounter Fina Katie INTERNAL MEDICINE NURSE PRACTITIONER Work Phone: [facility] External Department Unsolicited Start: 08-21-2024 End: 08-21-2024 Clinisync Result Encounter Fina Katie INTERNAL MEDICINE NURSE PRACTITIONER Work Phone: [facility] External Department Unsolicited Start: 08-21-2024 End: 08-21-2024 Clinisync Result Encounter Fina Katie INTERNAL MEDICINE NURSE PRACTITIONER Work Phone: [facility] External Department Unsolicited Start: 08-20-2024 End: 08-20-2024 flow sheet Alfreda Fede DO Work Phone: [facility] Comment on above: Third trimester preg [place] ([facility]); 32 weeks gestation of ([facility]-H[facility]); Pre-eclampsia in third trimester ([facility]-HCC); induced hypertension, antepartum ([facility]-HCC) Start: 08-20-2024 End: 08-20-2024 ambulatory ALFREDA FEDE Not Available Start: 08-13-2024 End: 08-13-2024 Clinisync Result Encounter Fina Katie INTERNAL MEDICINE NURSE PRACTITIONER Work Phone: [facility] External Department Unsolicited Start: 08-13-2024 End: 08-13-2024 Clinisync Result Encounter Fina Katie INTERNAL MEDICINE NURSE PRACTITIONER Work Phone: [facility] External Department Unsolicited Start: 08-07-2024 End: 08-07-2024 ambulatory HEDY PINTO Not Available Start: 08-07-2024 End: 08-07-2024 flow sheet Hedy Pinto PA Work Phone: [facility] Comment on above: Hypertension during in third trimester, unspecified hypertension in type (Primary Dx); Third trimester ; 30 weeks gestation of Start: 08-07-2024 End: 08-07-2024 Bamboo flowsheet Hedy WERNER Work Phone: [facility] Start: 08-07-2024 End: 08-07-2024 Bamboo flowsheet Hedy WERNER Work Phone: [facility] Start: 08-06-2024 End: 08-06-2024 Clinisync Result Encounter Fina Katie INTERNAL MEDICINE NURSE PRACTITIONER Work Phone: [facility] External Department Unsolicited Start: 08-06-2024 End: 08-06-2024 Clinisync Result Encounter Fina Aktie INTERNAL MEDICINE NURSE PRACTITIONER Work Phone: [facility] External Department Unsolicited Start: 07-31-2024 End: 07-31-2024 Clinisync Result Encounter Fina Katie INTERNAL MEDICINE NURSE PRACTITIONER Work Phone: [facility] External Department Unsolicited Start: 07-31-2024 End: 07-31-2024 Clinisync Result Encounter Fina Katie INTERNAL MEDICINE NURSE PRACTITIONER Work Phone: [facility] Department Unsolicited Start: 07-24-2024 End: 07-24-2024 flow sheet Alfreda Fede DO Work Phone: [facility] Comment on above: 28 weeks gestation o f ; Third trimester Start: 07-24-2024 End: 07-24-2024 ambulatory ALFREDA FEDE Not Available Start: 07-23-2024 End: 07-23-2024 Clinisync Result Encounter Fina Katie INTERNAL MEDICINE NURSE PRACTITIONER Work Phone: [facility] Department Unsolicited Start: 07-23-2024 End: 07-23-2024 Clinisync Result Encounter Fina Katie INTERNAL MEDICINE NURSE PRACTITIONER Work Phone: [facility] Department Unsolicited Start: 07-10-2024 End: 07-10-2024 ambulatory ALFREDA FEDE Not Available Start: 07-06-2024 End: 07-06-2024 Clinisync Result Encounter Fina Katie INTERNAL MEDICINE NURSE PRACTITIONER Work Phone: [facility] Department Unsolicited Start: 07-06-2024 End: 07-06-2024 Clinisync Result Encounter Fina Hullerly INTERNAL MEDICINE NURSE PRACTITIONER Work Phone: [facility] External Department Unsolicited Start: 07-04-2024 End: 07-04-2024 Clinisync Result Encounter Fina Katie INTERNAL MEDICINE NURSE PRACTITIONER Work Phone: [facility] External Department Unsolicited Start: 07-04-2024 End: 07-04-2024 Clinisync Result Encounter Fina Parkly INTERNAL MEDICINE NURSE PRACTITIONER Work Phone: [facility] Department Unsolicited Start: 07-03-2024 End: 07-03-2024 ambulatory FINA KATIE Not Available Start: 07-03-2024 End: 07-03-2024 flow sheet Fina Katie INTERNAL MEDICINE NURSE PRACTITIONER Work Phone: [facility] Comment on above: Second trimester pre gnancy; 25 weeks gestation of ; Diabetes mellitus screening; induced hypertension, antepartum Start: 07-03-2024 End: 07-03-2024 Bamboo flowsheet Fina Katie INTERNAL MEDICINE NURSE PRACTITIONER Work Phone: [facility] Start: 07-03-2024 End: 07-03-2024 Bamboo flowsheet Fina Katie INTERNAL MEDICINE NURSE PRACTITIONER Work Phone: [facility] Start: 06-05-2024 End: 06-05-2024 ambulatory ALFREDA FEDE Not Available Start: 06-05-2024 End: 06-05-2024 flow sheet Alfreda Fede DO Work Phone: [facility] Comment on above: Second trimester pre gnancy; 21 weeks gestation of Start: 06-05-2024 End: 06-05-2024 Bamboo flowsheet Alfreda Fede DO Work Phone: [facility] Start: 06-05-2024 End: 06-06-2024 Bamboo flowsheet Alfreda Fede DO Work Phone: [facility] Start: 06-05-2024 End: 06-06-2024 Clinisync Result Encounter Hedy WERNER Work Phone: [facility] External Department Unsolicited Start: 05-06-2024 End: 05-06-2024 Patient encounter procedure Hedy WERNER Work Phone: [facility] Start: 05-06-2024 End: 05-06-2024 flow sheet Hedy WERNER Work Phone: [facility] Comment on above: Well woman exam with routine gynecological exam; Exposure to STD; Need for maternal serum alpha-protein (MSAFP) screening; Second trimester ; 17 weeks gestation of ; Screening, , for anatomic survey Start: 05-06-2024 End: 05-06-2024 ambulatory HEDY PINTO Not Available Start: 05-06-2024 End: 05-06-2024 Bamboo flowsheet Hedy WERNER Work Phone: [facility] Start: 05-06-2024 End: 05-09-2024 Bamboo flowsheet Hedy WERNER Work Phone: [facility] Start: 05-06-2024 End: 05-09-2024 External Result Encounter Hedy WERNER Work Phone: [facility] Department Unsolicited Start: 04-08-2024 End: 04-08-2024 flow sheet Alfreda Fede DO Work Phone: [facility] Comment on above: 13 weeks [...] Date Procedure Procedure Detail Performing Clinician Start: 09-18-2024 Urnls dip stick/tabl et rgnt non-auto w/o micrscp Alfreda Fede DO Work Phone: Start: 09-18-2024 US OB BPP W NON-STRESS Fina Katie INTERNAL MEDICINE NURSE PRACTITIONER Work Phone: Start: 09-11-2024 Urnls dip stick/tabl et rgnt non-auto w/o micrscp Hedy WERNER Work Phone: Start: 09-11-2024 US OB BPP W NON-STRESS Fina Katie INTERNAL MEDICINE NURSE PRACTITIONER Work Phone: Start: 09-04-2024 Urnls dip stick/tabl et rgnt non-auto w/o micrscp Hedy WERNER Work Phone: Start: 09-04-2024 US OB BPP W NON-STRESS Fina Katie INTERNAL MEDICINE NURSE PRACTITIONER Work Phone: Start: 08-28-2024 US OB BPP W NON-STRESS Fina Katie INTERNAL MEDICINE NURSE PRACTITIONER Work Phone: Start: 08-21-2024 US OB BPP W NON-STRESS Fina Katie INTERNAL MEDICINE NURSE PRACTITIONER Work Phone: Start: 08-20-2024 Urnls dip stick/tabl et rgnt non-auto w/o micrscp Alfreda Fede DO Work Phone: Start: 08-13-2024 OB BPP W NON-STRESS Fina Katie INTERNAL MEDICINE NURSE PRACTITIONER Work Phone: Start: 08-06-2024 US OB BPP W NON-STRESS Fina Katie INTERNAL MEDICINE NURSE PRACTITIONER Work Phone: Start: 07-31-2024 US OB BPP W NON-STRESS Fina Katie INTERNAL MEDICINE NURSE PRACTITIONER Work Phone: Start: 07-24-2024 Urnls dip stick/tabl et rgnt non-auto w/o micrscp Alfreda Fede DO Work Phone: Start: 07-23-2024 US OB BPP W NON-STRESS Fina Katie INTERNAL MEDICINE NURSE PRACTITIONER Work Phone: Start: 07-06-2024 TBH TOTAL PROTEIN 24 HOUR URINE Fina Katie INTERNAL MEDICINE NURSE PRACTITIONER Work Phone: Start: 07-04-2024 ALL CBC WITH AUTO DIFF Fina Katie INTERNAL MEDICINE NURSE PRACTITIONER Work Phone: Start: 07-03-2024 Urnls dip stick/tabl et rgnt non-auto w/o micrscp Fina Katie INTERNAL MEDICINE NURSE PRACTITIONER Work Phone: Start: 06-05-2024 US OB ANATOMY Hedy WERNER Work Phone: Start: 06-05-2024 US OB CERVICAL LENGTH A long WERNER Work Phone: Start: 06-05-2024 Urnls dip [...] dip stick/tablet rgnt non-auto w/o micrscp Alfreda Mistry DO Work Phone: Plan of Treatment Date Care Activity Detail Author Start: 09-25-2024 End: 09-25-2024 Patient encounter procedure 09/25/2024 2:00 PM EDT Routine [facility] [address] [place] [address] Alfreda Mistry, DO [facility] [address] [place], [place] [id number] [facility] Start: 09-18-2024 End: 09-18-2024 Patient encounter procedure 09/18/2024 2:00 PM EDT Routine [facility] [address] [place] [address] Alfreda Mistry, [facility] [address] [facility] Start: 09-17-2024 End: 09-17-2024 Professional / ancillary services management 09/17/2024 1:30 PM EDT Ancillary Procedure [facility] [address] [place] [address] [facility] Start: 09-11-2024 End: 09-11-2024 Patient encounter procedure 09/11/2024 3:20 PM EDT Routine [facility] [address] [place] [address] Hedy Pinto PA [address] [place], [place] [id number] [facility] Start: 09-11-2024 End: 09-11-2025 CULTURE, GROUP B STREP WITH SUSCEPTIBLITY CULTURE, GROUP B STREP WITH SUSCEPTIBLITY Lab Routine Third trimester ([facility]) Expected: 09/11/2024, Expires: 09/11/2025 [facility] Work Phone: Comment on above: Expected: 09/11/2024 , Expires: 09/11/2025 Start: 09-04-2024 End: 09-04-2024 Patient encounter procedure 09/04/2024 2:30 PM EDT Routine [facility] [address] [place] [id number] Hedy Pinto PA [address] [place] [address] [facility] Start: 08-21-2024 End: 08-21-2024 Patient encounter procedure [facility] Start: 08-21-2024 End: 08-21-2024 Professional / ancillary services management 08/21/2024 10:30 AM EDT Ancillary Procedure [facility] [address] [place] [id number] [facility] Start: 08-07-2024 End: 08-07-2024 Patient encounter procedure 08/07/2024 3:50 PM EDT Routine [facility] [address] [place] [id number] Hedy Pinto PA [address] [place] [address] [facility] Start: 08-07-2024 End: 02-06-2025 US biophysical profile w non stress test US biophysical profile w non stress test Imaging Routine Hypertension during in third trimester, unspecified hypertension in type Expected: 08/07/2024 (Approximate), Expires: 02/06/2025 [facility] Work Phone: Comment on above: Expected: 08/07/2024 (Approximate), Expires: 02/06/2025 Start: 08-07-2024 End: 12-07-2024 US for US OB follow up transabdominal approach Imaging Routine Hypertension during in third trimester, unspecified hypertension in type Expected: 08/07/2024, Expires: 12/07/2024 [facility] Comment on above: Expected: 08/07/2024 , Expires: 12/07/2024 Start: 07-24-2024 End: 07-24-2024 Patient encounter procedure 07/24/2024 3:30 PM EDT Routine [facility] [address] [place] [address] Alfreda Mistry DO [address] [place] [address] [facility] Start: 07-24-2024 End: 07-24-2024 Professional / ancillary services management 07/24/2024 3:00 PM EDT Ancillary Procedure [facility] [address] [place] [phone] [facility] Start: 07-10-2024 End: 07-10-2024 Clinical Support 07/10/2024 11:30 AM EDT Clinical Support [facility] [address] [place] [phone] [facility] Start: 07-03-2024 End: 07-03-2024 Patient encounter procedure 07/03/2024 3:30 PM EDT Routine [facility] [address] [place] [phone] Hedy Pinto PA [address] [place] [address] [facility] Start: 07-03-2024 End: 07-03-2025 Alanine aminotransferase [Enzymatic activity/volume] in Serum or Plasma ALT Lab Routine induced hypertension, antepartum Expected: 07/03/2024 (Approximate), Expires: 07/03/2025 [facility] Comment on above: Expected: 07/03/2024 (Approximate), Expires: 07/03/2025 Start: 07-03-2024 End: 07-03-2025 Aspartate aminotransferase [Enzymatic activity/volume] in Serum or Plasma AST Lab Routine induced hypertension, antepartum Expected: 07/03/2024 (Approximate), Expires: 07/03/2025 [facility] Comment on above: Expected: 07/03/2024 (Approximate), Expires: 07/03/2025 Start: 07-03-2024 End: 07-03-2025 CBC panel - Blood by Automated count CBC Lab Routine Diabetes mellitus screening Expected: 07/03/2024 (Approximate), Expires: 07/03/2025 [facility] Work Phone: Comment on above: Expected: 07/03/2024 (Approximate), Expires: 07/03/2025 Start: 07-03-2024 End: 07-03-2025 CBC W Auto Differential panel - Blood CBC and differential Lab Routine induced hypertension, antepartum Expected: 07/03/2024 (Approximate), Expires: 07/03/2025 [facility] Comment on above: Expected: 07/03/2024 (Approximate), Expires: 07/03/2025 Start: 07-03-2024 End: 07-03-2025 Creatinine [Mass/volume] in Serum or Plasma Creatinine Lab Routine induced hypertension, antepartum Expected: 07/03/2024 (Approximate), Expires: 07/03/2025 [facility] Comment on above: Expected: 07/03/2024 (Approximate), Expires: 07/03/2025 Start: 07-03-2024 End: 07-03-2025 Lactate dehydrogenase [Enzymatic activity/volume] in Serum or Plasma by Lactate to pyruvate reaction Lactate dehydrogenase Lab Routine induced hypertension, antepartum Expected: 07/03/2024, Expires: 07/03/2025 [facility] Comment on above: Expected: 07/03/2024 , Expires: 07/03/2025 Start: 07-03-2024 End: 07-03-2025 Measurement of glucose 1 hour after glucose challenge for glucose tolerance test Glucose tolerance, 1 hour Lab Routine Diabetes mellitus screening Expected: 07/03/2024 (Approximate), Expires: 07/03/2025 [facility] Comment on above: Expected: 07/03/2024 (Approximate), Expires: 07/03/2025 Start: 07-03-2024 End: 07-03-2025 Protein, urine, 24 hour Protein, urine, 24 hour Lab Routine induced hypertension, antepartum Expected: 07/03/2024 (Approximate), Expires: 07/03/2025 [facility] [facility] Comment on above: Expected: 07/03/2024 (Approximate), Expires: 07/03/2025 Start: 07-03-2024 End: 07-03-2025 Pt and ptt Pt and ptt Lab Routine induced hypertension, antepartum Expected: 07/03/2024, Expires: 07/03/2025 [facility] Comment on above: Expected: 07/03/2024 , Expires: 07/03/2025 Start: 07-03-2024 End: 07-03-2025 Urate [Mass/volume] in Serum or Plasma Uric acid Lab Routine induced hypertension, antepartum Expected: 07/03/2024 (Approximate), Expires: 07/03/2025 [facility] Comment on above: Expected: 07/03/2024 (Approximate), Expires: 07/03/2025 Start: 07-03-2024 End: 07-03-2025 Urea nitrogen [Mass/volume] in Serum or Plasma BUN Lab Routine induced hypertension, antepartum Expected: 07/03/2024, Expires: 07/03/2025 [facility] Comment on above: Expected: 07/03/2024 , Expires: 07/03/2025 Start: 07-03-2024 End: 01-02-2025 US biophysical profile w non stress test US biophysical profile w non stress test Imaging Routine induced hypertension, antepartum Expected: 07/03/2024 (Approximate), Expires: 01/02/2025 [facility] Comment on above: Expected: 07/03/2024 (Approximate), Expires: 01/02/2025 Start: 07-03-2024 End: 11-02-2024 US for US OB follow up transabdominal approach Imaging Routine induced hypertension, antepartum Expected: 07/03/2024, Expires: 11/02/2024 [facility] Comment on above: Expected: 07/03/2024 , Expires: 11/02/2024 Start: 06-05-2024 End: 06-05-2024 Patient encounter procedure 06/05/2024 3:30 PM EDT Routine [facility] [address] [place] [id number] Alfreda Mistry DO [address] [place] [address] [facility] Start: 06-05-2024 End: 06-05-2024 Professional / ancillary services management 06/05/2024 2:30 PM EDT Ancillary Procedure [facility] [address] [place] [id number] [facility] Start: 05-06-2024 End: 05-06-2024 Patient encounter procedure 05/06/2024 3:30 PM EST Routine [facility] [address] [place] [id number] Hedy Pinto PA [address] [place] [address] [facility] Start: 05-06-2024 End: 06-06-2024 Alpha fetoprotein, maternal Alpha fetoprotein, maternal Lab Routine Need for maternal serum alpha-protein (MSAFP) screening Expected: 05/06/2024 (Approximate), Expires: 06/06/2024 [facility] Comment on above: Expected: 05/06/2024 (Approximate), Expires: 06/06/2024 Start: 05-06-2024 End: 05-06-2025 US for US OB 14+ weeks anatomy scan Imaging Routine Screening, , for anatomic survey Expected: 05/06/2024, Expires: 05/06/2025 [facility] Comment on above: Expected: 05/06/2024 , Expires: 05/06/2025 Start: 04-08-2024 End: 04-08-2024 Patient encounter procedure [facility] Comment on above: Arrived Start: 03-07-2024 End: 03-07-2025 ABO/Rh ABO/Rh Lab Routine Missed menses , unspecified gestational age Expected: 03/07/2024 (Approximate), Expires: 03/07/2025 [facility] Comment on above: Expected: 03/07/2024 (Approximate), Expires: 03/07/2025 Start: 03-07-2024 End: 03-07-2025 Blood type and Indirect antibody screen panel - Blood Type and screen Lab Routine Missed menses , unspecified gestational age Expected: 03/07/2024 (Approximate), Expires: 03/07/2025 [facility] Comment on above: Expected: 03/07/2024 (Approximate), Expires: 03/07/2025 Start: 03-07-2024 End: 03-07-2025 Drugs of abuse panel - Urine by Screen method Rapid drug screen, urine Lab Routine , unspecified gestational age Encounter for supervision of normal first in first trimester Expected: 03/07/2024 (Approximate), Expires: 03/07/2025 [facility] Comment on above: Expected: 03/07/2024 (Approximate), Expires: 03/07/2025 Start: 03-07-2024 End: 03-07-2025 US Pelvis transvaginal [facility] Work Phone: Comment on above: Expected: 03/07/2024 , Expires: 03/07/2025 Bacteria identified in Urine by Culture Urine culture Microbiology Routine Missed menses Ordered: 03/07/2024 [facility] Comment on above: Ordered: 03/07/2024 CBC W Auto Different ial panel - Blood CBC and differential Lab Routine Missed menses , unspecified gestational age Ordered: 03/07/2024 [facility] Comment on above: Ordered: 03/07/2024 CHLAMYDIA TRACHOMATI S (GENITO/STI) CHLAMYDIA TRACHOMATIS (GENITO/STI) Lab Routine Exposure to STD Ordered: 05/06/2024 [facility] Comment on above: Ordered: 05/06/2024 Cytology Cervical or vaginal smear or scraping study Pap Smear Pathology and Cytology Routine Well woman exam with routine gynecological exam Ordered: 05/06/2024 [facility] Comment on above: Ordered: 05/06/2024 Hemoglobin A1c/Hemoglobin.total in Blood Hemoglobin A1c Lab Routine Missed menses , unspecified gestational age Ordered: 03/07/2024 [facility] Comment on above: Ordered: 03/07/2024 Hepatitis B virus thurman rface Ag [Presence] in Serum or Plasma by Immunoassay Hepatitis B surface antigen Lab Routine Missed menses , unspecified gestational age Ordered: 03/07/2024 [facility] Comment on above: Ordered: 03/07/2024 Hepatitis C virus Ab [Presence] in Serum or Plasma by Immunoassay Hepatitis C antibody Lab Routine Missed menses , unspecified gestational age Ordered: 03/07/2024 [facility] Comment on above: Ordered: 03/07/2024 HIV-1/HIV-2 antigen/antibody combination immunoassay HIV-1 and HIV-2 antibodies Lab Routine Missed menses , unspecified gestational age Ordered: 03/07/2024 [facility] Comment on above: Ordered: 03/07/2024 Neisseria gonorrhoea e DNA [Presence] in Unspecified specimen by ROXY with probe detection Neisseria gonorrhea DNA probe, direct Lab Routine Exposure to STD Ordered: 05/06/2024 [facility] Comment on above: Ordered: 05/06/2024 Progesterone Progesterone Lab Routine Missed menses , unspecified gestational age Ordered: 03/07/2024 [facility] Comment on above: Ordered: 03/07/2024 Reagin Ab [Presence] in Serum by RPR RPR Lab Routine Missed menses , unspecified gestational age Ordered: 03/07/2024 [facility] Comment on above: Ordered: 03/07/2024 Rubella antibody, IgG Rubella an tibody, IgG Lab Routine Missed menses , unspecified gestational age Ordered: 03/07/2024 [facility] Comment on above: Ordered: 03/07/2024 SURESWAB(R) ADVANCED VAGINITIS PLUS, TMA SURESWAB(R) ADVANCED VAGINITIS PLUS, TMA Pathology and Cytology Routine Exposure to STD Ordered: 05/06/2024 [facility] Work Phone: Comment on above: Ordered: 05/06/2024 Payers Date Payer Category Payer ([employer]) [id number] 2024 [employer] ( and others) [id number] 2023 Private Health Insurance [facility] [id number] 2023 Private Health Insurance [id number] 2000 Unknown [id number] [id number]. 2.1258 2000 Unknown [id number] 2.16.840.1.104313.3.579. 2.1258 2000 Unknown [id number] 2.16.840.1.070626.3.579. 2.1258 2000 Unknown [id number] 2.16.840.1.346602.3.579. 2.9 2000 Unknown [id number] 2.16.840.1.830281.3.579. 2.1258 2000 Unknown [id number] 2.16.840.1.519437.3.579. 2.9 2000 Unknown [id number] 2.16.840.1.760345.3.579. 2.1258 2000 Unknown [id number] 2.16.840.1.939376.3.579. 2.1259 2000 Unknown [id number] 2.16.840.1.990904.3.579. 2.9 2000 Unknown [id number] 2.16.840.1.641762.3.579. 2.9 2000 Unknown [id number] 2.16.840.1.319185.3.579. 2.9 2000 Unknown [id number] 2.16.840.1.881958.3.579. 2.9 2000 Unknown [id number] 2.16.840.1.495394.3.579. 2.9 2000 Unknown [id number] 2.16.840.1.224498.3.579. 2.9 Social History Date Type Detail Facility Tobacco smoking stat [facility] Tobacco smoking consumption unknown [facility] Start: 01-22-2024 [facility] Start: 2000 Sex assigned at Female [facility] Start: 02-13-2024 Gender identity Identifies as female gender (finding) [facility] Start: 02-13-2024 Sexual orientation Heterosexual (fin ding) [facility] Clinical Notes 03-07-2024 to 09-18-2024 Marielos Rapp LPN - 09/18/2024 2:00 PM DEBBI Mcgowan - 09/11/2024 3:20 PM DEBBI Mcgowan - 09/04/2024 2:30 PM EDTMarielos Rapp LPN - 08/20/2024 11:20 AM DEBBI Mcgowan - 08/07/2024 3:50 PM EDT Note Date & Type Note Facility 09-18-2024 History of Presen t illness Narrative Reason for Appointment: Patient ID: Francisca Butler is a 24 y.o. female who [...] nursing note reviewed. Exam conducted with a school program director present. Vitals: Estimated body mass index is 35.19 kg/m as calculated from the following: Height as of 08/20/24: 5' 4 . Weight as of this encounter: 205 lb. BP: 126/84 Patient's last menstrual period was 01/08/2024. ASSESSMENT & PLAN ICD-10-CM 1. 36 weeks gestation of ([facility]) Z3A.36 POCT urinalysis dipstick manually resulted 2. Third trimester ([facility]) Z34.93 POCT urinalysis dipstick manually resulted 3. Hypertension during in third trimester, unspecified hypertension in type ([facility]) O16.3 4. Pre-eclampsia in third trimester ([facility]) O14.93 Return OB: Patient presents today for [...] Alfreda Mistry DO documented in this encounter [facility] 09-11-2024 History of Presen t illness Narrative Reason for Appointment: Patient ID: Francisca Butler is a 24 y.o. female who [...] nursing note reviewed. Exam conducted with a school program director present. Vitals: Estimated body mass index is 34.84 kg/m as calculated from the following: Height as of 08/20/24: 5' 4 . Weight as of this encounter: 203 lb. BP: 120/80 Patient's last menstrual period was 01/08/2024. ASSESSMENT & PLAN ICD-10-CM 1. 35 weeks gestation of ([facility]) Z3A.35 POCT urinalysis dipstick manually resulted 2. Third trimester ([facility]) Z34.93 POCT urinalysis dipstick manually resulted CULTURE, GROUP B STREP WITH SUSCEPTIBLITY CULTURE, GROUP B STREP WITH SUSCEPTIBLITY 3. Hypertension during in third trimester, unspecified hypertension in type ([facility]) O16.3 POCT urinalysis dipstick manually resulted 4. induced hypertension, antepartum ([facility]) O13.9 POCT urinalysis dipstick manually resulted 5. Pre-eclampsia in third trimester ([facility]) O14.93 POCT urinalysis dipstick manually resulted [...] of: DEBBI Tolbert documented in this encounter [facility] 09-04-2024 History of Presen t illness Narrative Reason [...] Vitals: Estimated body mass index is 34.5 kg/m as calculated from the following: Height as of 08/20/24: 5' 4 . Weight as of this encounter: 201 lb. BP: 132/82 Patient's last menstrual period was 01/08/2024. ASSESSMENT & PLAN ICD-10-CM 1. Third trimester ([facility]) Z34.93 POCT urinalysis dipstick manually resulted 2. 34 weeks gestation of ([facility]) Z3A.34 3. Hypertension during in third trimester, unspecified hypertension in type ([facility]) O16.3 4. induced hypertension, antepartum ([facility]) O13.9 5. Pre-eclampsia in third trimester ([facility]) O14.93 Return OB: Patient presents today for a routine obstetrics appointment. Patient is currently 34w2d . Patient states she is doing well but has complaints of being tired due to current , swelling of both feet and continued high blood pressure. [...] pharynx is red with drainage no abscess appreciated. We will treat with keflex Orders Placed This Encounter Procedures POCT urinalysis dipstick manually resulted Follow Up: Patient is to return to office in 2 week for routine OB appointment. Documented by Rosa Cueva MA on behalf of: DEBBI Tolbert documented in this encounter [facility] 08-20-2024 History of Presen t illness Narrative Reason [...] nursing note reviewed. Exam conducted with a school program director present. Vitals: Estimated body mass index is 33.17 kg/m as calculated from the following: Height as of this encounter: 5' 4 . Weight as of this encounter: 193 lb 4 oz. BP: 126/90 Patient's last menstrual period was 01/08/2024. ASSESSMENT & PLAN ICD-10-CM 1. Third trimester ([facility]) Z34.93 2. 32 weeks gestation of ([facility]) Z3A.32 3. Pre-eclampsia in third trimester ([facility]) O14.93 4. induced hypertension, antepartum ([facility]) O13.9 Return OB: Patient presents today for [...] Alfreda Mistry DO documented in this encounter [facility] 08-07-2024 History of Presen t illness Narrative Reason [...] of: DEBBI Tolbert documented in this encounter [facility] 07-24-2024 History of Presen t illness Narrative Reason [...] nursing note reviewed. Exam conducted with a school program director present. Vitals: There is no height or [...] Alfreda Mistry DO documented in this encounter [facility] 07-03-2024 History of Presen t illness Narrative [...] nursing note reviewed. Exam conducted with a school program director present. Vitals: There is no height or [...] Fina Wilson NP documented in this encounter [facility] 06-05-2024 History of Presen t illness Narrative [...] nursing note reviewed. Exam conducted with a school program director present. Vitals: There is no height or [...] Alfreda Mistry DO documented in this encounter [facility] 05-06-2024 History of Presen t illness Narrative [...] nursing note reviewed. Exam conducted with a school program director present. Vitals: There is no height or [...] of: DEBBI Tolbert documented in this encounter [facility] 04-08-2024 History of Presen t illness Narrative [...] nursing note reviewed. Exam conducted with a school program director present. Vitals: There is no height or [...] Alfreda Mistry DO documented in this encounter [facility] 03-07-2024 History of Presen t illness Narrative Reason for Appointment: Patient ID: Francsica Quigley is a 23 y.o. female who [...] or undercooked meat, and stay away from [facility]. Patient has also been advised to [...] Fina Sarmiento LPN documented in this encounter [facility] Evaluation note Diagnosis 13 weeks gestation of Nausea and vomiting, unspecified vomiting type documented in this encounter [facility]* Diagnosis Well woman exam with routine gynecological exam Routine gynecological examination Exposure to STD Need for maternal serum alpha-protein (MSAFP) screening Second trimester state, incidental 17 weeks gestation of Screening, , for anatomic survey Encounter for anatomic survey documented in this encounter [facility]* Diagnosis Second trimester state, incidental 21 weeks gestation of documented in this encounter [facility]* Diagnosis Second trimester state, incidental 25 weeks gestation of Diabetes mellitus screening Screening for diabetes mellitus induced hypertension, antepartum Transient hypertension of , antepartum documented in this encounter [facility]* Diagnosis 28 weeks gestation of Third trimester state, incidental documented in this encounter [facility]* Diagnosis Hypertension during in third trimester, unspecified hypertension in type- Primary Third trimester state, incidental 30 weeks gestation of documented in this [facility]* Diagnosis Missed menses , unspecified gestational age Encounter for supervision of normal first in first trimester Nausea and vomiting in Unspecified vomiting of , unspecified as to episode of care headache in first trimester documented in this encounter [facility]* Diagnosis Third trimester ([facility]) state, incidental 32 weeks gestation of ([facility]) Pre-eclampsia in third trimester ([facility]) induced hypertension, antepartum ([facility]) Transient hypertension of , antepartum documented in this [facility]* Diagnosis Pharyngitis, unspecified etiology- Primary Third trimester ([facility]) state, incidental 34 weeks gestation of ([facility]) Hypertension during in third trimester, unspecified hypertension in type ([facility]) induced hypertension, antepartum ([facility]) Transient hypertension of , antepartum Pre-eclampsia in third trimester ([facility]) documented in this encounter [facility] HealthcareEvaluation note* Diagnosis 35 weeks gestation of ([facility]) Third trimester ([facility]) state, incidental Hypertension during in third trimester, unspecified hypertension in type ([facility]) induced hypertension, antepartum ([facility]) Transient hypertension of , antepartum Pre-eclampsia in third trimester ([facility]) [facility] Diagnosis 36 weeks gestation of ([facility]) Third trimester ([facility]) state, incidental Hypertension during in third trimester, unspecified hypertension in type ([facility]) Pre-eclampsia in third trimester ([facility]) documented in this encounter [facility] Summary Purpose Family History No Family History Records Found Advance Directives No Advanced Directives Records Found Additional Source Comments Reason for Visit (unrecogniz ed section and content) Reason Comments Routine Visit Reason Comments Amenorrhea INFORMATION SOURCE (unrecogn ized section and content) DATE CREATED AUTHOR 09/15/2024 [facility] FOR RECORDS PERTAINING TO PATIENTS WHO [...] BE BASED ON THE PRIMARY CLINICAL RECORDS. [facility]. provides no warranty or guarantee of the accuracy or completeness of information in this document.
[2024-09-20 11:27] VITALS: BP 133/74; PULSE 93
== END 2024-09-20 12:08 | disposition home or self-care (01) ==
LOC: FBCO 08:24 → FBC 11:21
PROVIDERS: Visit Provider Obstetrics & Gynecology
DX: O16.3 Unspecified maternal hypertension, third trimester (principal); Z3A.36 36 weeks gestation of pregnancy
CPT/HCPCS: 59025

== ENCOUNTER 2024-09-24 18:59 | Outpatient (OUT) | payer OTHER, SELFPAY ==
--- OUTSIDE RECORDS SUMMARY | 2024-09-11 15:20 | XMS_ITS | Encounter Summary ---
Author Organization [facility] Address [address] [place] [address] Care Team Providers Care Automatic Mounter Name Role Phone Unavailable Primary Care Provider Unavailabl e Reason for Visit * Reason Comments Routine Visit Encounter Details Date Type Department Care Team (Latest Contact Info) Description 09/11/2024 3:20 PM EDT Routine [facility] OB [address] [place] [address] Hedy Ortega PA [address] [facility] [address] [place], [facility]11 35 weeks gestation of (HHS-HCC); Third [...] encounter Progress Notes * DEBBI Tolbert - 09/11/2024 3:20 PM EDT Reason for Appointment: Patient ID: Surendra Butler is a 24 y.o. female who presents for Routine Visit Patient presents today for Return OB appointment. MEDICATIONS Current Outpatient Medications Medication Instructions Ferrous Gluconate (IRON 27 PO) Take by mouth labetalol (NORMODYNE) 200 mg, Oral, 2 times daily MV-Min-Fe Fum-FA-DHA [...] Constitutional: Appearance: Normal appearance. She is well-developed. Genitourinary: Vulva normal. Cardiovascular: Rate and Rhythm: Normal rate and [...] nursing note reviewed. Exam conducted with a starch and prosize mixer present. Vitals: Estimated body mass index is 34.84 kg/m?? as calculated from the following: Height as of 08/20/24: 5' 4 . Weight as of this encounter: 203 lb. BP: 120/80 Patient's last menstrual period was 01/08/2024. ASSESSMENT & PLAN ICD-10-CM 1. 35 weeks gestation of ([facility]) Z3A.35 POCT urinalysis dipstick manually resulted 2. Third trimester ([facility]) Z34.93 POCT urinalysis dipstick manually resulted CULTURE, GROUP B STREP WITH SUSCEPTIBLITY CULTURE, GROUP B STREP WITH SUSCEPTIBLITY 3. Hypertension during in third trimester, unspecified hypertension in type ([facility]) O16.3 POCT urinalysis dipstick manually resulted 4. induced hypertension, antepartum ([facility]) O13.9 POCT urinalysis dipstick manually resulted 5. Pre-eclampsia in third trimester ([facility]) O14.93 POCT urinalysis dipstick manually resulted Patient is doing well but has complaints of being tired and having maternal discomfort due to . Patient verbalized frequent movement and was instructed to perform kick counts three times per day. labor precautions were given, LARC consent was signed/declined, and GBS was obtained. Cervical check was performed and patient is 0cm dilated. Orders Placed This Encounter Procedures CULTURE, GROUP B STREP WITH SUSCEPTIBLITY POCT urinalysis dipstick manually resulted Follow Up: Patient is to return to office in 1 week for routine OB appointment Documented by Marielos Rapp LPN on behalf of: DEBBI Tolbert documented in this encounter Plan of Treatment Upcoming Encounters Date Type Department Care Team (Late st Contact Info) Description 09/25/2024 2:00 PM EDT Routine [facility] OB [address] [place] [address] Curt Mistry, [address] [place], [place] [phone] documented as of this encounter Procedures Procedure Name Priority Date/Time Associated Diagnosis Comments CULTURE, GROUP B STREP WITH SUSCEPTIBLITY Routine 09/11/2024 4:09 PM EDT Third trimester ([facility]) POCT URINALYSIS DIPSTICK Routine 09/11/2024 4:04 PM EDT 35 weeks gestation of ([facility]) Third trimester ([facility]) Hypertension during in third trimester, unspecified hypertension in type ([facility]) induced hypertension, antepartum ([facility]) Pre-eclampsia in third trimester ([facility]) documented in this encounter Results * CULTURE, GROUP B STREP WITH SUSCEPTIBLITY (09/11/2024 4:09 PM EDT) Swab 09/11/2024 4:09 PM EDT us Hedy WERNER LAB BLOOD ORDERABLES Final Resul t EXTERNAL LAB * (ABNORMAL) POCT urinalysis dipstick manually resulted [...] - Positive Urine 09/11/2024 4:04 PM EDT us Hedy WERNER POINT OF CARE TEST ENTER/EDIT OR DERABLES Final Result documented in this encounter Visit Diagnoses Diagnosis 35 weeks gestation of ([facility]) Third trimester ([facility]) state, incidental Hypertension during in third trimester, unspecified hypertension in type ([facility]) induced hypertension, antepartum ([facility]) Transient hypertension of , antepartum Pre-eclampsia in third trimester ([facility]) documented in this encounter
--- OUTSIDE RECORDS SUMMARY | 2024-09-17 13:30 | XMS_ITS | Encounter Summary ---
Author Organization [facility] Address [address] [place] [address] Care Team Providers Care Machinist/Machine Builder Name Role Phone Unavailable Primary Care Provider Unavailabl e Encounter Details Date Type Department Care Team (Latest Contact Info) Description 09/17/2024 1:30 PM EDT Ancillary Procedure [facility] [address] [facility] [place] [address] induced hypertension, antepartum ([facility]) Social History Tobacco Use Types Packs/Day Years [...] OB [address] [place] [address] Curt Mistry DO [address] [place], [place] [id number] documented as of this encounter Procedures Procedure Name Priority Date/Time Associated Diagnosis Comments US OB FOLLOW UP TRANSABDOMINAL APPROACH Routine 09/17/2024 1:53 PM EDT induced hypertension, antepartum ([facility]) documented in this encounter Results * US OB follow up transabdominal approach (09/17/2024 1:53 PM EDT) Anatomical Region Laterality Modality Body Ultrasound 09/18/2024 6:51 PM EDT Impressions 09/19/2024 8:22 AM EDT Single, live intrauterine , current sonographic age of 37 weeks and 0 days, with an estimated date of delivery of October 08, 2024. * Estimated Weight (g) by Percentile is based upon an accurate estimated age based on last menstrual period. TRANSCRIBED BY: ELECTRONICALLY SIGNED BY: Mikael Nam MD Narrative 09/19/2024 8:22 AM EDT FINDINGS: A single, live intrauterine is present with normal cardiac rate of 150 beats per minute. Normal activity and amniotic fluid volume. Amniotic fluid index is 13.0 cm. Morphology is grossly normal. current sonographic age is 37 weeks and 0 days, based on the following measurements: BPD 9.2cm (37 weeks, 3 days) Head Circumference 32.9cm ( 37weeks, 3 days) Abdominal Circumference 33.5cm (37 weeks, 3 days) Femur Length 6.9cm ( 35weeks, 4 days) Weight (g) by Percentile 74% * These measurements result in an estimated date of delivery of October 08, 2024 The current estimated weight is 3077 +/- 462 grams ( 6 pound, 13 ounces). Procedure Note Mikael Nam MD - 09/19/2024 FINDINGS: A single, live intrauterine is present with normal cardiacrate of 150 beats per minute. Normal activity and amniotic fluidvolume. Amniotic fluid index is 13.0 cm. Morphology is grossly normal.current sonographic age is 37 weeks and 0 days, based on the followingmeasurements: BPD 9.2cm (37 weeks, 3 days) Head Circumference 32.9cm ( 37weeks, 3 days) Abdominal Circumference 33.5cm (37 weeks, 3 days) Femur Length 6.9cm ( 35weeks, 4 days) Weight (g) by Percentile 74% * These measurements result in an estimated date of delivery of October The current estimated weight is 3077 +/- 462 grams ( 6pound, 13 ounces). IMPRESSION: Single, live intrauterine , current sonographic age of 37 weeksand 0 days, with an estimated date of delivery of October 08, 2024. * Estimated Weight (g) by Percentile is based upon an accurateestimated age based on last menstrual period. TRANSCRIBED BY: ELECTRONICALLY SIGNED BY: Mikael Nam MD us Fina Wilson NP IMG OB US PROCEDURES Final Re sult documented in this encounter Visit Diagnoses Diagnosis induced hypertension, antepartum (HHS-HCC) Transient hypertension of , antepartum documented in this encounter
--- OUTSIDE RECORDS SUMMARY | 2024-09-18 14:00 | XMS_ITS | Encounter Summary ---
Author Organization [facility] Address [address] [place] [address] Care Team Providers Care Water Restoration Technician Name Role Phone Unavailable Primary Care Provider Unavailabl e Encounter Details Date Type Department Care Team (Latest Contact Info) Description 09/18/2024 2:00 PM EDT Routine [facility] [address] [facility] [place] [place] [phone] Curt Mistry, DO [address] [place] [address] 36 weeks gestation of ([facility]-H[facility]); Third trimester (HHS-HCC); Hypertension during in third trimester, unspecified hypertension in type ([facility]HS-HCC); Pre-eclampsia in third trimester ([facility]) Social History Tobacco Use Types Packs/Day Years [...] Sign Reading Time Taken Comments Blood Pressure 126/84 09/18/2024 2:23 PM EDT Pulse - - Temperature - - Respiratory Rate - - Oxygen Saturation - - Inhaled Oxygen Concentration - - Weight 93 kg (205 lb) 09/18/2024 2:23 PM EDT Height - - Body Mass Index 35.19 08/20/2024 11:48 AM EDT documented in this encounter Progress Notes * Marielos Rapp, SMITA - 09/18/2024 2:00 PM EDT Reason for Appointment: Patient ID: Surendra Butler is a 24 y.o. female who presents for No chief complaint on file. Patient presents today for Return OB appointment.. MEDICATIONS Current Outpatient Medications Medication Instructions Ferrous [...] nursing note reviewed. Exam conducted with a motorcycle subassembly repairer present. Vitals: Estimated body mass index is 35.19 kg/m?? as calculated from the following: Height as of 08/20/24: 5' 4 . Weight as of this encounter: 205 lb. BP: 126/84 Patient's last menstrual period was 01/08/2024. ASSESSMENT & PLAN ICD-10-CM 1. 36 weeks gestation of ([facility]) Z3A.36 POCT urinalysis dipstick manually resulted 2. Third trimester ([facility]) Z34.93 POCT urinalysis dipstick manually resulted 3. Hypertension during in third trimester, unspecified hypertension in type ([facility]) O16.3 4. Pre-eclampsia in third trimester ([facility]) O14.93 Return OB: Patient presents today for a routine obstetrics appointment. Patient is currently 36w2d . Patient states she is doing well but has complaints of being tired due to current . Patient has verbalizes frequent movement. labor precautions was discussed/given and patient was instructed to perform kick counts three times a day. Orders Placed This Encounter Procedures POCT urinalysis dipstick manually resulted Follow Up: Patient is to return to office in 1 week for routine OB appointment. Documented by Marielos Rapp LPN on behalf of: Curt Mistry DO documented in this encounter Plan of Treatment Upcoming Encounters Date Type Department Care Team (Late st Contact Info) Description 09/25/2024 2:00 PM EDT Routine [facility] OB [address] [place] [address] Curt Mistry DO [address] [place] [address] documented as of this encounter Procedures Procedure Name Priority Date/Time Associated Diagnosis Comments POCT URINALYSIS DIPSTICK Routine 09/18/2024 2:26 PM EDT 36 weeks gestation of ([facility]) Third trimester ([facility]) documented in this encounter Results * POCT urinalysis dipstick manually resulted (09/18/2024 2:26 PM EDT) Color, UA Yellow Clarity, UA Clear Glucose, UA Negative Negative - 2000(110) ++++ mg/dL Bilirubin, UA Negative Negative - 4(70) +++ mg/dL Ketones, UA Negative Negative - 160(16) ++++ mg/dL Spec Grav, UA 1.005 1 - 1.03 Blood, UA Negative Negative - 50 Adams/mcL pH, UA 6.5 5 - 9 Protein, UA Negative Negative - 2000(20) ++++ mg/dL Urobilinogen, UA 1.0 0.2 - 12 mg/dL Leukocytes, UA Negative Negative - 500+++ Pranav/mcL Nitrite, UA Negative Negative - Positive Urine 09/18/2024 2:26 PM EDT Result [facility] Curt Mistry DO POINT OF CARE TEST ENTER/EDIT OR DERABLES Final Result documented in this encounter Visit Diagnoses Diagnosis 36 weeks gestation of ([facility]) Third trimester ([facility]) state, incidental Hypertension during in third trimester, unspecified hypertension in type ([facility]-HCC) Pre-eclampsia in third trimester ([facility]) documented in this encounter
--- OUTSIDE RECORDS SUMMARY | 2024-09-24 19:02 | XMS_ITS | Clinical Summary ---
Author Organization [facility] Address [address] [place] [address] Care Team Providers Care Pinion And Wheel Truer Name Role Phone Unavailable Primary Care Provider [...] Description 09/18/2024 2:00 PM EDT Routine [facility] [address] [place] [address] [place] [address] Curt Mistry DO 36 weeks gestation of (HHS-HCC); Third trimester (HHS-HCC); Hypertension during in third trimester, unspecified hypertension in type (HHS-HCC); Pre-eclampsia in third trimester (HHS-HCC) 09/18/2024 Clinisync Result Encounter NOMS External Department Unsolicited Fina Wilson NP 09/17/2024 1:30 PM EDT Ancillary Procedure [facility] [address] [place] [address] [place] [address] induced hypertension, antepartum (HHS-HCC) 09/11/2024 3:20 PM EDT Routine [facility] [address] [place] [address] Hedy Ortega PA 35 weeks gestation of (HHS-HCC); Third trimester (HHS-HCC); Hypertension during in third trimester, unspecified hypertension in type (HHS-HCC); induced hypertension, antepartum (HHS-HCC); Pre-eclampsia in third trimester (HHS-HCC) 09/11/2024 Clinisync Result Encounter NOMS External Department Unsolicited Fina Wilson NP 09/04/2024 2:30 PM EDT [facility]ine [facility] [address] [place] [address] [place] [address] Hedy Ortega PA Pharyngitis, unspecified etiology (Primary [...] NP 08/20/2024 11:20 AM EDT Routine [facility] [address] [place] [address] Curt Mistry DO Third trimester ([facility]); 32 weeks gestation of ([facility]); Pre-eclampsia in third trimester ([facility]); induced hypertension, antepartum ([facility]) 08/20/2024 11:00 AM EDT Ancillary Procedure [facility] [address] [place] [address] Hypertension during in third trimester, unspecified hypertension in type ([facility]) 08/13/2024 Clinisync Result Encounter NOMS External Department Unsolicited Fina Wilson NP 08/13/20[address] [facility] [address] [place] [address] Francisca Mcqueen MA 08/07/2024 3:50 PM EDT Routine [facility] [address] [place] [address] Hedy Ortega PA Hypertension during in third trimester, unspecified hypertension in type ([facility]) (Primary Dx); Third trimester ([facility]); 30 weeks gestation of ([facility]) 08/07/2024 Bamboo flowsheet [facility] [address] [place] [address] Hedy Ortega PA 08/06/2024 Clinisync Result Encounter NOMS External Department Unsolicited Fina Wilson NP 07/31/2024 Clinisync Result Encounter NOMS External Department Unsolicited Fina Wilson NP 07/24/2024 3:30 PM EDT Routine [facility] [address] [place] [address] Curt Mistry DO 28 weeks gestation of ([facility]); Third trimester ([facility]) 07/24/2024 3:00 PM EDT Ancillary Procedure [facility] [address] [place] [address] induced hypertension, antepartum ([facility]) 07/24/2024 Travel 07/23/2024 Clinisync Result Encounter NOMS External Department Unsolicited Fina Wilson NP 07/10/2024 11:30 AM EDT Clinical Support [facility] [address] [place] [address] Blood pressure check; Second trimester ([facility]); 26 weeks gestation of ([facility]); Urinary tract infection without hematuria, site unspecified 07/06/2024 Clinisync Result Encounter NOMS External Department Unsolicited Fina Wilson NP 07/04/2024 Clinisync Result Encounter NOMS External Department Unsolicited Fina Wilson NP 07/03/2024 3:30 PM EDT Routine [facility] [address] [place] [address] Fina Wilson NP Second trimester ([facility]); 25 weeks gestation of ([facility]); Diabetes mellitus screening; induced hypertension, antepartum ([facility]) 07/03/2024 Bamboo flowsheet [facility] [address] [place] [address] Fina Wilson NP from Last 3 [...] EDT Routine [facility] [address] [facility] [place] [address] Curt Mistry, DO [address] [facility] [address] [address] Procedures Procedure Name Priority Date/Time Associated Diagnosis Comments POCT URINALYSIS DIPSTICK Routine 09/18/2024 2:26 PM EDT 36 weeks gestation of (HHS-HCC) Third trimester ([facility]) US OB BPP W NON-STRESS 09/18/2024 8:47 AM EDT US OB FOLLOW UP TRANSABDOMINAL APPROACH Routine 09/17/2024 1:53 PM EDT induced hypertension, antepartum ([facility]) CULTURE, GROUP B STREP WITH SUSCEPTIBLITY Routine [...] Routine 09/04/2024 3:02 PM EDT Third trimester ([facility]) US OB BPP W NON-STRESS 09/04/2024 8:01 AM EDT US OB BPP W NON-STRESS 08/28/2024 8:09 AM EDT US OB BPP W NON-STRESS 08/21/2024 7:59 AM EDT POCT URINALYSIS DIPSTICK Routine 08/20/2024 12:08 PM EDT Third trimester ([facility]) US OB FOLLOW UP TRANSABDOMINAL APPROACH Routine 08/20/2024 11:19 AM EDT Hypertension during in third trimester, unspecified hypertension in type ([facility]) US OB BPP W NON-STRESS 08/13/2024 9:44 PM EDT US OB BPP W NON-STRESS 08/06/2024 7:39 PM EDT US OB BPP W NON-STRESS 07/31/2024 9:08 AM EDT POCT URINALYSIS DIPSTICK Routine 07/24/2024 4:03 PM EDT 28 weeks gestation of ([facility]) Third trimester ([facility]) US OB FOLLOW UP TRANSABDOMINAL APPROACH Routine 07/24/2024 3:21 PM EDT induced hypertension, antepartum ([facility]) US OB BPP W NON-STRESS 07/23/2024 9:58 PM EDT POCT URINALYSIS DIPSTICK Routine 07/10/2024 12:06 PM EDT Second trimester ([facility]) TBH TOTAL PROTEIN 24 HOUR URINE Routine [...] Routine 07/03/2024 4:38 PM EDT Second trimester ([facility]) from Last 3 Months Results * POCT [...] - Positive Urine 09/18/2024 2:26 PM EDT [facility] POINT OF CARE TEST ENTER/EDIT OR DERABLES Final Result * US OB BPP W NON-STRESS (09/18/2024 8:47 AM EDT) Only the most recent of9 resultswithin the time period is included. Anatomical Region Laterality Modality Other 09/18/2024 8:47 AM EDT Narrative 09/18/2024 8:[place] [address] Ultrasound Report Signed Patient: FRANCISCA MÉNDEZ MR#: [id number] : 2000 Acct:[id number] Age/Sex: 24 / F ADM Date: 09/17/24 Loc: US Attending Dr: Fina Wilson Ordering Physician: Fina Wilson Date of Service: 09/17/24 Procedure(s): US OB BPP w non-stress Accession Number(s): [id number] cc: Fina Wilson; Physician,Non-Staff M.DOwen The [address] [address] Patient Name: FRANCISCA MÉNDEZ MRN: [id number] date: 2000 Sex: F Assigned Patient Location: [facility] Current Patient Location: Accession/Order Number: [id number] Exam Date: 09/18/2024 08:46 Report Date: 09/18/2024 [...] Rubio M.D. 09/18/2024 8:47 AM Dictation Location: [place] [address] Electronically authenticated by: [id number] Y Date: 09/18/2024 08:47 Dictated By: Marielos Rubio M.D. Signed By: 09/18/24 0849 DD/ 0847 TD/TT: Attendance Clerk: Procedure Note Radiology, Radiologist, MD - 09/18/2024 [place] [address] Ultrasound Report Signed Patient: FRANCISCA MÉNDEZ CMR#: [id number] : 2000Acct:[id number] Age/Sex: 24 / FADM Date: 09/17/24 Loc: US Attending Dr: Fina Wilson Ordering Physician: Fina Wilson Date of Service: 09/17/24 Procedure(s): US OB BPP w non-stress Accession Number(s): [id number] cc: Fina Wilson; Physician,Non-Staff MAnayeli The [address] [address] Patient Name: FRANCISCA MÉNDEZ MRN: [id number] date: 2000 Sex: F Assigned Patient Location: [facility] Current Patient Location: Accession/Order Number: [id number] Exam Date: 09/18/2024 08:46 Report Date: 09/18/2024 08:47 At the request of: FINA WILSON Procedure: US OB BPP w non-stress BIOPHYSICAL PROFILE: CLINICAL INFORMATION: induced HTN COMPARISON: 09/10/2024 There is a single live intrauterine gestation in cephalic presentation.The reported gestational age is 36 weeks 1 day. The heart rate [id number] beats per minute. FINDINGS: TONE: 1 or [...] Rubio M.D. 09/18/2024 8:47 AM Dictation Location: [place] [address] Electronically authenticated by: [id number] Y Date: 508:47 Dictated By: Marielos Rubio M.D. Signed By:09/18/24 0849 DD/ 0847 TD/TT: Attendance Clerk: us Fina Wilson GLOBAL SECURITY ARCHITECT [facility] IMAGING Final Resul t * US [...] ORDERABLES Final Resul t Performing Organization Address [facility] de Phone Number EXTERNAL LAB * (ABNORMAL) [...] NP CLINISYNC Final Result Performing Organization Address [facility] de Phone Number CLINISYNC TB * GLUCOSE 1 HOUR (07/04/2024 11:37 AM EDT) GLUCOSE 1 HOUR 110 <130 mg/dL TBH 07/04/2024 11:3 7 AM EDT 07/04/2024 11:39 AM EDT Narrative CLINISYNC - 07/04/2024 12:21 PM EDT Fina Wilson NP LAB BLOOD ORDERABLES Final Re sult Performing Organization Address [facility] de Phone Number CLINISYNC TBH * TBH CREATININE (07/04/2024 11:37 AM EDT) CREATININE 0.59 0.55 - 1.02 mg/dL TBH TBH EGFR-AF UKRAINIAN >60 >=60 mL/min/1.7 3m 2 TBH TBH EGFR-NON AF UKRAINIAN >60 >=60 mL/min/1.7 3m 2 TBH 07/04/2024 11:3 7 AM EDT 07/04/2024 11:39 AM EDT Narrative CLINISYNC - 07/04/2024 12:21 PM EDT us Fina Wilson NP CLINISYNC Final Result Performing Organization Address [facility] de Phone Number [facility] * SRMCOH PROTHROMBIN TIME INR W/O COUM [...] NP CLINISYTORSTEN Final Result Performing Organization Address [facility] de Phone Number [facility] * (ABNORMAL) [facility] AST (07/04/2024 11:37 AM EDT) ASPARTATE AMINO TRANSFERASE 8(L) 15 - 37 U/L TB 07/04/2024 11:3 7 AM EDT 07/04/2024 11:39 AM EDT Narrative CLINISYNC - 07/04/2024 12:21 PM EDT Fina Wilson NP CLINISYNC Final Result Performing Organization Address [facility] de Phone Number [facility] * [facility] APTT (07/04/2024 11:37 AM EDT) PARTIAL THROMBOPLASTIN TIME 26.8 22.3 - 36.2 sec TB 07/04/2024 11:3 7 AM EDT 07/04/2024 11:39 AM EDT Narrative CLINISYNC - 07/04/2024 12:39 PM EDT us Fina Wilson GLOBAL SECURITY ARCHITECT CLINISYNC Final Result CLINISYNC TB * ALL URIC ACID (07/04/2024 11:37 AM EDT) URIC ACID 3.4 2.6 - 6.0 mg/dL TB 07/04/2024 11:3 7 AM EDT 07/04/2024 11:39 AM EDT Narrative CLINISYNC - 07/04/2024 12:21 PM EDT us Fina Wilson NP CLINISYNC Final Result Performing Organization Address [facility] Co de Phone Number CLINISYNC [facility] * ALL LDH (07/04/2024 11:37 AM EDT) LACTATE DEHYDROGENASE 97 81 - 234 U/L TB 07/04/2024 11:3 7 AM EDT 07/04/2024 11:39 AM EDT Narrative CLINISYNC - 07/04/2024 12:21 PM EDT Fina Wilson GLOBAL SECURITY ARCHITECT CLINISYNC Final Result Performing Organization Address [facility] de Phone Number CLIN[facility]NC [facility] * (ABNORMAL) ALL CBC WITH AUTO [...] NP CLINISYNC Final Result Performing Organization Address City/[facility] Co de Phone Number [facility] * (ABNORMAL) ALL BUN (07/04/2024 11:37 AM EDT) [facility] BLOOD UREA NITROGEN 4.0(L) 7.0 - 18.0 mg/dL TBH 07/04/2024 11:3 7 AM EDT 07/04/2024 11:39 AM EDT Narrative CLINISYNC - 07/04/2024 12:21 PM EDT Fina Wilson NP CLINISYNC Final Result CLINISYNC TB from Last 3 Months Insurance
--- OUTSIDE RECORDS SUMMARY | 2024-09-24 19:02 | XMS_ITS | Encounter Summary ---
Author Organization [facility] Address [address] [place] [address] Care Team Providers Care Kennel Hand Name Role Phone Unavailable Primary Care Provider Unavailabl e Encounter Details Date Type Department Care Team (Late st Contact Info) Description 04/03/[address] [facility] [address] [place] [address] Curt Mistry DO [address] [place], [place] [id number] Social History Tobacco Use Types Packs/Day Years [...] Routine [facility] [address] [place] [address] Curt Mistry, DO [address] [place], [place] [id number] documented as of this encounter Visit Diagnoses Not on filedocumented in this encounter
--- OUTSIDE RECORDS SUMMARY | 2024-09-24 19:02 | XMS_ITS | Encounter Summary ---
Author Organization [facility] Address [address] [place] [address] Care Team Providers Care Wan Support Specialist Name Role Phone Unavailable Primary Care Provider Unavailabl e Encounter Details Date Type Department Care Team (Late st Contact Info) Description 09/11/2024 Clinisync Result Encounter NOMS External Department Unsolicited Keon Wilson, FIRER LOCOMOTIVE CRANE [address] [facility] [place] [address] Social History Tobacco Use Types Packs/Day Years [...] EDT Routine [facility] [address] [facility] [place] [address] Curt Mistry DO [address] [place], [place] [address] documented as of this encounter Procedures Procedure Name Priority Date/Time Associated Diagnosis Comments US OB BPP W NON-STRESS 09/11/2024 7:16 AM EDT documented in this encounter Results * US OB BPP W NON-STRESS (09/11/2024 7:16 AM EDT) Anatomical Region Laterality Modality Other 09/11/2024 7:16 AM EDT Narrative 09/11/2024 7:19 [place] [address] Ultrasound Report Signed Patient: FRANCISCA BUTLER MR#: [id number] : 2000 Acct:[id number] Age/Sex: 24 / F ADM Date: 09/10/24 Loc: US Attending Dr: Keon Wilson Ordering Physician: Keon Wilson Date of Service: 09/10/24 Procedure(s): US OB BPP w non-stress Accession Number(s): [id number] cc: Keon Wilson; Physician,Non-Staff M.D. The [place] [id number] Patient Name: FRANCISCA BUTLER MRN: [id number] date: 2000 Sex: F Assigned Patient Location: Current Patient Location: Accession/Order Number: [id number] Exam Date: 09/11/2024 07:15 Report Date: 09/11/2024 07:16 At the request of: KEON WILSON Procedure: US OB BPP w non-stress BIOPHYSICAL PROFILE: CLINICAL INFORMATION: INDUCED HYPERTENSION O13.9 COMPARISON: 09/03/2024 There is a single live intrauterine gestation in cephalic presentation. The reported gestational age is 35 weeks 1 day. The heart rate [id number] beats per minute. FINDINGS: TONE: 1 or [...] Rubio M.D. 09/11/2024 7:16 AM Dictation Location: [place] [address] Electronically authenticated by: [id number] Y Date: 09/11/2024 07:16 Dictated By: Marielos Rubio M.D. Signed By: 09/11/2419 DD/ 5 TD/TT: Collarette Separator: Procedure Note Radiology, Radiologist, MD - 09/11/2024 [place] [address] Ultrasound Report Signed Patient: FRANCISCA BUTLER CMR#: [id number] : 2000Acct:[id number] Age/Sex: 24 / FADM Date: 09/10/24 Loc: US Attending Dr: Keon Wilson Ordering Physician: Keon Wilson Date of Service: 09/10/24 Procedure(s): US OB BPP w non-stress Accession Number(s): [id number] cc: Keon Wilson; Physician,Non-Staff Alondra The [place] [id number] Patient Name: FRANCISCA BUTLER MRN: [id number] date: 2000 Sex: F Assigned Patient Location: US Current Patient Location: Accession/Order Number: [id number] Exam Date: 09/11/2024 07:15 Report Date: 09/11/2024 [...] Rubio M.D. 09/11/2024 7:16 AM Dictation Location: [place] [address] Electronically authenticated by: [id number] Y Date: 7:16 Dictated By: Marielos Rubio M.D. Signed By:09/11/24 0719 DD/ 0716 TD/TT: Collarette Separator: us Keon Wilson NP [facility] IMAGING Final Resul t documented in this encounter Visit Diagnoses Not on filedocumented in this encounter
--- OUTSIDE RECORDS SUMMARY | 2024-09-24 19:02 | XMS_ITS | Encounter Summary ---
Author Organization [facility] Address [address] [place] [address] Care Team Providers Care Kettle Hand Name Role Phone Unavailable Primary Care Provider Unavailabl e Encounter Details Date Type Department Care Team (Late st Contact Info) Description 04/17/2024 Abstract [facility] [address] [facility] [address] [place] [address] Tiffanie Loza LPN Social History Tobacco [...] Description 09/25/2024 2:00 PM EDT Routine [facility] [address] [place] [address] Curt Mistry DO [address] [place], [place] [phone] documented as of this encounter Visit Diagnoses Not on filedocumented in this encounter
--- OUTSIDE RECORDS SUMMARY | 2024-09-24 19:02 | XMS_ITS | Encounter Summary ---
Author Organization [facility] Address [address] [place] [address] Care Team Providers Care Lawn Maintenance Worker Name Role Phone Unavailable Primary Care Provider Unavailabl e Encounter Details Date Type Department Care Team (Late st Contact Info) Description 03/26/2024 Abstract [facility] [address] [place] [address] Curt Mistry DO [address] [place], [place] [phone] Social History Tobacco Use Types Packs/Day Years [...] Curt Mistry, DO [address] [place], [place] [phone] documented as of this encounter Visit Diagnoses Not on filedocumented in this encounter
--- OUTSIDE RECORDS SUMMARY | 2024-09-24 19:02 | XMS_ITS | Encounter Summary ---
Author Organization [facility] Address [address] [place] [address] Care Team Providers Care Redevelopment Manager Name Role Phone Unavailable Primary Care Provider Unavailabl e Encounter Details Date Type Department Care Team (Late st Contact Info) Description 09/18/2024 Clinisync Result Encounter NOMS External Department Unsolicited Keon Wilson, ANESTHESIOLOGY CRNA [address] [facility] [place] [address] Social History Tobacco Use Types Packs/Day Years [...] Routine [facility] [address] [address] Cutr Mistry DO [address] [place], [place] [address] documented as of this encounter Procedures Procedure Name Priority Date/Time Associated Diagnosis Comments US OB BPP W NON-STRESS 09/18/2024 8:47 AM EDT documented in this encounter Results * US OB BPP W NON-STRESS (09/18/2024 8:47 AM EDT) Anatomical Region Laterality Modality Other 09/18/2024 8:47 AM EDT Narrative 09/18/2024 8:49 [place] [address] Ultrasound Report Signed Patient: FRANCISCA BUTLER MR#: [id number] : 2000 Acct:[id number] Age/Sex: 24 / F ADM Date: 09/17/24 Loc: US Attending Dr: Keon Wilson Ordering Physician: Keon Wilson Date of Service: 09/17/24 Procedure(s): US OB BPP w non-stress Accession Number(s): [id number] cc: Keon Wilson; Physician,Non-Staff M.D. The [place] [id number] Patient Name: FRANCISCA BUTLER MRN: [id number] date: 2000 Sex: F Assigned Patient Location: [facility] Current Patient Location: Accession/Order Number: [id number] Exam Date: 09/18/2024 08:46 Report Date: 09/18/2024 [...] Rubio M.D. 09/18/2024 8:47 AM Dictation Location: [place] [address] Electronically authenticated by: [id number] Y Date: 09/18/2024 08:47 Dictated By: Marielos Rubio M.D. Signed By: 09/18/24 0849 DD/ 0847 TD/TT: Airport Sales Agent: Procedure Note Radiology, Radiologist, MD - 09/18/2024 [place] [address] Ultrasound Report Signed Patient: FRANCISCA BUTLER CMR#: [id number] : 2000Acct:[id number] Age/Sex: 24 / FADM Date: 09/17/24 Loc: US Attending Dr: Keon Wilson Ordering Physician: Keon Wilson Date of Service: 09/17/24 Procedure(s): US OB BPP w non-stress Accession Number(s): [id number] cc: Keon Wilson; Physician,Non-Staff Alondra The [place] [id number] Patient Name: FRANCISCA BUTLER MRN: [facility]:[id number] date: 2000 Sex: F Assigned Patient Location: [facility] Current Patient Location: Accession/Order Number: [id number] Exam Date: 09/18/2024 08:46 Report Date: 09/18/2024 08:47 At the request of: KEON WILSON Procedure: US OB BPP w non-stress BIOPHYSICAL PROFILE: CLINICAL INFORMATION: induced HTN COMPARISON: 09/10/2024 There is a single live intrauterine gestation in cephalic presentation.The reported gestational age is 36 weeks 1 day. The heart rate [id number] beats per minute. FINDINGS: TONE: 1 or [...] Rubio M.D. 09/18/2024 8:47 AM Dictation Location: [place] [address] Electronically authenticated by: [id number] Y Date: 508:47 Dictated By: Marielos Rubio M.D. Signed By:09/18/24 0849 DD/ 0847 TD/TT: Airport Sales Agent: Keon Wilson NP [facility] IMAGING Final Resul t documented in this encounter Visit Diagnoses Not on filedocumented in this encounter
--- NOTE | 2024-09-24 19:06 | US_ITS ---
[place] [id number] Patient Name: FRANCISCA MÉNDEZ MRN: [id number] date: 2000 Sex: F Assigned Patient Location: [facility] Current Patient Location: Accession/Order Number: [id number] Exam Date: 09/24/2024 21:58 Report Date: 09/24/2024 21:58 At the request of: KEON FONSECA Procedure: US OB BPP w non-stress Ultrasound biophysical profile HISTORY: -induced hypertension Adequate breathing movement, gross body movement, tone and amniotic fluid volume for total score of 8 out of 8. The amniotic fluid index is 12.9cm within normal limits. The heart rate 148 bpm. US/US OB BPP w non-stress IMPRESSION: Adequate ultrasound biophysical profile Impression dictated by: Willam Fernández M.D. 09/24/2024 9:58 PM Dictation Location: [place] [address] Electronically authenticated by: [id number] Y Date: 09/24/2024 21:58
[2024-09-24 19:35] VITALS: BP 135/88; PULSE 89
== END 2024-09-24 19:58 | disposition home or self-care (01) ==
LOC: US 19:00 → FBC 19:03
PROVIDERS: Visit Provider Nurse Practitioner Family
DX: O16.3 Unspecified maternal hypertension, third trimester (principal); O13.3 Gestational [pregnancy-induced] hypertension without significant proteinuria, third trimester; Z3A.37 37 weeks gestation of pregnancy
CPT/HCPCS: 76818

== ENCOUNTER 2024-09-26 18:30 | Inpatient (IN) | payer OTHER, SELFPAY ==
[2024-09-26] VITALS (14 sets, daily range): BP systolic 127–159; BP diastolic 84–105; PULSE 70–89; TEMP 36.6–37.2
[2024-09-26 19:55] LABS: Hematocrit 34.2 % (36.0-48.0); Hemoglobin 11.5 g/dL (12.0-16.0); Mean Corpuscular HGB Conc 33.6 g/dL (29.9-35.2); Mean Corpuscular Hemoglobin 30.2 pg (26.7-34.0); Mean Corpuscular Volume 89.8 fL (81.0-99.0); Platelet Count 216 10^3/uL (150-450); Red Blood Count 3.81 10^6/uL (4.20-5.40); White Blood Count 9.6 10^3/uL (4.0-11.0)
[2024-09-26] MEDS: MISOPROSTOL 100 MCG TABLET 25 MCG VAGINAL ×2 (19:58→22:58)
[2024-09-26 20:19] LABS: Cannabinoid Screen Urine NEGATIVE (NEGATIVE); Methamphetamines Screen Urine NEGATIVE (NEGATIVE); Tricyclic Antidepressant Urine NEGATIVE (NEGATIVE)
[2024-09-26] MEDS: LABETALOL HCL 100 MG TABLET 200 MG PO (20:44)
[2024-09-27] VITALS (94 sets, daily range): BP systolic 113–194; BP diastolic 63–121; PULSE 64–116; TEMP 35.7–38
[2024-09-27] MEDS: MISOPROSTOL 100 MCG TABLET 25 MCG VAGINAL (01:59)
[2024-09-27] MEDS: 0.9 % SODIUM CHLORIDE 1,000 ML 125 ML IV (05:25)
[2024-09-27] MEDS: OXYTOCIN/0.9 % SODIUM CHLORIDE 10 UNITS/500 ML PLAST..BAG 6 UNIT IV (08:00)
[2024-09-27] MEDS: LABETALOL HCL 100 MG TABLET 200 MG PO ×2 (08:35→21:18)
[2024-09-27] MEDS: 0.9 % SODIUM CHLORIDE 1,000 ML 1000 ML IV (10:25)
[2024-09-27] MEDS: ROPIVACAINE HCL/PF 400 MG/200 ML PREMIX 10 MG EPIDURAL (10:46)
[2024-09-27] MEDS: 0.9 % SODIUM CHLORIDE 1,000 ML 100 ML IV (13:44)
[2024-09-27] MEDS: ACETAMINOPHEN 500 MG TABLET 1000 MG PO (16:01)
[2024-09-27] MEDS: AMPICILLIN SODIUM 2,000 MG in 0.9 % SODIUM CHLORIDE 100 ML 200 MG IV (19:47)
--- NOTE | 2024-09-27 21:00 | PC.NURSE ---
LE 1700: pitocin to 6 mu/min per pump. and uterine assessment with oxytocin in use criteria met. LE 1730: pitocin to 8mu/min per infusion pump. and uterine assessment with oxytocin in use criteria met. 1800: pitocin to 10 mu/min per infusion pump. and uterine assessment with oxytocin in use criteria met.
[2024-09-27] MEDS: AMPICILLIN SODIUM 1,000 MG in 0.9 % SODIUM CHLORIDE 50 ML 100 MG IV (23:36)
[2024-09-28] VITALS (37 sets, daily range): BP systolic 100–157; BP diastolic 56–102; PULSE 80–115; TEMP 35.7–37.3; O2SAT 95
[2024-09-28] MEDS: OXYTOCIN/0.9 % SODIUM CHLORIDE 20 UNITS/1,000 ML PLAST..BAG 125 UNIT IV (01:13)
[2024-09-28] MEDS: LIDOCAINE HCL 1% 200 MG/20 ML MDV INJ (01:16)
--- NOTE | 2024-09-28 01:22 | PM.OBPRCVD ---
Procedure Intrapartal events: None Induction method: per misoprostol protocol Delivery augmentation: rupture of membranes and pitocin Delivery monitor: external FHT and external uterine Route of delivery: Episiotomy Description: none L&D Laceration Description: perineal - 1st degree Delivery repair: Vicryl Estimated blood loss (mL): 150 Anesthesia type: Epidural Disposition: PACU Infant Delivery date: 09/28/24 Gender: male presentation: vertex Placental delivery description: Spontaneous cord description: 3 Vessels and Nuchal Cord
[2024-09-28] MEDS: MAGNESIUM-BOLUS FROM THE BAG- 40 GM/1,000 ML IV.SOLN IV (04:57)
[2024-09-28] MEDS: 0.9 % SODIUM CHLORIDE 1,000 ML 50 ML IV (05:23)
[2024-09-28] MEDS: MAGNESIUM SULFATE IN WATER 40 GM/1,000 ML IV.SOLN IV (05:23)
[2024-09-28] MEDS: GLYCERIN/WITCH HAZEL PADS 1 PAD TOPICAL (06:25)
[2024-09-28] MEDS: BENZOCAINE/MENTHOL 85 GRAM SPRAY BOTTLE 1 APPLIC TOPICAL (06:26)
[2024-09-28] MEDS: KETOROLAC TROMETHAMINE 30 MG/ML VIAL IVP (08:26)
[2024-09-28] MEDS: LABETALOL HCL 100 MG TABLET 300 MG PO ×3 (08:27→21:59)
--- NOTE | 2024-09-28 12:04 | PC.NURSE ---
0800 up to BR with assist, voids and pericare, lt labial swelling more than right, perineum beyond labia eccymotic, all remains soft to touch, reviewed pericare and given ice pack when back to bed, seizure precautions cont.d, pt's biggest complaints of pain is to peerineum and voiding, medicated with toradol
--- NOTE | 2024-09-28 13:17 | PC.NURSE ---
1240 Up to BR, no dizziness noted, states just feels like cant catch her breath with ambulation, does not appear dyspneic or short of breath to RN, pulse ox 95% when returns to bed, perineum unchanged to appearancce
[2024-09-28] MEDS: IBUPROFEN 600 MG TABLET PO ×2 (14:28→20:42)
--- NOTE | 2024-09-28 18:22 | PC.NURSE ---
pt states It feels like when you try to run when you haven't for awhile when I get up with catching my breath. No outward symptoms noted, no cough, lungs clear throughout, states feels normal effort when in bed. Dr Mistry calls in and re viewed same.
[2024-09-28] MEDS: ACETAMINOPHEN 500 MG TABLET 1000 MG PO (22:00)
[2024-09-29] VITALS (7 sets, daily range): BP systolic 123–140; BP diastolic 71–89; PULSE 81–100; TEMP 36.7–37.1
[2024-09-29] MEDS: MAGNESIUM SULFATE IN WATER 40 GM/1,000 ML IV.SOLN IV (00:45)
[2024-09-29] MEDS: 0.9 % SODIUM CHLORIDE 1,000 ML 50 ML IV ×2 (00:45)
[2024-09-29] MEDS: LABETALOL HCL 100 MG TABLET 300 MG PO ×3 (06:13→21:43)
[2024-09-29 06:27] LABS: Hematocrit 30.4 % (36.0-48.0); Hemoglobin 10.3 g/dL (12.0-16.0); Immature Granulocytes Abs Auto 0.05 10^3/uL (0.00-0.03); Immature Granulocytes Pct Auto 0.5 % (0.0-0.5); Lymphocytes Absolute Auto 1.9 10^3/uL (1.2-3.8); Mean Corpuscular HGB Conc 33.9 g/dL (29.9-35.2); Mean Corpuscular Hemoglobin 30.7 pg (26.7-34.0); Mean Corpuscular Volume 90.7 fL (81.0-99.0); Platelet Count 174 10^3/uL (150-450); Red Blood Count 3.35 10^6/uL (4.20-5.40); White Blood Count 9.4 10^3/uL (4.0-11.0)
[2024-09-29] MEDS: IBUPROFEN 600 MG TABLET PO ×3 (08:30→21:40)
[2024-09-29] MEDS: ACETAMINOPHEN 500 MG TABLET 1000 MG PO ×3 (08:30→21:42)
[2024-09-29] MEDS: FUROSEMIDE 20 MG/2 ML VIAL 10 MG IVP (09:49)
[2024-09-29] MEDS: DOCUSATE SODIUM 100 MG CAPSULE PO ×2 (09:56→21:40)
--- NOTE | 2024-09-29 10:08 | PM.OBPN ---
OB - PN: Subj Subjective Patient comments: other (c/o increased perineal swelling) infant status: doing well feeding status: breast and bottle feeding Exam Constitutional Vital Signs, click to edit/add: Last Vital Signs Temp 98.7 F 09/29/24 02:30 Pulse 93 H 09/29/24 07:51 Resp 14 09/29/24 02:30 BP 140/89 09/29/24 07:51 Pulse Ox 95 09/28/24 12:35 O2 Del Method Room Air 09/29/24 02:30 Documenting provider has reviewed patient's vital signs: yes Common normals: no apparent distress General appearance: cooperative Orientation/consciousness: Yes awake, Yes oriented to person, Yes oriented to place and Yes oriented to time HENMT Common normals: normocephalic Eye Common normals: EOMs intact bilaterally General eye: normal appearance of both eyes Neck & C-Spine Common normals: full ROM General: normal visual inspection Thyroid: thyroid normal Lymph Lymphatic: no lymphadenopathy noted Chest Common normals: inspection of chest normal Respiratory Common normals: normal respiratory effort, no retractions, no use of accessory muscles and clear to auscultation bilaterally Effort & inspection: able to speak in complete sentences Auscultation: clear to auscultation bilaterally Cardio Common normals: regular rate and regular rhythm Rate: regular rate Rhythm: regular rhythm GI Common normals: Normal to inspection, nondistended, normoactive bowel sounds present, soft to palpation and non-tender Inspection: normal to inspection Palpation: soft Rectal Exam - Female: deferred Common normals: external appearance normal (bilateral labia swollen. bruising noted, sutures in tact, tender, soft) External Female Exam: externally tender and external swelling (tissue is bruised, soft, no hematoma noted ) Back & Pelvis Common normals: no CVA tenderness Thoracic spine/upper back: normal to inspection Lumbar spine/lower back: normal to inspection Extremity Common normals: normal to inspection and full ROM Neuro Common normals: oriented x3 Sensorium/orientation: awake, alert, oriented to person, oriented to place, oriented to time and orientation impaired Speech: speech normal Psych Common normals: mental status grossly normal, thought process normal, cooperative, affect normal, speech normal, activity/motor behavior normal, denies hallucinations, denies homicidal ideation and denies suicidal ideation Appearance: grossly normal and well kempt Attitude: calm Speech: normal speech Results Labs Labs: Short CBC 09/29/24 Range/Units 06:13 WBC 9.4 (4.0-11.0) 10^3/uL Hgb 10.3 L (12.0-16.0) g/dL Hct 30.4 L (36.0-48.0) % Plt Count 174 (150-450) 10^3/uL Urinary Catheter Management Urinary Catheter Management Urethral: Cath placed during this visit: no OB - PN: A/P Plan - Vaginal Delivery day: 1 Plan: routine care Time Spent with Patient Time: Total time spent is greater than 50% in coordination of care (as documented) at patient's floor/unit and/or counseling patient: Total time spent with greater than 50% in coordination of care (as documented) at patient's floor/unit and/or counseling patient: less than 15 minutes
--- NOTE | 2024-09-29 11:49 | PC.NURSE ---
0845 medicated with motrin and tylenol and pumps after nursing
--- NOTE | 2024-09-29 11:52 | PC.NURSE ---
1000 Lasix given, as pt sits on sitz bath with instructions on use, Cait Aleman CNJuan Francisco in and talks with pt and reviews perineum
--- NOTE | 2024-09-29 11:55 | PC.NURSE ---
1040 breast feeds with assistance then pumps and assisted baby to be finger fed by mom
[2024-09-29] MEDS: GLYCERIN/WITCH HAZEL PADS 1 PAD TOPICAL (21:39)
[2024-09-30] MEDS: ACETAMINOPHEN 500 MG TABLET 1000 MG PO ×3 (05:06→21:42)
[2024-09-30] MEDS: IBUPROFEN 600 MG TABLET PO ×3 (05:06→21:44)
[2024-09-30] MEDS: LABETALOL HCL 100 MG TABLET 300 MG PO ×3 (07:18→21:45)
--- NOTE | 2024-09-30 07:42 | P.OBPN_ITS ---
OB - PN: Subj Subjective Patient comments: no complaints and pain well controlled Watson status: doing well Exam Constitutional Vital Signs, click to edit/add: Last Vital Signs Temp 98.6 F 09/29/24 23:28 Pulse 84 09/29/24 23:28 Resp 16 09/29/24 14:52 BP 137/75 09/29/24 23:28 Pulse Ox 95 09/28/24 12:35 O2 Del Method Room Air 09/29/24 23:30 Documenting provider has reviewed patient's vital signs: yes Common normals: no apparent distress Respiratory Common normals: clear to auscultation bilaterally Cardio Common normals: regular rate and regular rhythm GI Common normals: Normal to inspection, nondistended, normoactive bowel sounds present Extremity Common normals: no clubbing, cyanosis or edema and no calf tenderness Urinary Catheter Management Urinary Catheter Management Urethral: Cath placed during this visit: no OB - PN: A/P Plan - Vaginal Delivery day: 2 Plan: routine care, discharge home and other (fu 1wk) Time Spent with Patient Time: Total time spent is greater than 50% in coordination of care (as documented) at patient's floor/unit and/or counseling patient: Total time spent with greater than 50% in coordination of care (as documented) at patient's floor/unit and/or counseling patient: less than 15 minutes
[2024-09-30] MEDS: DOCUSATE SODIUM 100 MG CAPSULE PO ×2 (09:03→21:42)
[2024-09-30 09:05] VITALS: TEMP 36.7
[2024-09-30 09:07] VITALS: BP 131/90; PULSE 106
[2024-09-30 15:10] VITALS: TEMP 37
[2024-09-30 15:13] VITALS: BP 132/90; PULSE 73
[2024-09-30] MEDS: BENZOCAINE/MENTHOL 85 GRAM SPRAY BOTTLE 1 APPLIC TOPICAL (21:55)
== END 2024-09-30 22:05 | disposition home or self-care (01) | DRG 807 ==
PROVIDERS: Admitting Provider Obstetrics & Gynecology; Visit Provider Obstetrics & Gynecology
DX: O13.4 Gestational [pregnancy-induced] hypertension without significant proteinuria, complicating childbirth (principal); Z37.0 Single live birth; O15.1 Eclampsia complicating labor; O69.81X0 Labor and delivery complicated by cord around neck, without compression, not applicable or unspecified; O70.0 First degree perineal laceration during delivery; Z3A.37 37 weeks gestation of pregnancy; Z87.440 Personal history of urinary (tract) infections
CPT/HCPCS: 36415; 59050; 59410; 80307; 85025; 85027; 86850; 86900; 86901; J0290; J0665; J1885; J1938; J2300; J2405; J2795; J3010; J3475

== ENCOUNTER 2024-10-02 11:07 | Outpatient (OUT) | payer OTHER, SELFPAY ==
[2024-10-02 13:06] VITALS: BP 137/93; PULSE 85; TEMP 36.7
--- NOTE | 2024-10-02 13:06 | PC.NURSE ---
Here for follow up. Mother voices concerns that infant is hard to wake for feeds and that some feeds are great while others even the bottle is difficult. VSS and Assessment for Mary WNL. Mom has no concerns for self. continues to take Labetolol 300mg TID for blood pressure. was on Mag SO4 after delivery as well. Has appointment with office for blood pressure check this week. is pumping every 2-3 hours obtains up to 1 oz each breast on day 4. Baby is taking 30 ml each feed, 2.5 hours apart. Baby reported to have 8-9 wet diapers, not heavy wet, but noted to be wet and 3 mod to large green/brown stools since midnight. Diaper changed for small stool green/brown in color. jaundiced, TcB is 13.2. REported to Dr Wilson, will need to return 10/04/2024 for bili level repeat. Beau with VSS and assessment WNL. Attempted to breast, suckles for few times, and stops. Shield used gives same results. Mom was fed 1 hour ago, so may not be hungry. Discussed waking infant and maintaining feed every 2 hours. Mom to pump if no latching at breast and feed pumped milk. No need for formula use if able to pump amount for baby. S/S for returning for evaluation of bili level prior to . Mother and grandmother reassured with visit. Aware to call for questions or concerns prior to Monday. Family leaves for home where mom with rest and work on feeding baby. Grandmother very supportive.
== END 2024-10-02 13:22 | disposition home or self-care (01) ==
PROVIDERS: Visit Provider Obstetrics & Gynecology
DX: Z39.1 Encounter for care and examination of lactating mother (principal)

== ENCOUNTER 2024-10-04 08:13 | Outpatient (OUT) | payer OTHER, SELFPAY | END 2024-10-04 12:21 | disposition home or self-care (01) | LOC: FBCO 08:21 | PROVIDERS: Visit Provider Obstetrics & Gynecology | DX: Z39.1 Encounter for care and examination of lactating mother (principal) | CPT/HCPCS: G0463 ==

== ENCOUNTER 2024-10-15 10:50 | Emergency (ER) | payer OTHER, SELFPAY ==
[2024-10-15] VITALS (7 sets, daily range): BP systolic 110–118; BP diastolic 67–81; PULSE 111–130; TEMP 37.3–39.4; O2SAT 98–100; BMI 30.9
--- NOTE | 2024-10-15 11:13 | ED_ITS ---
HPI HPI - General Adult General Chief complaint: Fever Stated complaint: BREAST PAIN - FEVER Time Seen by Provider: 10/15/24 11:04 Source: patient Mode of arrival: walk-in Limitations: no limitations History of Present Illness HPI narrative: 24-year-old female presents for redness and pain to her right breast. She is currently breast-feeding. She states her breast started hurting yesterday and then it became a bit red on the area superior and medial to the nipple. She has not had any purulent drainage from her nipple. She did not check her temperature at home but thought she might have a fever and she was noted to be tachycardic upon arrival. Related Data Home Medications ?Medication ?Instructions ?Recorded ?Confirmed labetalol 200 mg tablet 200 mg PO TID 09/20/2410/15 acetaminophen 500 mg capsule 500 mg PO ONCE PRN fever or pain 10/15/24 10/15/24 ibuprofen 200 mg tablet (Advil) 400 mg PO ONCE PRN fev er or pain 10/15/24 10/15/24 Previous Rx's ?Medication ?Instructions ?Recorded amoxicillin 875 mg-potassium 1 tab PO BID #20 tabs 02/27 clavulanate 125 mg tablet ondansetron 4 mg disintegrating 4 mg PO Q6H PRN nausea and 10/15/24 tablet vomiting #20 tabs Allergies Allergy/AdvReac Type Severity Reaction Status Date / Time No Known Drug Allergies Allergy Verified 10/15/24 10:56 Opioid HPI Opioid Management Most Recent Opioid Data: Last Pain Scale 6 Today, 10:57 Last MAR Pain Assessment Today, 11:58 Ur Phencyclidine Scrn, (NEGATIVE) Negative , 18:40 Review of Systems ROS Narrative A ten point review of systems is negative except as noted above. PFSH [facility] Medical History (Updated 10/15/24 @ 13:13 by Adrian Ibrahim MD) Anxiety ?F41.9 - Anxiety disorder, unspecified (ICD-10) Asthma ?J45.909 - Unspecified asthma, uncomplicated (ICD-10) Gestational hypertension ?O13.9 - Gestational [-induced] hypertension without significant proteinuria, unspecified trimester (ICD-10) Surgical History (Updated 09/26/24 @ 21:24 by Norris Knutson) H/O toe surgery ?Z98.890 - Other specified postprocedural states (ICD-10) H/O right knee surgery (~2018) ?Z98.890 - Other specified postprocedural states (ICD-10) Family History (Updated 09/26/24 @ 21:25 by Norris Knutson) Mother Family history of hypertension History of anxiety Father History of anxiety Social History (Updated 09/26/24 @ 22:28 by Norris Knutson) Within the past year, how often did you have a drink containing alcohol: never Within the past year, how often did you have six or more drinks on one occasion: never Score interpretation: A score less than 3 is consistent with normal alcohol consumption. Smoking status: Never smoker Non-prescribed substance use: denies use Highest level of school completed/degree received: some college, no degree Are you now , , , , never or living with a partner: In a typical week, how many times do you talk on the telephone with family, friends, or neighbors: 3 or more times per week How often do you get together with friends or relatives: 3 or more times per week How often do you attend restoration or anglican services: never Little interest or pleasure in doing things: not at all Feeling down, depressed, or hopeless: not at all Do you think of yourself as: straight/heterosexual Gender Identity: female Exam Narrative Exam Narrative: Nurses note and vital signs reviewed and patient is not hypoxic. General: The patient appears well and in no apparent distress. Patient is resting comfortably on cart. Skin: Warm, dry, no pallor noted. There is no rash noted. Her right breast is examined. There is mild erythema from the 12 o'clock position to the 3 o'clock position. No purulent drainage from her nipple. There is no open area or drainage. There is no fluctuance. Head: Normocephalic, atraumatic Eye: Normal conjunctiva, no drainage Ears, Nose, Mouth, and Throat: oral mucosa is moist. Nares patent. Cardiovascular: Regular Rate and Rhythm, mildly tachycardic Respiratory: Patient is in no distress, no accessory muscle use, lungs are clear to auscultation, no wheezing, rales or rhonchi Back: non-tender GI: Soft and nontender Musculoskeletal: The patient has no evidence of calf tenderness, no pitting edema, symmetrical pulses noted bilaterally Neurological: A&O, normal speech Psychiatric: Cooperative Constitutional Vital Signs, click to edit/add: Last Vital Signs Temp 102.7 F H 10/15/24 11:53 Pulse 126 H 10/15/24 12:05 Resp 16 10/15/24 12:05 BP 118/81 10/15/24 12:05 Pulse Ox 100 10/15/24 12:05 O2 Del Method Room Air 10/15/24 10:57 Course Vital Signs Vital signs: Vital Signs Temperature 99.1 F 10/15/24 10:57 Pulse Rate 130 H 10/15/24 10:57 Respiratory Rate 14 10/15/24 10:57 Blood Pressure 110/81 10/15/24 10:57 Pulse Oximetry 98 10/15/24 10:57 Oxygen Delivery Method Room Air 10/15/24 10:57 Temperature 102.7 F H 10/15/24 11:53 Pulse Rate 126 H 10/15/24 12:05 Respiratory Rate 16 10/15/24 12:05 Blood Pressure 118/81 10/15/24 12:05 Pulse Oximetry 100 10/15/24 12:05 Oxygen Delivery Method Room Air 10/15/24 10:57 Medical Decision Making MDM Narrative Medical decision making narrative: My clinical impression is that she has right mastitis. She did have a fever here and WBC is 17,000. She was given IV Ancef and prescribed Augmentin and Zofran. Case discussed with Dr. Mistry and the patient already has an appointment with him to be seen tomorrow and she will keep that appointment. I do not suspect an abscess. Treatment diagnosis and follow-up were discussed with the patient. Differential Diagnosis Differential Diagnosis: Mastitis, cellulitis, abscess Lab Data Lab results reviewed: Yes I reviewed the patient's lab results Labs: Lab Results 10/15/24 Range/Units 11:21 WBC 17.0 H (4.0-11.0) 10^3/uL RBC 4.53 (4.20-5.40) 10^6/uL Hgb 13.5 (12.0-16.0) g/dL Hct 40.1 (36.0-48.0) % MCV 88.5 (81.0-99.0) fL MCH 29.8 (26.7-34.0) pg MCHC 33.7 (29.9-35.2) g/dL RDW 12.8 (11.0-15.0) % Plt Count 238 (150-450) 10^3/uL MPV 11.3 (9.5-13.5) fL Neut % (Auto) 84.9 H (43.0-75.0) % Lymph % (Auto) 6.2 L (20.5-60.0) % [place] % (Auto) 7.5 (1.7-12.0) % Eos % (Auto) 0.5 L (0.9-7.0) % Baso % (Auto) 0.4 (0.2-2.0) % Neut # (Auto) 14.5 H (1.4-6.5) 10^3/uL Lymph # (Auto) 1.1 L (1.2-3.8) 10^3/uL [place] # (Auto) 1.3 H (0.3-0.8) 10^3/uL Eos # (Auto) 0.1 (0.0-0.7) 10^3/uL Baso # (Auto) 0.1 (0.0-0.1) 10^3/uL Abs Immat Gran (auto) 0.08 H (0.00-0.03) 10^3/uL Imm/Tot Granulo (auto) 0.5 (0.0-0.5) % Sodium 139 (136-145) mmol/L Potassium 4.2 (3.5-5.1) mmol/L Chloride 103 (98-107) mmol/L Carbon Dioxide 23.7 (21.0-32.0) mmol/L Anion Gap 16.5 BUN 13.0 (7.0-18.0) mg/dL Creatinine 0.91 (0.55-1.02) mg/dL Est GFR ( Amer) >60 (>=60 mL/min/1.73m^2) Est GFR (Non-Af Amer) >60 (>=60 mL/min/1.73m^2) BUN/Creatinine Ratio 14.3 Glucose 103 (74-106) mg/dL Calcium 9.2 (8.5-10.1) mg/dL Discharge Plan Discharge Chief Complaint: Fever Clinical Impression: Acute mastitis of right breast Patient Disposition: Home, Self-Care Time of Disposition Decision: 13:12 Condition: Good Mode of Transportation: Private Vehicle Prescriptions / Home Meds: New amoxicillin-pot clavulanate 875-125 mg tablet 1 tab PO BID Qty: 20 0RF ondansetron 4 mg tablet,disintegrating 4 mg PO Q6H PRN (Reason: nausea and vomiting) Qty: 20 0RF No Action labetalol 200 mg tablet 200 mg PO TID acetaminophen 500 mg capsule 500 mg PO ONCE PRN (Reason: fever or pain) ibuprofen [Advil] 200 mg tablet 400 mg PO ONCE PRN (Reason: fever or pain) Print Language: Armenian Instructions: Mastitis (ED) Additional Instructions: See Dr. Mistry at your appointment tomorrow Referrals: Physician,Non-Staff, MD [Primary Care Provider] - 1 week
[2024-10-15] MEDS: 0.9 % SODIUM CHLORIDE 1,000 ML 1000 ML IV (11:27)
[2024-10-15 11:32] LABS: Hematocrit 40.1 % (36.0-48.0); Hemoglobin 13.5 g/dL (12.0-16.0); Immature Granulocytes Abs Auto 0.08 10^3/uL (0.00-0.03); Immature Granulocytes Pct Auto 0.5 % (0.0-0.5); Lymphocytes Absolute Auto 1.1 10^3/uL (1.2-3.8); Mean Corpuscular HGB Conc 33.7 g/dL (29.9-35.2); Mean Corpuscular Hemoglobin 29.8 pg (26.7-34.0); Mean Corpuscular Volume 88.5 fL (81.0-99.0); Platelet Count 238 10^3/uL (150-450); Red Blood Count 4.53 10^6/uL (4.20-5.40); White Blood Count 17.0 10^3/uL (4.0-11.0)
[2024-10-15] MEDS: CEFAZOLIN SODIUM/DEXTROSE,ISO 1 GM/50 ML PREMIX IV (11:49)
[2024-10-15 11:58] LABS: Anion Gap 16.5; Blood Urea Nitrogen 13.0 mg/dL (7.0-18.0); Calcium 9.2 mg/dL (8.5-10.1); Carbon Dioxide 23.7 mmol/L (21.0-32.0); Chloride 103 mmol/L (98-107); Estimated GFR (African America >60 (>=60 mL/min/1.73m^2); Estimated GFR (Non-African Ame >60 (>=60 mL/min/1.73m^2); Glucose 103 mg/dL (74-106); Potassium 4.2 mmol/L (3.5-5.1); Sodium 139 mmol/L (136-145)
[2024-10-15] MEDS: ACETAMINOPHEN 325 MG TABLET 650 MG PO (11:58)
[2024-10-15] MEDS: IBUPROFEN 400 MG TABLET 800 MG PO (13:37)
== END 2024-10-15 15:05 | disposition home or self-care (01) ==
PROVIDERS: Emergency Provider Emergency Medicine
DX: N61.0 Mastitis without abscess (principal); R50.9 Fever, unspecified; N64.4 Mastodynia
CPT/HCPCS: 36415; 80048; 85025; 96365; 96375; 99284; J0690; J2405

== ENCOUNTER 2024-10-16 14:18 | Inpatient (IN) | payer OTHER, SELFPAY ==
--- OUTSIDE RECORDS SUMMARY | 2024-10-09 13:10 | XMS_ITS | Encounter Summary ---
Author Organization [facility] Address [address] [place] [address] Care Team Providers Care Pot Firer Name Role Phone Unavailable Primary Care Provider Unavailabl e Encounter Details Date Type Department Care Team (Latest Contact Info) Description 10/09/2024 1:10 PM EDT Visit [facility] [address] [place] [phone] Curt Mistry DO [address] [facility] [address] [address] [place] [address] Third trimester ([facility]HS-HCC); Essential hypertension during , delivered (HHS-HCC); induced hypertension, antepartum (HHS-HCC); Pre-eclampsia in third trimester ([facility]) Social History Tobacco Use Types Packs/Day Years Used Date Smoking Tobacco: Never Assessed Comments No Sex and Gender Information Value Date Recorded Sex Assigned at Female 02/13/2024 11:26 AM EST Legal Sex Female 10:16 AM EST Gender Identity Female 02/13/2024 11:26 AM EST Sexual Orientation Straight 02/13/2024 11 :26 AM EST documented as of this encounter Progress Notes * Marielos Rapp LPN - 10/09/2024 1:10 PM EDT Reason for Appointment: Patient ID: Surendra Butler is a 24 y.o. female who presents for No chief complaint on file. Patient presents today for Post Follow Up appointment. MEDICATIONS Current Outpatient Medications Medication Instructions labetalol (NORMODYNE) 300 mg, Oral, 3 times daily ALLERGIES No Known Allergies PROBLEMS Active Ambulatory [...] nursing note reviewed. Exam conducted with a grinding and polishing laborer present. Vitals: Estimated body mass index is 35.55 kg/m?? as calculated from the following: Height as of 08/20/24: 5' 4 . Weight as of 09/25/24: 207 lb 1.9 oz. BP: No LMP recorded. ASSESSMENT & PLAN ICD-10-CM 1. Third trimester ([facility]) Z34.93 labetalol (Normodyne) 200 MG tablet 2. Essential hypertension during , delivered ([facility]) O10.019 labetalol (Normodyne) 200 MG tablet 3. induced hypertension, antepartum ([facility]) O13.9 labetalol (Normodyne) 200 MG tablet 4. Pre-eclampsia in third trimester (HHS-HCC) O14.93 labetalol (Normodyne) 200 MG tablet Pt presents as one week BP check. Pt BP still slightly elevated. Pt to return in one week. Pt to decrease labetalol to 200mg. Documented by Marielos Rapp LPN on behalf of: Curt Mistry DO documented in this encounter Plan of Treatment Upcoming Encounters Date Type Department Care Team (Late st Contact Info) Description 11/11/2024 1:20 PM EDT Visit [facility] [address] [place] [address] Curt Mistry DO [address] [place] [address] documented as of this encounter Visit Diagnoses Diagnosis Third trimester (HHS-HCC) state, incidental Essential hypertension during , delivered (HHS-HCC) induced hypertension, antepartum (HHS-HCC) Transient hypertension of , antepartum Pre-eclampsia in third trimester (HHS-HCC) documented in this encounter
[2024-10-16] VITALS (23 sets, daily range): BP systolic 118–145; BP diastolic 57–84; PULSE 88–130; TEMP 36.8–39.2; O2SAT 95–99; BMI 30.6
--- OUTSIDE RECORDS SUMMARY | 2024-10-16 13:30 | XMS_ITS | Encounter Summary ---
Author Organization [facility] Address [address] [place] [address] Care Team Providers Care District Sales Coordinator Name Role Phone Unavailable Primary Care Provider Unavailabl e Reason for Visit * Reason Comments Blood Pressure Check Encounter Details Date Type Department Care Team (Latest Contact Info) Description 10/16/2024 1:30 PM EDT Visit [facility] [place] [facility] [address] [place] [address] Curt Mistry DO [address] [place] [address] [place] [address] Blood pressure check; Third trimester (HHS-HCC); Essential hypertension during , [...] Sign Reading Time Taken Comments Blood Pressure 118/74 10/16/2024 1:52 PM EDT Pulse 137 10/16/2024 1:52 PM EDT Temperature - - Respiratory Rate - - Oxygen Saturation - - Inhaled Oxygen Concentration - - Weight 81.1 kg (178 lb 12.8 oz) 10/16/2024 1:52 PM EDT Height - - Body Mass Index 30.69 08/20/2024 11:48 AM EDT documented in this encounter Progress Notes * Marielos Rapp, HYDRAULIC DREDGE OPERATOR - 10/16/2024 1:30 PM EDT Reason for Appointment: Patient ID: Surendra Butler is a 24 y.o. female who presents for Blood Pressure Check Patient presents today for Acute Visit. MEDICATIONS Current Outpatient Medications Medication Instructions amoxicillin-clavulanate (Augmentin) 875-125 MG tablet 875 mg, 2 times daily labetalol (NORMODYNE) 200 mg, Oral, 3 times daily ondansetron ODT (ZOFRAN-ODT) 4 mg, Every 8 hours PRN ALLERGIES No Known Allergies PROBLEMS [...] Review of Systems: Review of Systems Constitutional: Positive for diaphoresis. HENT: Negative. Eyes: Negative. Breasts: Positive for breast mass. Mastistis reddened breast warm to touch Respiratory: Negative. Cardiovascular: Negative. Gastrointestinal: Negative. Genitourinary: Negative. Musculoskeletal: Negative. Skin: Negative. Neurological: Negative. All other systems reviewed and are negative. Hematological: Negative. Endocrine: Negative. Allergic/Immunologic: Negative. OBJECTIVE Objective: Physical Exam Constitutional: Appearance: Normal appearance. She is well-developed. Genitourinary: Genitourinary Comments: Left breast reddened and warm to touch was started on augmentin yesterday Breasts: Left: Skin change and tenderness present. Cardiovascular: Rate and Rhythm: Normal rate and [...] nursing note reviewed. Exam conducted with a livestock agent present. Vitals: Estimated body mass index is 30.69 kg/m?? as calculated from the following: Height as of 08/20/24: 5' 4 . Weight as of this encounter: 178 lb 12.8 oz. BP: No LMP recorded. ASSESSMENT & PLAN ICD-10-CM 1. Blood pressure check Z01.30 2. Third trimester ([facility]) Z34.93 labetalol (Normodyne) 200 MG tablet 3. Essential hypertension during , delivered ([facility]) O10.019 labetalol (Normodyne) 200 MG tablet 4. induced hypertension, antepartum ([facility]) O13.9 labetalol (Normodyne) 200 MG tablet 5. Pre-eclampsia in third trimester ([facility]) O14.93 labetalol (Normodyne) 200 MG tablet Documented by Marielos Rapp LPN on behalf of: Curt Mistry DO documented in this encounter Plan of Treatment Upcoming Encounters Date Type Department Care Team (Late st Contact Info) Description 11/11/2024 1:20 PM EDT Visit [facility] [address] [place] [phone] Curt Mistry DO [address] [place] [address] documented as of this encounter Visit Diagnoses Diagnosis Blood pressure check Screening for hypertension Third trimester ([facility]) state, incidental Essential hypertension during , delivered ([facility]) induced hypertension, antepartum ([facility]) Transient hypertension of , antepartum Pre-eclampsia in third trimester ([facility]) documented in this encounter
--- OUTSIDE RECORDS SUMMARY | 2024-10-16 14:26 | XMS_ITS | Encounter Summary ---
Author Organization [facility] Address [address] [place] [address] Care Team Providers Care Manager Unit Name Role Phone Unavailable Primary Care Provider Unavailabl e Encounter Details Date Type Department Care Team (Late Contact Info) Description 05/20/2024 Orders Only [facility] [address] [place] [phone] Rosa Cueav RI [address] [place] [address] Social History Tobacco Use Types Packs/Day Years Used Date Smoking Tobacco: Never Assessed Comments Yes Sex and Gender Information Value Date Recorded Sex Assigned at Female 02/13/2024 11:26 AM EST Legal Sex Female 10:16 AM EST Gender Identity Female 02/13/2024 11:26 AM EST Sexual Orientation Straight 02/13/2024 11 :26 AM EST documented as of this encounter Plan of Treatment Upcoming Encounters Date Type Department Care Team (Late Contact Info) Description 11/11/2024 1:20 PM EDT Visit [facility] [address] [place] [phone] Curt Mistry DO [address] [facility] [place], [place] [id number] documented as of this encounter Procedures Procedure [...]
--- OUTSIDE RECORDS SUMMARY | 2024-10-16 14:26 | XMS_ITS | Encounter Summary ---
Author Organization [facility] Address [address] [place] [address] Care Team Providers Care Antique Repairer Name Role Phone Unavailable Primary Care Provider Unavailabl e Encounter Details Date Type Department Care Team (Late st Contact Info) Description 04/17/2024 Abstract [facility] [address] [place] [address] Tiffanie Loza LPN Social History Tobacco [...] 1:20 PM EDT Visit [facility] [address] [place] [phone] Curt Mistry DO [address] [place], [place] [id number] documented as of this encounter Visit Diagnoses Not on filedocumented in this encounter
--- OUTSIDE RECORDS SUMMARY | 2024-10-16 14:26 | XMS_ITS | Encounter Summary ---
Author Organization [facility] Address [address] [place] [address] Care Team Providers Care Cushion Stuffer Name Role Phone Unavailable Primary Care Provider Unavailabl e Encounter Details Date Type Department Care Team (Late st Contact Info) Description 04/03/2024 Abstract [facility] [address] [facility] [place] [phone] Curt Mistry DO [address] [place] [place], [place] [id number] Social History Tobacco Use Types Packs/Day Years [...] Info) Description 11/11/2024 1:20 PM EDT Visit [facility] [address] [facility] [address] [place] [phone] Curt Mistry DO [address] [place], [place] [id number] documented as of this encounter Visit Diagnoses Not on filedocumented in this encounter
--- OUTSIDE RECORDS SUMMARY | 2024-10-16 14:26 | XMS_ITS | Encounter Summary ---
Author Organization [facility] Address [address] [facility] [place] [address] Care Team Providers Care Box Truck Driver Name Role Phone Unavailable Primary Care Provider Unavailabl e Encounter Details Date Type Department Care Team (Late st Contact Info) Description 09/29/2024 Abstract [facility] [address] [place] [phone] Simona Aleman CNM [address] [place] [address] Social History Tobacco Use Types Packs/Day Years [...] Description 11/11/2024 1:20 PM EDT Visit [facility] [place] [facility] [address] [place] [phone] Curt Mistry DO [address] [place] [address] documented as of this encounter Visit Diagnoses Not on filedocumented in this encounter
--- OUTSIDE RECORDS SUMMARY | 2024-10-16 14:26 | XMS_ITS | Encounter Summary ---
Author Organization [facility] Address [address] [place] [address] Care Team Providers Care Construction Skills Teacher Name Role Phone Unavailable Primary Care Provider Unavailabl e Encounter Details Date Type Department Care Team (Late st Contact Info) Description 10/16/2024 Telephone [facility] [address] [employer] [address] [place] [phone] Fina Sarmiento LPN [address] [place], [place] [phone] Social History Tobacco Use Types Packs/Day Years Used Date Smoking Tobacco: Never Assessed Comments No Sex and Gender Information Value Date Recorded Sex Assigned at Female 02/13/2024 11:26 AM EST Legal Sex Female 10:16 AM EST Gender Identity Female 02/13/2024 11:26 AM EST Sexual Orientation Straight 02/13/2024 11 :26 AM EST documented as of this encounter Miscellaneous Notes * Telephone Encounter - Fina Sarmiento LPN - 10/16/2024 8:14 AM EDT Pt called stating that she thinks that she has mastitis and would like something called in. I called pt back and she had already went to the ER and got treated. She asked me if she could take the Augmentin that ER gave her because her is allergic to penicillin and she was not sure if baby would have an allergic reaction as well. I told her that just because dad is allergic to penicillins does not necessarily mean baby will be too but baby could have an allergy to penicillin.. PVU documented in this encounter Plan of Treatment Upcoming Encounters Date Type Department Care Team (Late st Contact Info) Description 11/11/2024 1:20 PM EDT Visit [facility] [address] [place] [phone] Curt Mistry DO [address] [place] [address] documented as of this encounter Visit Diagnoses Not on filedocumented in this encounter
--- OUTSIDE RECORDS SUMMARY | 2024-10-16 14:26 | XMS_ITS | Encounter Summary ---
Author Organization [facility] Address [address] [place] [address] Care Team Providers Care Manager Learning Name Role Phone Unavailable Primary Care Provider Unavailabl e Encounter Details Date Type Department Care Team (Late st Contact Info) Description 09/28/2024 Abstract [facility] [address] [facility] [place] [phone] Curt Mistry DO [address] [facility] [address] [place] [place], [place] [phone] Social History Tobacco Use Types Packs/Day Years [...] 1:20 PM EDT Visit [facility] [address] [facility] [place] [phone] Curt Mistry DO [address] [place], [place] [phone] documented as of this encounter Visit Diagnoses Not on filedocumented in this encounter
--- OUTSIDE RECORDS SUMMARY | 2024-10-16 14:26 | XMS_ITS | Encounter Summary ---
Author Organization [facility] Address [address] [place] [address] Care Team Providers Care Recruitment Consultant Name Role Phone Unavailable Primary Care Provider Unavailabl e Encounter Details Date Type Department Care Team (Late st Contact Info) Description 03/26/2024 Abstract [facility] [address] [facility] [place] [phone] Curt Mistry DO [address] [facility] [address] [place] [place], [place] [phone] Social History Tobacco Use Types Packs/Day Years [...] 1:20 PM EDT Visit [facility] [address] [facility] [place] [phone] Curt Mistry DO [address] [place], [place] [phone] documented as of this encounter Visit Diagnoses Not on filedocumented in this encounter
--- OUTSIDE RECORDS SUMMARY | 2024-10-16 14:27 | XMS_ITS | Clinical Summary ---
Author Organization [facility] Address [address] [place] [address] Care Team Providers Care Spinning Bath Person Name Role Phone Unavailable Primary Care Provider Unavailabl e Allergies No known active allergies Medications labetalol (Normodyne) 200 MG tabletIndications :Third trimester ([facility]),Essenti al hypertension during , delivered ([facility]),Pregnan cy induced hypertension, antepartum ([facility]),Pre-ecl ampsia in third trimester ([facility]) Take 1 tablet (200 mg) by mouth in the morning and 1 tablet (200 mg) in the evening and 1 tablet (200 mg) before bedtime. 10/17/19 25 025 Active ondansetron ODT (Zofran-ODT) 4 MG disintegrating tablet Take 4 mg by mouth every 8 (eight) hours if needed for nausea or vomiting Active amoxicillin-clavu lanate (Augmentin) 875-125 MG tablet Take 875 mg by mouth in the morning and 875 mg before bedtime. Active MV-Min-Fe Fum-FA-DHA ( 1 PO) Take by mouth 025 Discontinued Ferrous Gluconate (IRON 27 PO) Take by mouth 025 Discontinued labetalol (Normodyne) 200 MG tabletIndications :Third trimester ([facility]),Hyperte nsion during in third trimester, unspecified hypertension in type ([facility]),Pregnan cy induced hypertension, antepartum ([facility]),Pre-ecl ampsia in third trimester ([facility]) Take 1 tablet (200 mg) by mouth in the morning and 1 tablet (200 mg) before bedtime. 180 tablet 09/05/19 25 025 Discontinued(D ose adjustment) labetalol (Normodyne) 200 MG tabletIndications :Third trimester ([facility]),Essenti al hypertension during , delivered ([facility]),Pregnan cy induced hypertension, antepartum ([facility]),Pre-ecl ampsia in third trimester ([facility]) Take 1.5 tablets (300 mg) by mouth in the morning and 1.5 tablets (300 mg) in the evening and 1.5 tablets (300 mg) before bedtime. 405 tablet 10/10/19 25 025 Discontinued Encounters Date Type Department Care Team Description 10/16/2024 1:30 [place] [address] Curt Mistry DO Blood pressure check; Third trimester ([facility]); Essential hypertension during , delivered ([facility]); induced hypertension, antepartum ([facility]); Pre-eclampsia in third trimester ([facility]) 10/16/2024 [place] [address] Fina Sarmiento LPN 10/09/2024 1:10 [place] [address] Curt Mistry DO Third trimester ([facility]); Essential hypertension during , delivered ([facility]); induced hypertension, antepartum ([facility]); Pre-eclampsia in third trimester ([facility]) 09/29/2024 Abstract [facility] BROWN [address] [place] [address] Simona Aleman CNM 09/29/2024 Clinisync Result Encounter NOMS External Department Unsolicited Curt Mistry DO 09/28/2024 Abstract [facility] [place] [address] Curt Mistry, DO 09/28/2024 Abstract [facility] [address] [facility] [place] [address] Curt Mistry, DO 09/26/2024 Clinisync Result Encounter NOMS External Department Unsolicited Curt Mistry, 09/25/2024 2:10 PM EDT Routine [facility] [address] [place] [address] Curt Mistry, DO Third trimester ([facility]); 37 weeks gestation of ([facility]) 09/25/2024 Bamboo flowsheet [facility] [address] [place] [address] Curt Mistry, 09/24/2024 Clinisync Result Encounter NOMS External Department Unsolicited Fina Wilson NP 09/18/2024 2:00 PM EDT Routine [facility] [address] [place] [address] Curt Mistry, 36 weeks gestation of ([facility]); Third trimester ([facility]); Hypertension during in third trimester, unspecified hypertension in type ([facility]); Pre-eclampsia in third trimester ([facility]) 09/18/2024 Clinisync Result Encounter NOMS External Department Unsolicited Fina Wilson NP 09/17/2024 1:30 PM EDT Ancillary Procedure [facility] [address] [facility] [place] [phone] induced hypertension, antepartum ([facility]) 09/11/2024 3:20 PM EDT Routine [facility] [address] [place] [address] Hedy Ortega PA 35 weeks gestation of ([facility]); Third trimester ([facility]); Hypertension during in third trimester, unspecified hypertension in type ([facility]); induced hypertension, antepartum ([facility]); Pre-eclampsia in third trimester ([facility]) 09/11/2024 Clinisync Result Encounter NOMS External Department Unsolicited Fina Wilson, BODY MECHANIC 09/04/2024 2:30 PM [place] [address] Hedy Ortega PA Pharyngitis, unspecified etiology (Primary Dx); Third trimester ([facility]); 34 weeks gestation of ([facility]); Hypertension during in third trimester, unspecified hypertension in type ([facility]); induced hypertension, antepartum ([facility]); Pre-eclampsia in third trimester ([facility]) 09/04/2024 Clinisync Result Encounter NOMS External Department Unsolicited KatieAnali marvina, BODY MECHANIC 08/28/2024 Clinisync Result Encounter NOMS External Department Unsolicited Katie, Fina, BODY MECHANIC 08/21/2024 Clinisync Result Encounter NOMS External Department Unsolicited KatieAnalia, BODY MECHANIC 08/20/2024 11:20 AM ED[place] [address] Curt Mistry DO Third trimester ([facility]); 32 weeks gestation of ([facility]); Pre-eclampsia in third trimester ([facility]); induced hypertension, antepartum ([facility]) 08/20/2024 11:00 AM EDT Ancillary [place] [address] Hypertension during in third trimester, unspecified hypertension in type ([facility]) 08/13/2024 Clinisync Result Encounter NOMS External Department Unsolicited Fina Wilson, BODY MECHANIC 08/13/2024 [place] [address] Francisca Mcqueen MA 08/07/2024 3:50 PM EDT Routine [facility] [address] [facility] [place] [address] Hedy Ortega PA Hypertension during in third trimester, unspecified hypertension in type ([facility]) (Primary Dx); Third trimester ([facility]); 30 weeks gestation of ([facility]) 08/07/2024 Bamboo flowsheet [facility]os [facility] [address] [facility] [place] [address] Hedy Ortega PA 08/06/2024 Clinisync Result Encounter NOMS External Department Unsolicited Fina Wilson NP 07/31/2024 Clinisync Result Encounter NOMS External Department Unsolicited Fina Wilson NP 07/24/2024 3:30 PM EDT Routine [facility] BROWN [address] [facility] [place] [address] Curt Mistry DO 28 weeks gestation of ([facility]); Third trimester ([facility]) 07/24/2024 3:00 PM EDT Ancillary Procedure [facility] [address] [facility] [place] [address] induced hypertension, antepartum ([facility]) 07/24/2024 Travel 07/23/2024 Clinisync Result Encounter NOMS External Department Unsolicited Fina Wilson NP from Last 3 Months [...] 12.8 oz) 10/16/2024 1:52 PM EDT Height 162.6 cm (5' 4 ) 08/20/2024 11:4 8 AM EDT Body Mass Index 30.69 08/20/2024 11:48 AM EDT Plan of Treatment Upcoming Encounters Date Type Department Care Team (Late st Contact Info) Description 11/11/2024 1:20 PM EDT Visit [facility] [address] [facility] [place] [address] Curt Mistry DO [address] [place] [address] Procedures Procedure Name Priority Date/Time Associated Diagnosis Comments ALL CBC WITH AUTO DIFF Routine 6:13 AM EDT [facility] CBC WITH PLATELET NO DIFFERENTIAL Routine 09/26/2024 7:39 PM EDT TBH DRUG SCREEN RAPID (URINE) Routine 09/26/2024 6:40 PM EDT POCT URINALYSIS DIPSTICK Routine 09/25/2024 2:32 PM EDT Third trimester ([facility]) 37 weeks gestation of ([facility]) US OB BPP W NON-STRESS 09/24/2024 9:58 PM EDT POCT URINALYSIS DIPSTICK Routine 09/18/2024 2:26 PM EDT 36 weeks gestation of ([facility]) Third trimester ([facility]) US OB BPP W NON-STRESS 09/18/2024 8:47 AM EDT US OB FOLLOW UP TRANSABDOMINAL APPROACH Routine 09/17/2024 1:53 PM EDT induced hypertension, antepartum ([facility]) CULTURE, GROUP B STREP WITH SUSCEPTIBLITY Routine [...] Routine 09/04/2024 3:02 PM EDT Third trimester ([facility]) US OB BPP W NON-STRESS 09/04/2024 8:01 AM EDT US OB BPP W NON-STRESS 08/28/2024 8:09 AM EDT US OB BPP W NON-STRESS 08/21/2024 7:59 AM EDT POCT URINALYSIS DIPSTICK Routine 08/20/2024 12:08 PM EDT Third trimester ([facility]) US OB FOLLOW UP TRANSABDOMINAL APPROACH Routine 08/20/2024 11:19 AM EDT Hypertension during in third trimester, unspecified hypertension in type ([facility]) US OB BPP W NON-STRESS 08/13/2024 9:44 PM EDT US OB BPP W NON-STRESS 08/06/2024 7:39 PM EDT US OB BPP W NON-STRESS 07/31/2024 9:08 AM EDT POCT URINALYSIS DIPSTICK Routine 07/24/2024 4:03 PM EDT 28 weeks gestation of ([facility]) Third trimester ([facility]) US OB FOLLOW UP TRANSABDOMINAL APPROACH Routine 07/24/2024 3:21 PM EDT induced hypertension, antepartum ([facility]) US OB BPP W NON-STRESS 07/23/2024 9:58 PM EDT from Last 3 Months Results * (ABNORMAL) ALL CBC WITH AUTO DIFF (09/29/2024 6:13 AM EDT) [facility]H WBC 9.4 4.0 - 11.0 10 3/uL TBH TBH RBC 3.35(L) 4.20 - 5.40 10 6/uL TBH TBH HGB 10.3(L) 12.0 - 16.0 g/dL TBH TBH HCT 30.4(L) 36.0 - 48.0 % TBH TBH MCV 90.7 81.0 - 99.0 fL TBH TBH MCH 30.7 26.7 - 34.0 pg TBH TBH MCHC 33.9 29.9 - 35.2 g/dL TBH TBH RDW 14.1 11.0 - 15.0 % TBH TBH PLT 174 150 - 450 10 3/uL TBH TBH MPV 11.6 9.5 - 13.5 fL TBH NEUTROPHILS PERCENT AUTO 71.1 43.0 - 75.0 % TBH LYMPHOCYTES PERCENT AUTO 20.6 20.5 - 60.0 % TBH MONOCYTES PERCENT AUTO 5.8 1.7 - 12.0 % TBH TBH EO % 1.6 0.9 - 7.0 % TBH BASOPHILS PERCENT AUTO 0.4 0.2 - 2.0 % TBH IMMATURE GRANULOCYTES PCT AUTO 0.5 0.0 - 0.5 % TBH NEUTROPHILS ABSOLUTE AUTO 6.7(H) 1.4 - 6.5 10 3/uL TBH LYMPHOCYTES ABSOLUTE AUTO 1.9 1.2 - 3.8 10 3/uL TBH MONOCYTES ABSOLUTE AUTO 0.5 0.3 - 0.8 10 3/uL TBH TBH EO # 0.2 0.0 - 0.7 10 3/uL TBH BASOPHILS ABSOLUTE AUTO 0.0 0.0 - 0.1 10 3/uL TBH IMMATURE GRANULOCYTES ABS AUTO 0.05(H) 0.00 - 0.03 10 3/uL TBH 09/29/2024 6:13 AM EDT 09/29/2024 6:22 AM EDT Narrative CLINISYNC - 09/29/2024 6:28 AM EDT us Curt Fede DO [facility] Final [facility] ([facility] CBC WITH PLATELET NO DIFFERENTIAL (09/26/2024 7:39 PM EDT) Pathologist [facility] TB WBC 9.6 4.0 - 11.0 10 3/uL TBH TBH RBC 3.81(L) 4.20 - 5.40 10 6/uL TBH TBH HGB 11.5(L) 12.0 - 16.0 g/dL TBH TBH HCT 34.2(L) 36.0 - 48.0 % TBH TBH MCV 89.8 81.0 - 99.0 fL TBH TBH MCH 30.2 26.7 - 34.0 pg TBH TBH MCHC 33.6 29.9 - 35.2 g/dL TBH TBH RDW 13.6 11.0 - 15.0 % TBH TBH PLT 216 150 - 450 10 3/uL TBH TBH MPV 11.5 9.5 - 13.5 fL TBH 09/26/2024 7:39 PM EDT 09/26/2024 7:51 PM EDT Narrative CLINISYNC - 09/26/2024 8:02 PM EDT us Curt Fede DO [facility]IS[facility]NC Final Result [facility] TB DRUG SCREEN RAPID (URINE) (09/26/2024 6:40 PM EDT) CANNABINOID SCREEN URINE NEGATIVE NEGATIVE TB PHENCYCLIDINE SCREEN URINE NEGATIVE NEGATIVE TBH COCAINE SCREEN URINE NEGATIVE NEGATIVE TBH METHAMPHETAMINES SCREEN URINE NEGATIVE NEGATIVE TBH OPIATE SCREEN URINE NEGATIVE NEGATIVE TBH AMPHETAMINE SCREEN URINE NEGATIVE NEGATIVE TBH BENZODIAZEPINES SCREEN URINE NEGATIVE NEGATIVE TBH TRICYCLIC ANTIDEPRESSANT URINE NEGATIVE NEGATIVE TBH METHADONE SCREEN URINE NEGATIVE NEGATIVE TBH BARBITURATES SCREEN URINE NEGATIVE NEGATIVE TB OXYCODONE SCREEN URINE NEGATIVE NEGATIVE TBH BUPRENORPHINE SCREEN URINE NEGATIVE NEGATIVE TB Comment: DRUG CLASS TEST SYSTEM CUT-OFF CONCENTRATIONS ARE FOLLOWS: AMP (Amphetamine): 500 ng/mL BAR (Barbiturates): 200 ng/mL BZO (Benzodiazepines): 150 ng/mL BUP (Buprenorphine): 10 ng/mL SEBAS (Cocaine): 150 ng/mL mAMP (Methamphetamine): 500 ng/mL MTD (Methadone): 200 ng/mL OPI (Opiates): 100 ng/mL OXY (Oxycodone): 100 ng/mL PCP (Phencyclidine): 25 ng/mL THC (Cannabinoids): 50 ng/mL TCA (Trycyclic Antidepressants): 300 ng/mL 09/26/2024 6:40 PM EDT 09/26/2024 7:51 PM EDT Narrative CLINISYNC - 09/26/2024 8:19 PM EDT us Curt Mistry DO CLINISYNC Final Result [facility] * (ABNORMAL) POCT urinalysis dipstick manually resulted (09/25/2024 2:32 PM EDT) Only the most recent of6 [...] UA 6.5 5 - 9 Protein, UA Positive Negative - 1999(20) ++++ mg/dL Urobilinogen, UA 1.0 0.2 - 12 mg/dL Leukocytes, UA Negative Negative - 500+++ Pranav/mcL Nitrite, UA Negative Negative - Positive Urine 09/25/2024 2:32 PM EDT Curt Mistry DO POINT OF CARE TEST ENTER/EDIT OR DERABLES Final Result * US OB BPP W NON-STRESS (09/24/2024 9:58 PM EDT) Only the most recent of10 resultswithin the time period is included. Anatomical Region Laterality Modality Other 09/24/2024 9:58 PM EDT Narrative 09/24/2024 10:01 [place] [address] Ultrasound Report Signed Patient: FRANCISCA BUTLER MR#: [id number] : 2000 Acct:[id number] Age/Sex: 24 / F ADM Date: 09/24/24 Loc: US Attending Dr: Fina Wilson Ordering Physician: Fina Wilson Date of Service: 09/24/24 Procedure(s): US OB BPP w non-stress Accession Number(s): [id number] cc: Fina Wilson; Physician,Non-Staff M.DOwen [address] [address] Patient Name: FRANCISCA BUTLER MRN: [id number] date: 2000 Sex: F Assigned Patient Location: [facility] Current Patient Location: Accession/Order Number: [id number] Exam Date: 09/24/2024 21:58 Report Date: 09/24/2024 21:58 At the request of: FINA WILSON Procedure: US OB BPP w non-stress Ultrasound biophysical profile HISTORY: -induced hypertension Adequate breathing movement, gross body movement, tone and amniotic fluid volume for total score of 8 out of 8. The amniotic fluid index is 12.9cm within normal limits. The heart rate 148 bpm. US/US OB BPP w non-stress IMPRESSION: Adequate ultrasound biophysical profile Impression dictated by: Willam Fernández M.D. 09/24/2024 9:58 PM Dictation Location: [place] [address] Electronically authenticated by: [id number] Y Date: 09/24/2024 21:58 Dictated By: Willam Fernández D.O. Signed By: 09/24/242200 DD/ 57 TD/TT: Plaster Molder: Procedure Note Radiology, Radiologist, MD - 09/24/2024 [place] [address] Ultrasound Report Signed Patient: FRANCISCA BUTLER CMR#: [id number] : 2000Acct:[id number] Age/Sex: 24 / FADM Date: 09/24/24 Loc: US Attending Dr: Fina Wilson Ordering Physician: Fina Wilson Date of Service: 09/24/24 Procedure(s): US OB BPP w non-stress Accession Number(s): [id number] cc: Fina Wilson; Physician,Non-Staff [place] The [place] [id number] Patient Name: FRANCISCA BUTLER MRN: [id number] date: 2000 Sex: F Assigned Patient Location: [facility] Current Patient Location: Accession/Order Number: [id number] Exam Date: 09/24/2024 21:58 Report Date: 09/24/2024 21:58 At the request of: FINA WILSON Procedure: US OB BPP w non-stress Ultrasound biophysical profile HISTORY: -induced hypertension Adequate breathing movement, gross body movement, tone and amniotic fluid volume for total score of 8 out of 8. The amniotic fluidindex is 12.9cm within normal limits. The heart rate 148 bpm. US/US OB BPP w non-stress IMPRESSION: Adequate ultrasound biophysical profile Impression dictated by: Willam Fernández M.D. 09/24/2024 9:58 PM Dictation [facility] Electronically authenticated by: [id number] Y Date: :58 Dictated By: Willam Fernández D.O. Signed By:09/24/242200 DD/ 57 TD/TT: Plaster Molder: us Fina Wilson NP [facility] IMAGING Final Resul t * US [...] BLOOD ORDERABLES Final Resul t EXTERNAL LAB from [place] [phone]
--- OUTSIDE RECORDS SUMMARY | 2024-10-16 14:27 | XMS_ITS | Encounter Summary ---
Author Organization [facility] Address [address] [place] [address] Care Team Providers Care Product Development Worker Name Role Phone Unavailable Primary Care Provider Unavailabl e Encounter Details Date Type Department Care Team (Late st Contact Info) Description 09/28/2024 Abstract [facility]OWN [address] [facility] [place] [phone] Curt Mistry DO [address] [facility] [address] [place], [place] [phone] Social History Tobacco Use Types Packs/Day Years [...] 1:20 PM EDT Visit NOM[facility]usha BROWN [address] [facility] [place] [phone] Curt Mistry DO [address] [place], [place] [phone] documented as of this encounter Visit Diagnoses Not on filedocumented in this encounter
--- NOTE | 2024-10-16 14:43 | ECG_ITS ---
The 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 Measurements Intervals [place] Rate: 128 P: 65 IA: 116 QRS: 82 QRSD: 70 T: 52 QT: 274 QTc: 350 Interpretive Statements 1120 Sinus tachycardia 2210 Short IA interval 4068 Nonspecific Twave abnormality 8305 Short QTc interval 9150 abnormal ECG No previous ECG available for comparison Electronically Signed On 10-17-2024 19:25:13 EDT by YARED KENT M.D.
--- NOTE | 2024-10-16 14:49 | CT_ITS ---
The [address] [address] Patient Name: FRANCISCA MÉNDEZ MRN: [id number] date: 2000 Sex: F Assigned Patient Location: ER Current Patient Location: ER Accession/Order Number: [id number] Exam Date: 10/16/2024 16:00 Report Date: 10/16/2024 16:09 At the request of: SHIV WERNER Procedure: CT angio chest CTA Chest TECHNIQUE: Axial imaging with 2-D and 3-D reconstruction. 100 cc of Omnipaque [address] exam was performed using one or more the following dose reduction techniques: Automated exposure control, adjustment of the MA and/or Kv according to patient size, or use of the iterative reconstruction technique. History: Fever. Right mastoiditis. Nausea. Vomiting. Shortness of breath. . COMPARISON: None THYROID: Unremarkable TRACHEA AND BRONCHI: Patent ESOPHAGUS: Unremarkable. HEART: Within normal limits PERICARDIAL EFFUSION: None CORONARY ARTERY CALCIFICATION: None MEDIASTINUM: No adenopathy. No pneumoperitoneum. No mediastinal hematoma. PULMONARY YANET: No hilar mass or adenopathy is seen. THORACIC AORTA no aortic aneurysm or dissection PULMONARY EMBOLUS: No pulmonary embolus LUNG NODULE None LUNGS: Lungs are clear PLEURAL EFFUSION: None PNEUMOTHORAX: No pneumothorax seen. CHEST WALL: No abnormality AXILLA: Unremarkable BONY STRUCTURES Intact UPPER ABDOMEN: Images of the upper abdomen are noncontributory. CT/CT angio chest IMPRESSION: No acute pulmonary embolus. No aortic aneurysm or dissection. No acute chest findings Impression dictated by: Willam Fernández M.D. 10/16/2024 4:09 PM Dictation Location: [employer] Electronically authenticated by: [id number] Y Date: 10/16/2024 16:09
--- NOTE | 2024-10-16 15:09 | ED.GENADUL1 ---
HPI HPI - General Adult General Chief complaint: Skin/Abscess/Foreign Body Stated complaint: SENT BY ADAL Time Seen by Provider: 10/16/24 14:20 Source: patient Mode of arrival: walk-in Limitations: no limitations History of Present Illness HPI narrative: The patient is a 20-year-old female who presents to the ED for re-evaluation of right breast pain, erythema, and systemic symptoms. She was treated here yesterday for mastitis with a dose of IV Ancef and discharged on Augmentin, but her symptoms have persisted for approximately three days. She reports fever, chills, body aches, nausea, and intermittent shortness of breath, but denies chest pain, vomiting, or nipple discharge. She has been attempting to continue . She had Tylenol 500 mg at noon today. Related Data Home Medications ?Medication ?Instructions ?Recorded ?Confirmed labetalol 200 mg tablet 200 mg PO TID 09/20/24 10/15/24 acetaminophen 500 mg capsule 500 mg PO ONCE PRN fever or pain 10/15/24 10/15/24 ibuprofen 200 mg tablet (Advil) 400 mg PO ONCE PRN fever or pain 10/15/24 10/15/24 Previous Rx's ?Medication ?Instructions ?Recorded amoxicillin 875 mg-potassium 1 tab PO BID #20 tabs 10/15/24 clavulanate 125 mg tablet ondansetron 4 mg disintegrating 4 mg PO Q6H PRN nausea and 10/15/24 tablet vomiting #20 tabs Allergies Allergy/AdvReac Type Severity Reaction Status Date / Time No Known Drug Allergies Allergy Verified 10/15/24 10:56 Opioid HPI Opioid Management Most Recent Opioid Data: Last Pain Scale 7 Today, 14:22 Last MAR Pain Assessment Today, 15:13 Ur Phencyclidine Scrn, (NEGATIVE) Negative 09/26/24, 18:40 PFSH PFSH Medical History (Updated 10/16/24 @ 16:49 by DEBBI ALVAREZ) Anxiety ?F41.9 - Anxiety disorder, unspecified (ICD-10) Asthma ?J45.909 - Unspecified asthma, uncomplicated (ICD-10) Gestational hypertension ?O13.9 - Gestational [-induced] hypertension without significant proteinuria, unspecified trimester (ICD-10) Surgical History (Updated 09/26/24 @ 21:24 by Norris Knutson) H/O toe surgery ?Z98.890 - Other specified postprocedural states (ICD-10) H/O right knee surgery (~2018) ?Z98.890 - Other specified postprocedural states (ICD-10) Family History (Updated 09/26/24 @ 21:25 by Norris Knutson) Mother Family history of hypertension History of anxiety Father History of anxiety Social History (Updated 09/26/24 @ 22:28 by Norris Knutson) Within the past year, how often did you have a drink containing alcohol: never Within the past year, how often did you have six or more drinks on one occasion: never Score interpretation: A score less than 3 is consistent with normal alcohol consumption. Smoking status: Never smoker Non-prescribed substance use: denies use Highest level of school completed/degree received: some college, no degree Are you now , , , , never or living with a partner: In a typical week, how many times do you talk on the telephone with family, friends, or neighbors: 3 or more times per week How often do you get together with friends or relatives: 3 or more times per week How often do you attend scientology or jainism services: never Little interest or pleasure in doing things: not at all Feeling down, depressed, or hopeless: not at all Do you think of yourself as: straight/heterosexual Gender Identity: female Exam Constitutional Vital Signs, click to edit/add: Last Vital Signs Temp 98.2 F 10/16/24 18:09 Pulse 104 H 10/16/24 17:50 Resp 20 10/16/24 18:09 BP 118/64 10/16/24 17:50 Pulse Ox 97 10/16/24 18:09 O2 Del Method Room Air 10/16/24 18:09 Documenting provider has reviewed patient's vital signs: yes Common normals: oriented x3 General appearance: anxious and ill appearing Orientation/consciousness: Yes awake, Yes oriented to person, Yes oriented to place and Yes oriented to time Lymph Lymphatic: lymphadenopathy Chest Chest: abnormal inspection of the chest Breast/axilla inspection: abnormal inspection of the breast Breast/axilla palpation: abnormal palpation of the breast Nipple/areola: no nipple discharge Respiratory Common normals: normal respiratory effort and clear to auscultation bilaterally Effort & inspection: able to speak in complete sentences Cardio Common normals: no murmurs Rate: tachycardic Peripheral pulses: pulses 2+ throughout GI Common normals: Normal to inspection, nondistended, normoactive bowel sounds present, soft to palpation and non-tender Neuro Common normals: oriented x3, no focal motor deficits, no sensory deficits noted and gait normal Psych Common normals: mental status grossly normal, thought process normal, cooperative, affect normal and speech normal Course Consultations Consultation #1: Dr. Mistry Time: 16:30 Vital Signs Vital signs: Vital Signs Temperature 102.6 F H 10/16/24 14:22 Pulse Rate 125 H 10/16/24 14:22 Respiratory Rate 24 H 10/16/24 14:22 Blood Pressure 145/84 H 10/16/24 14:22 Pulse Oximetry 98 10/16/24 14:22 Oxygen Delivery Method Room Air 10/16/24 14:22 Temperature 98.2 F 10/16/24 18:09 Pulse Rate 104 H 10/16/24 17:50 Respiratory Rate 20 10/16/24 18:09 Blood Pressure 118/64 10/16/24 17:50 Pulse Oximetry 97 10/16/24 18:09 Oxygen Delivery Method Room Air 10/16/24 18:09 Medical Decision Making [facility] Narrative Medical decision making narrative: 20-year-old female, 3 days status post mastitis diagnosis, presents for re-evaluation due to persistent fever, chills, body aches, nausea, and tachypnea despite prior IV Ancef and discharge on Augmentin. She reports localized right breast pain and erythema without nipple discharge. On exam, she appears ill, with right breast erythema spreading from 3?6 o?clock, mild axillary lymphadenopathy, and tenderness; no fluctuance or abscess is appreciated. She is tachycardic but normotensive, lungs clear, and abdomen soft. Labs and imaging have been ordered, including CBC, CMP, lactate, troponin, EKG, CTA (to rule out pulmonary embolism), and blood cultures. Differential includes worsening mastitis or cellulitis, early sepsis, and pulmonary embolism given her status and tachypnea. Labs show WBC 14, normal lactate, and magnesium 1.6. She remains tachycardic and febrile despite antipyretics (Tylenol and ibuprofen). CTA chest shows no acute process including negative for PE. On exam, right breast erythema and tenderness persist without fluctuance or abscess, with mild axillary lymphadenopathy. Given persistent systemic symptoms, elevated WBC, and inadequate response to oral antibiotics, the patient will be admitted for management of mastitis and early sepsis. She will continue IV Unasyn, IV fluids, and antiemetics (Zofran) under the care of Dr. Mistry, with close monitoring for clinical improvement and escalation if needed. Medical Records Medical records reviewed: Yes I reviewed the patient's medical records Lab Data Lab results reviewed: Yes I reviewed the patient's lab results Labs: Lab Results 10/16/24 Range/Units 14:40 WBC 14.5 H (4.0-11.0) 10^3/uL RBC 4.20 (4.20-5.40) 10^6/uL Hgb 12.8 (12.0-16.0) g/dL Hct 37.1 (36.0-48.0) % MCV 88.3 (81.0-99.0) fL MCH 30.5 (26.7-34.0) pg MCHC 34.5 (29.9-35.2) g/dL RDW 13.1 (11.0-15.0) % Plt Count 228 (150-450) 10^3/uL MPV 11.8 (9.5-13.5) fL Neut % (Auto) 85.3 H (43.0-75.0) % Lymph % (Auto) 6.6 L (20.5-60.0) % Gilmer % (Auto) 5.7 (1.7-12.0) % Eos % (Auto) 1.5 (0.9-7.0) % Baso % (Auto) 0.4 (0.2-2.0) % Neut # (Auto) 12.4 H (1.4-6.5) 10^3/uL Lymph # (Auto) 1.0 L (1.2-3.8) 10^3/uL Gilmer # (Auto) 0.8 (0.3-0.8) 10^3/uL Eos # (Auto) 0.2 (0.0-0.7) 10^3/uL Baso # (Auto) 0.1 (0.0-0.1) 10^3/uL Abs Immat Gran (auto) 0.07 H (0.00-0.03) 10^3/uL Imm/Tot Granulo (auto) 0.5 (0.0-0.5) % Sodium 134 L (136-145) mmol/L Potassium 4.0 (3.5-5.1) mmol/L Chloride 103 (98-107) mmol/L Carbon Dioxide 23.4 (21.0-32.0) mmol/L Anion Gap 11.6 BUN 12.0 (7.0-18.0) mg/dL Creatinine 0.97 (0.55-1.02) mg/dL Est GFR ( Amer) >60 (>=60 mL/min/1.73m^2) Est GFR (Non-Af Amer) >60 (>=60 mL/min/1.73m^2) BUN/Creatinine Ratio 12.4 Glucose 102 (74-106) mg/dL Lactate 1.6 (0.4-2.0) mmol/L Calcium 9.4 (8.5-10.1) mg/dL Magnesium 1.6 L (1.8-2.4) mg/dL Total Bilirubin 0.6 (0.2-1.0) mg/dL AST 16 (15-37) U/L ALT 26 (14-59) U/L Alkaline Phosphatase 89 (46-116) U/L Troponin I High Sens <4.0 L (4.0-51.3) pg/mL Total Protein 7.5 (6.4-8.2) g/dL Albumin 3.2 L (3.4-5.0) g/dL Globulin 4.3 g/dL Albumin/Globulin Ratio 0.7 Discharge Plan Discharge Chief Complaint: Skin/Abscess/Foreign Body Clinical Impression: Mastitis, Sepsis Patient Disposition: Admitted As Inpatient Time of Disposition Decision: 16:49 Condition: Fair Discharge Date/Time: 10/16/24 17:37
[2024-10-16] MEDS: ACETAMINOPHEN 500 MG TABLET 1000 MG PO ×2 (15:13→21:26)
[2024-10-16] MEDS: 0.9 % SODIUM CHLORIDE 1,000 ML 1000 ML IV (15:14)
[2024-10-16] MEDS: IBUPROFEN 400 MG TABLET PO (15:14)
[2024-10-16 15:26] LABS: Hematocrit 37.1 % (36.0-48.0); Hemoglobin 12.8 g/dL (12.0-16.0); Immature Granulocytes Abs Auto 0.07 10^3/uL (0.00-0.03); Immature Granulocytes Pct Auto 0.5 % (0.0-0.5); Lymphocytes Absolute Auto 1.0 10^3/uL (1.2-3.8); Mean Corpuscular HGB Conc 34.5 g/dL (29.9-35.2); Mean Corpuscular Hemoglobin 30.5 pg (26.7-34.0); Mean Corpuscular Volume 88.3 fL (81.0-99.0); Platelet Count 228 10^3/uL (150-450); Red Blood Count 4.20 10^6/uL (4.20-5.40); White Blood Count 14.5 10^3/uL (4.0-11.0)
[2024-10-16] MEDS: AMPICILLIN SODIUM/SULBACTAM NA 1.5 GM in 0.9 % SODIUM CHLORIDE 50 ML IV ×2 (15:37→21:31)
[2024-10-16 15:46] LABS: Alanine Aminotransferase 26 U/L (14-59); Albumin Globulin Ratio 0.7; Albumin Level 3.2 g/dL (3.4-5.0); Alkaline Phosphatase 89 U/L (46-116); Anion Gap 11.6; Aspartate Amino Transferase 16 U/L (15-37); Blood Urea Nitrogen 12.0 mg/dL (7.0-18.0); Calcium 9.4 mg/dL (8.5-10.1); Carbon Dioxide 23.4 mmol/L (21.0-32.0); Chloride 103 mmol/L (98-107); Estimated GFR (African America >60 (>=60 mL/min/1.73m^2); Estimated GFR (Non-African Ame >60 (>=60 mL/min/1.73m^2); Globulin 4.3 g/dL; Glucose 102 mg/dL (74-106); Potassium 4.0 mmol/L (3.5-5.1); Sodium 134 mmol/L (136-145); Total Protein 7.5 g/dL (6.4-8.2)
[2024-10-16 15:48] LABS: Magnesium 1.6 mg/dL (1.8-2.4)
[2024-10-16 15:49] LABS: Lactate/Lactic Acid 1.6 mmol/L (0.4-2.0)
[2024-10-16] MEDS: 0.9 % SODIUM CHLORIDE 1,641 ML 547 ML IV (17:00)
[2024-10-16] MEDS: KETOROLAC TROMETHAMINE 30 MG/ML VIAL IVP (21:24)
[2024-10-16] MEDS: LABETALOL HCL 100 MG TABLET 200 MG PO (21:26)
[2024-10-17 00:52] VITALS: BP 122/65; PULSE 93; TEMP 37.2
[2024-10-17] MEDS: 0.9 % SODIUM CHLORIDE 1,000 ML 125 ML IV (00:59)
[2024-10-17] MEDS: KETOROLAC TROMETHAMINE 30 MG/ML VIAL IVP ×2 (03:27→09:05)
[2024-10-17 03:30] VITALS: TEMP 37.1
[2024-10-17] MEDS: ACETAMINOPHEN 500 MG TABLET 1000 MG PO ×2 (03:30→09:05)
[2024-10-17] MEDS: CALCIUM CARBONATE 500 MG (200MG ELEMENTAL) TAB CHEW PO (03:31)
[2024-10-17] MEDS: AMPICILLIN SODIUM/SULBACTAM NA 1.5 GM in 0.9 % SODIUM CHLORIDE 50 ML IV ×2 (03:34→08:53)
[2024-10-17 06:05] VITALS: BP 123/72; PULSE 78
[2024-10-17] MEDS: LABETALOL HCL 100 MG TABLET 200 MG PO (06:06)
[2024-10-17 06:46] LABS: Hematocrit 32.3 % (36.0-48.0); Hemoglobin 10.4 g/dL (12.0-16.0); Immature Granulocytes Abs Auto 0.02 10^3/uL (0.00-0.03); Immature Granulocytes Pct Auto 0.2 % (0.0-0.5); Lymphocytes Absolute Auto 1.2 10^3/uL (1.2-3.8); Mean Corpuscular HGB Conc 32.2 g/dL (29.9-35.2); Mean Corpuscular Hemoglobin 29.4 pg (26.7-34.0); Mean Corpuscular Volume 91.2 fL (81.0-99.0); Platelet Count 190 10^3/uL (150-450); Red Blood Count 3.54 10^6/uL (4.20-5.40); White Blood Count 8.1 10^3/uL (4.0-11.0)
[2024-10-17 08:58] VITALS: BP 125/77; PULSE 68; TEMP 36.6
--- NOTE | 2024-10-17 11:30 | P.DS_ITS ---
DS: Providers Provider Date of admission: 10/16/24 17:36 Primary care physician: Non-Staff Physician, Admitting clinician: Curt Mistry Attending physician on admission: Curt Mistry Attending physician on discharge: Curt Mistry Discharging clinician: Curt Mistry Anticipated date of discharge: 10/18/24 DS: Diagnosis Discharge Diagnosis (1) Mastitis: Assessment and plan: iv abx, labs reviewed, r/o sepsis, pain control (2) Leukocytosis: Assessment and plan: improving with abx Plan dc home after 24hrs afebril, dc home with oral abx, precuations given OB - DS: Summary Hospital Course Hospital Course: as expected Time spent discussing smoking cessation with patient: 3 to 10 minutes Complications complications: other (mastitis) Status at Discharge Functional status at discharge: independent ambulation Overall status at discharge: patient is back to baseline Time Spent with Patient Time attestation: Total time spent providing and/or coordinating discharge services: Time spent: less than 30 minutes Exam Constitutional Vital Signs, click to edit/add: Last Vital Signs Temp 97.9 F 10/17/24 08:58 Pulse 68 10/17/24 08:58 Resp 16 10/17/24 00:52 BP 125/77 10/17/24 08:58 Pulse Ox 97 10/16/24 18:09 O2 Del Method Room Air 10/17/24 09:26 Documenting provider has reviewed patient's vital signs: yes Common normals: no apparent distress Respiratory Common normals: normal respiratory effort and clear to auscultation bilaterally Cardio Common normals: regular rate and regular rhythm GI Common normals: Normal to inspection, nondistended, normoactive bowel sounds present Extremity Common normals: no clubbing, cyanosis or edema and no calf tenderness Discharge Plan Discharge Disposition: Home, Self-Care Condition: Good Discharge Medications: Continued labetalol 200 mg tablet 200 mg PO TID amoxicillin-pot clavulanate 875-125 mg tablet 1 tab PO BID Qty: 20 0RF ondansetron 4 mg tablet,disintegrating 4 mg PO Q6H PRN (Reason: nausea and vomiting) Qty: 20 0RF Print Language: Turkmen Patient Instructions: Mastitis (DC) Forms: Portal Instructions Follow Up Appointments: Follow up with Dr. Mistry in one week in his office - call to schedule Discharge Date/Time: 10/17/24 11:30
== END 2024-10-17 11:30 | disposition home or self-care (01) | DRG 776 ==
LOC: ER 16:49 → FBC 17:40
PROVIDERS: Physician Assistant; Admitting Provider Obstetrics & Gynecology; Emergency Provider Emergency Medicine; Visit Provider Obstetrics & Gynecology
DX: O91.22 Nonpurulent mastitis associated with the puerperium (principal); O90.89 Other complications of the puerperium, not elsewhere classified; D72.829 Elevated white blood cell count, unspecified
CPT/HCPCS: 36415; 71275; 80053; 83605; 83735; 84484; 85025; 87040; 93005; 96365; 96375; 99285; J0295; J1885; J2405; Q9967

== ENCOUNTER 2024-10-21 08:37 | Outpatient (OUT) | payer OTHER, SELFPAY ==
--- NOTE | 2024-10-21 15:32 | PC.NURSE ---
Mary and 3 week old Hao arrive for follow up post mastitis infection. Mary was seen in ED and had overnight stay for IV antibiotics due to mastitis in Right breast. Today breast is without inflammation, no redness, or pain reported. States I do feel like I am trying to get a plugged duct on occasion. Encouraged to start taking Bullard lecithin supplements . States started taking it today. Discussed hands on pumping or feeding, supportive bra without wires and frequent emptying of breasts. Verbalized understanding. Hao weighed 8-11 today. No concern or questions about baby at this time. Aware of [facility]OM[facility] group and to call for concerns. Leaves ambulatory for home.
== END 2024-10-21 15:37 | disposition home or self-care (01) ==
LOC: FBCO 08:38
PROVIDERS: Visit Provider Obstetrics & Gynecology
DX: Z39.1 Encounter for care and examination of lactating mother (principal)

== ENCOUNTER 2024-12-10 15:18 | Outpatient (OUT) | payer OTHER, SELFPAY ==
--- OUTSIDE RECORDS SUMMARY | 2024-12-10 15:20 | XMS_ITS | Encounter Summary ---
Author Organization [facility] Address [address] [place] [address] Care Team Providers Care Tech Intern Name Role Phone Unavailable Primary Care Provider Unavailabl e Encounter Details Date Type Department Care Team (Late st Contact Info) Description 04/17/2024 Abstract [facility] [address] [facility] [place] [address] Tiffanie Loza LPN Social History Tobacco [...] Department Care Team (Late Contact Info) Description 05/20/2025 8:30 AM EDT Procedure Visit [facility] [address] [facility] [place] [address] Curt Mistry DO [address] [facility] [address] [place], [place] [phone] documented as of this encounter Visit Diagnoses Not on filedocumented in this encounter
--- OUTSIDE RECORDS SUMMARY | 2024-12-10 15:20 | XMS_ITS | Encounter Summary ---
Author Organization [facility] Address [address] [place] [address] Care Team Providers Care Forest Fire Equipment Operator Name Role Phone Unavailable Primary Care Provider Unavailabl e Encounter Details Date Type Department Care Team (Late st Contact Info) Description 09/28/2024 Abstract [facility] [address] [facility] [place] [phone] Curt Mistry DO [address] [facility] [address] [place], [place] [id number] Social History Tobacco Use Types Packs/Day Years [...] Care Team (Late st Contact Info) Description 05/20/2025 8:30 AM EDT Procedure Visit [facility] [address] [facility] [place] [phone] Curt Mistry DO [address] [place] [address] [place], [place] [id number] documented as of this encounter Visit Diagnoses Not on filedocumented in this encounter
--- OUTSIDE RECORDS SUMMARY | 2024-12-10 15:20 | XMS_ITS | Encounter Summary ---
Author Organization [facility] Address [address] [facility] [place] [address] Care Team Providers Care Butcher Assistant Name Role Phone Unavailable Primary Care Provider Unavailabl e Encounter Details Date Type Department Care Team (Late st Contact Info) Description 09/29/2024 Abstract [facility] [address] [place] [phone] Simona Aleman CNM [address] [place] [address] Social History Tobacco Use Types Packs/Day Years [...] 05/20/2025 8:30 AM EDT Procedure Visit [facility] [place] [facility] [address] [place] [phone] Curt Mistry DO [address] [place] [address] documented as of this encounter Visit Diagnoses Not on filedocumented in this encounter
--- OUTSIDE RECORDS SUMMARY | 2024-12-10 15:20 | XMS_ITS | Encounter Summary ---
Author Organization [facility] Address [address] [place] [address] Care Team Providers Care Ocean Export Account Manager Name Role Phone Unavailable Primary Care Provider Unavailabl e Encounter Details Date Type Department Care Team (Late st Contact Info) Description 09/28/2024 Abstract [facility] [address] [facility] [place] [phone] Curt Mistry DO [address] [facility] [address] [place] [place], [place] [id number] Social History Tobacco Use Types Packs/Day Years [...] EDT Procedure Visit [facility] [address] [facility] [place] [phone] Curt Mistry DO [address] [place] [place], [place] [id number] documented as of this encounter Visit Diagnoses Not on filedocumented in this encounter
--- OUTSIDE RECORDS SUMMARY | 2024-12-10 15:20 | XMS_ITS | Encounter Summary ---
Author Organization [facility] Address [address] [place] [address] Care Team Providers Care Wind Instrument Repairer Name Role Phone Unavailable Primary Care Provider Unavailabl e Encounter Details Date Type Department Care Team (Late st Contact Info) Description 03/26/2024 Abstract [facility] [address] [facility] [place] [phone] Curt Mistry DO [address] [facility] [address] [place], [place] [id number] Social History Tobacco Use Types Packs/Day Years [...] AM EDT Procedure Visit [facility] [address] [facility] [place] [phone] Curt Mistry DO [address] [place], [place] [id number] documented as of this encounter Visit Diagnoses Not on filedocumented in this encounter
--- OUTSIDE RECORDS SUMMARY | 2024-12-10 15:20 | XMS_ITS | Encounter Summary ---
Author Organization [facility] Address [address] [place] [address] Care Team Providers Care Irrigation System Installer Name Role Phone Unavailable Primary Care Provider Unavailabl e Encounter Details Date Type Department Care Team (Late st Contact Info) Description 04/03/2024 Abstract [facility] [address] [facility] [place] [phone] Curt Mistry DO [address] [facility] [address] [place] [place], [place] [phone] Social History Tobacco Use Types Packs/Day Years [...] AM EDT Procedure Visit [facility] [address] [facility] [place] [phone] Curt Mistry DO [address] [place] [address] [place], [place] [phone] documented as of this encounter Visit Diagnoses Not on filedocumented in this encounter
--- OUTSIDE RECORDS SUMMARY | 2024-12-10 15:20 | XMS_ITS | Encounter Summary ---
Author Organization [facility] Address [address] [place] [address] Care Team Providers Care Information Strategist Name Role Phone Unavailable Primary Care Provider Unavailabl e Encounter Details Date Type Department Care Team (Late Contact Info) Description 05/20/2024 Orders Only [facility] [address] [facility] [place] [phone] Rosa Cueva [place] [address] [facility] [address] [place] [address] Social History Tobacco Use Types Packs/Day Years [...] Description 05/20/2025 8:30 AM EDT Procedure Visit [facility] [address] [facility] [place] [address] Curt Mistry DO [address] [facility] [address] [place], [place] [phone] documented as of this encounter Procedures Procedure [...]
--- OUTSIDE RECORDS SUMMARY | 2024-12-10 15:20 | XMS_ITS | Clinical Summary ---
Author Organization [facility] Address [address] [place] [address] Care Team Providers Care Enchilada Maker Name Role Phone Unavailable Primary Care Provider Unavailabl e Allergies No known active allergies Medications ondansetron ODT (Zofran-ODT) 4 MG disintegrating tablet Take 4 mg by mouth every 8 (eight) hours if needed for nausea or vomiting Active norethindrone (Micronor) 0.35 MG tabletIndications: 6 weeks follow-up ([facility]) Take 1 tablet (0.35 mg) by mouth Daily 84 tablet 3 11/12/19 25 025 Active labetalol (Normodyne) 200 MG tabletIndications: Third trimester ([facility]),Essentia l hypertension during , delivered ([facility]),Pregnanc y induced hypertension, antepartum ([facility]),Pre-ecla mpsia in third trimester ([facility]) Take 1 tablet (200 mg) by mouth in the morning and 1 tablet (200 mg) in the evening and 1 tablet (200 mg) before bedtime. 10/17/19 25 025 Discontinued amoxicillin-clavul anate (Augmentin) 875-125 MG tablet Take 875 mg by mouth in the morning and 875 mg before bedtime. 025 Discontinued Encounters Date Type Department Care Team Description 11/11/2024 1:20 PM EDT Visit [facility] [address] [place] [address] [place] [phone] Curt Mistry, 6 weeks follow-up ([facility]) 10/17/2024 Clinisync Result Encounter [facility] External Department Unsolicited Curt Mistry, DO 10/16/2024 1:30 [place] [address] Curt Mistry DO Blood pressure check; Third trimester ([facility]); Essential hypertension during , delivered ([facility]); induced hypertension, antepartum ([facility]); Pre-eclampsia in third trimester ([facility]) 10/16/2024 [place] [address] Fina Sarmiento LPN 10/09/2024 1:10 [place] [address] Curt Mistry, Third trimester ([facility]); Essential hypertension during , delivered ([facility]); induced hypertension, antepartum ([facility]); Pre-eclampsia in third trimester ([facility]) 09/29/2024 Abstract [facility] [address] [place] [phone] Simona Aleman CN 09/29/2024 Clinisync Result Encounter [facility] External Department Unsolicited Curt Mistry, DO 09/28/2024 Abstract [facility] [address] [place] [address] Curt Mistry, DO 09/28/2024 [place] [address] Curt Mistry, DO 09/28/2024 Abstract [facility] [address] [place] [address] Curt Mistry, DO 09/26/2024 Clinisync Result Encounter [facility] External Department Unsolicited Curt Mistry, DO 09/25/2024 2:10 PM EDT Routine [facility] [address] [facility] [place] [address] Curt Mistry, DO Third trimester ([facility]); 37 weeks gestation of ([facility]) 09/25/2024 Bamboo flowsheet [facility] [address] [place] [phone] Curt Mistry, DO 09/24/2024 Clinisync Result Encounter [facility] External Department Unsolicited Fina Wilson NP 09/18/2024 2:00 PM EDT Routine [facility] [address] [place] [address] Curt Mistry, DO 36 weeks gestation of ([facility]); Third trimester ([facility]); Hypertension during in third trimester, unspecified hypertension in type ([facility]); Pre-eclampsia in third trimester ([facility]) 09/18/2024 Clinisync Result Encounter [facility] External Department Unsolicited Fina Wilson NP 09/17/2024 1:30 PM EDT Ancillary Procedure [facility] [address] [place] [address] induced hypertension, antepartum ([facility]) 09/11/2024 3:20 PM EDT Routine [facility] [address] [facility] [place] [address] Hedy Ortega PA 35 weeks gestation of ([facility]); Third trimester ([facility]); Hypertension during in third trimester, unspecified hypertension in type ([facility]); induced hypertension, antepartum ([facility]); Pre-eclampsia in third [...] Sign Reading Time Taken Comments Blood Pressure 130/84 11/11/2024 1:36 PM EDT Pulse 137 10/16/2024 1:52 PM EDT Temperature - - Respiratory Rate - - Oxygen Saturation - - Inhaled Oxygen Concentration - - Weight 78.5 kg (173 lb 1.9 oz) 11/11/2024 1:36 P M EDT Height 162.6 cm (5' 4 ) 08/20/2024 11:48 AM EDT Body Mass Index 29.72 08/20/2024 11:48 AM EDT Plan of Treatment Upcoming Encounters Date Type Department Care Team (Late st Contact Info) Description 05/20/2025 8:30 AM EDT Procedure Visit [facility] [address] [place] [phone] Curt Mistry DO [address] [facility] [place] [address] Procedures Procedure Name Priority Date/Time Associated Diagnosis Comments ALL CBC WITH AUTO DIFF Routine 5 6:26 AM EDT ALL CBC WITH AUTO DIFF Routine 5 6:13 AM EDT [facility] CBC WITH PLATELET NO DIFFERENTIAL Routine 09/26/2024 7:39 PM EDT TB DRUG SCREEN RAPID (URINE) Routine 09/26/2024 6:40 PM EDT POCT URINALYSIS DIPSTICK Routine 09/25/2024 2:32 PM EDT Third trimester ([facility]) 37 weeks gestation of ([facility]) US OB BPP W NON-STRESS 09/24/2024 9:58 PM EDT POCT URINALYSIS DIPSTICK Routine 09/18/2024 2:26 PM EDT 36 weeks gestation of ([facility]) Third trimester ([facility]) US OB BPP W NON-STRESS 09/18/2024 8:47 [...] BPP W NON-STRESS 09/11/2024 7:16 AM EDT from Last 3 Months Results * (ABNORMAL) ALL CBC WITH AUTO DIFF (10/17/2024 6:26 AM EDT) Only the most recent of2 resultswithin the time period is included. TBH WBC 8.1 4.0 - 11.0 10 3/uL TBH TBH RBC 3.54(L) 4.20 - 5.40 10 6/uL TBH TBH HGB 10.4(L) 12.0 - 16.0 g/dL TBH TBH HCT 32.3(L) 36.0 - 48.0 % TBH TBH MCV 91.2 81.0 - 99.0 fL TBH TBH MCH 29.4 26.7 - 34.0 pg TBH TBH MCHC 32.2 29.9 - 35.2 g/dL TBH TBH RDW 13.2 11.0 - 15.0 % TBH TBH PLT 190 150 - 450 10 3/uL TBH TBH MPV 11.2 9.5 - 13.5 fL TBH NEUTROPHILS PERCENT AUTO 71.9 43.0 - 75.0 % TBH LYMPHOCYTES PERCENT AUTO 14.7(L) 20.5 - 60.0 % TBH MONOCYTES PERCENT AUTO 9.5 1.7 - 12.0 % TBH TBH EO % 3.5 0.9 - 7.0 % TBH BASOPHILS PERCENT AUTO 0.2 0.2 - 2.0 % TBH IMMATURE GRANULOCYTES PCT AUTO 0.2 0.0 - 0.5 % TBH NEUTROPHILS ABSOLUTE AUTO 5.8 1.4 - 6.5 10 3/uL TBH LYMPHOCYTES ABSOLUTE AUTO 1.2 1.2 - 3.8 10 3/uL TBH MONOCYTES ABSOLUTE AUTO 0.8 0.3 - 0.8 10 3/uL TBH TBH EO # 0.3 0.0 - 0.7 10 3/uL TBH BASOPHILS ABSOLUTE AUTO 0.0 0.0 - 0.1 10 3/uL TBH IMMATURE GRANULOCYTES ABS AUTO 0.02 0.00 - 0.03 10 3/uL TBH 10/17/2024 6:26 AM EDT 10/17/2024 6:40 AM EDT Narrative CLINISYNC - 10/17/2024 6:50 AM EDT us Curt Fede DO CLINISYNC Final Result [facility] * (ABNORMAL) [facility] CBC WITH PLATELET NO DIFFERENTIAL (09/26/2024 7:39 PM EDT) [facility] TB WBC 9.6 4.0 - 11.0 10 3/uL TBH TBH RBC 3.81(L) 4.20 - 5.40 10 6/uL TBH TBH HGB 11.5(L) 12.0 - 16.0 g/dL TB TBH HCT 34.2(L) 36.0 - 48.0 % TB TB MCV 89.8 81.0 - 99.0 fL TB TB MCH 30.2 26.7 - 34.0 pg TBH TB MCHC 33.6 29.9 - 35.2 g/dL TB TB RDW 13.6 11.0 - 15.0 % TB TBH PLT 216 150 - 450 10 3/uL TBH TB MPV 11.5 9.5 - 13.5 fL TB 09/26/2024 7:39 PM EDT 09/26/2024 7:51 PM EDT Narrative CLINISYNC - 09/26/2024 8:02 PM EDT Curt Fede DO CLINISYNC Final Result CLINISYNC TB * TB DRUG SCREEN RAPID (URINE) (09/26/2024 6:40 PM EDT) Pathologist [facility] CANNABINOID SCREEN URINE NEGATIVE NEGATIVE TBH PHENCYCLIDINE SCREEN URINE NEGATIVE NEGATIVE TBH COCAINE SCREEN URINE NEGATIVE NEGATIVE TBH METHAMPHETAMINES SCREEN URINE NEGATIVE NEGATIVE TBH OPIATE SCREEN URINE NEGATIVE NEGATIVE TBH AMPHETAMINE SCREEN URINE NEGATIVE NEGATIVE TBH BENZODIAZEPINES SCREEN URINE NEGATIVE NEGATIVE TBH TRICYCLIC ANTIDEPRESSANT URINE NEGATIVE NEGATIVE TBH METHADONE SCREEN URINE NEGATIVE NEGATIVE TBH BARBITURATES SCREEN URINE NEGATIVE NEGATIVE TBH OXYCODONE SCREEN URINE NEGATIVE NEGATIVE TBH BUPRENORPHINE SCREEN URINE NEGATIVE NEGATIVE TBH Comment: DRUG CLASS TEST SYSTEM CUT-OFF CONCENTRATIONS [...] - 09/26/2024 8:19 PM EDT us Curt Fede DO CLINISYNC Final Result ADDY TBH * (ABNORMAL) POCT urinalysis dipstick manually resulted (09/25/2024 2:32 PM EDT) Only the most recent of3 resultswithin the time period is included. Color, UA Yellow Clarity, UA Clear Glucose, UA Negative Negative - 2000(110) ++++ mg/dL Bilirubin, UA Negative Negative - 4(70) +++ mg/dL Ketones, UA Negative Negative - 160(16) ++++ mg/dL Spec Grav, UA 1.025 1 - 1.03 Blood, UA Negative Negative - 50 Admas/mcL pH, UA 6.5 5 - 9 Protein, UA Positive Negative - 2000(20) ++++ mg/dL Urobilinogen, UA 1.0 0.2 - 12 mg/dL Leukocytes, UA Negative Negative - 500+++ Pranav/mcL Nitrite, UA Negative Negative - Positive Urine 09/25/2024 2:32 PM EDT Curt Fede DO POINT OF CARE TEST ENTER/EDIT OR DERABLES Final Result * US OB BPP W NON-STRESS (09/24/2024 9:58 PM EDT) Only the most recent of3 resultswithin the time period is included. Anatomical Region Laterality Modality Other 09/24/2024 9:58 PM EDT Narrative 09/24/2024 10:01 PM EDT [address] [address] Ultrasound Report Signed Patient: FRANCISCA MÉNDEZ MR#: [id number] : 2000 Acct:[id number] Age/Sex: 24 / F ADM Date: 09/24/24 Loc: US Attending Dr: Fina Wilson Ordering Physician: iFna Wilson Date of Service: 09/24/24 Procedure(s): US OB BPP w non-stress Accession Number(s): [id number] cc: Fina Wilson; Physician,Non-Staff Alondra The [address] [address] Patient Name: FRANCISCA MÉNDEZ MRN: [id number] date: 2000 Sex: F Assigned Patient Location: [facility] Current Patient Location: Accession/Order Number: [id number] Exam Date: 09/24/2024 21:58 Report Date: 09/24/2024 [...] Fernández M.D. 09/24/2024 9:58 PM Dictation Location: [place] [address] Electronically authenticated by: [id number] Y Date: 09/24/2024 21:58 Dictated By: Willam Fernández D.O. Signed By: 09/24/242200 DD/ 57 TD/TT: Senior Logistics Manager: Procedure Note Radiology, Radiologist, - 09/24/2024 [place] [address] Ultrasound Report Signed Patient: FRANCISCA MÉNDEZ CMR#: [id number] : 2000Acct:[id number] Age/Sex: 24 / FADM Date: 09/24/24 Loc: US Attending Dr: Fina Wilson Ordering Physician: Fina Wilson Date of Service: 09/24/24 Procedure(s): US OB BPP w non-stress Accession Number(s): [id number] cc: Fina Wilson; Physician,Non-Staff Alondra [address] [address] Patient Name: FRANCISCA MÉNDEZ MRN: [id number] date: 2000 Sex: F Assigned Patient Location: [facility] Current Patient Location: Accession/Order Number: [id number] Exam Date: 09/24/2024 21:58 Report Date: 09/24/2024 [...] Fernández M.D. 09/24/2024 9:58 PM [facility] by: [id number] Y Date: 1:58 Dictated By: Willam Fernández D.O. Signed By:09/24/242200 DD/ 57 TD/TT: Senior Logistics Manager: us Fina Wilson PASTRY [facility]OOK [facility] Final Resul t * US [...] BY: ELECTRONICALLY SIGNED BY: Mikael Nam MD Fina Wilson NP IMG OB US PROCEDURES Final Re sult * CULTURE, GROUP B STREP WITH SUSCEPTIBLITY (09/11/2024 4:09 PM EDT) Swab 09/11/2024 4:09 PM EDT us Hedy Jordan PA LAB BLOOD ORDERABLES Final Resul t EXTERNAL LAB from Last 3 Months Insurance
== END 2024-12-10 15:48 | disposition home or self-care (01) ==
LOC: FBCO 15:19
PROVIDERS: Visit Provider Obstetrics & Gynecology
DX: Z39.1 Encounter for care and examination of lactating mother (principal)